=== PATIENT | female | born 1955 | race Caucasian/White ===

== ENCOUNTER → 2018-05-26 | Outpatient (REF) | payer OTHER ==
[2018-05-26 15:00] LABS: INFLUENZA A AMPLIFICATION NEGATIVE (NEGATIVE); INFLUENZA B AMPLIFICATION NEGATIVE (NEGATIVE)
== END ==
LOC: M LAB REF 13:58
PROVIDERS: ATTEND Physician Assistant
DX: J11.1 Influenza due to unidentified influenza virus with other respiratory manifestations (principal)

== ENCOUNTER → 2019-11-22 | Outpatient (CLI) | payer BC, OTHER ==
--- NOTE | 2020-01-02 10:34 | REP ---
COMPLETE ABDOMINAL ULTRASOUND WITH DUPLEX DOPPLER EVALUATION OF PORTAL VASCULATURE: HISTORY: Cirrhosis. FINDINGS: Real time sonographic evaluation of the abdomen is performed. Gallstones are seen in the gallbladder. There is gallbladder wall thickening up to 7 mm. There is no intrahepatic or extrahepatic biliary dilatation, the common bile duct measuring 6 mm. The liver has a cirrhotic appearance with diffuse heterogeneous coarsened echotexture, which is mildly increased. The right lobe appears small in size. No gross liver mass is seen. The pancreas could not be seen due to overlying bowel gas. The spleen is enlarged, measuring 14.0 x 13.0 x 8.8 cm. The kidneys are normal in size and echotexture, the right kidney measuring 11.9 x 5.9 x 4.4 cm and the left kidney measuring 11.7 x 5.7 x 5.0 cm. There is no hydronephrosis or renal mass. The abdominal aorta could not be visualized. There is moderate abdominal ascites mainly in the right side of the abdomen and pelvis. Real time ultrasound evaluation and duplex Doppler interrogation of the portal vasculature is performed. The main portal vein is dilated at 19 mm. There is a patent umbilical vein. There is no evidence of portal vein thrombosis. The hepatic veins are not well visualized. Only the right hepatic vein could be visualized with patency and poralization of the wave form. There is normal direction of flow in the portal vasculature. The splenic vein is only seen in the region of the splenic hilum, not centrally, with a velocity of 23 cm/s. The superior mesenteric vein is not visualized. Velocity in the main portal vein is 23 cm/s. Deep systolic velocity of the main hepatic artery is 116 cm/s. IMPRESSION: Gallstones in the gallbladder. Gallbladder wall thickening up to 7 mm. No biliary dilatation. Cirrhotic liver with no gross mass. Splenomegaly. Moderate ascites. There are findings of portal hypertension with dilated main portal vein and patent umbilical vein. There is no evidence of portal vein or hepatic vein thrombosis. There is normal direction of flow in the portal vasculature. MTDD
== END ==
LOC: M RAD 06:42
PROVIDERS: ATTEND Internal Medicine Gastroenterology
DX: K70.30 Alcoholic cirrhosis of liver without ascites (principal); R18.8 Other ascites; Z12.11 Encounter for screening for malignant neoplasm of colon; K59.00 Constipation, unspecified; L50.9 Urticaria, unspecified; K80.20 Calculus of gallbladder without cholecystitis without obstruction; K76.6 Portal hypertension

== ENCOUNTER → 2019-11-28 | Outpatient (CLI) | payer BC, OTHER ==
[2019-11-28 10:51] LABS: BLOOD UREA NITROGEN 8 MG/DL (7-18); CALCIUM LEVEL 9.2 MG/DL (8.8-10.2); CARBON DIOXIDE LEVEL 27 MEQ/L (21-32); CHLORIDE LEVEL 105 MEQ/L (98-107); CREATININE FOR GFR 0.85 MG/DL (0.55-1.30); GLOMERULAR FILTRATION RATE > 60.0 (>45); GLUCOSE, FASTING 101 MG/DL (70-100); POTASSIUM SERUM 3.2 MEQ/L (3.5-5.1); SODIUM LEVEL 137 MEQ/L (136-145)
--- NOTE | 2020-01-02 10:37 | REP ---
ULTRASOUND-GUIDED PARACENTESIS The procedure was performed under the direct supervision of Dr. Parsons. The risks and benefits of the procedure were explained to the patient and informed consent was obtained. The largest pocket of fluid was localized in the right upper quadrant using ultrasound guidance. The skin was prepped and draped in a sterile fashion. 1% Lidocaine was used as a local anesthetic. Using ultrasound guidance an 8-Congolese multi-side hole catheter was inserted using trocar technique. 2500 mL of yellow fluid was withdrawn and discarded. Preliminary sonography demonstrated a 10 mm hypoechoic nodule on the peritoneal surface in the right upper quadrant. IMPRESSION: Ultrasound-guided paracentesis yielding 2500 mL of yellow fluid. Note is made of a 10 mm hypoechoic nodule on the peritoneal lining in the right upper quadrant. MTDD
== END ==
LOC: M IRPRO 09:47
PROVIDERS: ATTEND Internal Medicine Gastroenterology
DX: K70.31 Alcoholic cirrhosis of liver with ascites (principal)
CPT/HCPCS: 49083; 80048; 96365; P9047

== ENCOUNTER → 2020-03-21 | Outpatient (CLI) | payer BC, OTHER ==
[~2020-03-21] MED LIST: ADV250INH INH; ALBU83IN INH; D31000TA2 PO; FURO40TA2 PO; GASTROGRAFIN SOLUTION 30ML (Q9963) As Ordered ONE; ISOVUE-370 76% 100ML VIAL As Ordered ONE; LEVA45AE INH; LEVOTAB10 PO; NEXI20GR PO; POTA10TA17 PO; SPIR100T3 PO; VITA-158 PO; VITMTA PO
--- NOTE | 2020-03-21 10:35 | REP ---
INDICATION: NEOPLASM OF COLON. COMPARISON: None. TECHNIQUE: CT of the chest with IV contrast. FINDINGS: There are no lung nodules or masses. There are no infiltrates or pleural effusions. There are numerous bulla throughout the lung nicole bilaterally predominantly in the upper lobes. There is no mediastinal, hilar or axillary lymph node enlargement. The thoracic aorta is unremarkable. Cardiac size is normal. There is no pericardial effusion. There are no lytic, blastic destructive skeletal changes. IMPRESSION: Bolus emphysema, otherwise, essentially negative CT study of the chest. There is no evidence of metastatic disease or acute cardiopulmonary findings. <Electronically signed by Parish Lewis > 03/21/20 1327
--- NOTE | 2020-03-21 11:03 | REP ---
INDICATION: NEOPLASM OF COLON. COMPARISON: This study is form contiguously with the chest CT this same date. There are no comparison abdomen CTs. There is an abdominal ultrasound dated 11/22/2019. TECHNIQUE: CT of the abdomen and pelvis with IV and bowel contrast. The abdomen and pelvis is scanned during the portal venous phase of enhancement. The abdomen is re-scanned during the equilibrium phase of enhancement. FINDINGS: The margin of the liver is nodular compatible with cirrhosis. No hepatic masses are identified. The portal vein is dilated measuring up to 16 mm transverse diameter, compatible with portal hypertension. I suspect there are a few small splenic hilus varices. The gallbladder and pancreas are unremarkable. On the comparison abdominal ultrasound gallbladder calculi were identified and the gallbladder wall is thickened measuring up to 7 mm. These calculi are not identified by CT today, ultrasound being more sensitive. The gallbladder wall does not appear thickened today. There is no pericholecystic fluid by CT. Spleen is mildly enlarged measuring 13 cm AP diameter and 14 cm craniocaudad. There is no ascites. No mesenteric adenopathy is identified. The abdominal aorta is unremarkable. There is no periaortic adenopathy or mass. No adenopathy is identified in the isis hepatis. The adrenals and kidneys are unremarkable. There is a midline ventral hernia containing omental fat but no bowel. The peritoneal defect measures 2.6 cm and the hernia sac measures 6.4 cm. The bowel and mesentery are unremarkable. Pelvis: Uterus and adnexa are unremarkable. There is no ascites. There is no adenopathy. The pelvic bowel loops are unremarkable. There are no lytic, blastic or destructive skeletal changes. IMPRESSION: There is no evidence of adenopathy, mass, ascites or metastatic disease. Findings in the liver compatible with cirrhosis. There are no hepatic masses. There are findings compatible with portal hypertension. Splenomegaly. Fat containing ventral hernia as described. <Electronically signed by Parish Lewis > 03/21/20 1100
== END ==
LOC: M RAD 07:56
PROVIDERS: ATTEND Internal Medicine Gastroenterology
DX: R19.5 Other fecal abnormalities (principal); C18.4 Malignant neoplasm of transverse colon; J43.9 Emphysema, unspecified; R16.1 Splenomegaly, not elsewhere classified
CPT/HCPCS: 71260; 74177; Q9963; Q9967

== ENCOUNTER → 2020-04-03 | Outpatient (CLI) | payer BC ==
[~2020-04-03] MED LIST changes: -GASTROGRAFIN SOLUTION 30ML (Q9963) As Ordered ONE; -ISOVUE-370 76% 100ML VIAL As Ordered ONE
== END ==
LOC: M LABSMTC 11:47
PROVIDERS: ATTEND Anesthesiology
DX: Z01.812 Encounter for preprocedural laboratory examination (principal); Z20.828 Contact with and (suspected) exposure to other viral communicable diseases

== ENCOUNTER 2020-04-08 08:58 | Inpatient (IN) | payer BC, OTHER ==
--- NOTE | 2020-04-07 11:43 | HPE ---
HISTORY AND PHYSICAL DATE OF ADMISSION: 04/08/2020 CHIEF COMPLAINT: Colon cancer (transverse colon). BRIEF HISTORY OF PRESENT ILLNESS: The patient is a 64-year-old female who underwent colonoscopy by Dr. 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 She was referred to me for transverse colectomy. Patient has not had any lower GI symptoms, no diarrhea, no constipation, no blood per rectum. She does have a history of cirrhosis and her liver tests as well as her liver function has been improving over the last six weeks. She presents now with controlled ascites and with plans for colectomy. PAST MEDICAL HISTORY: Significant for a history of anxiety, history of depression, history of colon cancer, history of lung disease (COPD), history of cirrhosis, history of uterine ablation, history of septoplasty. MEDICATIONS: 1. Spironolactone. 2. Lasix. 3. Levalbuterol. 4. Potassium. 5. Albuterol nebulizers. 6. Levocetirizine. 7. Advair Diskus. 8. Nexium. 9. Lorazepam. PHYSICAL EXAMINATION: GENERAL: Anxious 64-year-old female who looks stated age. HEENT: Unremarkable. NECK: Supple without adenocarcinoma. LUNGS: Clear to auscultation without crackles, wheezes or rhonchi. HEART: Regular without murmur. ABDOMEN: Soft, nondistended and nontender. She has somewhat of a protuberant abdomen and does have an umbilical hernia that has some fat within it but no other significant abnormalities. IMPRESSION AND PLAN: The patient has a malignant colon cancer of the transverse colon. We have discussed laparoscopic transverse colectomy/partial colectomy with colon to colon anastomosis depending on its location. She understands the risks include but are not limited to infection, bleeding, damage to surrounding structures as well as need for open operative intervention. She understands that we will proceed with a laparoscopic transverse colectomy as the plan. She also understands because of her history of cirrhosis that she has higher comorbidities that may increase her perioperative risks as well. She does have an umbilical hernia and will use this as the extraction site and close this at the time of her surgery. She understands this and is undergoing a preoperative mechanical as well as antibiotic bowel prep. Will have preoperative IV antibiotics, ZOIE sequentials, Chan catheter placed at the time of the operation and plan for admission to the hospital for probably three to five days.
[2020-04-08] VITALS (13 sets, daily range): BP systolic 105–131; BP diastolic 50–65
[~2020-04-08] VITALS: Ht 167.6 cm; Wt 79.9 kg
[~2020-04-08 08:58] MED LIST changes: +LIDOCAINE 1% MDV 20ML VIAL SQ PRN; +LR 1,000 ML IV ONE; +cefoTEtan DISODIUM 2 GM in D5W MINI-BAG PLUS 50 ML IV ONE
[2020-04-08] MEDS ORDERED: SUGAMMADEX SODIUM 500 MG/5 ML VIAL (BRIDION) As Ordered ONE (09:51)
[2020-04-08] MEDS ORDERED: KETOROLAC 60MG 2ML VIAL As Ordered ONE (09:51)
[2020-04-08] MEDS ORDERED: dexameTHASONE 4 MG/ML 1ML VIAL (J1100 PER 1MG) As Ordered ONE (09:51)
[2020-04-08] MEDS ORDERED: ACETAMINOPHEN 1000MG 100ML IV BTL (OFIRMEV) (J0131 PER 10MG) As Ordered ONE (09:51)
[2020-04-08] MEDS ORDERED: ONDANSETRON 4MG/2ML VIAL As Ordered ONE (09:51)
[2020-04-08] MEDS ORDERED: ROCURONIUM BROMIDE 50 MG/5 ML VIAL As Ordered ONE ×2 (09:51→13:00)
[2020-04-08] MEDS ORDERED: propofoL 200 MG/20 ML VIAL As Ordered ONE (09:51)
[2020-04-08] MEDS ORDERED: LIDOCAINE 2% 100MG/5ML SDV (FOR ANES.) As Ordered ONE (09:51)
[2020-04-08] MEDS ORDERED: MIDAZOLAM INJ 2MG/2ML VIAL (J2250 PER 1MG) As Ordered ONE (09:52)
[2020-04-08] MEDS ORDERED: fentaNYL 100 MCG/2 ML INJECTION (J3010) As Ordered ONE ×2 (09:52→15:06)
[2020-04-08] MEDS ORDERED: HYDROmorphone HCL 2 MG/ML 1ML VIAL (J1170) As Ordered ONE (09:52)
[2020-04-08] MEDS ORDERED: ALBUTEROL SULFATE 2.5 MG/0.5 ML INH NEB SOLN As Ordered ONE (10:58)
[2020-04-08] MEDS ORDERED: ALBUTEROL SULFATE 2.5 MG/0.5 ML INH NEB SOLN INH ONE (11:15)
[2020-04-08] MEDS ORDERED: LIDOCAINE W/EPINEPHRINE 1% 20ML VIAL As Ordered ONE (11:43)
[2020-04-08 11:51] LABS: INR 1.42; PROTHROMBIN TIME 17.7 SECONDS (12.5-14.3)
[2020-04-08 11:52] LABS: PARTIAL THROMBOPLASTIN TIME 38.3 SECONDS (24.2-38.5)
[2020-04-08] MEDS ORDERED: cefoTEtan INJ 2GM VIAL (S0074 PER 500MG) As Ordered ONE (12:10)
[2020-04-08] MEDS ORDERED: BUPIVACAINE LIPOSOME/PF 1.3% 20ML VIAL (13.3MG/ML)(EXPAREL)(C9290 PER1MG) As Ordered ONE (14:09)
[2020-04-08] MEDS ORDERED: BUPIVACAINE HCL 0.25% 10ML VIAL As Ordered ONE (14:09)
[2020-04-08] MEDS: fentaNYL 100 MCG/2 ML INJECTION (J3010) IV PRN ×2 (14:56→15:01)
[2020-04-08] MEDS ORDERED: cefoTEtan DISODIUM 2 GM in D5W MINI-BAG PLUS 50 ML IV SCH (15:00)
[2020-04-08] MEDS ORDERED: LR 1,000 ML IV SCH (15:15)
[2020-04-08] MEDS ORDERED: oxyCODONE 5MG TAB PO PRN (15:15)
[2020-04-08] MEDS ORDERED: ONDANSETRON 4MG/2ML VIAL IV PRN (15:15)
[2020-04-08] MEDS ORDERED: METOCLOPRAMIDE INJ 10MG/2ML VIAL (J2765 PER 1) IV PRN (15:15)
[2020-04-08] MEDS: HYDROMORPHONE HCL 0.5 MG/ 0.5 ML SYRINGE (J1170 PER 1) IV PRN ×2 (15:53→16:05)
[2020-04-08] MEDS: NS 1,000 ML IV SCH (17:16)
[2020-04-08 17:44] LABS: HEMATOCRIT 31.1 % (36.0-47.0); HEMOGLOBIN 10.6 g/dl (12.0-15.5); MEAN CORPUSCULAR HEMOGLOBIN 33.1 pg (27.0-33.0); MEAN CORPUSCULAR HGB CONC 34.1 g/dl (32.0-36.5); MEAN CORPUSCULAR VOLUME 97.2 fl (80.0-96.0); PLATELET COUNT, AUTOMATED 103 10^3/uL (150-450); WHITE BLOOD COUNT 4.9 10^3/uL (4.0-10.0)
[2020-04-08 17:54] LABS: INR 1.34; PROTHROMBIN TIME 16.9 SECONDS (12.5-14.3)
[2020-04-08 17:55] LABS: PARTIAL THROMBOPLASTIN TIME 35.7 SECONDS (24.2-38.5)
[2020-04-08] MEDS: ADVAIR HFA 115/21MCG INHALER INH SCH (20:53)
[2020-04-08] MEDS: ALVIMOPAN 12 MG CAPSULE (ENTEREG) PO SCH (21:36)
[2020-04-08 22:05] LABS: HEMATOCRIT 26.2 % (36.0-47.0)
[2020-04-08 22:07] LABS: HEMOGLOBIN 8.5 g/dl (12.0-15.5)
[2020-04-08] MEDS: ALBUTEROL SULFATE 2.5 MG/0.5 ML INH NEB SOLN NEB PRN (23:33)
[2020-04-09] VITALS (41 sets, daily range): BP systolic 99–127; BP diastolic 55–82
[2020-04-09] MEDS ORDERED: cefoTEtan DISODIUM 2 GM in D5W MINI-BAG PLUS 50 ML IV SCH ×2
[2020-04-09 00:14] LABS: INR 1.37; PROTHROMBIN TIME 17.2 SECONDS (12.5-14.3)
[2020-04-09 00:15] LABS: PARTIAL THROMBOPLASTIN TIME 33.7 SECONDS (24.2-38.5)
[2020-04-09 00:19] LABS: BASO % 0.1 % (0.0-1.0); HEMATOCRIT 24.2 % (36.0-47.0); HEMOGLOBIN 8.3 g/dl (12.0-15.5); LYMPH # 0.4 10^3/uL (1.5-5.0); LYMPH % 4.3 % (24.0-44.0); MEAN CORPUSCULAR HEMOGLOBIN 32.8 pg (27.0-33.0); MEAN CORPUSCULAR HGB CONC 34.3 g/dl (32.0-36.5); MEAN CORPUSCULAR VOLUME 95.7 fl (80.0-96.0); MONO # 0.8 10^3/uL (0.0-0.8); MONO % 8.5 % (0.0-5.0); NEUTROPHILS # 8.6 10^3/uL (1.5-8.5); NEUTROPHILS % 86.2 % (36.0-66.0); PLATELET COUNT, AUTOMATED 190 10^3/uL (150-450); RED BLOOD COUNT 2.53 10^6/uL (4.00-5.40); WHITE BLOOD COUNT 9.9 10^3/uL (4.0-10.0)
[2020-04-09] MEDS: MORPHINE 2 MG/ML 1ML VIAL (J2270) IV PRN ×3 (01:01→21:35)
[2020-04-09] MEDS ORDERED: LORazepam 0.5 MG TAB PO PRN (01:30)
[2020-04-09] MEDS: NS 1,000 ML IV SCH ×3 (04:22→18:15)
[2020-04-09] MEDS: ONDANSETRON 4MG/2ML VIAL IV PRN ×2 (06:21→21:45)
[2020-04-09] MEDS: ALBUTEROL SULFATE 2.5 MG/0.5 ML INH NEB SOLN NEB PRN ×2 (06:24→19:39)
[2020-04-09 06:46] LABS: HEMATOCRIT 22.9 % (36.0-47.0); HEMOGLOBIN 7.6 g/dl (12.0-15.5); MEAN CORPUSCULAR HEMOGLOBIN 30.8 pg (27.0-33.0); MEAN CORPUSCULAR HGB CONC 33.2 g/dl (32.0-36.5); MEAN CORPUSCULAR VOLUME 92.7 fl (80.0-96.0); PLATELET COUNT, AUTOMATED 143 10^3/uL (150-450); RED BLOOD COUNT 2.47 10^6/uL (4.00-5.40); WHITE BLOOD COUNT 11.3 10^3/uL (4.0-10.0)
[2020-04-09 07:19] LABS: ALBUMIN 2.8 GM/DL (3.2-5.2); BILIRUBIN,TOTAL 6.2 MG/DL (0.2-1.0); CALCIUM LEVEL 8.7 MG/DL (8.8-10.2); CREATININE FOR GFR 1.17 MG/DL (0.55-1.30); GLOMERULAR FILTRATION RATE 49.9 (>45); POTASSIUM SERUM 4.1 MEQ/L (3.5-5.1)
[2020-04-09] MEDS: ADVAIR HFA 115/21MCG INHALER INH SCH ×2 (07:39→19:36)
[2020-04-09] MEDS ORDERED: OCTREOTIDE ACETATE 100MCG/ML VIAL (J2354 PER 25MCG) IV ONE (08:00)
[2020-04-09] MEDS ORDERED: PROMETHAZINE INJ 25 MG/ML VIAL (J2550) IV PRN (08:15)
[2020-04-09] MEDS ORDERED: SPIRONOLACTONE 50 MG TAB PO SCH (09:00)
[2020-04-09] MEDS ORDERED: FUROSEMIDE 40 MG TAB PO SCH (09:00)
[2020-04-09] MEDS: ALVIMOPAN 12 MG CAPSULE (ENTEREG) PO SCH ×2 (09:17→21:33)
[2020-04-09] MEDS: PANTOPRAZOLE 40MG VIAL (C9113 PER 1) IV SCH (09:17)
[2020-04-09] MEDS: OCTREOTIDE ACETATE 1,200 MCG in NS 238.8 ML IV SCH (09:21)
[2020-04-09] MEDS: LORazepam 2 MG/ML VIAL IV PRN (09:25)
--- NOTE | 2020-04-09 09:38 | RO ---
OPERATIVE NOTE DATE OF OPERATION: 04/08/2020 PREOPERATIVE DIAGNOSIS: Transverse colon cancer seen on colonoscopy. POSTOPERATIVE DIAGNOSIS: Hepatic flexure cancer. PROCEDURE: Laparoscopic extended right colectomy. SURGEON: Demetrio Carpio M.D. BOOK OR SCRIPT EDITOR: Parish Archuleta DO (provided retraction, exposure, assistance with the anastomosis and abdominal wall closure). ESTIMATED BLOOD LOSS: 100 mL FLUIDS: Crystalloid. ANESTHESIA: General endotracheal anesthesia. DISPOSITION: The patient was taken to the operating room, awake, alert, hemodynamically stable. BRIEF OPERATIVE SUMMARY: The patient was taken to the operating room and was given general anesthesia. After adequate anesthesia and preoperative antibiotics were given, the patient was prepped and draped in the usual sterile fashion. Next, the umbilical hernia was reduced as was omental fat that was in this and it was reduced relatively easily. Next, using the hernia site as traction, I was able to make a small 5 mm incision in the supraumbilical area. A Veress needle was placed into the abdominal cavity and inflated to 15 mm pressure and then a dilating 5 mm trocar was placed at the site. I was able to see the omentum that was covering over the transverse colon. I was not able to really see the tattooing at this time. There were adhesions in the pericolic gutters bilaterally where there were some collaterals developing from the omentum to the colonic wall/omentum in this areas and dense adhesions in this as well. There was also omentum which was adherent to the descending colon as well as to the right colon itself. Next, a suprapubic 10 mm trocar was placed and then right lower quadrant and left lower quadrant 5 mm trocars were placed. The omentum was grasped and elevated and did not see the tattooing of the colon in this area and thus after mobilizing the descending colon adhesions and the omentum off the descending colon, I was able to see up to almost the splenic flexure in this area and then the transverse colon in this area as well. I was able to see a good portion of it. I did not see any tattooing. Attention was turned toward the right colon where the omentum was taken off the cecum and dissecting continued up to the hepatic flexure where I was able to see the tattooing right at the ascending portion of the hepatic flexure. Once this was identified, then the omentum was taken off the transverse colon and off the hepatic flexure area. This was performed with harmonic scalpel. The lateral attachments of the right colon were taken down with harmonic scalpel and I was able to mobilize the cecum as well significantly with harmonic scalpel and some minimal blunt dissection. However, given the significant cirrhosis appreciated on the liver and in the liver itself, I used mostly harmonic scalpel given that even blunt dissection caused some oozing from surfaces. In any case, once this was mobilized off what appeared to be the duodenum in this area in the right upper quadrant area, then further dissection along the transverse colon and omentum was performed into the lesser sac area. Once this was mobilized adequately, I felt that I could bring the right colon down to the umbilical site for an ileocolic anastomosis. Next, the umbilicus was opened using a 15 blade and electrocautery was used to cut the dermis through the hernia sac site and the hernia sac was transected at the level of the fascia. The incision was opened slightly larger for mobilization/transection of the colon and vessels. In any case, the terminal ileum was transected using a JOSE ALBERTO stapler and the mesentery of the small bowel in this area was transected using an [place] 60 stapler as well as the ileocolic vessels transected using an Chiloquin 60 stapler. Some harmonic scalpel use was also used to take down some vessels. The transverse colon was transected using a JOSE ALBERTO stapler and a [id number] anastomosis was performed with the enterotomy site removed with a JOSE ALBERTO stapler. The patient had some oozing along the staple line which was controlled with a [id number] 3-0 Vicryl in two different areas. Some clips were placed on the staple line along the mesentery as well and along the ileocolic area but no active bleeding was appreciated. The #19 Cl drain was left in the bed of the dissection and down into the pelvis given her serosa/slightly elevated PTT and PT. We had started some fresh frozen plasma at the beginning and midway through the case but still had not completely finished the first unit of FFP during the procedure. In any case, the midline was closed with a running #1 Vicryl suture. Given the very attenuated skin where the hernia was at the umbilicus, I did need to resect the skin in this area including umbilicus and this was brought together with ronnie. A drain stitch was placed and Exparel was placed along the incision as well. Dry sterile dressing was applied. The patient was awakened, extubated and brought to the recovery room awake, alert and hemodynamically stable. Sponge and needle counts were correct x2.
[2020-04-09 11:50] LABS: HEMATOCRIT 24.8 % (36.0-47.0); HEMOGLOBIN 8.6 g/dl (12.0-15.5)
[2020-04-09] MEDS ORDERED: propofoL 200 MG/20 ML VIAL As Ordered ONE (12:49)
[2020-04-09] MEDS ORDERED: MIDAZOLAM INJ 2MG/2ML VIAL (J2250 PER 1MG) As Ordered ONE (12:49)
[2020-04-09] MEDS ORDERED: KETOROLAC 60MG 2ML VIAL As Ordered ONE (12:49)
[2020-04-09] MEDS ORDERED: ONDANSETRON 4MG/2ML VIAL As Ordered ONE (12:49)
[2020-04-09] MEDS ORDERED: ROCURONIUM BROMIDE 50 MG/5 ML VIAL As Ordered ONE (12:49)
[2020-04-09] MEDS ORDERED: ACETAMINOPHEN 1000MG 100ML IV BTL (OFIRMEV) (J0131 PER 10MG) As Ordered ONE (12:49)
[2020-04-09] MEDS ORDERED: dexameTHASONE 4 MG/ML 1ML VIAL (J1100 PER 1MG) As Ordered ONE (12:49)
[2020-04-09] MEDS ORDERED: LIDOCAINE 2% 100MG/5ML SDV (FOR ANES.) As Ordered ONE (12:49)
[2020-04-09] MEDS ORDERED: SUGAMMADEX SODIUM 500 MG/5 ML VIAL (BRIDION) As Ordered ONE (12:49)
[2020-04-09] MEDS ORDERED: HYDROmorphone HCL 2 MG/ML 1ML VIAL (J1170) As Ordered ONE (12:50)
[2020-04-09] MEDS ORDERED: fentaNYL 100 MCG/2 ML INJECTION (J3010) As Ordered ONE (12:50)
[2020-04-09] MEDS ORDERED: BUPIVACAINE HCL 0.25% 10ML VIAL As Ordered ONE (12:52)
[2020-04-09] MEDS ORDERED: LIDOCAINE W/EPINEPHRINE 1% 20ML VIAL As Ordered ONE (12:52)
[2020-04-09] MEDS ORDERED: PHENYLEPHRINE 10MG/ML 1ML VIAL (J2370 PER 1) As Ordered ONE (13:16)
[2020-04-09] MEDS ORDERED: METOCLOPRAMIDE INJ 10MG/2ML VIAL (J2765 PER 1) IV PRN (15:45)
[2020-04-09] MEDS ORDERED: ONDANSETRON 4MG/2ML VIAL IV PRN (15:45)
[2020-04-09] MEDS ORDERED: fentaNYL 100 MCG/2 ML INJECTION (J3010) IV PRN (15:45)
[2020-04-09] MEDS ORDERED: LR 1,000 ML IV SCH (15:45)
[2020-04-09 15:46] LABS: HEMATOCRIT 29.4 % (36.0-47.0); HEMOGLOBIN 9.8 g/dl (12.0-15.5); MEAN CORPUSCULAR HEMOGLOBIN 29.9 pg (27.0-33.0); MEAN CORPUSCULAR HGB CONC 33.3 g/dl (32.0-36.5); MEAN CORPUSCULAR VOLUME 89.6 fl (80.0-96.0); PLATELET COUNT, AUTOMATED 110 10^3/uL (150-450); RED BLOOD COUNT 3.28 10^6/uL (4.00-5.40); WHITE BLOOD COUNT 10.2 10^3/uL (4.0-10.0)
[2020-04-09 15:58] LABS: INR 1.55; PROTHROMBIN TIME 18.9 SECONDS (12.5-14.3)
[2020-04-09 15:59] LABS: PARTIAL THROMBOPLASTIN TIME 31.5 SECONDS (24.2-38.5)
[2020-04-09 16:12] LABS: CALCIUM LEVEL 8.1 MG/DL (8.8-10.2); CREATININE FOR GFR 1.24 MG/DL (0.55-1.30); GLOMERULAR FILTRATION RATE 46.7 (>45); POTASSIUM SERUM 4.7 MEQ/L (3.5-5.1)
--- NOTE | 2020-04-09 19:53 | RO ---
OPERATIVE NOTE DATE OF OPERATION: 04/08/2020 PREOPERATIVE DIAGNOSIS: Postoperative hemorrhage. POSTOPERATIVE DIAGNOSIS: Postoperative hemorrhage, intraabdominal hematoma. PROCEDURE: Diagnostic laparoscopy with evacuation of intraabdominal hematoma. SURGEON: Demetrio Carpio MD MAPPING EDITOR: JONELLE NAGY DO (provided retraction, exposure, assistance with visualization). EBL: Minimal (however, there was approximately 500 cc of clot within the abdomen). DISPOSITION: The patient was taken to the recovery room awake, alert, and hemodynamically stable. BRIEF OPERATIVE SUMMARY: The patient was taken to the operating room and was given general anesthesia. After adequate anesthesia and preoperative antibiotics were given, the patient was prepped and draped in usual sterile fashion. Next, insufflation was used via the Marco Antonio-Garcia drain and it provided excellent insufflation. All of the ronnie were removed out of the previous incision site. The 10-mm trocar site inferior to the umbilicus was entered using a 5-mm trocar. This went in without difficulty and without the blade, and then the other ports were entered with a 5-mm trocar. Next, there was clot that was on the right side of the abdomen near the anastomosis and the right-side wall where the patient had a significant amount of varicosities that were taken down and collaterals that were taken down yesterday. However, on the left hand side, I did not see any significant amount of clot or abnormality. In any case, at this point, all of the clots started to be taken down/removed with suction. We changed over to a 10-mm port at the infraumbilical site to remove the clots easier with a lot of irrigation to eventually clean this area out nicely. Once it was returning clear and evaluation of the sidewall of the anastomosis was intact and looked good, no bleeding from this site. I was not seeing any bleeding coming from posterior to this area, although it was difficult to visualize the mesentery on the backside, and I was not able to see that entirely, and the retroperitoneum where the duodenum was; however, no bleeding or active bleeding was appreciated with all of the irrigation in this area. Once that was performed and we dried out the area as much as possible, irrigation in the pelvis was performed and we did not see any significant bleeding from that area as well, nothing upon the liver itself. Once again, the right paracolic gutter area was irrigated again. The abdomen was desufflated and allowed time to see if there was any oozing from possibly hepatitic congestion issues/portal hypertension issues. Then, the abdomen was insufflated to 8 mm of pressure and then the right side was evaluated once again and irrigated copiously again. No active bleeding was appreciated, thus Rhianna was placed all along the side and right next to the anastomosis and on the mesentery posterior to the anastomosis in this area. No blood was seen on Rhianna itself; it was nice and white and looked intact. All trocars were removed under direct visualization. A drain sponge was placed. A #19 Marco Atnonio-Garcia drain was left in the bed of the dissection, as well as coming out through the epigastric trocar site. All trocar sites were closed with ronnie. Dry sterile dressings were applied. The patient was awakened, extubated, and brought to the recovery room awake, alert, and hemodynamically stable. Sponge and needle counts were correct x2.
[2020-04-10] VITALS (33 sets, daily range): BP systolic 81–119; BP diastolic 50–69
[2020-04-10] MEDS: NS 1,000 ML IV SCH ×4 (01:19→18:25)
[2020-04-10] MEDS: MORPHINE 2 MG/ML 1ML VIAL (J2270) IV PRN ×4 (03:06→22:36)
[2020-04-10] MEDS: ALBUTEROL SULFATE 2.5 MG/0.5 ML INH NEB SOLN NEB PRN ×2 (05:12→19:51)
[2020-04-10 05:28] LABS: HEMATOCRIT 25.8 % (36.0-47.0); HEMOGLOBIN 8.6 g/dl (12.0-15.5); MEAN CORPUSCULAR HEMOGLOBIN 30.2 pg (27.0-33.0); MEAN CORPUSCULAR HGB CONC 33.3 g/dl (32.0-36.5); MEAN CORPUSCULAR VOLUME 90.5 fl (80.0-96.0); RED BLOOD COUNT 2.85 10^6/uL (4.00-5.40); WHITE BLOOD COUNT 7.9 10^3/uL (4.0-10.0)
[2020-04-10 05:33] LABS: PLATELET COUNT, AUTOMATED 90 10^3/uL (150-450)
[2020-04-10 05:56] LABS: ALBUMIN 2.8 GM/DL (3.2-5.2); BILIRUBIN,TOTAL 4.9 MG/DL (0.2-1.0); CALCIUM LEVEL 7.8 MG/DL (8.8-10.2); CREATININE FOR GFR 1.02 MG/DL (0.55-1.30); GLOMERULAR FILTRATION RATE 58.5 (>45); POTASSIUM SERUM 4.6 MEQ/L (3.5-5.1); TOTAL PROTEIN 5.5 GM/DL (6.4-8.2)
[2020-04-10] MEDS: ADVAIR HFA 115/21MCG INHALER INH SCH ×2 (07:36→19:51)
[2020-04-10] MEDS ORDERED: LORazepam 2 MG/ML VIAL As Ordered ONE (08:27)
[2020-04-10] MEDS: PANTOPRAZOLE 40MG VIAL (C9113 PER 1) IV SCH (08:31)
[2020-04-10] MEDS: ALVIMOPAN 12 MG CAPSULE (ENTEREG) PO SCH ×2 (08:32→20:11)
[2020-04-10] MEDS: LORazepam 2 MG/ML VIAL IV PRN ×2 (08:32→19:25)
[2020-04-10] MEDS ORDERED: PHYTONADIONE INJection 10 MG in NS 50 ML IV ONE (08:45)
[2020-04-10] MEDS ORDERED: CEPACOL LOZENGE PO PRN (09:00)
[2020-04-10] MEDS: OCTREOTIDE ACETATE 1,200 MCG in NS 238.8 ML IV SCH (09:29)
--- NOTE | 2020-04-10 14:23 | CR.PDOC ---
General Date of Consultation: Apr 10, 2020 Referring Provider: Demetrio Carpio Jr Consultation REASON FOR CONSULTATION/CHIEF COMPLAINT: COPD HISTORY OF PRESENT ILLNESS: Mrs. Herzog is a 64 year old female with adenocarci noma of the transverse colon who is here for a transverse colectomy. Earlier this month, she had a colonoscopy in [place] which demonstrated a polyp. Biopsy performed revealed that it was an adenocarcinoma. She was referred here for transverse colectomy. On 04/08/2020, she underwent a right colectomy. On 04/09/2020, she was taken back to the OR for postoperative hemorrhage and found to have an intraabdominal hematoma. Today, I was asked to evaluate her other medical co-morbidities. When I saw her, she was in good spirits, but anxious. She denies dyspnea, but has a dry cough. Otherwise denies chest pain or lightheadedness. Lungs were clear without wheezing rales, or rhonchi. Her only complaint was abdominal pain which was secondary to recent surgery. ALLERGIES: Please see below. HOME MEDICATIONS: Please see below. PAST MEDICAL HISTORY: 1. Anxiety 2. Depression 3. Colon cancer 4. COPD 5. Cirrhosis 6. Uterine ablation PAST SURGICAL HISTORY: 1. Uterine ablation 2. Septoplasty 3. Right colectomy FAMILY HISTORY: Father: at 64 years old. History of DM Mother: at 78 years old. History of lung cancer and from pneumonia SOCIAL HISTORY: Tobacco use: Former smoker, quit 7 years ago, smoked about 15 to 20 years, about 1ppd ETOH: Drinks "white zin" Illicit drug use: Denies REVIEW OF SYSTEMS: CONSTITUTIONAL: Denies fever/chills HEENT: Denies changes to vision CARDIOVASCULAR: Denies chest pain, Denies lightheadedness/dizziness RESPIRATORY: Reports dry cough. Denies dyspnea GENITOURINARY: Denies dysuria GASTROINTESTINAL: Reports abdominal pain from surgery SKIN: Denies rash NEUROLOGICAL: Denies paresthesias PSYCHIATRIC: Anxious HEMATOLOGICAL: Reports easy bruisability PHYSICAL EXAMINATION: VITAL SIGNS: Please see below. GENERAL APPEARANCE: Comfortable, in no apparent distress HEENT: Head normocephalic, atraumatic RESPIRATORY: Lung clear to auscultation bilaterally CARDIOVASCULAR: Regular rate and rhythm ABDOMEN: Distended, tender EXTREMITIES: Has SCDs on NEUROLOGICAL: CN 3-12 grossly intact PSYCHIATRIC: Anxious LABORATORY DATA: Please see below. ASSESSMENT/PLAN: 1. Adenocarcinoma of the colon -General surgery is primary and have performed right colectomy 2. Acute blood loss anemia -During this admission, she has had a total of 6units of pRBC, 6units of FFP, 1unit of platelets -PT/INR elevated, most likely from Cirrhosis 3. TERI -Last known creatinine was 0.85 in Nov 2019 -Creatinine peaked at 1.24 -Improved with IVF and holding diuretics -Continue to monitor 4. COPD -Stable, not in exacerbation -Continue with Advair and PRN albuterol 5. Cirrhosis -Child-Boudreaux score class B, MELD-Na score 19 -On octreotide -Supportive care and alcohol avoidance 6. DVT ppx -No chemical ppx due to bleed. Agree with SCD/TEDs Thank you for consulting us, we will continue following Vital Signs/I&O Vital Signs Date Time Temp Pulse Resp B/P (MAP) Pulse Ox O2 Delivery O2 Flow Rate FiO2 04/10/20 13:34 98.6 91 22 116/64 95 Room Air 04/10/20 12:03 95 04/10/20 04:00 2.0 I&O- Last 24 Hours up to 6 AM 04/10/20 06:00 Intake Total 8594 ml Output Total 3315 ml Balance 5279 ml Laboratory Data Labs 24H Laboratory Tests 2 04/09/20 15:30: Nucleated Red Blood Cells % (auto) 0.0, Prothrombin Time 18.9H, Prothromb Time International Ratio 1.55, Activated Partial Thromboplast Time 31.5, Anion Gap 9, Glomerular Filtration Rate 46.7, Calcium Level 8.1L 04/10/20 05:23: Nucleated Red Blood Cells % (auto) 0.0, Anion Gap 5L, Glomerular Filtration Rate 58.5, Calcium Level 7.8L, Immature Platelet Fraction 1.7, Total Bilirubin 4.9H, Aspartate Amino Transf (AST/SGOT) 47H, Alanine Aminotransferase (ALT/SGPT) 28, Alkaline Phosphatase 59, Total Protein 5.5L, Albumin 2.8L, Albumin/Globulin Ratio 1.0L CBC/BMP Laboratory Tests 04/09/20 15:30 04/10/20 05:23 Allergies Coded Allergies: Sulfa (Sulfonamide Antibiotics) (Verified Allergy, Unknown, HIVES, 03/26/20) levofloxacin (Verified Allergy, Unknown, REDNESS TO EAR, 03/26/20) tetracycline (Verified Allergy, Unknown, HIVES, 03/26/20) Home Medications Scheduled Ascorbic Acid (Vitamin C) 500 Mg Tablet, 2 TAB PO DAILY, (Reported) Cholecalciferol (Vitamin D3) (Vitamin D3) 1,000 Unit Tablet, 2,000 UNITS PO DAILY, (Reported) Esomeprazole Magnesium (Nexium) 20 Mg Suspdr.pkt, 20 MG PO DAILY, (Reported) Furosemide (Furosemide) 40 Mg Tablet, 40 MG PO DAILY, (Reported) Levocetirizine Dihydrochloride (Levocetirizine Dihydrochloride) 5 Mg Tablet, 5 MG PO BID, (Reported) Multivitamins (Thera M Plus Tablet) 1 Each Tablet, 2 TAB PO DAILY, (Reported) Potassium Chloride (Potassium Chloride) 10 Meq Tab.er.prt, 10 MEQ PO TID, (Reported) Salmeterol/Fluticasone (Advair 250-50 Diskus) 1 Each Blst.w.dev, INH DAILY, (Reported) Spironolactone (Spironolactone) 100 Mg Tablet, 100 MG PO DAILY, (Reported) Scheduled PRN Albuterol Sulf (Albuterol Sulfate) 2.5 Mg/3 Ml Vial.neb, INH BIDP PRN for SOB/WHEEZING, (Reported) Levalbuterol Tartrate (Levalbuterol Tartrate Hfa) 15 Gm Hfa.aer.ad, 15 GM INH QIDP PRN for SHORTNESS OF BREATH, (Reported) SHARYN AGOSTO DO Apr 10, 2020 14:15
[2020-04-10 19:00] LABS: HEMATOCRIT 29.5 % (36.0-47.0)
[2020-04-10 19:16] LABS: INR 1.41; PROTHROMBIN TIME 17.6 SECONDS (12.5-14.3)
[2020-04-10] MEDS ORDERED: FUROSEMIDE 20MG/2ML VIAL (J1940) IV ONE (20:00)
[2020-04-11] VITALS (13 sets, daily range): BP systolic 83–120; BP diastolic 50–72
[2020-04-11] MEDS: LORazepam 2 MG/ML VIAL IV PRN ×3 (04:20→19:56)
[2020-04-11] MEDS: ALBUTEROL SULFATE 2.5 MG/0.5 ML INH NEB SOLN NEB PRN ×2 (04:26→16:48)
[2020-04-11] MEDS: NS 1,000 ML IV SCH (04:28)
[2020-04-11 05:20] LABS: HEMATOCRIT 32.1 % (36.0-47.0); HEMOGLOBIN 10.7 g/dl (12.0-15.5); MEAN CORPUSCULAR HEMOGLOBIN 30.9 pg (27.0-33.0); MEAN CORPUSCULAR HGB CONC 33.3 g/dl (32.0-36.5); MEAN CORPUSCULAR VOLUME 92.8 fl (80.0-96.0); PLATELET COUNT, AUTOMATED 103 10^3/uL (150-450); RED BLOOD COUNT 3.46 10^6/uL (4.00-5.40); WHITE BLOOD COUNT 8.9 10^3/uL (4.0-10.0)
[2020-04-11 06:03] LABS: ALBUMIN 2.6 GM/DL (3.2-5.2); BILIRUBIN,TOTAL 3.6 MG/DL (0.2-1.0); CREATININE FOR GFR 1.04 MG/DL (0.55-1.30); GLOMERULAR FILTRATION RATE 57.2 (>45); POTASSIUM SERUM 3.8 MEQ/L (3.5-5.1); TOTAL PROTEIN 5.8 GM/DL (6.4-8.2)
[2020-04-11] MEDS: ADVAIR HFA 115/21MCG INHALER INH SCH ×2 (07:41→20:49)
[2020-04-11] MEDS: MORPHINE 2 MG/ML 1ML VIAL (J2270) IV PRN ×3 (07:53→19:56)
[2020-04-11] MEDS ORDERED: FUROSEMIDE 20MG/2ML VIAL (J1940) IV ONE (08:45)
[2020-04-11] MEDS: ALVIMOPAN 12 MG CAPSULE (ENTEREG) PO SCH ×2 (09:42→20:12)
[2020-04-11] MEDS: PANTOPRAZOLE 40MG VIAL (C9113 PER 1) IV SCH (09:42)
[2020-04-11] MEDS: OCTREOTIDE ACETATE 1,200 MCG in NS 238.8 ML IV SCH (09:43)
--- NOTE | 2020-04-11 10:55 | IPN ---
PROGRESS NOTE DATE: 04/11/2020 SUBJECTIVE: The patient was seen last night and still was making some good progress yesterday, hematocrit came up nicely, Marco Antonio-Garcia drain looked more serosanguineous, and real estate closer the serous side. In general, her urine output was good with the Lasix given, and she seemed to be making some slow, but progressive, improvements. I asked the hospitalist to see her because of her respiratory issues to make some modifications of her nebulizers, giving that she was desiring some changes in those; but otherwise, she seemed to be doing well overnight. She said she had respiratory distress overnight, but it sounds as though she had some phlegm in the back of her throat that was causing her distress. In any case, she has had no bowel movements and no flatus at this time. She is starting to get some crampy abdominal pain and otherwise no other complaints. OBJECTIVE: Her abdomen is softly distended. Marco Antonio-Garcia drain is actually looking more serous than serosanguineous and the dressings are clean and dry. LABORATORY DATA: Her white count is normal. Hematocrit is coming up nicely. Platelets are stable. BUN came down nicely this morning. IMPRESSION AND PLAN: The patient has some slow, but progressive improvement of overall bleeding issues. At this point, I am not seeing any need for transfusions. However, I do feel that she needs to be a little more aggressively treated with diuretics; so, we will restart her Lasix, and I will give her an extra IV dose this morning. Start her Spironolactone and see how she is doing, and keep her on the clear liquids for now. I do feel that given she has had some crampy abdominal pain and some mild distention, I would like to avoid her having any significant nausea or progressive abdominal distention. She is quite an anxious individual and avoiding any issues that might concern her more would be beneficial in this individual. In any case, Dr. Mora will be covering me this weekend.
--- NOTE | 2020-04-11 10:55 | IPN ---
PROGRESS NOTE DATE: 04/10/2020 SUBJECTIVE: The patient seems to be making some good progress today. Her Marco Antonio-Garcia drain did start to pick pulling machine tender a little but it is mostly serosanguineous. Hematocrit did drop a little bit and her platelet count is on the low side. Her INR has dropped nicely. The patient overall feels better. She states she is not having significant discomfort, no nausea, no vomiting and overall feeling better. Her lungs, she has a few rhonchi appreciated, however, no significant crackles. Heart is regular. Abdomen is soft, mildly distended, nontender. Dressing is all clean and dry and the Marco Antonio-Garcia drain is serosanguineous. IMPRESSION/PLAN: The patient has some lab abnormalities with her portal hypertension and her hematocrit on the low side, I do feel that I really want to be on the safe side and make sure that that we reverse any of her anticoagulation/coagulation deficits as much as possible. Thus platelets as well as FFP and blood are reasonable at this time. Then we will get some follow-up labs after her blood is given. From the standpoint of starting on clear liquids, that is reasonable. She is feeling better. The drainage/FRANCES drainage looks as typically would expect with some serosanguineous. However, it may starting of ascites as well given that her weight is significantly up and we will give her Lasix with the blood as well. Otherwise at this time, we seem to have stopped the major bleeding issues and will see how she is doing after transfusions with follow-up labs and see what she is doing in the morning.
[2020-04-11] MEDS: SPIRONOLACTONE 50 MG TAB PO SCH (12:57)
--- NOTE | 2020-04-11 22:24 | IPNPDOC ---
Subjective Date Seen The patient was seen on 04/11/20. Subjective Chief Complaint/HPI Mrs. Herzog is a 64 year old female with adenocarcinoma of the transverse colon who is here for a transverse colectomy. Medicine was consulted to help with her COPD. This morning, she was very anxious about her breathing treatments. She did not like that they were PRN. She wanted to have at least one scheduled one in the morning. Otherwise, there was no wheezing on examination. Objective Physical Examination General Exam: Positive: Alert, Cooperative Eye Exam: Positive: EOMI; Negative: Sclera icteric ENT Exam: Positive: Atraumatic Neck Exam: Positive: Supple Chest Exam: Positive: Clear to auscultation; Negative: Rales, Rhonchi, Wheezing Heart Exam: Positive: Rate Normal, Regular Rhythm Abdomen Exam: Positive: Tenderness, Other (distended) Psych Exam: Positive: Anxiety Assessment /Plan Assessment Mrs. Hezrog is a 64 year old female with adenocarcinoma of the transverse colon who is here for a transverse colectomy. Medicine was consulted to help with her COPD and COPD medications. Lungs are clear and she is not in exacerbation. Disposition per general surgery Plan/VTE VTE Prophylaxis Ordered?: Yes Plan 1. Adenocarcinoma of the colon -General surgery is primary and have performed right colectomy 2. Acute blood loss anemia -During this admission, she has had a total of 7units of pRBC, 7units of FFP, 2unit of platelets -PT/INR elevated, most likely from Cirrhosis 3. TERI -Last known creatinine was 0.85 in Nov 2019 -Creatinine peaked at 1.24 -Improved with IVF and holding diuretics -Continue to monitor 4. COPD -Stable, not in exacerbation -Continue with Advair and PRN albuterol 5. Cirrhosis -Child-Boudreaux score class B, MELD-Na score 19 -On octreotide, Lasix, and Spironolactone -Supportive care and alcohol avoidance 6. DVT ppx -No chemical ppx due to bleed. Agree with SCD/TEDs Thank you for consulting us, we will continue following VS, I&O, 24H, Fishbone Vital Signs/I&O Vital Signs Date Time Temp Pulse Resp B/P (MAP) Pulse Ox O2 Delivery O2 Flow Rate FiO2 04/11/20 21:22 16 04/11/20 20:00 98.8 89 102/63 (76) 95 Room Air 04/10/20 12:03 95 04/10/20 04:00 2.0 I&O- Last 24 Hours up to 6 AM 04/11/20 06:00 Intake Total 3242 ml Output Total 4075 ml Balance -833 ml Laboratory Data 24H LABS Laboratory Tests 2 04/11/20 05:01: Nucleated Red Blood Cells % (auto) 0.0, Anion Gap 4L, Glomerular Filtration Rate 57.2, Calcium Level 8.0L, Total Bilirubin 3.6H, Aspartate Amino Transf (AST/SGOT) 43H, Alanine Aminotransferase (ALT/SGPT) 29, Alkaline Phosphatase 60, Total Protein 5.8L, Albumin 2.6L, Albumin/Globulin Ratio 0.8L CBC/BMP Laboratory Tests 04/11/20 05:01 SHARYN AGOSTO DO Apr 11, 2020 22:24
[2020-04-12] VITALS: BP 97/58
[2020-04-12] MEDS: LORazepam 2 MG/ML VIAL IV PRN ×2 (00:06→03:47)
[2020-04-12] MEDS: MORPHINE 2 MG/ML 1ML VIAL (J2270) IV PRN ×4 (00:06→20:58)
[2020-04-12] MEDS: ALBUTEROL SULFATE 2.5 MG/0.5 ML INH NEB SOLN NEB PRN ×3 (03:48→21:45)
[2020-04-12 04:00] VITALS: BP 102/55
[2020-04-12 05:36] LABS: HEMATOCRIT 34.6 % (36.0-47.0); HEMOGLOBIN 11.5 g/dl (12.0-15.5); MEAN CORPUSCULAR HEMOGLOBIN 31.3 pg (27.0-33.0); MEAN CORPUSCULAR HGB CONC 33.2 g/dl (32.0-36.5); PLATELET COUNT, AUTOMATED 104 10^3/uL (150-450); RED BLOOD COUNT 3.68 10^6/uL (4.00-5.40); WHITE BLOOD COUNT 9.7 10^3/uL (4.0-10.0)
[2020-04-12 06:05] LABS: ALBUMIN 2.5 GM/DL (3.2-5.2); ALT/SGPT 26 U/L (12-78); BILIRUBIN,TOTAL 4.6 MG/DL (0.2-1.0); BLOOD UREA NITROGEN 18 MG/DL (7-18); CALCIUM LEVEL 7.8 MG/DL (8.8-10.2); CARBON DIOXIDE LEVEL 29 MEQ/L (21-32); CHLORIDE LEVEL 102 MEQ/L (98-107); CREATININE FOR GFR 0.79 MG/DL (0.55-1.30); GLOMERULAR FILTRATION RATE > 60.0 (>45); GLUCOSE, FASTING 114 MG/DL (70-100); POTASSIUM SERUM 3.7 MEQ/L (3.5-5.1); SODIUM LEVEL 136 MEQ/L (136-145); TOTAL PROTEIN 5.5 GM/DL (6.4-8.2)
[2020-04-12 08:00] VITALS: BP 96/57
[2020-04-12] MEDS: ADVAIR HFA 115/21MCG INHALER INH SCH ×2 (09:15→21:42)
[2020-04-12] MEDS: ALBUTEROL SULFATE 2.5 MG/0.5 ML INH NEB SOLN NEB SCH (09:20)
[2020-04-12] MEDS: PANTOPRAZOLE 40MG VIAL (C9113 PER 1) IV SCH (10:00)
[2020-04-12] MEDS: OCTREOTIDE ACETATE 1,200 MCG in NS 238.8 ML IV SCH (10:01)
[2020-04-12] MEDS: ALVIMOPAN 12 MG CAPSULE (ENTEREG) PO SCH ×2 (10:01→20:36)
[2020-04-12] MEDS: SPIRONOLACTONE 50 MG TAB PO SCH (10:01)
[2020-04-12] MEDS: FUROSEMIDE 40 MG TAB PO SCH (10:01)
[2020-04-12 12:00] VITALS: BP 100/56
--- NOTE | 2020-04-12 13:29 | IPNPDOC ---
Subjective Date Seen The patient was seen on 04/12/20. Subjective Chief Complaint/HPI Mrs. Herzog is a 64 year old female with adenocarcinoma of the transverse colon who is here for a transverse colectomy. Medicine was consulted to help with her COPD. Overnight, she was very anxious. She was given Lorazepam and Morphine. This morning, she was very sleepy, but calm. She felt like she did not need the NC and had it off. Denies shortness of breath or cough. She had the AM breathing treatment scheduled and I re-enforced that she as for the others every 4 hours. Objective Physical Examination General Exam: Positive: Alert, Cooperative Eye Exam: Positive: EOMI; Negative: Sclera icteric ENT Exam: Positive: Atraumatic Neck Exam: Positive: Supple Chest Exam: Positive: Clear to auscultation; Negative: Rales, Rhonchi, Wheezing Heart Exam: Positive: Rate Normal, Regular Rhythm Abdomen Exam: Positive: Tenderness, Other (distended) Psych Exam: Positive: Anxiety Assessment /Plan Assessment Mrs. Herzog is a 64 year old female with adenocarcinoma of the transverse colon who is here for a transverse colectomy. Medicine was consulted to help with her COPD and COPD medications. Lungs are clear and she is not in exacerbation. Disposition per general surgery Plan/VTE VTE Prophylaxis Ordered?: Yes Plan 1. Adenocarcinoma of the colon -General surgery is primary and have performed right colectomy 2. Acute blood loss anemia -During this admission, she has had a total of 7units of pRBC, 7units of FFP, 2unit of platelets -PT/INR elevated, most likely from Cirrhosis 3. TERI -Last known creatinine was 0.85 in Nov 2019 -Creatinine peaked at 1.24 -Resolved, continue to monitor 4. COPD -Stable, not in exacerbation -Continue with Advair and PRN albuterol -One AM scheduled albuterol per patient request 5. Cirrhosis -Child-Boudreaux score class B, MELD-Na score 19 -On octreotide, Lasix, and Spironolactone -Supportive care and alcohol avoidance 6. DVT ppx -No chemical ppx due to bleed. Agree with SCD/TEDs Thank you for consulting us, we will continue following VS, I&O, 24H, Fishbone Vital Signs/I&O Vital Signs Date Time Temp Pulse Resp B/P (MAP) Pulse Ox O2 Delivery O2 Flow Rate FiO2 04/12/20 12:00 98.3 89 18 100/56 (71) 97 Nasal Cannula 2.0 04/12/20 10:13 95 I&O- Last 24 Hours up to 6 AM 04/12/20 06:00 Intake Total 1245.3 ml Output Total 3500 ml Balance -2254.7 ml Laboratory Data 24H LABS Laboratory Tests 2 04/12/20 05:13: Nucleated Red Blood Cells % (auto) 0.0, Anion Gap 5L, Glomerular Filtration Rate > 60.0, Calcium Level 7.8L, Total Bilirubin 4.6H, Aspartate Amino Transf (AST/SGOT) 40H, Alanine Aminotransferase (ALT/SGPT) 26, Alkaline Phosphatase 56, Total Protein 5.5L, Albumin 2.5L, Albumin/Globulin Ratio 0.8L CBC/BMP Laboratory Tests 04/12/20 05:13 SHARYN AGOSTO DO Apr 12, 2020 13:29
[2020-04-12 16:00] VITALS: BP 117/57
[2020-04-12 20:00] VITALS: BP 103/59
[2020-04-13] VITALS: BP 100/57
[2020-04-13] MEDS: MORPHINE 2 MG/ML 1ML VIAL (J2270) IV PRN ×2 (00:59→06:16)
[2020-04-13 04:00] VITALS: BP 97/55
[2020-04-13 05:12] LABS: HEMATOCRIT 33.4 % (36.0-47.0); HEMOGLOBIN 10.7 g/dl (12.0-15.5); MEAN CORPUSCULAR HEMOGLOBIN 30.7 pg (27.0-33.0); MEAN CORPUSCULAR VOLUME 95.7 fl (80.0-96.0); PLATELET COUNT, AUTOMATED 102 10^3/uL (150-450); RED BLOOD COUNT 3.49 10^6/uL (4.00-5.40); WHITE BLOOD COUNT 9.8 10^3/uL (4.0-10.0)
[2020-04-13 05:43] LABS: ALBUMIN 2.3 GM/DL (3.2-5.2); ALT/SGPT 26 U/L (12-78); BILIRUBIN,TOTAL 5.6 MG/DL (0.2-1.0); BLOOD UREA NITROGEN 16 MG/DL (7-18); CALCIUM LEVEL 7.9 MG/DL (8.8-10.2); CARBON DIOXIDE LEVEL 28 MEQ/L (21-32); CHLORIDE LEVEL 102 MEQ/L (98-107); CREATININE FOR GFR 0.86 MG/DL (0.55-1.30); GLOMERULAR FILTRATION RATE > 60.0 (>45); GLUCOSE, FASTING 114 MG/DL (70-100); POTASSIUM SERUM 3.7 MEQ/L (3.5-5.1); SODIUM LEVEL 135 MEQ/L (136-145); TOTAL PROTEIN 5.4 GM/DL (6.4-8.2)
[2020-04-13 08:00] VITALS: BP 98/54
--- NOTE | 2020-04-13 08:10 | IPN ---
PROGRESS NOTE DATE: 04/12/2020 HISTORY: The patient is now postop day #4 from a laparoscopic transverse colectomy with anastomosis for cancer. She has underlying cirrhosis. She developed significant bleeding post surgery with significant drainage through a drain. She underwent re-laparoscopy with clearing of some clots but no definite bleeding source was identified. She required transfusion of packed cells, fresh frozen plasma and platelets. Her bleeding now seems to have diminished significantly. She has a lot of fluid still draining from the abdomen. She was started on clear liquids which she has been tolerating. PHYSICAL EXAMINATION: VITAL SIGNS: She has been afebrile over the past 24 hours. Her pulse is in the 80s and 90s. Blood pressure is good. Oxygen saturation on 2 liters of nasal cannula oxygen is in the mid 90s. INTAKE AND OUTPUT: Intake and output shows that yesterday she had 1800 in, almost a liter of which was oral with 3700 out, 1900 of this was from her abdominal drain. GENERAL: The patient is resting quietly in the bed. She reports that she is tired but denies any nausea and has had some flatus but no bowel movement. SKIN: Warm and dry. HEART: Regular rate and rhythm. LUNGS: Generally clear although she has a faint inspiratory wheeze intermittently on the right side of the chest. ABDOMEN: Generally flat. She has several small dry bandages. There is a drain exiting the mid abdomen. The suction bulb is filled with light serosanguinous fluid. There is some mild tenderness on palpation of the abdomen which is not out of proportion to what would be expected. She has no lower extremity edema. LABORATORY DATA: Laboratory studies today show a white count of 10, hemoglobin of 12, hematocrit 35 and a platelet count of 104,000. Her hematocrit is actually up 2 points from yesterday. Chemistry profile shows normal electrolytes with a BUN of 18 and creatinine of 0.8 and a glucose of 114. Total bilateral is 4.6 which is roughly stable for the last couple of days. IMPRESSION: Patient is doing acceptably with cessation of any significant bleeding. She is having a lot of fluid from the abdomen which is likely primarily ascites fluid with some blood staining. PLAN: The patient will be started on a 2 gram sodium diet. She was advised that she can take her diet as tolerated. Yesterday, she preferred to stay on liquids and I have encouraged her to at least consider trying some solid food. I will also order a Physical Therapy evaluation. She is encouraged to be up and out of bed. KISHA
[2020-04-13] MEDS: ADVAIR HFA 115/21MCG INHALER INH SCH ×2 (09:10→18:22)
[2020-04-13] MEDS: ALBUTEROL SULFATE 2.5 MG/0.5 ML INH NEB SOLN NEB SCH ×5 (09:10→23:55)
[2020-04-13] MEDS: PANTOPRAZOLE 40MG VIAL (C9113 PER 1) IV SCH (09:44)
[2020-04-13] MEDS: FUROSEMIDE 40 MG TAB PO SCH (09:44)
[2020-04-13] MEDS: SPIRONOLACTONE 50 MG TAB PO SCH (09:44)
[2020-04-13] MEDS: ALVIMOPAN 12 MG CAPSULE (ENTEREG) PO SCH (09:44)
[2020-04-13] MEDS: OCTREOTIDE ACETATE 1,200 MCG in NS 238.8 ML IV SCH (09:44)
[2020-04-13] MEDS ORDERED: MIRALAX *UNIT DOSE* 17GM PACKET PO ONE (11:00)
[2020-04-13] MEDS: DOCUSATE SODIUM 100MG CAPSULE PO SCH ×2 (11:29→20:38)
[2020-04-13] MEDS: oxyCODONE 5MG TAB PO PRN ×3 (12:44→23:47)
[2020-04-13 14:15] VITALS: BP 127/77
[2020-04-13] MEDS ORDERED: MORPHINE 4 MG/ML 1ML VIAL/SYRINGE (J2270) IV PRN (14:17)
[2020-04-13 18:00] VITALS: BP 122/76
[2020-04-13 19:08] LABS: HEMATOCRIT 37.8 % (36.0-47.0); MEAN CORPUSCULAR HEMOGLOBIN 30.4 pg (27.0-33.0); MEAN CORPUSCULAR HGB CONC 31.7 g/dl (32.0-36.5); MEAN CORPUSCULAR VOLUME 95.7 fl (80.0-96.0); PLATELET COUNT, AUTOMATED 111 10^3/uL (150-450); RED BLOOD COUNT 3.95 10^6/uL (4.00-5.40); WHITE BLOOD COUNT 11.2 10^3/uL (4.0-10.0)
--- NOTE | 2020-04-13 20:16 | IPNPDOC ---
Subjective Date Seen The patient was seen on 04/13/20. Subjective Chief Complaint/HPI Mrs. Herzog is a 64 year old female with adenocarcinoma of the transverse colon who is here for a transverse colectomy. This morning, she denied any chest pain or shortness of breath. She is anxious and felt that she has gone too long inbetween breathing treatments. Objective Physical Examination General Exam: Positive: Alert, Cooperative Eye Exam: Positive: EOMI; Negative: Sclera icteric ENT Exam: Positive: Atraumatic Neck Exam: Positive: Supple Chest Exam: Positive: Wheezing, Diminished Heart Exam: Positive: Rate Normal, Regular Rhythm Abdomen Exam: Positive: Tenderness, Other (distended) Psych Exam: Positive: Anxiety Assessment /Plan Assessment Mrs. Herzog is a 64 year old female with adenocarcinoma of the transverse colon who is here for a transverse colectomy. Medicine was consulted to help with her COPD and COPD medications. She is not in exacerbation, but she is very anxious. Disposition per general surgery Plan/VTE VTE Prophylaxis Ordered?: Yes Plan 1. Adenocarcinoma of the colon -General surgery is primary and have performed right colectomy 2. Acute blood loss anemia -During this admission, she has had a total of 7units of pRBC, 7units of FFP, 2unit of platelets -PT/INR elevated, most likely from Cirrhosis 3. TERI -Last known creatinine was 0.85 in Nov 2019 -Creatinine peaked at 1.24 -Resolved, continue to monitor 4. COPD -Stable, not in exacerbation -Continue with Advair and albuterol 5. Cirrhosis -Child-Boudreaux score class B, MELD-Na score 19 -On octreotide, Lasix, and Spironolactone -Supportive care and alcohol avoidance 6. DVT ppx -No chemical ppx due to bleed. Agree with SCD/TEDs Thank you for consulting us, we will continue following VS, I&O, 24H, Fishbone Vital Signs/I&O Vital Signs Date Time Temp Pulse Resp B/P (MAP) Pulse Ox O2 Delivery O2 Flow Rate FiO2 04/13/20 18:47 18 04/13/20 18:17 Room Air 04/13/20 18:00 98.8 89 122/76 (91) 97 04/13/20 08:00 04/12/20 10:13 95 I&O- Last 24 Hours up to 6 AM 04/13/20 06:00 Intake Total 1722 ml Output Total 1680 ml Balance 42 ml Laboratory Data 24H LABS Laboratory Tests 2 04/13/20 04:43: Nucleated Red Blood Cells % (auto) 0.0, Anion Gap 5L, Glomerular Filtration Rate > 60.0, Calcium Level 7.9L, Total Bilirubin 5.6H, Aspartate Amino Transf (AST/SGOT) 43H, Alanine Aminotransferase (ALT/SGPT) 26, Alkaline Phosphatase 62, Total Protein 5.4L, Albumin 2.3L, Albumin/Globulin Ratio 0.7L 04/13/20 18:51: Nucleated Red Blood Cells % (auto) 0.0 CBC/BMP Laboratory Tests 04/13/20 04:43 04/13/20 18:51 SHARYN AGOSTO DO Apr 13, 2020 20:16
--- NOTE | 2020-04-13 21:38 | IPN ---
PROGRESS NOTE DATE: 04/13/2020 SUBJECTIVE: The patient is now postop day number five from a laparoscopic transverse colectomy for cancer. This was performed by Dr. Carpio. The patient has underlying cirrhosis and had significant bleeding postop. This is now resolved. She has a single abdominal drain which is draining a large amount of ascitic fluid which is lightly pink tinged. The patient was started on a regular diet yesterday, actually a 2-gram sodium diet yesterday. Vital signs show that she has been afebrile over the past 24 hours. Her pulse is in the 70's and 80's and her blood pressure is good. Room air oxygen saturation is normal. Intake and output shows that yesterday she had 1,300 in, most of which was oral with 1,750 out, 1,130 of which was from her drain and 625 was urine output. PHYSICAL EXAMINATION: GENERAL APPEARANCE: The patient is lying quietly in her hospital bed. She reports she does not feel well but is doing okay. She has not yet had a bowel movement. SKIN: Warm and dry. HEART: Regular rhythm. LUNGS: Clear. ABDOMEN: Somewhat full. The drain is exiting the mid upper abdomen. Her other dressings are clean and dry. The drain has some light pink fluid in the suction canister. She had some mild tenderness on palpation, particularly in the left side of the abdomen. She does have bowel sounds present. LABORATORY STUDIES: Today labs show a white count of 10, hemoglobin of 11, hematocrit of 33 and a platelet count of 102,000. Chemistry profile shows normal electrolytes with a BUN of 16, creatinine 0.8 and a glucose of 114. Her total bilirubin is 5.6 but her other liver function tests are normal. IMPRESSION: The patient is continuing to make progress. She seems to have less discomfort although she is using IV Morphine frequently. She states she does not want any more of her Lorazepam that she had been prescribed. PLAN: The patient will remain on her 2-gram sodium diet. I will order her some Oxycodone that she can take on an as-needed basis for pain to try to reduce her need for IV Morphine. I will change her Protonix to oral. She will be started on some Colace 100 mg twice daily, but I will give her one dose of Miralax today to try to aid her return of bowel function. She will be transferred to a Medical/Surgical floor for continuing care. KISHA
[2020-04-13 22:00] VITALS: BP 104/59
[2020-04-14] VITALS (10 sets, daily range): BP systolic 92–111; BP diastolic 50–66
[2020-04-14] MEDS: ALBUTEROL SULFATE 2.5 MG/0.5 ML INH NEB SOLN NEB SCH ×6 (04:56→23:32)
[2020-04-14] MEDS: oxyCODONE 5MG TAB PO PRN ×2 (06:27→18:33)
[2020-04-14 07:26] LABS: HEMATOCRIT 33.1 % (36.0-47.0); HEMOGLOBIN 10.8 g/dl (12.0-15.5); MEAN CORPUSCULAR HEMOGLOBIN 30.8 pg (27.0-33.0); MEAN CORPUSCULAR HGB CONC 32.6 g/dl (32.0-36.5); MEAN CORPUSCULAR VOLUME 94.3 fl (80.0-96.0); PLATELET COUNT, AUTOMATED 102 10^3/uL (150-450); RED BLOOD COUNT 3.51 10^6/uL (4.00-5.40)
[2020-04-14] MEDS: ADVAIR HFA 115/21MCG INHALER INH SCH ×2 (07:28→19:32)
[2020-04-14 07:55] LABS: ALBUMIN 2.4 GM/DL (3.2-5.2); ALT/SGPT 25 U/L (12-78); BILIRUBIN,TOTAL 5.8 MG/DL (0.2-1.0); BLOOD UREA NITROGEN 14 MG/DL (7-18); CARBON DIOXIDE LEVEL 27 MEQ/L (21-32); CHLORIDE LEVEL 98 MEQ/L (98-107); CREATININE FOR GFR 0.78 MG/DL (0.55-1.30); GLOMERULAR FILTRATION RATE > 60.0 (>45); GLUCOSE, FASTING 115 MG/DL (70-100); POTASSIUM SERUM 4.2 MEQ/L (3.5-5.1); SODIUM LEVEL 132 MEQ/L (136-145); TOTAL PROTEIN 5.1 GM/DL (6.4-8.2)
[2020-04-14] MEDS ORDERED: OCTREOTIDE ACETATE 1,200 MCG in NS 238.8 ML IV SCH (09:00)
[2020-04-14] MEDS: PANTOPRAZOLE 40MG TAB (PROTONIX) PO SCH (09:03)
[2020-04-14] MEDS: FUROSEMIDE 40 MG TAB PO SCH ×2 (09:03→18:32)
[2020-04-14] MEDS: SPIRONOLACTONE 50 MG TAB PO SCH ×2 (09:04→20:18)
[2020-04-14] MEDS: DOCUSATE SODIUM 100MG CAPSULE PO SCH ×2 (09:04→20:18)
[2020-04-14] MEDS ORDERED: guaiFENesin 200 MG TAB PO PRN (10:00)
--- NOTE | 2020-04-14 13:36 | IPNPDOC ---
Subjective Date Seen The patient was seen on 04/14/20. Subjective Chief Complaint/HPI Mrs. Herzog is a 64 year old female with adenocarcinoma of the transverse colon who is here for a transverse colectomy. Medicine was consulted for management of COPD. She feels better with the scheduled albuterol. Denies chest pain or dyspnea. Objective Physical Examination General Exam: Positive: Alert, Cooperative Eye Exam: Positive: EOMI; Negative: Sclera icteric ENT Exam: Positive: Atraumatic Neck Exam: Positive: Supple Chest Exam: Positive: Clear to auscultation, Diminished Heart Exam: Positive: Rate Normal, Regular Rhythm Abdomen Exam: Positive: Tenderness, Other (distended) Psych Exam: Positive: Anxiety Assessment /Plan Assessment Mrs. Herzog is a 64 year old female with adenocarcinoma of the transverse colon who is here for a transverse colectomy. Medicine was consulted to help with her COPD and COPD medications. She is not in exacerbation, but she is very anxious. Disposition per general surgery Plan/VTE VTE Prophylaxis Ordered?: Yes Plan 1. Adenocarcinoma of the colon -General surgery is primary and have performed right colectomy 2. Acute blood loss anemia -During this admission, she has had a total of 7units of pRBC, 7units of FFP, 2unit of platelets -PT/INR elevated, most likely from Cirrhosis 3. TERI -Last known creatinine was 0.85 in Nov 2019 -Creatinine peaked at 1.24 -Resolved, continue to monitor 4. COPD -Stable, not in exacerbation -Continue with Advair and albuterol 5. Cirrhosis -Child-Boudreaux score class B, MELD-Na score 19 -On octreotide, Lasix, and Spironolactone -Supportive care and alcohol avoidance 6. DVT ppx -No chemical ppx due to bleed. Agree with SCD/TEDs Thank you for consulting us, we will continue following. No additional workup from hospitalist. Disposition per general surgery VS, I&O, 24H, Fishbone Vital Signs/I&O Vital Signs Date Time Temp Pulse Resp B/P (MAP) Pulse Ox O2 Delivery O2 Flow Rate FiO2 04/14/20 12:33 97.9 80 18 100/53 93 Room Air 04/13/20 08:00 04/12/20 10:13 95 I&O- Last 24 Hours up to 6 AM 04/14/20 06:00 Intake Total 2770 ml Output Total 1755 ml Balance 1015 ml Laboratory Data 24H LABS Laboratory Tests 2 04/13/20 18:51: Nucleated Red Blood Cells % (auto) 0.0 04/14/20 07:20: Nucleated Red Blood Cells % (auto) 0.0, Anion Gap 7L, Glomerular Filtration Rate > 60.0, Calcium Level 8.0L, Total Bilirubin 5.8H, Aspartate Amino Transf (AST/SGOT) 43H, Alanine Aminotransferase (ALT/SGPT) 25, Alkaline Phosphatase 72, Total Protein 5.1L, Albumin 2.4L, Albumin/Globulin Ratio 0.9L CBC/BMP Laboratory Tests 04/13/20 18:51 04/14/20 07:20 SHARYN AGOSTO DO Apr 14, 2020 13:36
[2020-04-14] MEDS ORDERED: ANALGESIC BALM CRM 120 GM TOP PRN (17:00)
[2020-04-14] MEDS: ONDANSETRON 4MG/2ML VIAL IV PRN (18:32)
[2020-04-15] VITALS (10 sets, daily range): BP systolic 99–111; BP diastolic 53–65
[2020-04-15] MEDS: oxyCODONE 5MG TAB PO PRN ×4 (00:45→20:15)
[2020-04-15] MEDS: ONDANSETRON 4MG/2ML VIAL IV PRN ×3 (00:46→15:18)
[2020-04-15] MEDS: ALBUTEROL SULFATE 2.5 MG/0.5 ML INH NEB SOLN NEB SCH ×5 (04:00→20:00)
[2020-04-15 07:01] LABS: HEMATOCRIT 32.1 % (36.0-47.0); HEMOGLOBIN 10.7 g/dl (12.0-15.5); MEAN CORPUSCULAR HEMOGLOBIN 31.4 pg (27.0-33.0); MEAN CORPUSCULAR HGB CONC 33.3 g/dl (32.0-36.5); MEAN CORPUSCULAR VOLUME 94.1 fl (80.0-96.0); PLATELET COUNT, AUTOMATED 104 10^3/uL (150-450); RED BLOOD COUNT 3.41 10^6/uL (4.00-5.40); WHITE BLOOD COUNT 7.4 10^3/uL (4.0-10.0)
[2020-04-15 07:29] LABS: ALBUMIN 2.8 GM/DL (3.2-5.2); ALT/SGPT 21 U/L (12-78); BILIRUBIN,TOTAL 5.1 MG/DL (0.2-1.0); BLOOD UREA NITROGEN 10 MG/DL (7-18); CALCIUM LEVEL 8.2 MG/DL (8.8-10.2); CARBON DIOXIDE LEVEL 30 MEQ/L (21-32); CHLORIDE LEVEL 97 MEQ/L (98-107); CREATININE FOR GFR 0.74 MG/DL (0.55-1.30); GLOMERULAR FILTRATION RATE > 60.0 (>45); GLUCOSE, FASTING 110 MG/DL (70-100); POTASSIUM SERUM 3.7 MEQ/L (3.5-5.1); SODIUM LEVEL 134 MEQ/L (136-145); TOTAL PROTEIN 5.3 GM/DL (6.4-8.2)
[2020-04-15] MEDS: FUROSEMIDE 40 MG TAB PO SCH ×2 (08:28→17:39)
[2020-04-15] MEDS: SPIRONOLACTONE 50 MG TAB PO SCH ×2 (08:29→20:15)
[2020-04-15] MEDS: DOCUSATE SODIUM 100MG CAPSULE PO SCH ×2 (08:29→20:15)
[2020-04-15] MEDS: PANTOPRAZOLE 40MG TAB (PROTONIX) PO SCH (08:35)
[2020-04-15] MEDS: ADVAIR HFA 115/21MCG INHALER INH SCH ×2 (11:28→19:59)
[2020-04-15] MEDS ORDERED: ONDANSETRON 4MG/2ML VIAL IV ONE (18:45)
[2020-04-15] MEDS ORDERED: CLOTRIMAZOLE 1% VAG CR 45 GM PV SCH (21:00)
[2020-04-16] MEDS: ALBUTEROL SULFATE 2.5 MG/0.5 ML INH NEB SOLN NEB SCH ×3 (00:13→07:28)
[2020-04-16] MEDS: ONDANSETRON 4MG/2ML VIAL IV PRN ×2 (00:21→08:11)
[2020-04-16] MEDS: oxyCODONE 5MG TAB PO PRN ×3 (00:22→08:50)
[2020-04-16 06:00] VITALS: BP_SYST 106; BP_DIAS 0; BP_DIAS 60
[2020-04-16] MEDS: ADVAIR HFA 115/21MCG INHALER INH SCH (07:28)
[2020-04-16] MEDS: FUROSEMIDE 40 MG TAB PO SCH (08:11)
[2020-04-16] MEDS: DOCUSATE SODIUM 100MG CAPSULE PO SCH (08:11)
[2020-04-16] MEDS: SPIRONOLACTONE 50 MG TAB PO SCH (08:11)
[2020-04-16] MEDS: PANTOPRAZOLE 40MG TAB (PROTONIX) PO SCH (08:11)
[2020-04-16] MEDS ORDERED: ALDA50TA2 PO (09:27)
[2020-04-16] MEDS ORDERED: FURO40TA2 PO (09:27)
[2020-04-16] MEDS ORDERED: OXYC-517 PO (09:27)
== END 2020-04-16 13:15 | disposition home or self-care (01) | DRG 221 ==
LOC: M OR 08:58 → EDSTATUS 10:30 → M MS5PR 16:50 → M PCU 23:55 → M MSPAV 04-13 14:13
PROVIDERS: ADMIT Surgery; ATTEND Internal Medicine
PROC: 30233N1 Transfusion of Nonautologous Red Blood Cells into Peripheral Vein, Percutaneous Approach (ICD-10-PCS; 2020-04-08)
PROC: 30233K1 Transfusion of Nonautologous Frozen Plasma into Peripheral Vein, Percutaneous Approach (ICD-10-PCS; 2020-04-08)
PROC: 0JC83ZZ Extirpation of Matter from Abdomen Subcutaneous Tissue and Fascia, Percutaneous Approach (ICD-10-PCS; 2020-04-08)
PROC: 0DBL4ZZ Excision of Transverse Colon, Percutaneous Endoscopic Approach (ICD-10-PCS; principal; 2020-04-08 10:30)
PROC: 30233R1 Transfusion of Nonautologous Platelets into Peripheral Vein, Percutaneous Approach (ICD-10-PCS; 2020-04-10)
DX: C18.4 Malignant neoplasm of transverse colon (principal); N17.9 Acute kidney failure, unspecified; K74.60 Unspecified cirrhosis of liver; Z79.899 Other long term (current) drug therapy; F41.9 Anxiety disorder, unspecified; J44.9 Chronic obstructive pulmonary disease, unspecified; F32.9 Major depressive disorder, single episode, unspecified; Z87.891 Personal history of nicotine dependence; D62 Acute posthemorrhagic anemia; Z88.2 Allergy status to sulfonamides; Z88.8 Allergy status to other drugs, medicaments and biological substances; K91.870 Postprocedural hematoma of a digestive system organ or structure following a digestive system procedure

== ENCOUNTER 2020-04-18 19:50 | Inpatient (IN) | payer BC, OTHER ==
[~2020-04-18] VITALS: Ht 160 cm; Wt 79.9 kg
[~2020-04-18 19:50] MED LIST changes: +ALDA50TA2 PO; -LIDOCAINE 1% MDV 20ML VIAL SQ PRN; -LR 1,000 ML IV ONE; +OXYC-517 PO; -cefoTEtan DISODIUM 2 GM in D5W MINI-BAG PLUS 50 ML IV ONE
[2020-04-18] MEDS ORDERED: MIDAZOLAM INJ 2MG/2ML VIAL (J2250 PER 1MG) IV ONE (20:15)
[2020-04-18 20:24] LABS: BASO % 0.3 % (0.0-1.0); EOS # 0.1 10^3/uL (0.0-0.5); EOS % 1.2 % (0.0-3.0); HEMATOCRIT 38.7 % (36.0-47.0); HEMOGLOBIN 12.8 g/dl (12.0-15.5); LYMPH # 1.1 10^3/uL (1.5-5.0); LYMPH % 9.6 % (24.0-44.0); MEAN CORPUSCULAR HEMOGLOBIN 30.4 pg (27.0-33.0); MEAN CORPUSCULAR HGB CONC 33.1 g/dl (32.0-36.5); MEAN CORPUSCULAR VOLUME 91.9 fl (80.0-96.0); MONO # 1.4 10^3/uL (0.0-0.8); MONO % 12.1 % (0.0-5.0); NEUTROPHILS # 8.8 10^3/uL (1.5-8.5); NEUTROPHILS % 75.8 % (36.0-66.0); PLATELET COUNT, AUTOMATED 216 10^3/uL (150-450); RED BLOOD COUNT 4.21 10^6/uL (4.00-5.40); WHITE BLOOD COUNT 11.6 10^3/uL (4.0-10.0)
[2020-04-18] MEDS ORDERED: TRAM50TA2 PO (20:31)
[2020-04-18] MEDS ORDERED: ATIV1TAB10 PO (20:31)
[2020-04-18 20:47] LABS: ALBUMIN 3.3 GM/DL (3.2-5.2); BILIRUBIN,DIRECT 3.7 MG/DL (0.0-0.2); BILIRUBIN,TOTAL 7.7 MG/DL (0.2-1.0); ETHYL ALCOHOL (ETHANOL) 0.003 % (0.000-0.010); TOTAL PROTEIN 6.5 GM/DL (6.4-8.2)
[2020-04-18] MEDS ORDERED: SPIR50TA4 PO (21:05)
[2020-04-18] MEDS ORDERED: OXYC-517 PO (21:05)
[2020-04-18] MEDS ORDERED: FURO40TA2 PO (21:05)
[2020-04-18] MEDS ORDERED: NEXI20CA PO (21:17)
[2020-04-18] MEDS ORDERED: med rec comment (21:19)
--- NOTE | 2020-04-18 21:26 | REPVR ---
PROCEDURE INFORMATION: Exam: XR Chest, 1 View Exam date and time: 04/18/2020 8:51 PM Age: 64 years old Clinical indication: Other: AMS TECHNIQUE: Imaging protocol: XR of the chest Views: 1 view. COMPARISON: CT Chest with contrast 03/21/2020 9:49 AM FINDINGS: Lungs: Marked emphysematous changes, right greater than left with relative hyperexpansion and hyperlucency the right lung and compression of the left lung, stable in comparison to prior thoracic CT. Findings consistent with increased air trapping on the right. Pleural space: Unremarkable. No pleural effusion. No pneumothorax. Heart/Mediastinum: Unremarkable. No cardiomegaly. Bones/joints: Unremarkable. IMPRESSION: Asymmetric emphysematous changes as described above. Electronically signed by: Brennon Mckenna On 04/18/2020 21:27:27 PM
[2020-04-19] MEDS ORDERED: NS 500 ML IV ONE (02:00)
[2020-04-19] MEDS ORDERED: ALBUTEROL SULFATE 2.5 MG/0.5 ML INH NEB SOLN INH PRN (02:00)
--- NOTE | 2020-04-19 02:10 | HPEPDOC ---
[facility] Medical History & Physical Date of Admission Apr 19, 2020 Date of Service: Apr 19, 2020 History and Physical CHIEF COMPLAINT: AMS HISTORY OF PRESENT ILLNESS: 64-year-old female with history of cirrhosis, COPD, colon cancer status post laporoscopic transverse colectomy on 04/07, presenting with altered mental status. Ammonia found to be 186 in the ER. Patient is opening eyes, but is not able to provide history. Pertinent labs include WBC 11.6. Ammonia 1876. Total bili 7.7, direct bili 3.7. She is afebrile. Patient unable to tell me if she has abdominal pain. Will be admitted for management of acute hepatic encephalopathy as well as possible sepsis from SBP. PAST MEDICAL HISTORY: Cirrhosis Colon cancer COPD Anxiety Depression PAST SURGICAL HISTORY: Uterine ablation Septoplasty Right colectomy (04/07/20) SOCIAL HISTORY: former smoker, 20 pack hx etoh use disorder? FAMILY HISTORY: Father: at 64 years old. History of DM Mother: at 78 years old. History of lung cancer and from pneumonia ALLERGIES: Please see below. REVIEW OF SYSTEMS: Unable to obtain as patient is severely altered. HOME MEDICATIONS: Please see below. PHYSICAL EXAMINATION: VITAL SIGNS: please see below General: altered, not answering questions, eyes are open, VSS. Jaundiced HEENT: Scleral icterus. PERRLA Neck: supple, normal ROM, no JVD Respiratory: lungs CTAB, no wheeze, no rales, no crackles CVS: RRR, normal S1, S2, no murmurs Abdo: Postoperative, FRANCES drain putting out serosanguineous fluid. Soft, nondistended Extremities: no edema, pulses 2+ MSK: no joint deformities, normal ROM Neuro: no focal neuro deficits, moving all 4 extremities, CN2-12 intact. Strength 5/5 in all 4 extremities. No nystagmus. Psych: calm, cooperative, AAO x 3 LABORATORY DATA: See below. IMAGING: CXR (04/18/19): Lungs: Marked emphysematous changes, right greater than left with relative hyperexpansion and hyperlucency the right lung and compression of the left lung, stable in comparison to prior thoracic CT. Findings consistent with increased air trapping on the right. Pleural space: Unremarkable. No pleural effusion. No pneumothorax. Heart/Mediastinum: Unremarkable. No cardiomegaly. Bones/joints: Unremarkable. IMPRESSION: Asymmetric emphysematous changes as described above. MICROBIOLOGY: Please see below. ASSESSMENT: 64-year-old female with history of cirrhosis colon cancer status post right colectomy on 04/07, presenting with altered mental status. Ammonia found to be 186 in the ER will be admitted for management of acute hepatic encephalopathy. I attempted to speak to patient's at [phone] to obtain additional history but was unable to reach him. PLAN: #Hepatic encephalopathy - acute onset - Ammonia level 186 - as unable to tolerate PO at this time, lactulose enema - rifaximin, lactulose PO when able #Lactic acidosis 2/2 possible sepsis from SBP - LA 2.3, WBC 12. - to give 1000 cc NS bolus - start empiric ceftriaxone for SBP (2 g IV daily x 5 days) - check Liver US for degree of ascites, will likely require paracentesis for cultures, although these may not be diagnostic as will start empiric ceftriaxone. - blood cultures #Cirrhosis -Child-Boudreaux score class B, MELD-Na score 19 -takes lasix 40 mg PO daily, will give 20 mg IV after 500 cc bolus given elevated LA -Spironolactone when able to tolerate PO -Low sodium diet -Supportive care and alcohol avoidance -albumin wnl #adenocarcinoma of colon - s/p laparoscopic transverse colectomy by Dr. Carpio 04/07 - post op bleeding during past admission, FRANCES drain in place, draining s erosanguinous ascitic fluid appropriately #COPD - stable - resume inhalers, nebs DVT ppx: SCDs/TEDs. Will give heparin 5000 q8h SC. Hgb stable on admission, monitor closely. Dispo: admission expected to last more than 2 midnights. Vital Signs Vital Signs Date Time Temp Pulse Resp B/P (MAP) Pulse Ox O2 Delivery O2 Flow Rate FiO2 04/19/20 01:19 126 94 04/19/20 00:33 169/70 (103) 04/18/20 20:34 Room Air 95 04/18/20 20:31 98.0 18 Laboratory Data Labs 24H Laboratory Tests 2 04/18/20 20:10: Immature Granulocyte % (Auto) 1.0, Neutrophils (%) (Auto) 75.8H, Lymphocytes (%) (Auto) 9.6L, Monocytes (%) (Auto) 12.1H, Eosinophils (%) (Auto) 1.2, Basophils (%) (Auto) 0.3, Neutrophils # (Auto) 8.8H, Lymphocytes # (Auto) 1.1L, Monocytes # (Auto) 1.4H, Eosinophils # (Auto) 0.1, Basophils # (Auto) 0.0, Nucleated Red Blood Cells % (auto) 0.0, Total Bilirubin 7.7H, Direct Bilirubin 3.7H, Aspartate Amino Transf (AST/SGOT) 30, Alanine Aminotransferase (ALT/SGPT) 24, Alkaline P hosphatase 81, Ammonia 186H, Total Protein 6.5, Albumin 3.3, Albumin/Globulin Ratio 1.0L, Lipase 212, Ethyl Alcohol Level 0.003 04/18/20 20:16: POC Lactate (Misc Panel) 2.66*H 04/18/20 20:19: POC Glucose (Misc Panel) 117H, POC Sodium (Misc Panel) 126L, POC Potassium (Misc Panel) 4.6, POC Chloride (Misc Panel) 89L, POC Total CO2 (Misc Panel) 27.0, POC Blood Urea Nitrogen (Misc Panel 24, POC Ionized Calcium (Misc Panel) 4.3L, POC Creatinine (Misc Panel) 1.1, POC Hematocrit (Misc Panel) 40.0 CBC/BMP Laboratory Tests 04/18/20 20:10 Microbiology Microbiology 04/18/20 Respiratory Virus Panel (PCR) (SERGEY) - Final, Complete Home Medications Scheduled Ascorbic Acid (Vitamin C) 500 Mg Tablet, 1,000 MG PO DAILY Cholecalciferol (Vitamin D3) (Vitamin D3) 1,000 Unit Tablet, 2,000 UNITS PO DAILY Esomeprazole Magnesium (Nexium) 20 Mg Capsule.dr, 20 MG PO DAILY Lactulose (Lactulose) 10 Gm/15 Ml Solution, 15 ML PO BID Levocetirizine Dihydrochloride (Levocetirizine Dihydrochloride) 5 Mg Tablet, 5 MG PO BID Levofloxacin (Levofloxacin) 250 Mg Tablet, 250 MG PO DAILY@0600 Lorazepam (Ativan) 0.5 Mg Tablet, 0.5 MG PO BID Midodrine HCl (Midodrine HCl) 5 Mg Tablet, 10 MG PO 08,12,16 Multivitamins (Thera M Plus Tablet) 1 Each Tablet, 2 TAB PO DAILY Octreotide Acetate (Octreotide Acetate) 100 Mcg/1 Ml Vial, 100 MCG SC Q8H Potassium Chloride (Potassium Chloride) 10 Meq Tab.er.prt, 10 MEQ PO TID Rifaximin (Xifaxan) 200 Mg Tablet, 400 MG NG TID Saccharomyces Boulardii (Probiotic) 250 Mg Capsule, 250 MG PO BIDWM Salmeterol/Fluticasone (Advair 250-50 Diskus) 1 Each Blst.w.dev, 1 PUFF INH DAILY Spironolactone (Aldactone) 25 Mg Tablet, 12.5 MG PO 09,17 Scheduled PRN Albuterol Sulf (Albuterol Sulfate) 2.5 Mg/3 Ml Vial.neb, INH BIDP PRN for SOB/WHEEZING Levalbuterol Tartrate (Levalbuterol Tartrate Hfa) 15 Gm Hfa.aer.ad, 2 PUFFS INH QID PRN for SHORTNESS OF BREATH Oxycodone HCl (Oxycodone HCl) 5 Mg Tablet, 5 MG PO Q4H PRN for PAIN Miscellaneous Medications [med rec comment] used external history and last discharge 04/08/20 for med rec. unable to verify with patient or spouse Allergies Coded Allergies: Sulfa (Sulfonamide Antibiotics) (Verified Allergy, Intermediate, HIVES, 05/06/20) tetracycline (Verified Allergy, Intermediate, HIVES, 05/06/20) levofloxacin (Unverified Adverse Reaction, Mild, REDNESS TO EAR, 05/06/20) A-FIB/CHADSVASC A-FIB History Current/History of A-Fib/PAF?: No Current PO Anticoag Therapy: No MADONNA FORTUNE MD Apr 19, 2020 02:10
[2020-04-19] MEDS ORDERED: LACTULOSE 20 GM/30 ML SYRUP UD PO ONE (03:00)
[2020-04-19] MEDS ORDERED: cefTRIAXone SOD 1 GM in D5W MINI-BAG PLUS 50 ML IV SCH (03:00)
[2020-04-19] MEDS ORDERED: LACTULOSE 20 GM/30 ML SYRUP UD PR ONE ×2 (03:00→18:00)
[2020-04-19] MEDS: cefTRIAXone SOD 2 GM in D5W MINI-BAG PLUS 50 ML IV SCH (03:26)
[2020-04-19] MEDS: HEPARIN SOD (PORCINE) 5000UNITS/ML 1ML VIAL/SYRINGE SC SCH ×3 (06:27→22:35)
[2020-04-19 08:19] LABS: BASO % 0.3 % (0.0-1.0); EOS # 0.1 10^3/uL (0.0-0.5); EOS % 0.7 % (0.0-3.0); HEMATOCRIT 39.6 % (36.0-47.0); HEMOGLOBIN 13.5 g/dl (12.0-15.5); LYMPH # 1.1 10^3/uL (1.5-5.0); LYMPH % 8.3 % (24.0-44.0); MEAN CORPUSCULAR HEMOGLOBIN 31.7 pg (27.0-33.0); MEAN CORPUSCULAR HGB CONC 34.1 g/dl (32.0-36.5); MONO # 1.6 10^3/uL (0.0-0.8); MONO % 11.9 % (0.0-5.0); NEUTROPHILS # 10.6 10^3/uL (1.5-8.5); NEUTROPHILS % 77.6 % (36.0-66.0); PLATELET COUNT, AUTOMATED 213 10^3/uL (150-450); RED BLOOD COUNT 4.26 10^6/uL (4.00-5.40); WHITE BLOOD COUNT 13.7 10^3/uL (4.0-10.0)
--- NOTE | 2020-04-19 08:27 | REP ---
INDICATION: assess for ascites, liver, gallbladder COMPARISON: 11/22/2019 TECHNIQUE: Real time gonzalez scale ultrasound examination using curved array transducer. FINDINGS: Liver demonstrates mild fatty infiltration without focal hepatic lesion and measures 17 cm in craniocaudal length. There is no ascites in the visualized right upper quadrant. Pancreas is incompletely evaluated due to interposed bowel gas but visualized portions are grossly normal. Gallbladder demonstrates layering sludge and small stones with minimal gallbladder wall thickening to 3.7 mm. No pericholecystic fluid or biliary ductal dilatation is appreciated and the common bile duct measures 4.7 mm diameter. The right kidney is normal in reniform shape in appearance without hydronephrosis measuring 10.8 x 4.6 x 3.9 cm. IMPRESSION: 1. Mild fatty infiltration to the liver without obvious focal hepatic lesion. 2. No ascites. 3. Cholelithiasis. <Electronically signed by Jair Holland > 04/19/20 0823
[2020-04-19 08:43] LABS: INR 1.48; PROTHROMBIN TIME 18.2 SECONDS (12.5-14.3)
[2020-04-19 08:51] LABS: ALBUMIN 3.3 GM/DL (3.2-5.2); BILIRUBIN,TOTAL 8.1 MG/DL (0.2-1.0); CREATININE FOR GFR 1.07 MG/DL (0.55-1.30); GLOMERULAR FILTRATION RATE 55.3 (>45); POTASSIUM SERUM 4.5 MEQ/L (3.5-5.1); TOTAL PROTEIN 6.6 GM/DL (6.4-8.2)
[2020-04-19] MEDS ORDERED: FUROSEMIDE 20MG/2ML VIAL (J1940) IV ONE (09:00)
[2020-04-19] MEDS: ADVAIR HFA 115/21MCG INHALER INH SCH (10:28)
[2020-04-19] MEDS: SPIRONOLACTONE 50 MG TAB PO SCH (10:38)
[2020-04-19] MEDS: POTASSIUM CHLORIDE 10 MEQ SR TABLET PO SCH ×3 (10:39→21:00)
[2020-04-19] MEDS: VITAMIN D 1,000 INTERNATIONAL UNITS TABLET PO SCH (10:39)
[2020-04-19] MEDS: PANTOPRAZOLE 40MG TAB (PROTONIX) PO SCH (10:39)
[2020-04-19] MEDS: ASCORBIC ACID 500 MG TAB PO SCH (10:39)
--- NOTE | 2020-04-19 13:31 | IPNPDOC ---
Text Note Date of Service The patient was seen on 04/19/20. NOTE Subjective: Patient seen and examined at bedside. Still very somnolent but hemodynamically stable. Objective: General: NAD, lying comfortably in bed, somnolent, chronically ill appearing HEENT: NC/AT Lungs: CTA B/L Heart: +S1S2, RRR Abd: soft, NT, +BS, FRANCES drain in place Ext: no edema A/P: 64-year-old female with history of cirrhosis colon cancer status post right colectomy on 04/07, presenting with altered mental status. Ammonia found to be 186 in the ER will be admitted for management of acute hepatic encephalopathy. PLAN: #Hepatic encephalopathy - acute onset - Ammonia level 186 on admission - discussed with her senior loan processor dr janet carpio - [phone] - NG tube - oral lactulose - surgery c/s pending #Lactic acidosis 2/2 possible sepsis from SBP - LA 2.3, WBC 12. - to give 1000 cc NS bolus - ceftriaxone for SBP day #1 (2 g IV daily x 5 days) - imaging unrevealing - blood cultures pending #Cirrhosis -Child-Boudreaux score class B, MELD-Na score 19 -takes lasix 40 mg PO daily -Spironolactone when able to tolerate PO -Low sodium diet -Supportive care and alcohol avoidance -albumin wnl #adenocarcinoma of colon - s/p laparoscopic transverse colectomy by Dr. Carpio 04/07 - post op bleeding during past admission, FRANCES drain in place, draining serosa nguinous ascitic fluid appropriately #COPD - stable - resume inhalers, nebs Dispo: pending clinical improvement, discussed at length with her mr ramos - [phone] VS,Fishbone, I+O VS, Fishbone, I+O Laboratory Tests 04/18/20 20:10 04/19/20 08:05 Vital Signs Date Time Temp Pulse Resp B/P (MAP) Pulse Ox O2 Delivery O2 Flow Rate FiO2 04/19/20 12:30 91 98 Room Air 04/19/20 12:15 105/59 (74) 04/18/20 20:34 95 04/18/20 20:31 98.0 18 I&O- Last 24 Hours up to 6 AM 04/19/20 06:00 Intake Total 550 ml Output Total 80 ml Balance 470 ml LALDIN,YAZAN S. MD Apr 19, 2020 13:31
--- NOTE | 2020-04-19 14:10 | REP ---
INDICATION: AMS RECENT COLECTOMY COMPARISON: 03/21/2020 TECHNIQUE: Axial noncontrast images from the lung bases to the pubic symphysis with coronal and sagittal reformations. This CT examination was performed using the following dose reduction techniques: Automated exposure control, adjustment of mA and/or kv according to the patient's size, and use of iterative reconstruction technique. FINDINGS: NOTE: Examination is limited by motion artifact. Lung bases are clear. Liver, spleen, pancreas, gallbladder, bilateral adrenal glands and kidneys are normal. There is a drainage catheter extending via the upper abdominal midline into the pelvis along the right pericolic gutter. Midline skin ronnie are identified and a small amount of free air is consistent with recent surgical procedure. There is no evidence for bowel obstruction. Colonic and sigmoid diverticulosis noted without acute diverticulitis. No significant ascites or drainable collection/abscess identified. Pelvis demonstrates normal bladder and age-appropriate uterus/adnexa. No adenopathy. No focal inflammatory stranding. Abdominal aorta without aneurysm. Musculoskeletal structures are intact and without acute osseous abnormality. IMPRESSION: 1. Findings related to recent abdominal surgery with small amount of pneumoperitoneum and Marco Antonio-Garcia drainage catheter extending into the pelvis. 2. No significant ascites or drainable collection/abscess. 3. No obvious acute process identified. <Electronically signed by Jair Holland > 04/19/20 [id number]
[2020-04-19 16:35] VITALS: BP 151/85
[2020-04-19] MEDS ORDERED: LORazepam 2 MG/ML VIAL IV STA ×2 (16:38→16:55)
[2020-04-19] MEDS ORDERED: SLF 3 ML SYR IV PRN (17:00)
[2020-04-19] MEDS: LACTULOSE 20 GM/30 ML SYRUP UD NG SCH ×2 (17:33→20:00)
[2020-04-19 20:00] VITALS: BP 108/54
[2020-04-19] MEDS: THIAMINE 100 MG TAB PO SCH (21:00)
[2020-04-19] MEDS ORDERED: LORazepam 2 MG TAB PO PRN (21:15)
[2020-04-19] MEDS: SLF 3 ML SYR IV SCH (22:36)
[2020-04-20] VITALS (9 sets, daily range): BP systolic 102–118; BP diastolic 57–73
[2020-04-20] MEDS: LACTULOSE 20 GM/30 ML SYRUP UD NG SCH ×5 (03:50→21:12)
[2020-04-20] MEDS: cefTRIAXone SOD 2 GM in D5W MINI-BAG PLUS 50 ML IV SCH (04:03)
[2020-04-20 04:29] LABS: BASO % 0.3 % (0.0-1.0); EOS # 0.2 10^3/uL (0.0-0.5); HEMATOCRIT 40.7 % (36.0-47.0); HEMOGLOBIN 13.8 g/dl (12.0-15.5); LYMPH # 1.3 10^3/uL (1.5-5.0); LYMPH % 8.3 % (24.0-44.0); MEAN CORPUSCULAR HEMOGLOBIN 31.9 pg (27.0-33.0); MEAN CORPUSCULAR HGB CONC 33.9 g/dl (32.0-36.5); MONO # 1.5 10^3/uL (0.0-0.8); MONO % 9.6 % (0.0-5.0); NEUTROPHILS # 12.2 10^3/uL (1.5-8.5); NEUTROPHILS % 79.8 % (36.0-66.0); PLATELET COUNT, AUTOMATED 206 10^3/uL (150-450); RED BLOOD COUNT 4.33 10^6/uL (4.00-5.40); WHITE BLOOD COUNT 15.3 10^3/uL (4.0-10.0)
[2020-04-20 04:52] LABS: ALBUMIN 3.3 GM/DL (3.2-5.2); BILIRUBIN,TOTAL 7.8 MG/DL (0.2-1.0); CREATININE FOR GFR 1.01 MG/DL (0.55-1.30); GLOMERULAR FILTRATION RATE 59.1 (>45); MAGNESIUM LEVEL 2.5 MG/DL (1.8-2.4); POTASSIUM SERUM 4.4 MEQ/L (3.5-5.1); TOTAL PROTEIN 6.4 GM/DL (6.4-8.2)
[2020-04-20] MEDS: SLF 3 ML SYR IV SCH ×3 (06:21→21:15)
[2020-04-20] MEDS: HEPARIN SOD (PORCINE) 5000UNITS/ML 1ML VIAL/SYRINGE SC SCH ×3 (06:21→21:14)
[2020-04-20] MEDS: ADVAIR HFA 115/21MCG INHALER INH SCH (07:53)
[2020-04-20] MEDS: SPIRONOLACTONE 50 MG TAB PO SCH (09:00)
[2020-04-20] MEDS: MULTIVITAMINS/MINERALS THERAP 1 TAB PO SCH (09:00)
[2020-04-20] MEDS: POTASSIUM CHLORIDE 10 MEQ SR TABLET PO SCH ×3 (09:00→21:00)
[2020-04-20] MEDS: ASCORBIC ACID 500 MG TAB PO SCH (09:00)
[2020-04-20] MEDS: PANTOPRAZOLE 40MG TAB (PROTONIX) PO SCH (09:00)
[2020-04-20] MEDS ORDERED: FOLIC ACID 1 MG TAB PO SCH (09:00)
[2020-04-20] MEDS: VITAMIN D 1,000 INTERNATIONAL UNITS TABLET PO SCH (09:00)
[2020-04-20] MEDS: THIAMINE 100 MG TAB PO SCH (09:00)
--- NOTE | 2020-04-20 10:33 | IPNPDOC ---
Text Note Date of Service The patient was seen on 04/20/20. NOTE Subjective: Patient seen and examined at bedside. Still somnolent but does have some reaction to calling her name, and remains hemodynamically stable. Objective: General: NAD, lying comfortably in bed, somnolent, chronically ill appearing HEENT: NC/AT Lungs: CTA B/L Heart: +S1S2, RRR Abd: soft, NT, +BS, FRANCES drain in place Ext: no edema A/P: 64-year-old female with history of cirrhosis colon cancer status post right colectomy on 04/07, presenting with altered mental status. Ammonia found to be 186 in the ER will be admitted for management of acute hepatic encephalopathy. PLAN: #Hepatic encephalopathy - acute onset - Ammonia level 186 on admission - discussed with her commissioned police officer dr janet carpio - [phone] - NG tube placed this morning - lactulose via NG tube - rifaximin 400 TID via NG tube - surgery c/s pending - assistance appreciated #Lactic acidosis 2/2 possible sepsis from SBP - LA 2.3, WBC 12. - to give 1000 cc NS bolus - ceftriaxone 2mg IV qd for SBP day #2 - imaging unrevealing - blood cultures pending #Cirrhosis -Child-Boudreaux score class B, MELD-Na score 19 -takes lasix 40 mg PO daily -Spironolactone when able to tolerate PO -Low sodium diet -Supportive care and alcohol avoidance -albumin wnl #adenocarcinoma of colon - s/p laparoscopic transverse colectomy by Dr. Carpio 04/07 - post op bleeding during past admission, FRANCES drain in place, draining serosanguinous ascitic fluid appropriately #COPD - stable - resume inhalers, nebs Dispo: pending clinical improvement, discussed at length with her mr ramos - [phone], pleasant conversation, all questions and concerns addressed. VS,Fishbone, I+O VS, Fishbone, I+O Laboratory Tests 04/20/20 04:11 Vital Signs Date Time Temp Pulse Resp B/P (MAP) Pulse Ox O2 Delivery O2 Flow Rate FiO2 04/20/20 08:38 96.7 82 20 102/57 (72) 97 Room Air 04/18/20 20:34 95 I&O- Last 24 Hours up to 6 AM 1/10/21 06:00 Intake Total 0 ml Output Total 1060 ml Balance -1060 ml YAZAN HERNANDEZ MD Apr 20, 2020 10:33
--- NOTE | 2020-04-20 10:41 | REP ---
INDICATION: Placement verification COMPARISON: 04/18/2020 TECHNIQUE: Portable AP view of the chest FINDINGS: Nasogastric tube courses below left hemidiaphragm. The mediastinum and cardiac silhouette are stable and within normal limits for portable technique. The lung nicole demonstrate increased interstitial changes without acute consolidation, effusion, or pneumothorax. Skeletal structures are intact. IMPRESSION: No acute focal consolidation or effusion. <Electronically signed by Jair Holland > 04/20/20 1038
[2020-04-20] MEDS: LORazepam 2 MG/ML VIAL IV PRN ×2 (12:40→22:25)
[2020-04-20] MEDS: FOLIC ACID 1 MG TAB NG SCH (17:53)
[2020-04-20] MEDS: NS 1,000 ML IV SCH (17:54)
[2020-04-20] MEDS: PANTOPRAZOLE 40MG VIAL (C9113 PER 1) IV SCH (21:14)
[2020-04-20] MEDS: THIAMINE 100 MG TAB NG SCH (21:15)
[2020-04-21] VITALS (10 sets, daily range): BP systolic 104–142; BP diastolic 58–75
[2020-04-21] MEDS: cefTRIAXone SOD 2 GM in D5W MINI-BAG PLUS 50 ML IV SCH (02:16)
[2020-04-21] MEDS: LACTULOSE 20 GM/30 ML SYRUP UD NG SCH ×6 (02:16→21:11)
[2020-04-21] MEDS: LORazepam 2 MG/ML VIAL IV PRN ×3 (03:04→19:44)
[2020-04-21] MEDS: SLF 3 ML SYR IV SCH ×3 (05:40→21:34)
[2020-04-21] MEDS: HEPARIN SOD (PORCINE) 5000UNITS/ML 1ML VIAL/SYRINGE SC SCH ×3 (05:44→21:33)
[2020-04-21 06:46] LABS: BASO # 0.1 10^3/uL (0.0-0.2); BASO % 0.4 % (0.0-1.0); EOS # 0.1 10^3/uL (0.0-0.5); EOS % 0.7 % (0.0-3.0); HEMATOCRIT 42.9 % (36.0-47.0); HEMOGLOBIN 13.6 g/dl (12.0-15.5); MEAN CORPUSCULAR HEMOGLOBIN 30.6 pg (27.0-33.0); MEAN CORPUSCULAR HGB CONC 31.7 g/dl (32.0-36.5); MEAN CORPUSCULAR VOLUME 96.4 fl (80.0-96.0); MONO # 0.7 10^3/uL (0.0-0.8); MONO % 4.7 % (0.0-5.0); NEUTROPHILS # 12.1 10^3/uL (1.5-8.5); NEUTROPHILS % 85.9 % (36.0-66.0); PLATELET COUNT, AUTOMATED 214 10^3/uL (150-450); RED BLOOD COUNT 4.45 10^6/uL (4.00-5.40); WHITE BLOOD COUNT 14.1 10^3/uL (4.0-10.0)
[2020-04-21 07:17] LABS: ALBUMIN 3.4 GM/DL (3.2-5.2); BILIRUBIN,TOTAL 5.9 MG/DL (0.2-1.0); CALCIUM LEVEL 9.5 MG/DL (8.8-10.2); CREATININE FOR GFR 1.16 MG/DL (0.55-1.30); GLOMERULAR FILTRATION RATE 50.4 (>45); MAGNESIUM LEVEL 2.6 MG/DL (1.8-2.4); POTASSIUM SERUM 3.6 MEQ/L (3.5-5.1); TOTAL PROTEIN 6.7 GM/DL (6.4-8.2)
[2020-04-21] MEDS: ADVAIR HFA 115/21MCG INHALER INH SCH (08:00)
[2020-04-21] MEDS: THIAMINE 100 MG TAB NG SCH ×2 (09:00→21:00)
[2020-04-21] MEDS: NS 1,000 ML IV SCH (09:09)
[2020-04-21] MEDS: VITAMIN D 1,000 INTERNATIONAL UNITS TABLET PO SCH (10:43)
[2020-04-21] MEDS: ASCORBIC ACID 500 MG TAB PO SCH (10:43)
[2020-04-21] MEDS: SPIRONOLACTONE 50 MG TAB PO SCH (10:43)
[2020-04-21] MEDS: MULTIVITAMINS/MINERALS THERAP 1 TAB PO SCH (10:44)
[2020-04-21] MEDS: POTASSIUM CHLORIDE 10 MEQ SR TABLET PO SCH ×3 (10:45→21:00)
[2020-04-21] MEDS: FOLIC ACID 1 MG TAB NG SCH (10:47)
--- NOTE | 2020-04-21 11:39 | IPNPDOC ---
Text Note Date of Service The patient was seen on 04/21/20. NOTE Subjective: Patient seen and examined at bedside. Still somnolent, restless at times. Better response when calling her name, she tries to open her eyes on command. Objective: General: NAD, restless, chronically ill appearing HEENT: NC/AT Lungs: CTA B/L Heart: +S1S2, RRR Abd: soft, NT, +BS, FRANCES drain in place Ext: no edema A/P: 64-year-old female with history of cirrhosis, colon cancer status post right colectomy on 04/07 complicated with hematoma, presenting with altered mental status. Ammonia found to be 186 in the ER will be admitted for management of acute hepatic encephalopathy. PLAN: #Hepatic encephalopathy - acute onset - hyperammonemia resolved - Ammonia level 186 on admission - discussed again with her general maintenance technician dr janet carpio - [phone] - assistance appreciated - lactulose via NG tube - only 1 bowel movement documented - rifaximin 400 TID via NG tube - surgery c/s appreciated - ABD pending - reduce ativan dosage - she has been using ativan at home, and analgesic given recent surgery #hyperbilirubinemia - liver US pending - discussed with surgery and GI #Lactic acidosis 2/2 possible sepsis from SBP - repeat pending - ceftriaxone 2mg IV qd for SBP day #3 - imaging unrevealing - blood cultures pending - negative to date (48hours) #Cirrhosis -Child-Boudreaux score class B, MELD-Na score 19 -takes lasix 40 mg PO daily at home -aldatone at home - on hold -still NPO given somnolence -Supportive care and alcohol avoidance - denies any alcohol use at home #adenocarcinoma of colon - s/p laparoscopic transverse colectomy by Dr. Carpio 04/07 - post op bleeding during past admission, FRANCES drain in place, draining serosanguinous ascitic fluid appropriately #COPD - stable - resume inhalers, nebs Dispo: pending clinical improvement, discussed at length with her mr ramos - [phone], pleasant conversation, all questions and concerns addressed. discussed with surgery and GI VS,Fishbone, I+O VS, Fishbone, I+O Laboratory Tests 04/21/20 06:25 Vital Signs Date Time Temp Pulse Resp B/P (MAP) Pulse Ox O2 Delivery O2 Flow Rate FiO2 04/21/20 08:00 97.5 97 20 110/59 (76) 98 Room Air 04/18/20 20:34 95 I&O- Last 24 Hours up to 6 AM 04/21/20 06:00 Intake Total 750 ml Output Total 2655 ml Balance -1905 ml YAZAN HERNANDEZ MD Apr 21, 2020 11:39
--- NOTE | 2020-04-21 12:29 | IPN ---
PROGRESS NOTE DATE: 04/21/2020 SUBJECTIVE: The patient had a colectomy several weeks ago and postoperatively, she had some GI bleeding associated with her cirrhosis and portal hypertension issues. Essentially she was discharged home tolerating a regular diet. She did have a significant amount of drainage from her Marco Antonio-Garcia drain and after discussion with GI, we increased her diuretics. Her urine output seemed to be tapering off nicely, and the plan was to have her follow-up in my office this week for drain removal. She unfortunately developed hepatic encephalopathy and is here for further treatment. I did order a fluid study/gram stain culture on the FRANCES drain and essentially this revealed no organisms with a few white blood cells, which I would expect in this fluid; but otherwise, no other significant abnormality. Unfortunately, she has been somnolent and has not come around very well. Reportedly from the nurses, she is a little more alert or at least reactive today than she was yesterday; but still, not communicative. OBJECTIVE: Her abdomen is soft, nontender, and nondistended. Her FRANCES drain has some minimal serosanguineous fluid. The drainage amount this morning was about 20-30 mL. She has a rectal tube in place for the significant amount of diarrhea she has had with the lactulose. IMPRESSION AND PLAN: Surgically, I feel that we should be able to remove this Marco Antonio-Garcia drain; however, I do not want to take this out until we are relatively sure that some other etiology has been determined for her elevated white count, etc. At this point, keeping the FRANCES drain in an extra 24-48 hours is not unreasonable and at that point if she continues to wake up nicely, we will get rid of the FRANCES drain. Otherwise, advancing her diet when she is alert and wake enough is very reasonable.
[2020-04-21] MEDS: LR 1,000 ML IV SCH ×2 (13:19→21:33)
[2020-04-21] MEDS ORDERED: LORazepam 2 MG/ML VIAL As Ordered ONE (13:36)
--- NOTE | 2020-04-21 15:09 | REP ---
INDICATION: ams COMPARISON: None. TECHNIQUE: Axial noncontrast images from the skull base to the thoracic inlet with coronal reformations. This CT examination was performed using the following dose reduction techniques: Automated exposure control, adjustment of mA and/or kv according to the patient's size, and use of iterative reconstruction technique. FINDINGS: Age-related atrophy and microvascular ischemic changes are appreciated. The ventricles and sulci are symmetric. [place]-white differentiation is maintained. There is no evidence for acute intracranial hemorrhage, mass/mass effect, pathology or infarction. No extra-axial fluid collection. Calvarium is intact. Paranasal sinuses and mastoid air cells are clear. IMPRESSION: Age related atrophy and microvascular ischemic changes. No acute intracranial hemorrhage, infarction, or mass/mass effect. <Electronically signed by Jair Holland > 04/21/20 [id number]
[2020-04-21 15:15] LABS: CALCIUM LEVEL 9.4 MG/DL (8.8-10.2); CREATININE FOR GFR 1.08 MG/DL (0.55-1.30); GLOMERULAR FILTRATION RATE 54.7 (>45); POTASSIUM SERUM 3.6 MEQ/L (3.5-5.1)
[2020-04-21 16:50] LABS: ABG BASE EXCESS 0.5 (-2.0-2.0); ABG HCO3 22.3 MEQ/L (22.0-26.0); ABG O2 SATURATION 96.9 % (95.0-99.0); ABG PARTIAL PRESSURE CO2 28.3 mmHg (35.0-45.0); ABG PARTIAL PRESSURE O2 81.6 mmHg (75.0-100.0); ABG STANDARD HCO3 24.9 MEQ/L (22.0-26.0); ABG TOTAL CO2 23.1 MEQ/L (23.0-31.0); ABG pH (ARTERIAL) 7.514 UNITS (7.350-7.450)
[2020-04-21] MEDS: PANTOPRAZOLE 40MG VIAL (C9113 PER 1) IV SCH (21:32)
[2020-04-21] MEDS: HALOPERIDOL 5MG/ML VIAL (J1630 PER 1) IV PRN (21:33)
[2020-04-22] VITALS (9 sets, daily range): BP systolic 108–128; BP diastolic 53–72
[2020-04-22] MEDS: LACTULOSE 20 GM/30 ML SYRUP UD NG SCH ×6 (01:52→21:06)
[2020-04-22] MEDS: cefTRIAXone SOD 2 GM in D5W MINI-BAG PLUS 50 ML IV SCH (02:01)
[2020-04-22] MEDS: D5W/0.45% SODIUM CHLORIDE 1,000 ML IV SCH ×3 (02:01→22:37)
[2020-04-22] MEDS: LORazepam 2 MG/ML VIAL IV PRN (02:20)
[2020-04-22] MEDS: SLF 3 ML SYR IV SCH ×3 (04:20→21:17)
[2020-04-22] MEDS: HALOPERIDOL 5MG/ML VIAL (J1630 PER 1) IV PRN (04:20)
[2020-04-22] MEDS: HEPARIN SOD (PORCINE) 5000UNITS/ML 1ML VIAL/SYRINGE SC SCH ×3 (05:24→21:05)
[2020-04-22 06:00] LABS: BASO % 0.4 % (0.0-1.0); EOS # 0.1 10^3/uL (0.0-0.5); EOS % 1.6 % (0.0-3.0); HEMATOCRIT 38.5 % (36.0-47.0); HEMOGLOBIN 12.1 g/dl (12.0-15.5); LYMPH # 1.3 10^3/uL (1.5-5.0); MEAN CORPUSCULAR HGB CONC 31.4 g/dl (32.0-36.5); MEAN CORPUSCULAR VOLUME 98.7 fl (80.0-96.0); MONO % 12.3 % (0.0-5.0); NEUTROPHILS # 5.6 10^3/uL (1.5-8.5); NEUTROPHILS % 68.2 % (36.0-66.0); PLATELET COUNT, AUTOMATED 160 10^3/uL (150-450); WHITE BLOOD COUNT 8.1 10^3/uL (4.0-10.0)
[2020-04-22 06:33] LABS: ALBUMIN 2.8 GM/DL (3.2-5.2); BILIRUBIN,TOTAL 4.1 MG/DL (0.2-1.0); CALCIUM LEVEL 9.2 MG/DL (8.8-10.2); CREATININE FOR GFR 1.04 MG/DL (0.55-1.30); GLOMERULAR FILTRATION RATE 57.2 (>45); MAGNESIUM LEVEL 2.5 MG/DL (1.8-2.4); POTASSIUM SERUM 3.5 MEQ/L (3.5-5.1); TOTAL PROTEIN 6.3 GM/DL (6.4-8.2)
[2020-04-22] MEDS: THIAMINE 100 MG TAB NG SCH ×2 (08:05→21:00)
[2020-04-22] MEDS: SPIRONOLACTONE 50 MG TAB PO SCH (08:05)
[2020-04-22] MEDS: FOLIC ACID 1 MG TAB NG SCH (08:05)
[2020-04-22] MEDS: POTASSIUM CHLORIDE 10 MEQ SR TABLET PO SCH ×3 (08:06→21:00)
[2020-04-22] MEDS: VITAMIN D 1,000 INTERNATIONAL UNITS TABLET PO SCH (08:07)
[2020-04-22] MEDS: ASCORBIC ACID 500 MG TAB PO SCH (08:07)
[2020-04-22] MEDS: MULTIVITAMINS/MINERALS THERAP 1 TAB PO SCH (08:07)
[2020-04-22] MEDS: ADVAIR HFA 115/21MCG INHALER INH SCH (09:55)
--- NOTE | 2020-04-22 19:27 | IPNPDOC ---
Date Seen The patient was seen on 04/22/20. Progress Note SUBJECTIVE: Although would not open her eyes completely for me, but able to tell me name, birthdate. With nursing awake, speaking with them, can tell name, birthday, hospital. MRI brain ordered but not able to be done today. No chest pain, shortness of breath. OBJECTIVE General: NAD, resting in bed. Tired but oriented x 2 for me this AM HEENT: NC/AT Lungs: CTA B/L Heart: +S1S2, RRR Abd: soft, NT, +BS, FRANCES drain in place Ext: no edema LABORATORY: PLEASE SEE BELOW MICRO: All cultures neg thus far FRANCES drain fluid GS and CX: NG ASSESSMENT: 64-year-old female with history of cirrhosis, colon cancer status post right colectomy on 04/07 complicated with hematoma, presenting with altered mental status. Ammonia found to be 186 in the ER will be admitted for management of acute hepatic encephalopathy. PLAN: #Hepatic encephalopathy 2/2 to liver cirrhosis, improving slowly - Awake and oriented x 2 this AM- best she has been cognitively since admission - Hyperammonemia resolved - Ammonia level 186 on admission, last 23 - Bili and AST/ALT improving - Her GI provider Dr. Bailee Carpio - [phone] -has been contacted and made recommendations - She pulled rectal tube and NG tube overnight, surgery recommending keeping NG tube out for now - Will attempt to give lactulose and rifaximin 400 TID PO. If cannot, consider NG tube back or FL lactulose. Speech therapy evaluation in AM - C/w spironolactone as well. #Lactic acidosis 2/2 liver cirrhosis, unlikely SBP - BCX NG, FRANCES drain GS and Cx- nothing to daie - Ceftriaxone 2mg IV qd for SBP day #4 - imaging unrevealing - If no positive results by 04/23/20, will d/c ceftriaxone #Decompensating liver cirrhosis with hepatic encephalopathy -Child-Boudreaux score class B, MELD-Na score 19 -takes lasix 40 mg PO daily at home -aldatone at home - on hold -still NPO given somnolence -Supportive care and alcohol avoidance - denies any alcohol use at home -C/w rifaximin, lactulose, spironolactone #Adenocarcinoma of colon s/p laparoscopic transverse colectomy by Dr. Carpio 04/07 - Post op bleeding during past admission, FRANCES drain in place, draining serosanguinous ascitic fluid appropriately -Surgery following, keeping FRANCES drain in for now until more Awake and alert. #COPD - stable - resume inhalers, nebs #GI px -IV PPI #DVT px -Heparin SC DISPOSITION: Currently inpatient status, MRI ordered. Overall improving, speech therapy ordered to assess swallowing function. PT/OT needs to be ordered when taking diet and more improved. Plan is likely rehab vs. home with services. VS, I&O, 24H, [place] Vital Signs/I&O Vital Signs Date Time Temp Pulse Resp B/P (MAP) Pulse Ox O2 Delivery O2 Flow Rate FiO2 04/22/20 16:00 97.5 95 20 126/68 (87) 97 Room Air 04/18/20 20:34 95 I&O- Last 24 Hours up to 6 AM 04/22/20 05:59 Intake Total 2440 ml Output Total 2290 ml Balance 150 ml Laboratory Data 24H LABS Laboratory Tests 2 04/22/20 05:42: Immature Granulocyte % (Auto) 1.5, Neutrophils (%) (Auto) 68.2H, Lymphocytes (%) (Auto) 16.0L, Monocytes (%) (Auto) 12.3H, Eosinophils (%) (Auto) 1.6, Basophils (%) (Auto) 0.4, Neutrophils # (Auto) 5.6, Lymphocytes # (Auto) 1.3L, Monocytes # (Auto) 1.0H, Eosinophils # (Auto) 0.1, Basophils # (Auto) 0.0, Nucleated Red Blood Cells % (auto) 0.0, Anion Gap 3L, Glomerular Filtration Rate 57.2, Calcium Level 9.2, Magnesium Level 2.5H, Total Bilirubin 4.1H, Aspartate Amino Transf (AST/SGOT) 62H, Alanine Aminotransferase (ALT/SGPT) 35, Alkaline Phosphatase 67, Total Protein 6.3L, Albumin 2.8L, Albumin/Globulin Ratio 0.8L CBC/BMP Laboratory Tests 04/22/20 05:42 Microbiology Microbiology 04/20/20 Gram Stain - Final, Resulted 04/20/20 Body Fluid Culture, Resulted Pending 04/19/20 Blood Culture - Preliminary, Resulted No Growth after 72 hours. All specime... 04/19/20 Blood Culture - Preliminary, Resulted No Growth after 72 hours. All specime... 04/18/20 Respiratory Virus Panel (PCR) (SERGEY) - Final, Complete Current Medications Current Medications Medications (Trade) Dose Ordered Sig/Chavez Route PRN Reason Start Time Stop Time Status Last Admin Dose Admin Albuterol Sulfate (Proventil Neb) 3 mg BIDP PRN INH SOB/WHEEZING 04/19/20 02:00 04/19/20 02:58 DC Ascorbic Acid (Vitamin C) 1,000 mg DAILY PO 04/19/20 09:00 04/21/20 10:43 Ceftriaxone Sodium 1 gm/ Dextrose 50 ml @ 100 mls/hr Q24H IV 04/19/20 03:00 04/19/20 02:07 DC Ceftriaxone Sodium 2 gm/ Dextrose 50 ml @ 50 mls/hr Q24H IV 04/19/20 03:00 04/22/20 02:01 Dextrose/Sodium Chloride 1,000 ml @ 100 mls/hr Q10H IV 04/21/20 23:45 04/22/20 08:07 Folic Acid (Folic Acid) 1 mg DAILY NG 04/20/20 09:00 04/21/20 10:47 Folic Acid (Folic Acid) 1 mg DAILY PO 04/20/20 09:00 04/20/20 17:17 DC Haloperidol (Haldol) 2 mg Q6HP PRN IV AGITATION/ANXIETY 04/21/20 20:30 04/22/20 04:20 Heparin Sodium (Porcine) (Heparin) 5,000 units Q8H SC 04/19/20 06:00 04/22/20 14:13 Home Med (Med Rec Complete!) ASDIRECTED XX 04/18/20 21:30 04/18/20 21:22 DC Lactated Ringer's 1,000 ml @ 125 mls/hr Q8H IV 04/21/20 12:15 04/21/20 23:44 DC 04/21/20 21:33 Lactulose (Cephulac) 30 ml Q4H NG 04/20/20 18:00 04/21/20 17:42 Lactulose (Cephulac) 30 ml Q6H NG 04/19/20 14:00 04/20/20 17:17 DC 04/20/20 14:52 Levalbuterol HCl (Xopenex Hfa) 2 puff QID PRN INH SHORTNESS OF BREATH 04/19/20 02:00 Lorazepam (Ativan) 0.5 mg ASDIRECTED PRN IV SEE PROTOCOL 04/21/20 12:15 04/22/20 19:26 DC 04/22/20 02:20 Lorazepam (Ativan) 1 mg STAT STAT IV 04/19/20 16:38 04/19/20 16:40 DC 04/19/20 16:46 Lorazepam (Ativan) 1 mg STAT STAT IV 04/19/20 16:55 04/19/20 16:56 DC 04/19/20 17:02 Lorazepam (Ativan) 2 mg ASDIRECTED PRN IV SEE PROTOCOL 04/20/20 12:30 04/21/20 12:14 DC 04/21/20 03:04 Lorazepam (Ativan) 2 mg ASDIRECTED PRN PO SEE PROTOCOL 04/19/20 21:15 04/20/20 12:26 DC Multivitamins (Theragram-M) 1 tab DAILY PO 04/20/20 09:00 04/21/20 10:44 Pantoprazole Sodium (Protonix) 20 mg DAILY PO 04/19/20 09:00 04/20/20 19:05 DC Pantoprazole Sodium (Protonix) 40 mg DAILY@2100 IV 04/20/20 21:00 04/21/20 21:32 Potassium Chloride (Micro-K Extencaps) 10 meq TID PO 04/19/20 09:00 04/21/20 17:43 Rifaximin (Xifaxan) 400 mg TID NG 04/20/20 09:00 04/21/20 17:43 Rifaximin (Xifaxan) 400 mg TID PO 04/19/20 09:00 04/20/20 10:51 DC Salmeterol Xinafoate/ Fluticasone (Advair Hfa 115/ ) 2 puff DAILY@0800 INH 04/19/20 08:00 04/20/20 07:53 Sodium Chloride 1,000 ml @ 70 mls/hr [id number] IV 04/20/20 18:00 04/21/20 12:14 DC 04/21/20 09:09 Sodium Chloride (Saline Lock Flush) 2 ml ASDIRECTED PRN IV SEE LABEL COMMENTS 04/19/20 17:00 Sodium Chloride (Saline Lock Flush) 2 ml SLF IV 04/19/20 22:00 04/22/20 14:13 Spironolactone (Aldactone) 100 mg DAILY PO 04/19/20 09:00 04/21/20 10:43 Thiamine HCl (Thiamine HCl) 100 mg BID NG 04/20/20 21:00 04/23/20 09:01 04/21/20 09:00 Thiamine HCl (Thiamine HCl) 100 mg BID PO 04/19/20 21:00 04/20/20 17:17 DC Vitamin D (Vitamin D) 2,000 units DAILY PO 04/19/20 09:00 04/21/20 10:43 Allergies Coded Allergies: Sulfa (Sulfonamide Antibiotics) (Verified Allergy, Unknown, HIVES, 03/26/20) levofloxacin (Verified Allergy, Unknown, REDNESS TO EAR, 03/26/20) tetracycline (Verified Allergy, Unknown, HIVES, 03/26/20) Katharina Sam MD Apr 22, 2020 19:27
[2020-04-22] MEDS: PANTOPRAZOLE 40MG VIAL (C9113 PER 1) IV SCH (21:05)
[2020-04-22] MEDS: LEVALBUTEROL HFA 45MCG/ACT 15 GM INHALER INH PRN (21:07)
[2020-04-23] VITALS (7 sets, daily range): BP systolic 98–117; BP diastolic 56–68
[2020-04-23] MEDS: LACTULOSE 20 GM/30 ML SYRUP UD NG SCH ×5 (01:22→20:51)
[2020-04-23] MEDS: cefTRIAXone SOD 2 GM in D5W MINI-BAG PLUS 50 ML IV SCH (03:13)
[2020-04-23 05:49] LABS: BASO % 0.4 % (0.0-1.0); EOS # 0.3 10^3/uL (0.0-0.5); EOS % 2.7 % (0.0-3.0); HEMATOCRIT 36.3 % (36.0-47.0); HEMOGLOBIN 11.5 g/dl (12.0-15.5); LYMPH # 1.5 10^3/uL (1.5-5.0); LYMPH % 15.3 % (24.0-44.0); MEAN CORPUSCULAR HEMOGLOBIN 31.6 pg (27.0-33.0); MEAN CORPUSCULAR HGB CONC 31.7 g/dl (32.0-36.5); MEAN CORPUSCULAR VOLUME 99.7 fl (80.0-96.0); MONO # 1.1 10^3/uL (0.0-0.8); MONO % 11.3 % (0.0-5.0); NEUTROPHILS % 69.3 % (36.0-66.0); PLATELET COUNT, AUTOMATED 139 10^3/uL (150-450); RED BLOOD COUNT 3.64 10^6/uL (4.00-5.40); WHITE BLOOD COUNT 10.1 10^3/uL (4.0-10.0)
[2020-04-23] MEDS: SLF 3 ML SYR IV SCH ×3 (06:00→20:58)
[2020-04-23 06:23] LABS: ALBUMIN 2.7 GM/DL (3.2-5.2); ALT/SGPT 34 U/L (12-78); BILIRUBIN,TOTAL 4.2 MG/DL (0.2-1.0); BLOOD UREA NITROGEN 29 MG/DL (7-18); CALCIUM LEVEL 8.6 MG/DL (8.8-10.2); CARBON DIOXIDE LEVEL 27 MEQ/L (21-32); CHLORIDE LEVEL 113 MEQ/L (98-107); CREATININE FOR GFR 0.91 MG/DL (0.55-1.30); GLOMERULAR FILTRATION RATE > 60.0 (>45); GLUCOSE, FASTING 129 MG/DL (70-100); MAGNESIUM LEVEL 2.2 MG/DL (1.8-2.4); POTASSIUM SERUM 3.3 MEQ/L (3.5-5.1); SODIUM LEVEL 144 MEQ/L (136-145); TOTAL PROTEIN 5.7 GM/DL (6.4-8.2)
[2020-04-23] MEDS: HEPARIN SOD (PORCINE) 5000UNITS/ML 1ML VIAL/SYRINGE SC SCH ×3 (06:31→20:50)
[2020-04-23] MEDS: ADVAIR HFA 115/21MCG INHALER INH SCH (07:12)
[2020-04-23] MEDS ORDERED: VANCOMYCIN HCL 1,000 MG, VIAL MATE ADAPTER 1 EACH in D5W 250 ML IV SCH (08:00)
[2020-04-23] MEDS ORDERED: VANCOMYCIN HCL 1,000 MG, VIAL MATE ADAPTER 1 EACH in D5W 250 ML IV ONE (10:00)
[2020-04-23] MEDS: THIAMINE 100 MG TAB NG SCH (10:05)
[2020-04-23] MEDS: POTASSIUM CHLORIDE 10 MEQ SR TABLET PO SCH ×2 (10:06→20:53)
[2020-04-23] MEDS: SPIRONOLACTONE 50 MG TAB PO SCH (10:07)
[2020-04-23] MEDS: VITAMIN D 1,000 INTERNATIONAL UNITS TABLET PO SCH (10:07)
[2020-04-23] MEDS: FOLIC ACID 1 MG TAB NG SCH (10:07)
[2020-04-23] MEDS: ASCORBIC ACID 500 MG TAB PO SCH (10:07)
[2020-04-23] MEDS: MULTIVITAMINS/MINERALS THERAP 1 TAB PO SCH (10:07)
[2020-04-23] MEDS: D5W/0.45% SODIUM CHLORIDE 1,000 ML IV SCH ×2 (10:11→15:45)
[2020-04-23] MEDS ORDERED: VANCOMYCIN HCL 750 MG, VIAL MATE ADAPTER 1 EACH in D5W 250 ML IV ONE (11:00)
--- NOTE | 2020-04-23 13:57 | IPNPDOC ---
Date Seen The patient was seen on 04/23/20. Progress Note SUBJECTIVE: Awake, oriented x 3 this AM. Tolerating clear liquids and pills well. Decreased frequency of lactulose as has incr diarrhea. No chest pain, shortness of breath. OBJECTIVE PHYSICAL EXAM: VS: Please see below General: NAD, resting in bed, AAOx 3 HEENT: NC/AT Lungs: CTA B/L Heart: +S1S2, RRR Abd: soft, NT, +BS, FRANCES drain in place Ext: no edema LABORATORY: PLEASE SEE BELOW MICRO: All cultures neg thus far FRANCES drain fluid GS: NG FRANCES drain CX: ENTEROCOCCUS FAECALIS QUANTITY OF GROWTH: FEW Organism 2: STAPHYLOCOCCUS HAEMOLYTICUS QUANTITY OF GROWTH: FEW ASSESSMENT: 64-year-old female with history of cirrhosis, colon cancer status post right colectomy on 04/07 complicated with hematoma, presenting with altered mental status. Ammonia found to be 186 in the ER will be admitted for management of acute hepatic encephalopathy. PLAN: #Hepatic encephalopathy 2/2 to liver cirrhosis, improving - AAOx 3, much improved. - Ammonia level increased to 30's - Bili and AST/ALT improving - Her GI provider Dr. Bailee Carpio - [phone] -has been contacted and made recommendations - Tolerating PO pills, CLD- will continue to advance as tolerate. When taking good PO, can d/c IVFs - Goal BM with lactulose is 2 per day so decreased frequency of med due to diarrhea. - C/w spironolactone, lactulose, rifaximin #Lactic acidosis 2/2 liver cirrhosis, possibly 2/2 to SBP - FRANCES drain cx: Staph. Haemolyticus, E. faecalis - WBC wnl, afebrile - BCX NG - D/c ceftriaxone, per sensitivities started vancomycin to cover both microbes - Imaging unrevealing - Per surgery, treat with IV abx for 5-7 days. #Hypokalemia, acute -K 3.3 -Increased KCL to 20 mEq BID -F/u Am labs. #Decompensating liver cirrhosis with hepatic encephalopathy -Child-Boudreaux score class B, MELD-Na score 19 -Supportive care and alcohol avoidance - denies any alcohol use at home -C/w rifaximin, lactulose, spironolactone #Adenocarcinoma of colon s/p laparoscopic transverse colectomy by Dr. Carpio 12/28 - Post op bleeding during past admission, FRANCES drain in place, draining serosanguinous ascitic fluid appropriately -Surgery following, keeping FRANCES drain in for now. Brave to come out #COPD - stable - resume inhalers, nebs #GI px - PPI #DVT px -Heparin SC DISPOSITION: Currently inpatient status. Much improved mental status. PT/OT, OOBTC and with all meals. Based off PT sessions, home vs. home with services vs. rehab possible. VS, I&O, 24H, Fishbone Vital Signs/I&O Vital Signs Date Time Temp Pulse Resp B/P (MAP) Pulse Ox O2 Delivery O2 Flow Rate FiO2 04/23/20 12:00 98.7 95 18 109/63 (78) 100 Room Air 04/18/20 20:34 95 I&O- Last 24 Hours up to 6 AM 04/23/20 06:00 Intake Total 1200 ml Output Total 520 ml Balance 680 ml Laboratory Data 24H LABS Laboratory Tests 2 04/23/20 05:31: Immature Granulocyte % (Auto) 1.0, Neutrophils (%) (Auto) 69.3H, Lymphocytes (%) (Auto) 15.3L, Monocytes (%) (Auto) 11.3H, Eosinophils (%) (Auto) 2.7, Basophils (%) (Auto) 0.4, Neutrophils # (Auto) 7.0, Lymphocytes # (Auto) 1.5, Monocytes # (Auto) 1.1H, Eosinophils # (Auto) 0.3, Basophils # (Auto) 0.0, Nucleated Red Blood Cells % (auto) 0.0, Anion Gap 4L, Glomerular Filtration Rate > 60.0, Calcium Level 8.6L, Magnesium Level 2.2, Total Bilirubin 4.2H, Aspartate Amino Transf (AST/SGOT) 53H, Alanine Aminotransferase (ALT/SGPT) 34, Alkaline Phosphatase 65, Ammonia 36H, Total Protein 5.7L, Albumin 2.7L, Albumin/Globulin Ratio 0.9L CBC/BMP Laboratory Tests 04/23/20 05:31 Microbiology Microbiology 04/20/20 Gram Stain - Final, Complete 04/20/20 Body Fluid Culture - Final, Complete Enterococcus Faecalis Staphylococcus Haemolyticus 04/19/20 Blood Culture - Preliminary, Resulted No Growth after 72 hours. All specime... 04/19/20 Blood Culture - Preliminary, Resulted No Growth after 72 hours. All specime... 04/18/20 Respiratory Virus Panel (PCR) (SERGEY) - Final, Complete Current Medications Current Medications Medications (Trade) Dose Ordered Sig/Chavez Route PRN Reason Start Time Stop Time Status Last Admin Dose Admin Albuterol Sulfate (Proventil Neb) 3 mg BIDP PRN INH SOB/WHEEZING 04/19/20 02:00 04/19/20 02:58 DC Ascorbic Acid (Vitamin C) 1,000 mg DAILY PO 04/19/20 09:00 04/23/20 10:07 Ceftriaxone Sodium 1 gm/ Dextrose 50 ml @ 100 mls/hr Q24H IV 04/19/20 03:00 04/19/20 02:07 DC Ceftriaxone Sodium 2 gm/ Dextrose 50 ml @ 50 mls/hr Q24H IV 04/19/20 03:00 04/23/20 07:58 DC 04/23/20 03:13 Dextrose/Sodium Chloride 1,000 ml @ 100 mls/hr Q10H IV 04/21/20 23:45 04/23/20 10:11 Folic Acid (Folic Acid) 1 mg DAILY NG 04/20/20 09:00 04/23/20 10:07 Folic Acid (Folic Acid) 1 mg DAILY PO 04/20/20 09:00 04/20/20 17:17 DC Haloperidol (Haldol) 2 mg Q6HP PRN IV AGITATION/ANXIETY 04/21/20 20:30 04/22/20 04:20 Heparin Sodium (Porcine) (Heparin) 5,000 units Q8H SC 04/19/20 06:00 04/23/20 06:31 Home Med (Med Rec Complete!) ASDIRECTED XX 04/18/20 21:30 04/18/20 21:22 DC Lactated Ringer's 1,000 ml @ 125 mls/hr Q8H IV 04/21/20 12:15 04/21/20 23:44 DC 04/21/20 21:33 Lactulose (Cephulac) 30 ml Q4H NG 04/20/20 18:00 04/23/20 10:05 Lactulose (Cephulac) 30 ml Q6H NG 04/19/20 14:00 04/20/20 17:17 DC 04/20/20 14:52 Levalbuterol HCl (Xopenex Hfa) 2 puff QID PRN INH SHORTNESS OF BREATH 04/19/20 02:00 04/22/20 21:07 Lorazepam (Ativan) 0.5 mg ASDIRECTED PRN IV SEE PROTOCOL 04/21/20 12:15 04/22/20 19:26 DC 04/22/20 02:20 Lorazepam (Ativan) 1 mg STAT STAT IV 04/19/20 16:38 04/19/20 16:40 DC 04/19/20 16:46 Lorazepam (Ativan) 1 mg STAT STAT IV 04/19/20 16:55 04/19/20 16:56 DC 04/19/20 17:02 Lorazepam (Ativan) 2 mg ASDIRECTED PRN IV SEE PROTOCOL 04/20/20 12:30 04/21/20 12:14 DC 04/21/20 03:04 Lorazepam (Ativan) 2 mg ASDIRECTED PRN PO SEE PROTOCOL 04/19/20 21:15 04/20/20 12:26 DC Multivitamins (Theragram-M) 1 tab DAILY PO 04/20/20 09:00 04/23/20 10:07 Pantoprazole Sodium (Protonix) 20 mg DAILY PO 04/19/20 09:00 04/20/20 19:05 DC Pantoprazole Sodium (Protonix) 40 mg DAILY@2100 IV 04/20/20 21:00 04/22/20 21:05 Potassium Chloride (Micro-K Extencaps) 10 meq TID PO 04/19/20 09:00 04/23/20 07:59 DC 04/21/20 17:43 Potassium Chloride (Micro-K Extencaps) 20 meq BID PO 04/23/20 09:00 04/23/20 10:06 Rifaximin (Xifaxan) 400 mg TID NG 04/20/20 09:00 04/23/20 10:07 Rifaximin (Xifaxan) 400 mg TID PO 04/19/20 09:00 04/20/20 10:51 DC Salmeterol Xinafoate/ Fluticasone (Advair Hfa ) 2 puff DAILY@0800 INH 04/19/20 08:00 04/23/20 07:12 Sodium Chloride 1,000 ml @ 70 mls/hr [id number] IV 04/20/20 18:00 04/21/20 12:14 DC 04/21/20 09:09 Sodium Chloride (Saline Lock Flush) 2 ml ASDIRECTED PRN IV SEE LABEL COMMENTS 04/19/20 17:00 Sodium Chloride (Saline Lock Flush) 2 ml SLF IV 04/19/20 22:00 04/22/20 14:13 Spironolactone (Aldactone) 100 mg DAILY PO 04/19/20 09:00 04/23/20 10:07 Thiamine HCl (Thiamine HCl) 100 mg BID NG 04/20/20 21:00 04/23/20 09:02 DC 04/23/20 10:05 Thiamine HCl (Thiamine HCl) 100 mg BID PO 04/19/20 21:00 04/20/20 17:17 DC Vancomycin HCl 1000 mg/IV Miscellaneous Supplies 1 each/ Dextrose 270 ml @ 270 mls/hr Q12H IV 04/23/20 08:00 04/23/20 09:04 DC Vancomycin HCl 1000 mg/IV Miscellaneous Supplies 1 each/ Dextrose 270 ml @ 270 mls/hr Q12H IV 04/23/20 21:00 Vitamin D (Vitamin D) 2,000 units DAILY PO 04/19/20 09:00 04/23/20 10:07 Allergies Coded Allergies: Sulfa (Sulfonamide Antibiotics) (Verified Allergy, Unknown, HIVES, 03/26/20) levofloxacin (Verified Allergy, Unknown, REDNESS TO EAR, 03/26/20) tetracycline (Verified Allergy, Unknown, HIVES, 03/26/20) Katharina Sam MD Apr 23, 2020 13:57
[2020-04-23] MEDS: VANCOMYCIN HCL 1,000 MG, VIAL MATE ADAPTER 1 EACH in D5W 250 ML IV SCH (20:51)
[2020-04-24] MEDS: D5W/0.45% SODIUM CHLORIDE 1,000 ML IV SCH (00:11)
[2020-04-24 05:25] LABS: BASO # 0.1 10^3/uL (0.0-0.2); BASO % 0.4 % (0.0-1.0); EOS # 0.5 10^3/uL (0.0-0.5); EOS % 4.1 % (0.0-3.0); HEMATOCRIT 35.4 % (36.0-47.0); HEMOGLOBIN 11.3 g/dl (12.0-15.5); LYMPH # 1.6 10^3/uL (1.5-5.0); LYMPH % 12.6 % (24.0-44.0); MEAN CORPUSCULAR HEMOGLOBIN 31.2 pg (27.0-33.0); MEAN CORPUSCULAR HGB CONC 31.9 g/dl (32.0-36.5); MEAN CORPUSCULAR VOLUME 97.8 fl (80.0-96.0); MONO # 1.4 10^3/uL (0.0-0.8); MONO % 10.7 % (0.0-5.0); NEUTROPHILS # 8.9 10^3/uL (1.5-8.5); NEUTROPHILS % 71.1 % (36.0-66.0); PLATELET COUNT, AUTOMATED 124 10^3/uL (150-450); RED BLOOD COUNT 3.62 10^6/uL (4.00-5.40); WHITE BLOOD COUNT 12.6 10^3/uL (4.0-10.0)
[2020-04-24] MEDS: HEPARIN SOD (PORCINE) 5000UNITS/ML 1ML VIAL/SYRINGE SC SCH (05:46)
[2020-04-24 06:00] VITALS: BP 105/55
[2020-04-24] MEDS: SLF 3 ML SYR IV SCH ×3 (06:00→22:11)
[2020-04-24 06:01] LABS: ALBUMIN 2.5 GM/DL (3.2-5.2); BILIRUBIN,TOTAL 5.2 MG/DL (0.2-1.0); CALCIUM LEVEL 8.5 MG/DL (8.8-10.2); CREATININE FOR GFR 1.09 MG/DL (0.55-1.30); GLOMERULAR FILTRATION RATE 54.1 (>45); MAGNESIUM LEVEL 1.7 MG/DL (1.8-2.4); POTASSIUM SERUM 3.7 MEQ/L (3.5-5.1); TOTAL PROTEIN 5.4 GM/DL (6.4-8.2)
[2020-04-24] MEDS: ADVAIR HFA 115/21MCG INHALER INH SCH (06:20)
[2020-04-24] MEDS: FOLIC ACID 1 MG TAB NG SCH (09:27)
[2020-04-24] MEDS: VANCOMYCIN HCL 1,000 MG, VIAL MATE ADAPTER 1 EACH in D5W 250 ML IV SCH (09:27)
[2020-04-24] MEDS: ASCORBIC ACID 500 MG TAB PO SCH (09:27)
[2020-04-24] MEDS: LACTULOSE 20 GM/30 ML SYRUP UD NG SCH ×3 (09:27→16:42)
[2020-04-24] MEDS: PANTOPRAZOLE 40MG TAB (PROTONIX) PO SCH (09:28)
[2020-04-24] MEDS: POTASSIUM CHLORIDE 10 MEQ SR TABLET PO SCH ×2 (09:28→20:47)
[2020-04-24] MEDS: SPIRONOLACTONE 50 MG TAB PO SCH (09:28)
[2020-04-24] MEDS: VITAMIN D 1,000 INTERNATIONAL UNITS TABLET PO SCH (09:29)
[2020-04-24] MEDS: MULTIVITAMINS/MINERALS THERAP 1 TAB PO SCH (09:30)
[2020-04-24] MEDS: FUROSEMIDE 40 MG TAB PO SCH (12:10)
[2020-04-24 13:29] VITALS: BP 143/78
[2020-04-24] MEDS: LEVALBUTEROL HFA 45MCG/ACT 15 GM INHALER INH PRN (15:29)
--- NOTE | 2020-04-24 18:49 | IPNPDOC ---
Date Seen The patient was seen on 04/24/20. Progress Note SUBJECTIVE: Awake, oriented x 3 this AM. advanced diet, restarted diuretics, watching BP closely. Decreased frequency of lasix. No chest pain, shortness of breath. OBJECTIVE: PHYSICAL EXAM: VS: Please see below General: NAD, resting in bed, AAOx 3 HEENT: NC/AT, yellow sclera-chronic Lungs: CTA B/L Heart: +S1S2, RRR Abd: soft, NT, +BS, FRANCES drain in place Ext: no edema LABORATORY: PLEASE SEE BELOW MICRO: All cultures neg thus far FRANCES drain fluid GS: NG FRANCES drain CX: ENTEROCOCCUS FAECALIS QUANTITY OF GROWTH: FEW Organism 2: STAPHYLOCOCCUS HAEMOLYTICUS QUANTITY OF GROWTH: FEW ASSESSMENT: 64-year-old female with history of cirrhosis, colon cancer status post right colectomy on 04/07 complicated with hematoma, presenting with altered mental status. Ammonia found to be 186 in the ER will be admitted for management of acute hepatic encephalopathy. PLAN: #Hepatic encephalopathy 2/2 to liver cirrhosis, improving - AAOx 3, much improved. - Ammonia level increased to 30's - Bili and AST/ALT remain elevated but stable - Her GI provider Dr. Bailee Carpio - [phone] -has been contacted and made recommendations - Tolerating PO pills, advanced diet further, d/everett IVFs - Goal BM with lactulose is 2 per day so decreased frequency of med due to diarrhea. - C/w spironolactone, lasix, lactulose BID, rifaximin. Watch for dehydration with increased BMs and on diuretics. #Lactic acidosis 2/2 liver cirrhosis, possibly 2/2 to SBP - FRANCES drain cx: Staph. Haemolyticus, E. faecalis - WBC slightly more increased today, afebrile - BCX NG - Previously on ceftriaxone - Currently remains on vancomycin 2/2 to sensitivities to cover both microbes - Imaging unrevealing - Per surgery, treat with IV abx for 5-7 days. - If WBC increased 04/25/20 will consult ID #Hypokalemia, acute and possibly 2/2 to diarrhea - wnl today -C/w KCL 20 mEq BID -F/u Am labs. #Decompensating liver cirrhosis with hepatic encephalopathy -Child-Boudreaux score class B, MELD-Na score 19 -Supportive care and alcohol avoidance - denies any alcohol use at home -Follows with o/p GI above -C/w rifaximin, lactulose, spironolactone, lasix #Adenocarcinoma of colon s/p laparoscopic transverse colectomy by Dr. Carpio 04/07 - Post op bleeding during past admission, FRANCES drain in place, draining serosanguinous ascitic fluid appropriately -Surgery following, keeping FRANCES drain in for now. [place] removed. #Physical deconditioning -PT: Recommend skilled PT to progress with transfers, ambulation. Pending progression, may benefit from AD. OOB in chair for meals ambulation with 1A with RW gait belt #Thrombocytopenia, acute -4 T's score: 2-3= low probability for Heparin induced thrombocytopenia -Hematuria + -Stopped Heparin 04/24/20 -F/u CBC in the AM #Hematuria, acute -possibly 2/2 to blood thinners vs. trauma with daniels catheter -H/H ., thrombocytopenia above -Monitor with daniels kept in for now -CBC daily #COPD - stable - resume inhalers, nebs #GI px - PPI #DVT px -SCD, teds DISPOSITION: PT/OT, OOBTC and with all meals. Based off PT sessions, home vs. home with services vs. rehab possible. VS, I&O, 24H, Fishbone Vital Signs/I&O Vital Signs Date Time Temp Pulse Resp B/P (MAP) Pulse Ox O2 Delivery O2 Flow Rate FiO2 04/24/20 13:29 99.4 99 16 143/78 (99) 94 Room Air 04/18/20 20:34 95 I&O- Last 24 Hours up to 6 AM 04/24/20 06:00 Intake Total 3405 ml Output Total 1555 ml Balance 1850 ml Laboratory Data 24H LABS Laboratory Tests 2 04/24/20 05:17: Immature Granulocyte % (Auto) 1.1, Neutrophils (%) (Auto) 71.1H, Lymphocytes (%) (Auto) 12.6L, Monocytes (%) (Auto) 10.7H, Eosinophils (%) (Auto) 4.1H, Basophils (%) (Auto) 0.4, Neutrophils # (Auto) 8.9H, Lymphocytes # (Auto) 1.6, Monocytes # (Auto) 1.4H, Eosinophils # (Auto) 0.5, Basophils # (Auto) 0.1, Nucleated Red Blood Cells % (auto) 0.2H, Anion Gap 7L, Glomerular Filtration Rate 54.1, Lactic Acid Level 1.6, Calcium Level 8.5L, Magnesium Level 1.7L, Total Bilirubin 5.2H, Aspartate Amino Transf (AST/SGOT) 54H, Alanine Aminotransferase (ALT/SGPT) 40, Alkaline Phosphatase 66, Ammonia 39H, Total Protein 5.4L, Albumin 2.5L, Albumin/Globulin Ratio 0.9L CBC/BMP Laboratory Tests 04/24/20 05:17 Microbiology Microbiology 04/20/20 Gram Stain - Final, Complete 04/20/20 Body Fluid Culture - Final, Complete Enterococcus Faecalis Staphylococcus Haemolyticus 04/19/20 Blood Culture - Final, Complete NO GROWTH AFTER 5 DAYS 04/19/20 Blood Culture - Final, Complete NO GROWTH AFTER 5 DAYS 04/18/20 Respiratory Virus Panel (PCR) (SERGEY) - Final, Complete Current Medications Current Medications Medications (Trade) Dose Ordered Sig/Chavez Route PRN Reason Start Time Stop Time Status Last Admin Dose Admin Albuterol Sulfate (Proventil Neb) 3 mg BIDP PRN INH SOB/WHEEZING 04/19/20 02:00 04/19/20 02:58 DC Ascorbic Acid (Vitamin C) 1,000 mg DAILY PO 04/19/20 09:00 04/24/20 09:27 Ceftriaxone Sodium 1 gm/ Dextrose 50 ml @ 100 mls/hr Q24H IV 04/19/20 03:00 04/19/20 02:07 DC Ceftriaxone Sodium 2 gm/ Dextrose 50 ml @ 50 mls/hr Q24H IV 04/19/20 03:00 04/23/20 07:58 DC 04/23/20 03:13 Dextrose/Sodium Chloride 1,000 ml @ 100 mls/hr Q10H IV 04/21/20 23:45 04/24/20 11:17 DC 04/24/20 00:11 Emollient Cream (Vanicream) Use on lower extremities BID TOP 04/24/20 21:00 Folic Acid (Folic Acid) 1 mg DAILY NG 04/20/20 09:00 04/24/20 09:27 Folic Acid (Folic Acid) 1 mg DAILY PO 04/20/20 09:00 04/20/20 17:17 DC Furosemide (Lasix) 40 mg DAILY PO 04/24/20 09:00 04/24/20 12:10 Haloperidol (Haldol) 2 mg Q6HP PRN IV AGITATION/ANXIETY 04/21/20 20:30 04/23/20 13:53 DC 04/22/20 04:20 Heparin Sodium (Porcine) (Heparin) 5,000 units Q8H SC 04/19/20 06:00 04/24/20 11:31 DC 04/24/20 05:46 Home Med (Med Rec Complete!) ASDIRECTED XX 04/18/20 21:30 04/18/20 21:22 DC Lactated Ringer's 1,000 ml @ 125 mls/hr Q8H IV 04/21/20 12:15 04/21/20 23:44 DC 04/21/20 21:33 Lactulose (Cephulac) 30 ml Q4H NG 04/20/20 18:00 04/23/20 13:43 DC 04/23/20 10:05 Lactulose (Cephulac) 30 ml Q6H NG 04/19/20 14:00 04/20/20 17:17 DC 04/20/20 14:52 Lactulose (Cephulac) 30 ml QID NG 04/24/20 09:00 04/24/20 16:42 Lactulose (Cephulac) 30 ml TID NG 04/23/20 16:00 04/24/20 08:57 DC 04/23/20 20:51 Levalbuterol HCl (Xopenex Hfa) 2 puff QID PRN INH SHORTNESS OF BREATH 04/19/20 02:00 04/24/20 15:29 Lorazepam (Ativan) 0.5 mg ASDIRECTED PRN IV SEE PROTOCOL 04/21/20 12:15 04/22/20 19:26 DC 04/22/20 02:20 Lorazepam (Ativan) 1 mg STAT STAT IV 04/19/20 16:38 04/19/20 16:40 DC 04/19/20 16:46 Lorazepam (Ativan) 1 mg STAT STAT IV 04/19/20 16:55 04/19/20 16:56 DC 04/19/20 17:02 Lorazepam (Ativan) 2 mg ASDIRECTED PRN IV SEE PROTOCOL 04/20/20 12:30 04/21/20 12:14 DC 04/21/20 03:04 Lorazepam (Ativan) 2 mg ASDIRECTED PRN PO SEE PROTOCOL 04/19/20 21:15 04/20/20 12:26 DC Multivitamins (Theragram-M) 1 tab DAILY PO 04/20/20 09:00 04/24/20 09:30 Pantoprazole Sodium (Protonix) 20 mg DAILY PO 04/19/20 09:00 04/20/20 19:05 DC Pantoprazole Sodium (Protonix) 40 mg DAILY PO 04/24/20 09:00 04/24/20 09:28 Pantoprazole Sodium (Protonix) 40 mg DAILY@2100 IV 04/20/20 21:00 04/23/20 13:53 DC 04/22/20 21:05 Potassium Chloride (Micro-K Extencaps) 10 meq TID PO 04/19/20 09:00 04/23/20 07:59 DC 04/21/20 17:43 Potassium Chloride (Micro-K Extencaps) 20 meq BID PO 04/23/20 09:00 04/24/20 09:28 Rifaximin (Xifaxan) 400 mg TID NG 04/20/20 09:00 04/24/20 16:37 Rifaximin (Xifaxan) 400 mg TID PO 04/19/20 09:00 04/20/20 10:51 DC Salmeterol Xinafoate/ Fluticasone (Advair Hfa / ) 2 puff DAILY@0800 INH 04/19/20 08:00 04/24/20 06:20 Sodium Chloride 1,000 ml @ 70 mls/hr [id number] IV 04/20/20 18:00 04/21/20 12:14 DC 04/21/20 09:09 Sodium Chloride (Saline Lock Flush) 2 ml ASDIRECTED PRN IV SEE LABEL COMMENTS 04/19/20 17:00 Sodium Chloride (Saline Lock Flush) 2 ml SLF IV 04/19/20 22:00 04/23/20 20:58 Spironolactone (Aldactone) 100 mg DAILY PO 04/19/20 09:00 04/24/20 09:28 Thiamine HCl (Thiamine HCl) 100 mg BID NG 04/20/20 21:00 04/23/20 09:02 DC 1/13/21 10:05 Thiamine HCl (Thiamine HCl) 100 mg BID PO 04/19/20 21:00 04/20/20 17:17 DC Vancomycin HCl 1000 mg/IV Miscellaneous Supplies 1 each/ Dextrose 270 ml @ 270 mls/hr Q12H IV 04/23/20 08:00 04/23/20 09:04 DC Vancomycin HCl 1000 mg/IV Miscellaneous Supplies 1 each/ Dextrose 270 ml @ 270 mls/hr Q12H IV 04/23/20 21:00 04/24/20 09:27 Vitamin D (Vitamin D) 2,000 units DAILY PO 04/19/20 09:00 04/24/20 09:29 Allergies Coded Allergies: Sulfa (Sulfonamide Antibiotics) (Verified Allergy, Unknown, HIVES, 03/26/20) levofloxacin (Verified Allergy, Unknown, REDNESS TO EAR, 03/26/20) tetracycline (Verified Allergy, Unknown, HIVES, 03/26/20) Katharina Sam MD Apr 24, 2020 18:49
[2020-04-24] MEDS ORDERED: MAG SULF 1GM/100ML (MAG RUN) 1 GM in IV 1 EA IV ONE (19:00)
[2020-04-24] MEDS: ADVAIR HFA 230/21MCG INHALER INH SCH (20:06)
[2020-04-24] MEDS: VANICREAM MOISTURIZING SKIN CREAM 113GM TUBE TOP SCH (20:48)
[2020-04-24 22:00] VITALS: BP 97/43
[2020-04-25] MEDS ORDERED: VANCOMYCIN HCL 1,000 MG, VIAL MATE ADAPTER 1 EACH in D5W 250 ML IV SCH ×3
[2020-04-25] MEDS: SLF 3 ML SYR IV SCH ×3 (05:13→21:13)
[2020-04-25 06:00] VITALS: BP 108/54
[2020-04-25 06:03] LABS: BASO % 0.1 % (0.0-1.0); EOS # 0.4 10^3/uL (0.0-0.5); EOS % 2.8 % (0.0-3.0); HEMATOCRIT 32.4 % (36.0-47.0); HEMOGLOBIN 10.7 g/dl (12.0-15.5); LYMPH # 1.3 10^3/uL (1.5-5.0); LYMPH % 9.3 % (24.0-44.0); MEAN CORPUSCULAR HEMOGLOBIN 31.8 pg (27.0-33.0); MEAN CORPUSCULAR VOLUME 96.4 fl (80.0-96.0); MONO # 1.5 10^3/uL (0.0-0.8); MONO % 10.2 % (0.0-5.0); NEUTROPHILS # 10.9 10^3/uL (1.5-8.5); NEUTROPHILS % 76.5 % (36.0-66.0); PLATELET COUNT, AUTOMATED 131 10^3/uL (150-450); RED BLOOD COUNT 3.36 10^6/uL (4.00-5.40); WHITE BLOOD COUNT 14.2 10^3/uL (4.0-10.0)
[2020-04-25 06:35] LABS: ALBUMIN 2.4 GM/DL (3.2-5.2); BILIRUBIN,TOTAL 5.7 MG/DL (0.2-1.0); CREATININE FOR GFR 1.9 MG/DL (0.55-1.30); GLOMERULAR FILTRATION RATE 28.5 (>45); MAGNESIUM LEVEL 1.9 MG/DL (1.8-2.4); POTASSIUM SERUM 4.2 MEQ/L (3.5-5.1); TOTAL PROTEIN 5.5 GM/DL (6.4-8.2)
[2020-04-25] MEDS: ADVAIR HFA 230/21MCG INHALER INH SCH ×2 (07:38→19:36)
[2020-04-25] MEDS ORDERED: LACTULOSE 20 GM/30 ML SYRUP UD NG SCH ×2 (09:00)
[2020-04-25] MEDS: CHLORHEXIDINE GLUCONATE 0.12 % 15ML UDC (PERIDEX ORAL RINSE) SSP SCH ×3 (09:00→20:27)
[2020-04-25] MEDS: SPIRONOLACTONE 50 MG TAB PO SCH (09:00)
[2020-04-25] MEDS: FUROSEMIDE 40 MG TAB PO SCH (09:00)
[2020-04-25] MEDS: FOLIC ACID 1 MG TAB NG SCH (09:59)
[2020-04-25] MEDS: ASCORBIC ACID 500 MG TAB PO SCH (10:00)
[2020-04-25] MEDS: PANTOPRAZOLE 40MG TAB (PROTONIX) PO SCH (10:00)
[2020-04-25] MEDS: POTASSIUM CHLORIDE 10 MEQ SR TABLET PO SCH ×2 (10:00→20:27)
[2020-04-25] MEDS: MULTIVITAMINS/MINERALS THERAP 1 TAB PO SCH (10:00)
[2020-04-25] MEDS: VITAMIN D 1,000 INTERNATIONAL UNITS TABLET PO SCH (10:01)
[2020-04-25] MEDS: VANICREAM MOISTURIZING SKIN CREAM 113GM TUBE TOP SCH ×2 (10:01→20:27)
[2020-04-25] MEDS: NS 1,000 ML IV SCH ×2 (10:02→17:04)
[2020-04-25] MEDS ORDERED: PILL CUTTER 1 EACH XX PRN (12:15)
[2020-04-25] MEDS: traMADol 50 MG TAB PO PRN ×2 (13:15→20:28)
[2020-04-25 14:00] VITALS: BP 104/51
[2020-04-25] MEDS ORDERED: FLUCONAZOLE 50MG TABLET PO ONE (14:00)
--- NOTE | 2020-04-25 17:08 | CR ---
CONSULTATION DATE: 04/25/2020 Asked to consult by Dr. Sam for elevated white count. HISTORY OF PRESENT ILLNESS: Anette is a pleasant 64-year-old female with a history of alcoholic liver cirrhosis, colon cancer, status post recent transverse colectomy on April 07, done by Dr. Carpio. She presented to the hospital with acute altered mental status and was found to have hepatic encephalopathy. Patient was afebrile, and she had been discharged from the hospital about 3 days prior with a Marco Antonio-Garcia (FRANCES) drain that was draining mostly ascitic fluid that did not look purulent. A culture was done on admission from that drain that was positive for Enterococcus faecalis and Staphylococcus hemolyticus. No cell count was done on that fluid. Two sets of blood cultures were negative, and respiratory panel was negative. She was treated with lactulose for encephalopathy, and she states she had 14 bowel movements yesterday with severe diarrhea, foul smelling. Vancomycin intravenous (IV) for positive culture on ascitic fluid from the FRANCES drain. Rocephin from April 19 to April 23, total of 5 days. Multivitamin, thiamine, and rifaximin 400 mg by mouth three times a day for encephalopathy. Patient feels much better, but she is still quite jaundiced. Has diarrhea, and her white count is 14.2. She states that her Chan catheter is bothering her. She thinks she has a urinary tract infection or a fungus infection, as she has burning, and would like the catheter out. She would like the FRANCES drain out as well. She states she has not drank since her diagnosis of cirrhosis [address] Carpio. MEDICAL HISTORY: Significant for: 1. Chronic obstructive pulmonary disease (COPD). 2. Alcoholic liver cirrhosis. 3. Colon cancer status post transverse colectomy 04/07/2020. 4. Anxiety and depression. SURGICAL HISTORY: 1. Uterine ablation. 2. Septoplasty. 3. Transverse colectomy. SOCIAL HISTORY: Former smoker, 20 pack year. Alcohol use: She used to drink two glasses of wine every night until November 2019. FAMILY HISTORY: Father at 64 from diabetes, mother at 78 from lung cancer. REVIEW OF SYSTEMS: She has no nausea, vomiting, or abdominal pain. She does complain of diarrhea. She complains of dysuria and irritation from the Chan catheter with itching. She denies any headache or neck stiffness. She feels much better than on admission. PHYSICAL EXAMINATION: A pleasant female, jaundiced, in no acute distress. HEART: Normal S1, S2. No murmurs, rubs, or gallops LUNGS: Clear. No wheezes, rales, or rhonchi. ABDOMEN: Soft with a FRANCES drain in the right lower quadrant with serous fluid. Midline scar, well healed. There were two ronnie that were still there that I removed. EXTREMITIES: Trace edema bilaterally. No clubbing or cyanosis. BACK: No costovertebral angle (CVA) tenderness. No lumbosacral tenderness. Joints all normal range of motion. NEUROLOGIC: Normal. Alert and oriented times three. ALLERGIES: SULFA, LEVOTHYROXINE, TETRACYCLINE. MEDICATIONS: - Advair two puffs inhaled twice a day - Aldactone 100 mg by mouth daily - lactulose 30 mL nasogastric (NG) twice a day was 30 mL QID - folic acid 1 mg daily - furosemide 40 mg daily - chlorhexidine mouth washes bid - pantopraxole 40 mg by mouth daily - multivitamin one tablet daily - Tums 500 mg by mouth every 6 as needed - Tramadol 25 mg by mouth every 6 as needed - ascorbic acid 1000 mg by mouth daily - vitamin D 2000 units daily - rifaximin 400 mg NG three times a day - levalbuterol two puffs four times a day LABORATORY DATA: White count 14.2, hemoglobin 10.7, hematocrit 32.4, platelets 131, 76% neutrophils, 9% lymphocytes, 10% monocytes. Sodium 130, potassium 4.2, chloride 103, bicarbonate 18, BUN 29, creatinine 1.9, glucose 93. Creatinine has increased from 1.09 yesterday. Ammonia 55. CRP 3.02. Procalcitonin 0.66. Blood cultures on April 19: Two sets were no growth after 5 days. Drainage fluid had Enterococcus (E) faecalis and Staphylococcus hemolyticus, few of each. That was from a drain tube. IMAGING DATA: Head CT: Age-related atrophy and microvascular ischemic changes. No intracranial hemorrhage. Chest x-ray done on April 20 showed no acute focal consolidation or effusion. IMPRESSION: This is a 64-year-old female with a history of alcoholic liver cirrhosis, recent colon cancer diagnosed, status post transverse colectomy with a well-healed incision, who now has a mild leukocytosis. She was admitted encephalopathic. A culture from a FRANCES drain was done, which was positive for E. faecalis and Staphylococcus hemolyticus. Patient has been treated with 5 days of Rocephin and IV vancomycin. She has now worsening diarrhea, concerning for Clostridium (C) difficile colitis versus diarrhea caused by lactulose, but she states she had at least 14 bowel movements, and they were foul smelling. She also has symptoms of urinary tract infection versus candidiasis, and the Chan catheter needs to be removed. Differential includes C. difficile colitis or urinary tract infection (UTI). Very unlikely that this is intra-abdominal issue. Her abdomen is benign. PLAN: Case has been discussed with Dr. Carpio, who agrees with removing the Chan catheter. The FRANCES drain will be removed as well. She will receive one dose of fluconazole 150 mg to treat candidiasis. Will obtain a stool for C. difficile. Please discontinue lactulose and just continue with rifaximin. Monitor stools if diarrhea persists and stool for C. difficile. If abdominal pain or white count worsen, please obtain CT abdomen and pelvis. MTDD
--- NOTE | 2020-04-25 20:37 | IPNPDOC ---
Date Seen The patient was seen on 04/25/20. Progress Note SUBJECTIVE: 8 BM over past 24 hours, stopped lactulose and diuretics. Cr worsened so started IVFs. Dr. Garcia evaluated, suggested removal of all catheters, fluconazole and c.diff testing. Patient is the most awake and alert since admission and denies chest pain, abd pain, shortness of breath. OBJECTIVE: PHYSICAL EXAM: VS: Please see below General: NAD, resting in bed, AAOx 3 HEENT: NC/AT, yellow sclera-chronic Lungs: CTA B/L Heart: +S1S2, RRR Abd: soft, NT, +BS, FRANCES drain in place Ext: no edema LABORATORY: PLEASE SEE BELOW MICRO: C. diff ordered but not collected FRANCES drain fluid GS: NG FRANCES drain CX: ENTEROCOCCUS FAECALIS QUANTITY OF GROWTH: FEW Organism 2: STAPHYLOCOCCUS HAEMOLYTICUS QUANTITY OF GROWTH: FEW ASSESSMENT: 64-year-old female with history of cirrhosis, colon cancer status post right colectomy on 04/07 complicated with hematoma, presenting with altered mental status. Ammonia found to be 186 in the ER will be admitted for management of acute hepatic encephalopathy. PLAN: #Diarrhea 2/2 to infection (c. diff) vs. lactulose -WBC14.2- increasing. -8 BM over 04/24/20 -Stopped lactulose, checking for c. diff -Holding all diuretics for now -On IVFs -Daily labs #Acute kidney injury likely 2/2 to diarrhea, dehydration -Cr 1.9 -Stop diuretics, lactulose -C/w IVFs -Avoid other nephrotoxic medications -Daily labs #Hepatic encephalopathy 2/2 to liver cirrhosis, improving - Ammonia level increased further to 50's despite increased diarrhea;however, p atient more awake and alert than ever. - Bili and AST/ALT remain elevated but stable - Her GI provider Dr. Bailee Carpio - [phone] -has been contacted and made recommendations - Tolerating PO pills, advanced diet further - Goal BM with lactulose is 2 per day so decreased frequency of med due to diarrhea. - Holding spironolactone, lasix, lactulose BID with TERI and diarrhea.C/w rifaximin. #Lactic acidosis 2/2 liver cirrhosis, infection -WBC incr 14.2, afebrile -Dr. Garcia suggested d/c vancomycin as suspicion for SBP low. -Recommended to remove daniels catheter and FRANCES drain -BCx above -F/u LA in the AM. If WBC incr, repeat CT abd #Hypokalemia, acute and possibly 2/2 to diarrhea- resolved #Decompensating liver cirrhosis with hepatic encephalopathy -Child-Boudreaux score class B, MELD-Na score 19 -Supportive care and alcohol avoidance - denies any alcohol use at home -Follows with o/p GI above -C/w rifaximin. Holding lactulose, spironolactone, lasix due to TERI, diarrhea #Adenocarcinoma of colon s/p laparoscopic transverse colectomy by Dr. Carpio 04/07 - Post op bleeding during past admission, FRANCES drain in place, draining serosanguinous ascitic fluid appropriately -Surgery following, keeping FRANCES drain in for now. Maura removed. #Physical deconditioning -PT: Recommend skilled PT to progress with transfers, ambulation. Pending progression, may benefit from AD. OOB in chair for meals ambulation with 1A with RW gait belt #Thrombocytopenia, acute -PLTs 131, slightly improved -4 T's score: 2-3= low probability for Heparin induced thrombocytopenia -Hematuria + -Stopped Heparin 04/24/20 -F/u CBC in the AM #Hematuria, acute- improved -possibly 2/2 to blood thinners vs. trauma with daniels catheter -H/H 10.7, thrombocytopenia above -CBC daily #COPD - stable - resume inhalers, nebs #GI px - PPI #DVT px -SCD, teds DISPOSITION: PT/OT, OOBTC and with all meals. Based off PT sessions, home vs. home with services vs. rehab possible. VS, I&O, 24H, Lee Vital Signs/I&O Vital Signs Date Time Temp Pulse Resp B/P (MAP) Pulse Ox O2 Delivery O2 Flow Rate FiO2 04/25/20 14:24 17 04/25/20 14:00 97.9 81 104/51 (68) 100 Room Air I&O- Last 24 Hours up to 6 AM 04/25/20 06:00 Intake Total 2020 ml Output Total 995 ml Balance 1025 ml Laboratory Data 24H LABS Laboratory Tests 2 04/25/20 05:22: Immature Granulocyte % (Auto) 1.1, Neutrophils (%) (Auto) 76.5H, Lymphocytes (%) (Auto) 9.3L, Monocytes (%) (Auto) 10.2H, Eosinophils (%) (Auto) 2.8, Basophils (%) (Auto) 0.1, Neutrophils # (Auto) 10.9H, Lymphocytes # (Auto) 1.3L, Monocytes # (Auto) 1.5H, Eosinophils # (Auto) 0.4, Basophils # (Auto) 0.0, Nucleated Red Blood Cells % (auto) 0.0, Anion Gap 9, Glomerular Filtration Rate 28.5L, Calcium Level 9.0, Magnesium Level 1.9, Total Bilirubin 5.7H, Aspartate Amino Transf (AST/SGOT) 43H, Alanine Aminotransferase (ALT/SGPT) 36, Alkaline Phosphatase 66, Total Protein 5.5L, Albumin 2.4L, Albumin/Globulin Ratio 0.8L 04/25/20 09:11: Ammonia 55H, C-Reactive Protein, Quantitative 3.02H, Procalcitonin 0.66 CBC/BMP Laboratory Tests 04/25/20 05:22 Microbiology Microbiology 04/20/20 Gram Stain - Final, Complete 04/20/20 Body Fluid Culture - Final, Complete Enterococcus Faecalis Staphylococcus Haemolyticus 04/19/20 Blood Culture - Final, Complete NO GROWTH AFTER 5 DAYS 04/19/20 Blood Culture - Final, Complete NO GROWTH AFTER 5 DAYS 04/18/20 Respiratory Virus Panel (PCR) (SERGEY) - Final, Complete Current Medications Current Medications Medications (Trade) Dose Ordered Sig/Chavez Route PRN Reason Start Time Stop Time Status Last Admin Dose Admin Albuterol Sulfate (Proventil Neb) 2.5 mg BIDP PRN NEB SOB/WHEEZING 04/25/20 12:00 Albuterol Sulfate (Proventil Neb) 3 mg BIDP PRN INH SOB/WHEEZING 04/19/20 02:00 04/19/20 02:58 DC Ascorbic Acid (Vitamin C) 1,000 mg DAILY PO 04/19/20 09:00 04/25/20 10:00 Calcium Carbonate (Tums) 500 mg Q6HP PRN PO INDIGESTION 04/25/20 12:00 Ceftriaxone Sodium 1 gm/ Dextrose 50 ml @ 100 mls/hr Q24H IV 04/19/20 03:00 04/19/20 02:07 DC Ceftriaxone Sodium 2 gm/ Dextrose 50 ml @ 50 mls/hr Q24H IV 04/19/20 03:00 04/23/20 07:58 DC 04/23/20 03:13 Chlorhexidine Gluconate (Peridex Oral Rinse) 15 ml TID SSP 04/25/20 09:00 04/25/20 16:57 Dextrose/Sodium Chloride 1,000 ml @ 100 mls/hr Q10H IV 04/21/20 23:45 04/24/20 11:17 DC 04/24/20 00:11 Emollient Cream (Vanicream) Use on lower extremities BID TOP 04/24/20 21:00 04/25/20 10:01 Folic Acid (Folic Acid) 1 mg DAILY NG 04/20/20 09:00 04/25/20 09:59 Folic Acid (Folic Acid) 1 mg DAILY PO 04/20/20 09:00 04/20/20 17:17 DC Furosemide (Lasix) 40 mg DAILY PO 04/24/20 09:00 04/24/20 12:10 Haloperidol (Haldol) 2 mg Q6HP PRN IV AGITATION/ANXIETY 04/21/20 20:30 04/23/20 13:53 DC 04/22/20 04:20 Heparin Sodium (Porcine) (Heparin) 5,000 units Q8H SC 04/19/20 06:00 04/24/20 11:31 DC 04/24/20 05:46 Home Med (Med Rec Complete!) ASDIRECTED XX 04/18/20 21:30 04/18/20 21:22 DC Lactated Ringer's 1,000 ml @ 125 mls/hr Q8H IV 04/21/20 12:15 04/21/20 23:44 DC 04/21/20 21:33 Lactulose (Cephulac) 30 ml BID NG 04/25/20 09:00 04/25/20 10:01 Lactulose (Cephulac) 30 ml Q4H NG 04/20/20 18:00 04/23/20 13:43 DC 04/23/20 10:05 Lactulose (Cephulac) 30 ml Q6H NG 04/19/20 14:00 04/20/20 17:17 DC 04/20/20 14:52 Lactulose (Cephulac) 30 ml QID NG 04/24/20 09:00 04/24/20 18:35 DC 04/24/20 16:42 Lactulose (Cephulac) 30 ml TID NG 04/23/20 16:00 04/24/20 08:57 DC 04/23/20 20:51 Lactulose (Cephulac) 30 ml TID NG 04/25/20 09:00 04/25/20 08:51 DC Levalbuterol HCl (Xopenex Hfa) 2 puff QID PRN INH SHORTNESS OF BREATH 04/19/20 02:00 04/24/20 15:29 Lorazepam (Ativan) 0.5 mg ASDIRECTED PRN IV SEE PROTOCOL 04/21/20 12:15 04/22/20 19:26 DC 04/22/20 02:20 Lorazepam (Ativan) 1 mg STAT STAT IV 04/19/20 16:38 04/19/20 16:40 DC 04/19/20 16:46 Lorazepam (Ativan) 1 mg STAT STAT IV 04/19/20 16:55 04/19/20 16:56 DC 04/19/20 17:02 Lorazepam (Ativan) 2 mg ASDIRECTED PRN IV SEE PROTOCOL 04/20/20 12:30 04/21/20 12:14 DC 04/21/20 03:04 Lorazepam (Ativan) 2 mg ASDIRECTED PRN PO SEE PROTOCOL 04/19/20 21:15 04/20/20 12:26 DC Multivitamins (Theragram-M) 1 tab DAILY PO 04/20/20 09:00 04/25/20 10:00 Pantoprazole Sodium (Protonix) 20 mg DAILY PO 04/19/20 09:00 04/20/20 19:05 DC Pantoprazole Sodium (Protonix) 40 mg DAILY PO 04/24/20 09:00 04/25/20 10:00 Pantoprazole Sodium (Protonix) 40 mg DAILY@2100 IV 04/20/20 21:00 04/23/20 13:53 DC 04/22/20 21:05 Potassium Chloride (Micro-K Extencaps) 10 meq TID PO 04/19/20 09:00 04/23/20 07:59 DC 04/21/20 17:43 Potassium Chloride (Micro-K Extencaps) 20 meq BID PO 04/23/20 09:00 04/25/20 10:00 Rifaximin (Xifaxan) 400 mg TID NG 04/20/20 09:00 04/25/20 16:57 Rifaximin (Xifaxan) 400 mg TID PO 04/19/20 09:00 04/20/20 10:51 DC Salmeterol Xinafoate/ Fluticasone (Advair Hfa 115) 2 puff DAILY@0800 INH 04/19/20 08:00 04/24/20 18:32 DC 04/24/20 06:20 Salmeterol Xinafoate/ Fluticasone (Advair Hfa 230) 2 puff RBID INH 04/24/20 20:00 04/25/20 19:36 Sodium Chloride 1,000 ml @ 70 mls/hr [id number] IV 04/20/20 18:00 04/21/20 12:14 DC 04/21/20 09:09 Sodium Chloride 1,000 ml @ 100 mls/hr Q10H IV 04/25/20 08:45 04/25/20 17:04 Sodium Chloride (Saline Lock Flush) 2 ml ASDIRECTED PRN IV SEE LABEL COMMENTS 04/19/20 17:00 Sodium Chloride (Saline Lock Flush) 2 ml SLF IV 04/19/20 22:00 04/25/20 05:13 Spironolactone (Aldactone) 100 mg DAILY PO 04/19/20 09:00 04/24/20 09:28 Thiamine HCl (Thiamine HCl) 100 mg BID NG 04/20/20 21:00 04/23/20 09:02 DC 04/23/20 10:05 Thiamine HCl (Thiamine HCl) 100 mg BID PO 04/19/20 21:00 04/20/20 17:17 DC Tramadol HCl (Ultram) 25 mg Q6HP PRN PO MODERATE PAIN (PS 5-7) 04/25/20 12:00 04/25/20 13:15 Vancomycin HCl 1000 mg/IV Miscellaneous Supplies 1 each/ Dextrose 270 ml @ 270 mls/hr Q12H IV 04/23/20 08:00 04/23/20 09:04 DC Vancomycin HCl 1000 mg/IV Miscellaneous Supplies 1 each/ Dextrose 270 ml @ 270 mls/hr Q12H IV 04/23/20 21:00 04/24/20 20:27 DC 04/24/20 09:27 Vancomycin HCl 1000 mg/IV Miscellaneous Supplies 1 each/ Dextrose 270 ml @ 270 mls/hr Q18H IV 04/25/20 00:00 04/25/20 11:17 DC 04/25/20 00:25 Vitamin D (Vitamin D) 2,000 units DAILY PO 04/19/20 09:00 04/25/20 10:01 Allergies Coded Allergies: Sulfa (Sulfonamide Antibiotics) (Verified Allergy, Unknown, HIVES, 03/26/20) levofloxacin (Verified Allergy, Unknown, REDNESS TO EAR, 03/26/20) tetracycline (Verified Allergy, Unknown, HIVES, 03/26/20) Katharina Sam MD Apr 25, 2020 20:37
[2020-04-25 22:00] VITALS: BP 109/58
[2020-04-26] MEDS: NS 1,000 ML IV SCH ×3 (02:41→20:50)
[2020-04-26] MEDS: traMADol 50 MG TAB PO PRN ×4 (02:41→22:40)
[2020-04-26 05:39] LABS: BASO % 0.1 % (0.0-1.0); EOS # 0.1 10^3/uL (0.0-0.5); EOS % 0.9 % (0.0-3.0); HEMATOCRIT 30.7 % (36.0-47.0); LYMPH # 0.5 10^3/uL (1.5-5.0); LYMPH % 5.4 % (24.0-44.0); MEAN CORPUSCULAR HEMOGLOBIN 31.9 pg (27.0-33.0); MEAN CORPUSCULAR HGB CONC 32.6 g/dl (32.0-36.5); MEAN CORPUSCULAR VOLUME 98.1 fl (80.0-96.0); MONO # 0.7 10^3/uL (0.0-0.8); MONO % 7.7 % (0.0-5.0); NEUTROPHILS # 7.7 10^3/uL (1.5-8.5); PLATELET COUNT, AUTOMATED 102 10^3/uL (150-450); RED BLOOD COUNT 3.13 10^6/uL (4.00-5.40)
[2020-04-26 06:00] VITALS: BP 104/63
[2020-04-26] MEDS: SLF 3 ML SYR IV SCH ×3 (06:00→20:50)
[2020-04-26 06:21] LABS: ALBUMIN 2.3 GM/DL (3.2-5.2); BILIRUBIN,TOTAL 5.5 MG/DL (0.2-1.0); CALCIUM LEVEL 8.1 MG/DL (8.8-10.2); CREATININE FOR GFR 2.22 MG/DL (0.55-1.30); GLOMERULAR FILTRATION RATE 23.8 (>45); MAGNESIUM LEVEL 1.9 MG/DL (1.8-2.4)
[2020-04-26 06:22] LABS: POTASSIUM SERUM 5.2 MEQ/L (3.5-5.1)
[2020-04-26] MEDS: ADVAIR HFA 230/21MCG INHALER INH SCH ×2 (08:23→20:58)
[2020-04-26] MEDS: LEVALBUTEROL HFA 45MCG/ACT 15 GM INHALER INH PRN (08:45)
[2020-04-26] MEDS: MULTIVITAMINS/MINERALS THERAP 1 TAB PO SCH (08:56)
[2020-04-26] MEDS: CALCIUM CARBONATE 500 MG CHEW U/D PO PRN ×3 (08:56→22:39)
[2020-04-26] MEDS: POTASSIUM CHLORIDE 10 MEQ SR TABLET PO SCH ×2 (08:56→20:49)
[2020-04-26] MEDS: PANTOPRAZOLE 40MG TAB (PROTONIX) PO SCH (08:56)
[2020-04-26] MEDS: FOLIC ACID 1 MG TAB NG SCH (08:56)
[2020-04-26] MEDS: ASCORBIC ACID 500 MG TAB PO SCH (08:56)
[2020-04-26] MEDS: VITAMIN D 1,000 INTERNATIONAL UNITS TABLET PO SCH (08:59)
[2020-04-26] MEDS: VANICREAM MOISTURIZING SKIN CREAM 113GM TUBE TOP SCH ×2 (08:59→20:49)
[2020-04-26] MEDS: CHLORHEXIDINE GLUCONATE 0.12 % 15ML UDC (PERIDEX ORAL RINSE) SSP SCH ×3 (08:59→20:48)
[2020-04-26] MEDS: ALBUTEROL SULFATE 2.5 MG/0.5 ML INH NEB SOLN NEB PRN (13:24)
[2020-04-26 14:00] VITALS: BP 89/51
[2020-04-26 14:20] VITALS: BP 96/48
--- NOTE | 2020-04-26 14:33 | IPN ---
PROGRESS NOTE DATE: 04/24/2020 Patient overall has had a little bit of a bump in her white count today. She shows that her creatinine has been pretty good and relatively stable and her BUN is coming down. From the intake and output standpoint, she has had some significant pickup of her Marco Antonio-Garcia (FRANCES) drainage unfortunately, but from a standpoint of activity and drainage she is much more alert today, she is looking better. She is hungry and overall feeling better. On her physical exam, her FRANCES drain is serosanguineous. Abdomen is soft, nontender, nondistended. IMPRESSION/ PLAN: From a surgical standpoint, she is doing great. The ascites seems to be re-accumulating as she gets more fluid hydrated which is exactly what we expect and there is going to be a fine line between diuresis and maintaining this ascites issue. I do think because we have had this diagnosis of spontaneous bacterial peritonitis (SBP) that it is reasonable to keep the drain in place and especially with this white count that has bumped up a little bit today, just to keep drainage of this. If her white count continues up, it may be warranted to reassess the fluid, but once again I am not convinced that this is the etiology of her white count. It might actually be her Chan catheter that has been significantly bothering her. I made some recommendations to her hospitalist concerning advancing diet, diuretics, as well as Chan catheter, and we will see how she is doing, but from a surgical standpoint no specific intervention at this time.
--- NOTE | 2020-04-26 14:39 | IPN ---
PROGRESS NOTE DATE: 04/25/2020 Patient overall seems to be making some progress from her overall activity standpoint, etc. The major issue with her has been an issue of diuresis and how much diuresis to maintain the ascites fluid, etc., and with her diarrhea associated with the lactulose that she has been getting her fluid status has been very difficult to maintain. Her ammonia level came up a little bit today and she is going to be getting more lactulose, and her AST is elevated but has always been somewhat elevated reportedly in the past, and her bilirubin is still elevated but this has been a chronic issue since her diagnosis with her liver dysfunction issues. But, at this point, from a surgical standpoint with the Marco Antonio-Garcia (FRANCES) drainage that is up a little bit, I do feel that that fluid status issue needs to be addressed. It was a fair bit more yesterday, but from my standpoint, when I spoke with Dr. Garcia today concerning whether I felt this was actually a true spontaneous bacterial peritonitis (SBP), I felt that this was very unlikely, and she feels that this is unlikely as well and, in general, for monitoring the ascites fluid and the drainage, it seems as though we have come to an impasse where I do feel that it is probably less beneficial for a monitoring standpoint than it would be for removal of this to avoid possible subsequent SBP, thus discontinuing the Marco Antonio-Garcia drain seems very reasonable today and we will see how she is doing overnight.
--- NOTE | 2020-04-26 14:39 | IPN ---
PROGRESS NOTE DATE: 04/26/2020 Patient overall has had the Marco Antonio-Garcia drain out. Her dressing is nice and clean and dry. She has had some mild abdominal distention and I assume that this is some re-accumulation of ascites just given her presentation but she has been actually doing okay with urine output. From her standpoint, she seems to be urinating without burning at this time. Unfortunately, her creatinine did bump up again. Her ammonia level is down and she is much more alert and awake. As stated earlier, she has been afebrile and her white count has come down to 9. Her abdomen is soft, nontender, and mildly distended. IMPRESSION/PLAN: Patient has probably some mild re-accumulation of ascites of fluid. I would recommend continued supportive care. From a surgical intervention, no need for additional recommendations at this time and I would recommend that if she develops significant abdominal distention with pain or discomfort then possible ascites/paracentesis is warranted but at this time I would not recommend that.
--- NOTE | 2020-04-26 19:38 | IPNPDOC ---
Date Seen The patient was seen on 04/26/20. Progress Note SUBJECTIVE: 7 BM over past 24 hours, 8 the day prior so not surprised Cr increased today. Also concern for urinary retention after cath pulled 04/25/20. Decision was made to keep daniels out today, as patient does not want it back in and watch bladder scan if needed. no retention during the day, urinating on her own well. If Cr worsens by 04/27/20, nephro consult and daniels placed back.Denies chest pain, abd pain, shortness of breath. OBJECTIVE: PHYSICAL EXAM: VS: Please see below General: NAD, resting in bed, AAOx 3 HEENT: NC/AT, yellow sclera-chronic Lungs: CTA B/L Heart: +S1S2, RRR Abd: soft, NT, +BS, stitches in abd appear well healing Ext: no edema LABORATORY: PLEASE SEE BELOW MICRO: C. diff ordered but not collected FRANCES drain fluid GS: NG FRANCES drain CX: ENTEROCOCCUS FAECALIS QUANTITY OF GROWTH: FEW Organism 2: STAPHYLOCOCCUS HAEMOLYTICUS QUANTITY OF GROWTH: FEW ASSESSMENT: 64-year-old female with history of cirrhosis, colon cancer status post right colectomy on 04/07 complicated with hematoma, presenting with altered mental status. Ammonia found to be 186 in the ER will be admitted for management of acute hepatic encephalopathy. PLAN: #Diarrhea 2/2 to infection (c. diff) vs. lactulose -WBC wnl today, no BM since midnight so c.d iff not collected -7 BM over 04/25/20, 8 BM the day prior -Stopped lactulose, if diarrhea returns check c. diff -Holding all diuretics for now -On IVFs -Daily labs #Acute kidney injury likely 2/2 to diarrhea, dehydration -Cr worsened to 2.22 but diarrhea continued until today -Holding diuretics, lactulose -C/w IVFs -Avoid other nephrotoxic medications -Daily labs #Hyperkalemia likely 2/2 to worsening TERI -C/w treatment above for TERI -F/u labs in the AM #Hepatic encephalopathy 2/2 to liver cirrhosis, improved - Ammonia level wnl today - Bili remains high, AST/ALT stable - Her GI provider Dr. Bailee Carpio - [phone] -has been contacted and made recommendations - Tolerating PO pills, diet - Holding spironolactone, lasix, lactulose BID with TERI and diarrhea. C/w rifaximin. #Decompensating liver cirrhosis with hepatic encephalopathy -Child-Boudreaux score class B, MELD-Na score 19 -Supportive care and alcohol avoidance - denies any alcohol use at home -Follows with o/p GI above -C/w rifaximin. Holding lactulose, spironolactone, lasix due to TERI, diarrhea #Adenocarcinoma of colon s/p laparoscopic transverse colectomy by Dr. Carpio 04/07 - Post op bleeding during past admission, FRANCES drain in place, draining serosanguinous ascitic fluid appropriately -Surgery following, keeping FRANCES drain in for now. Maura removed. #Physical deconditioning -PT: Recommend skilled PT to progress with transfers, ambulation. Pending progression, may benefit from AD. OOB in chair for meals ambulation with 1A with RW gait belt #Thrombocytopenia, acute -PLTs 102 -4 T's score: 2-3= low probability for Heparin induced thrombocytopenia -Stopped Heparin 04/24/20 -F/u CBC in the AM #COPD - stable - resume inhalers, nebs #GI px - PPI #DVT px -SCD, teds Resolved issues: #Lactic acidosis 2/2 liver cirrhosis, infection #Hypokalemia, acute and possibly 2/2 to diarrhea DISPOSITION: PT/OT, OOBTC and with all meals. Based off PT sessions, home vs. home with services. VS, I&O, 24H, Fishbone Vital Signs/I&O Vital Signs Date Time Temp Pulse Resp B/P (MAP) Pulse Ox O2 Delivery O2 Flow Rate FiO2 04/26/20 16:42 17 Room Air 04/26/20 14:20 96/48 (64) 04/26/20 14:00 97.8 95 100 I&O- Last 24 Hours up to 6 AM 04/26/20 06:00 Intake Total 1255 ml Output Total 755 ml Balance 500 ml Laboratory Data 24H LABS Laboratory Tests 2 04/26/20 05:32: Immature Granulocyte % (Auto) 0.9, Neutrophils (%) (Auto) 85.0H, Lymphocytes (%) (Auto) 5.4L, Monocytes (%) (Auto) 7.7H, Eosinophils (%) (Auto) 0.9, Basophils (%) (Auto) 0.1, Neutrophils # (Auto) 7.7, Lymphocytes # (Auto) 0.5L, Monocytes # (Auto) 0.7, Eosinophils # (Auto) 0.1, Basophils # (Auto) 0.0, Nucleated Red Blood Cells % (auto) 0.0, Anion Gap 7L, Glomerular Filtration Rate 23.8L, Lactic Acid Level 1.7, Calcium Level 8.1L, Magnesium Level 1.9, Total Bilirubin 5.5H, Aspartate Amino Transf (AST/SGOT) 39H, Alanine Aminotransferase (ALT/SGPT) 33, Alkaline Phosphatase 64, Ammonia 29, Total Protein 5.0L, Albumin 2.3L, Albumin/Globulin Ratio 0.9L CBC/BMP Laboratory Tests 04/26/20 05:32 Microbiology Microbiology 04/20/20 Gram Stain - Final, Complete 04/20/20 Body Fluid Culture - Final, Complete Enterococcus Faecalis Staphylococcus Haemolyticus 04/19/20 Blood Culture - Final, Complete NO GROWTH AFTER 5 DAYS 04/19/20 Blood Culture - Final, Complete NO GROWTH AFTER 5 DAYS 04/18/20 Respiratory Virus Panel (PCR) (SERGEY) - Final, Complete Current Medications Current Medications Medications (Trade) Dose Ordered Sig/Chavez Route PRN Reason Start Time Stop Time Status Last Admin Dose Admin Albuterol Sulfate (Proventil Neb) 2.5 mg BIDP PRN NEB SOB/WHEEZING 04/25/20 12:00 04/26/20 13:24 Albuterol Sulfate (Proventil Neb) 3 mg BIDP PRN INH SOB/WHEEZING 04/19/20 02:00 04/19/20 02:58 DC Ascorbic Acid (Vitamin C) 1,000 mg DAILY PO 04/19/20 09:00 04/26/20 08:56 Calcium Carbonate (Tums) 500 mg Q6HP PRN PO INDIGESTION 04/25/20 12:00 04/26/20 09:02 Ceftriaxone Sodium 1 gm/ Dextrose 50 ml @ 100 mls/hr Q24H IV 04/19/20 03:00 04/19/20 02:07 DC Ceftriaxone Sodium 2 gm/ Dextrose 50 ml @ 50 mls/hr Q24H IV 04/19/20 03:00 04/23/20 07:58 DC 04/23/20 03:13 Chlorhexidine Gluconate (Peridex Oral Rinse) 15 ml TID SSP 04/25/20 09:00 04/26/20 16:12 Dextrose/Sodium Chloride 1,000 ml @ 100 mls/hr Q10H IV 04/21/20 23:45 04/24/20 11:17 DC 04/24/20 00:11 Emollient Cream (Vanicream) Use on lower extremities BID TOP 04/24/20 21:00 04/26/20 08:59 Folic Acid (Folic Acid) 1 mg DAILY NG 04/20/20 09:00 04/26/20 08:56 Folic Acid (Folic Acid) 1 mg DAILY PO 04/20/20 09:00 04/20/20 17:17 DC Furosemide (Lasix) 40 mg DAILY PO 04/24/20 09:00 04/25/20 20:27 DC 04/24/20 12:10 Haloperidol (Haldol) 2 mg Q6HP PRN IV AGITATION/ANXIETY 04/21/20 20:30 04/23/20 13:53 DC 04/22/20 04:20 Heparin Sodium (Porcine) (Heparin) 5,000 units Q8H SC 04/19/20 06:00 04/24/20 11:31 DC 04/24/20 05:46 Home Med (Med Rec Complete!) ASDIRECTED XX 04/18/20 21:30 04/18/20 21:22 DC Lactated Ringer's 1,000 ml @ 125 mls/hr Q8H IV 04/21/20 12:15 04/21/20 23:44 DC 04/21/20 21:33 Lactulose (Cephulac) 30 ml BID NG 04/25/20 09:00 04/25/20 20:24 DC 04/25/20 10:01 Lactulose (Cephulac) 30 ml Q4H NG 04/20/20 18:00 04/23/20 13:43 DC 04/23/20 10:05 Lactulose (Cephulac) 30 ml Q6H NG 04/19/20 14:00 04/20/20 17:17 DC 04/20/20 14:52 Lactulose (Cephulac) 30 ml QID NG 04/24/20 09:00 04/24/20 18:35 DC 04/24/20 16:42 Lactulose (Cephulac) 30 ml TID NG 04/23/20 16:00 04/24/20 08:57 DC 04/23/20 20:51 Lactulose (Cephulac) 30 ml TID NG 04/25/20 09:00 04/25/20 08:51 DC Levalbuterol HCl (Xopenex Hfa) 2 puff QID PRN INH SHORTNESS OF BREATH 04/19/20 02:00 04/26/20 08:45 Lorazepam (Ativan) 0.5 mg ASDIRECTED PRN IV SEE PROTOCOL 04/21/20 12:15 04/22/20 19:26 DC 04/22/20 02:20 Lorazepam (Ativan) 1 mg STAT STAT IV 04/19/20 16:38 04/19/20 16:40 DC 04/19/20 16:46 Lorazepam (Ativan) 1 mg STAT STAT IV 04/19/20 16:55 04/19/20 16:56 DC 04/19/20 17:02 Lorazepam (Ativan) 2 mg ASDIRECTED PRN IV SEE PROTOCOL 04/20/20 12:30 04/21/20 12:14 DC 04/21/20 03:04 Lorazepam (Ativan) 2 mg ASDIRECTED PRN PO SEE PROTOCOL 04/19/20 21:15 04/20/20 12:26 DC Multivitamins (Theragram-M) 1 tab DAILY PO 04/20/20 09:00 04/26/20 08:56 Pantoprazole Sodium (Protonix) 20 mg DAILY PO 04/19/20 09:00 04/20/20 19:05 DC Pantoprazole Sodium (Protonix) 40 mg DAILY PO 04/24/20 09:00 04/26/20 08:56 Pantoprazole Sodium (Protonix) 40 mg DAILY@2100 IV 04/20/20 21:00 04/23/20 13:53 DC 04/22/20 21:05 Potassium Chloride (Micro-K Extencaps) 10 meq TID PO 04/19/20 09:00 04/23/20 07:59 DC 04/21/20 17:43 Potassium Chloride (Micro-K Extencaps) 20 meq BID PO 04/23/20 09:00 04/26/20 08:56 Rifaximin (Xifaxan) 400 mg TID NG 04/20/20 09:00 04/26/20 16:12 Rifaximin (Xifaxan) 400 mg TID PO 04/19/20 09:00 04/20/20 10:51 DC Salmeterol Xinafoate/ Fluticasone (Advair Hfa 115/ ) 2 puff DAILY@0800 INH 04/19/20 08:00 04/24/20 18:32 DC 04/24/20 06:20 Salmeterol Xinafoate/ Fluticasone (Advair Hfa 230/ ) 2 puff RBID INH 04/24/20 20:00 04/26/20 08:23 Sodium Chloride 1,000 ml @ 70 mls/hr [id number] IV 04/20/20 18:00 04/21/20 12:14 DC 04/21/20 09:09 Sodium Chloride 1,000 ml @ 100 mls/hr Q10H IV 04/25/20 08:45 04/26/20 13:13 Sodium Chloride (Saline Lock Flush) 2 ml ASDIRECTED PRN IV SEE LABEL COMMENTS 04/19/20 17:00 Sodium Chloride (Saline Lock Flush) 2 ml SLF IV 04/19/20 22:00 04/25/20 05:13 Spironolactone (Aldactone) 100 mg DAILY PO 04/19/20 09:00 04/25/20 20:27 DC 04/24/20 09:28 Thiamine HCl (Thiamine HCl) 100 mg BID NG 04/20/20 21:00 04/23/20 09:02 DC 04/23/20 10:05 Thiamine HCl (Thiamine HCl) 100 mg BID PO 04/19/20 21:00 04/20/20 17:17 DC Tramadol HCl (Ultram) 25 mg Q6HP PRN PO MODERATE PAIN (PS 5-7) 04/25/20 12:00 04/26/20 16:12 Vancomycin HCl 1000 mg/IV Miscellaneous Supplies 1 each/ Dextrose 270 ml @ 270 mls/hr Q12H IV 04/23/20 08:00 04/23/20 09:04 DC Vancomycin HCl 1000 mg/IV Miscellaneous Supplies 1 each/ Dextrose 270 ml @ 270 mls/hr Q12H IV 04/23/20 21:00 04/24/20 20:27 DC 04/24/20 09:27 Vancomycin HCl 1000 mg/IV Miscellaneous Supplies 1 each/ Dextrose 270 ml @ 270 mls/hr Q18H IV 04/25/20 00:00 04/25/20 11:17 DC 04/25/20 00:25 Vitamin D (Vitamin D) 2,000 units DAILY PO 04/19/20 09:00 04/26/20 08:59 Allergies Coded Allergies: Sulfa (Sulfonamide Antibiotics) (Verified Allergy, Unknown, HIVES, 03/26/20) levofloxacin (Verified Allergy, Unknown, REDNESS TO EAR, 03/26/20) tetracycline (Verified Allergy, Unknown, HIVES, 03/26/20) Katharina Sam MD Apr 26, 2020 19:38
[2020-04-26 22:00] VITALS: BP 107/70
[2020-04-27 06:00] VITALS: BP 114/56
[2020-04-27] MEDS: SLF 3 ML SYR IV SCH ×3 (06:00→20:31)
[2020-04-27 06:12] LABS: ALBUMIN 2.3 GM/DL (3.2-5.2); BILIRUBIN,TOTAL 4.9 MG/DL (0.2-1.0); CALCIUM LEVEL 8.2 MG/DL (8.8-10.2); CREATININE FOR GFR 2.09 MG/DL (0.55-1.30); GLOMERULAR FILTRATION RATE 25.5 (>45); POTASSIUM SERUM 5.8 MEQ/L (3.5-5.1)
[2020-04-27 06:13] LABS: HEMATOCRIT 27.6 % (36.0-47.0); MEAN CORPUSCULAR HEMOGLOBIN 31.3 pg (27.0-33.0); MEAN CORPUSCULAR HGB CONC 32.6 g/dl (32.0-36.5); MEAN CORPUSCULAR VOLUME 95.8 fl (80.0-96.0); RED BLOOD COUNT 2.88 10^6/uL (4.00-5.40); WHITE BLOOD COUNT 9.3 10^3/uL (4.0-10.0)
[2020-04-27 07:05] LABS: PLATELET COUNT, AUTOMATED 97 10^3/uL (150-450)
[2020-04-27] MEDS: traMADol 50 MG TAB PO PRN ×3 (07:37→23:58)
[2020-04-27] MEDS ORDERED: DEXTROSE 50% 50 ML SYRINGE IV STA (08:05)
[2020-04-27] MEDS ORDERED: HumuLIN R (REGULAR) INSULIN (NovoLIN R) **100U/ML** PER UNIT IV STA (08:05)
[2020-04-27] MEDS: MULTIVITAMINS/MINERALS THERAP 1 TAB PO SCH (08:42)
[2020-04-27] MEDS: FOLIC ACID 1 MG TAB NG SCH (08:42)
[2020-04-27] MEDS: ASCORBIC ACID 500 MG TAB PO SCH (08:42)
[2020-04-27] MEDS: CHLORHEXIDINE GLUCONATE 0.12 % 15ML UDC (PERIDEX ORAL RINSE) SSP SCH ×3 (08:42→20:28)
[2020-04-27] MEDS: PANTOPRAZOLE 40MG TAB (PROTONIX) PO SCH (08:43)
[2020-04-27] MEDS: VANICREAM MOISTURIZING SKIN CREAM 113GM TUBE TOP SCH ×2 (08:43→20:30)
[2020-04-27] MEDS: VITAMIN D 1,000 INTERNATIONAL UNITS TABLET PO SCH (08:43)
[2020-04-27] MEDS: NS 1,000 ML IV SCH (08:53)
[2020-04-27] MEDS: CALCIUM CARBONATE 500 MG CHEW U/D PO PRN (08:53)
[2020-04-27] MEDS: DOCUSATE SODIUM 100MG CAPSULE PO SCH ×2 (09:00→20:29)
[2020-04-27] MEDS: ALBUTEROL SULFATE 2.5 MG/0.5 ML INH NEB SOLN NEB PRN ×2 (10:03→21:07)
[2020-04-27] MEDS: ADVAIR HFA 230/21MCG INHALER INH SCH ×2 (10:04→21:07)
[2020-04-27 13:11] LABS: CALCIUM LEVEL 8.3 MG/DL (8.8-10.2); CREATININE FOR GFR 2.31 MG/DL (0.55-1.30); GLOMERULAR FILTRATION RATE 22.8 (>45); POTASSIUM SERUM 6.4 MEQ/L (3.5-5.1)
[2020-04-27] MEDS ORDERED: PATIROMER SORBITEX CALCIUM 8.4 GM POWDER PACKET (VELTASSA) PO STA (13:12)
[2020-04-27] MEDS: SODIUM BICARBONATE 150 MEQ in D5W 1,000 ML IV SCH (13:29)
[2020-04-27] MEDS ORDERED: MIRALAX *UNIT DOSE* 17GM PACKET PO PRN (13:30)
[2020-04-27] MEDS ORDERED: SODIUM BICARBONATE 8.4% INJ 50 ML SYRINGE IV STA (13:33)
[2020-04-27] MEDS ORDERED: FUROSEMIDE 40MG/4ML VIAL (J1940) IV ONE (14:00)
[2020-04-27 14:02] VITALS: BP 104/60
[2020-04-27] MEDS: LEVALBUTEROL HFA 45MCG/ACT 15 GM INHALER INH PRN (15:28)
--- NOTE | 2020-04-27 15:29 | IPNPDOC ---
Date Seen The patient was seen on 04/27/20. Progress Note SUBJECTIVE: 1 BM yesterday, ammonia slightly increased today but patient has no AMS. Consulted nephrology due to urinary retention, elevated Cr, worsening non-gapped metabolic acidosis. Potassium supplement stopped 2/2 to hyperkalemia. Worsening acidosis believed to be 2/2 to lactulose with elevated LA. Following labs very closely. Discussed with patient and on the phone that I will touch base with Dr. Carpio (GI) in the AM to discuss current condition. Chan placed. Denies chest pain, abd pain, shortness of breath. OBJECTIVE: PHYSICAL EXAM: VS: Please see below General: NAD, resting in bed, AAOx 3 HEENT: NC/AT, yellow sclera-chronic Lungs: CTA B/L Heart: +S1S2, RRR Abd: slightly more distended abd but only mildly, tender to RLQ mildly on deep palpation , +BS, stitches in abd appear well healing Ext: no edema LABORATORY: PLEASE SEE BELOW MICRO: FRANCES drain fluid GS: NG FRANCES drain CX: ENTEROCOCCUS FAECALIS QUANTITY OF GROWTH: FEW Organism 2: STAPHYLOCOCCUS HAEMOLYTICUS QUANTITY OF GROWTH: FEW ASSESSMENT: 64-year-old female with history of cirrhosis, colon cancer status post right colectomy on 04/07 complicated with hematoma, presenting with altered mental status. Ammonia found to be 186 in the ER will be admitted for management of acute hepatic encephalopathy. PLAN: #Non-anion gap metabolic acidosis likely 2/2 to diarrhea 2/2 to lactulose use. Also metabolic acidosis could be mixed with lactic acidosis -Had several days where patient had severe diarrhea that persisted despite decreasing and removing lactulose -Last BM 04/26/20, diarrhea has improved but acidosis appears to be worsened -LA also elevated at 2.8 -Consulted nephrology who started on bicarb gtt at 150 cc/hr -F/u repeat BMP at 1800 this evening and daily #Hyperkalemia likely 2/2 to potassium supplementation -K 6.8 this afternoon despite insulin administration, D50 -Denies chest pain, n/v/d, shortness of breath -Given veltassa x 1 dose -F/u repeat K at 1800 -Tele #Acute kidney injury likely 2/2 to diarrhea, dehydration, urinary retention -Cr 2.09 today, slightly improved but needed to straight cathed twice in 24 hours -Chan placed today. -Holding diuretics, lactulose for now -C/w bicarb gtt -Avoid other nephrotoxic medications -Daily labs -Nephrology following closely #Diarrhea 2/2 to lactulose- resolved -Infection unlikely as diarrhea stopped after meds were stopped, WBC now normal -No BM since 04/26/20 x 1 -7 BM over 04/25/20, 8 BM the 04/24/20 -Stopped lactulose, if diarrhea returns check c. diff -Holding all diuretics for now -On bicarb gtt -Daily labs #Lactic acidosis likely 2/2 to dehydration -See above #Hepatic encephalopathy 2/2 to liver cirrhosis- improved - Ammonia level slightly higher today at 48 - Only one BM on 04/26/20, not on lactulose due to high output diarrhea - Bili remains high, AST/ALT wnl - Her GI provider Dr. Bailee Carpio - [phone] -will be called again on 04/28/20 to update - Tolerating PO pills, diet - Holding spironolactone, lasix, lactulose BID with TERI and diarrhea. C/w rifaximin. #Decompensating liver cirrhosis with hepatic encephalopathy -Child-Boudreaux score class B, MELD-Na score 19 -Supportive care and alcohol avoidance - denies any alcohol use at home -Follows with o/p GI above -C/w rifaximin. Holding lactulose, spironolactone, lasix due to TERI, diarrhea #Adenocarcinoma of colon s/p laparoscopic transverse colectomy by Dr. Carpio 04/07 -Surgery following, Maura and FRANCES drain removed this admission. #Physical deconditioning -PT: Recommend skilled PT to progress with transfers, ambulation. Pending progression, may benefit from AD. OOB in chair for meals ambulation with 1A with RW gait belt #Thrombocytopenia, acute -PLTs 97 -4 T's score: 2-3= low probability for Heparin induced thrombocytopenia -Stopped Heparin 04/24/20 -F/u CBC in the AM #COPD - stable - resume inhalers, nebs #GI px - PPI #DVT px -SCD, teds Resolved issues: #Hypokalemia, acute and possibly 2/2 to diarrhea DISPOSITION: Nephrology now consulted, to update GI in the AM. C/w PT/OT, OOBTC and with all meals. Based off PT sessions, home vs. home with services VS, I&O, 24H, Lee Vital Signs/I&O Vital Signs Date Time Temp Pulse Resp B/P (MAP) Pulse Ox O2 Delivery O2 Flow Rate FiO2 04/27/20 14:02 98.4 88 18 104/60 (75) 100 Room Air I&O- Last 24 Hours up to 6 AM 04/27/20 06:00 Intake Total 4600 ml Output Total 900 ml Balance 3700 ml Laboratory Data 24H LABS Laboratory Tests 2 04/27/20 05:37: Nucleated Red Blood Cells % (auto) 0.0, Immature Platelet Fraction 1.1, Anion Gap 8, Glomerular Filtration Rate 25.5L, Calcium Level 8.2L, Total Bilirubin 4.9H, Aspartate Amino Transf (AST/SGOT) 32, Alanine Aminotransferase (ALT/SGPT) 30, Alkaline Phosphatase 63, Ammonia 48H, Total Protein 5.0L, Albumin 2.3L, Albumin/Globulin Ratio 0.9L 04/27/20 12:15: Anion Gap 9, Glomerular Filtration Rate 22.8L, Calcium Level 8.3L 04/27/20 14:27: Lactic Acid Level 2.8*H CBC/BMP Laboratory Tests 04/27/20 05:37 04/27/20 12:15 Microbiology Microbiology 04/20/20 Gram Stain - Final, Complete 04/20/20 Body Fluid Culture - Final, Complete Enterococcus Faecalis Staphylococcus Haemolyticus 04/19/20 Blood Culture - Final, Complete NO GROWTH AFTER 5 DAYS 04/19/20 Blood Culture - Final, Complete NO GROWTH AFTER 5 DAYS 04/18/20 Respiratory Virus Panel (PCR) (SERGEY) - Final, Complete Current Medications Current Medications Medications (Trade) Dose Ordered Sig/Chavez Route PRN Reason Start Time Stop Time Status Last Admin Dose Admin Albuterol Sulfate (Proventil Neb) 2.5 mg BIDP PRN NEB SOB/WHEEZING 04/25/20 12:00 04/27/20 10:03 Albuterol Sulfate (Proventil Neb) 3 mg BIDP PRN INH SOB/WHEEZING 04/19/20 02:00 04/19/20 02:58 DC Ascorbic Acid (Vitamin C) 1,000 mg DAILY PO 04/19/20 09:00 04/27/20 08:42 Calcium Carbonate (Tums) 500 mg Q6HP PRN PO INDIGESTION 04/25/20 12:00 04/27/20 08:53 Ceftriaxone Sodium 1 gm/ Dextrose 50 ml @ 100 mls/hr Q24H IV 04/19/20 03:00 04/19/20 02:07 DC Ceftriaxone Sodium 2 gm/ Dextrose 50 ml @ 50 mls/hr Q24H IV 04/19/20 03:00 04/23/20 07:58 DC 04/23/20 03:13 Chlorhexidine Gluconate (Peridex Oral Rinse) 15 ml TID SSP 04/25/20 09:00 04/27/20 08:42 Dextrose (Dextrose 50%) 50 ml STAT STAT IV 04/27/20 08:05 04/27/20 08:09 DC 04/27/20 08:42 Dextrose/Sodium Chloride 1,000 ml @ 100 mls/hr Q10H IV 04/21/20 23:45 04/24/20 11:17 DC 04/24/20 00:11 Docusate Sodium (Colace) 100 mg BID PO 04/27/20 09:00 Emollient Cream (Vanicream) Use on lower extremities BID TOP 04/24/20 21:00 04/27/20 08:43 Folic Acid (Folic Acid) 1 mg DAILY NG 04/20/20 09:00 04/27/20 08:42 Folic Acid (Folic Acid) 1 mg DAILY PO 04/20/20 09:00 04/20/20 17:17 DC Furosemide (Lasix) 40 mg DAILY PO 04/24/20 09:00 04/25/20 20:27 DC 04/24/20 12:10 Haloperidol (Haldol) 2 mg Q6HP PRN IV AGITATION/ANXIETY 04/21/20 20:30 04/23/20 13:53 DC 04/22/20 04:20 Heparin Sodium (Porcine) (Heparin) 5,000 units Q8H SC 04/19/20 06:00 04/24/20 11:31 DC 04/24/20 05:46 Home Med (Med Rec Complete!) ASDIRECTED XX 04/18/20 21:30 04/18/20 21:22 DC Insulin Human Regular (HumuLIN R INSULIN) 10 units STAT STAT IV 04/27/20 08:05 04/27/20 08:09 DC 04/27/20 08:42 Lactated Ringer's 1,000 ml @ 125 mls/hr Q8H IV 04/21/20 12:15 04/21/20 23:44 DC 04/21/20 21:33 Lactulose (Cephulac) 30 ml BID NG 04/25/20 09:00 04/25/20 20:24 DC 04/25/20 10:01 Lactulose (Cephulac) 30 ml Q4H NG 04/20/20 18:00 04/23/20 13:43 DC 04/23/20 10:05 Lactulose (Cephulac) 30 ml Q6H NG 04/19/20 14:00 04/20/20 17:17 DC 04/20/20 14:52 Lactulose (Cephulac) 30 ml QID NG 04/24/20 09:00 04/24/20 18:35 DC 04/24/20 16:42 Lactulose (Cephulac) 30 ml TID NG 04/23/20 16:00 04/24/20 08:57 DC 04/23/20 20:51 Lactulose (Cephulac) 30 ml TID NG 04/25/20 09:00 04/25/20 08:51 DC Levalbuterol HCl (Xopenex Hfa) 2 puff QID PRN INH SHORTNESS OF BREATH 04/19/20 02:00 04/27/20 15:28 Lorazepam (Ativan) 0.5 mg ASDIRECTED PRN IV SEE PROTOCOL 04/21/20 12:15 04/22/20 19:26 DC 04/22/20 02:20 Lorazepam (Ativan) 1 mg STAT STAT IV 04/19/20 16:38 04/19/20 16:40 DC 04/19/20 16:46 Lorazepam (Ativan) 1 mg STAT STAT IV 04/19/20 16:55 04/19/20 16:56 DC 04/19/20 17:02 Lorazepam (Ativan) 2 mg ASDIRECTED PRN IV SEE PROTOCOL 04/20/20 12:30 04/21/20 12:14 DC 04/21/20 03:04 Lorazepam (Ativan) 2 mg ASDIRECTED PRN PO SEE PROTOCOL 04/19/20 21:15 04/20/20 12:26 DC Midodrine (Proamatine) 5 mg 08,12,16 PO 04/27/20 16:00 Multivitamins (Theragram-M) 1 tab DAILY PO 04/20/20 09:00 04/27/20 08:42 Pantoprazole Sodium (Protonix) 20 mg DAILY PO 04/19/20 09:00 04/20/20 19:05 DC Pantoprazole Sodium (Protonix) 40 mg DAILY PO 04/24/20 09:00 04/27/20 08:43 Pantoprazole Sodium (Protonix) 40 mg DAILY@2100 IV 04/20/20 21:00 04/23/20 13:53 DC 04/22/20 21:05 Patiromer (Veltassa) 16.8 gm STAT STAT PO 04/27/20 13:12 04/27/20 13:15 DC 04/27/20 13:35 Polyethylene Glycol (Miralax) 1 pkt DAILYPRN PRN PO CONSTIPATION 04/27/20 13:30 Potassium Chloride (Micro-K Extencaps) 10 meq TID PO 04/19/20 09:00 04/23/20 07:59 DC 04/21/20 17:43 Potassium Chloride (Micro-K Extencaps) 20 meq BID PO 04/23/20 09:00 04/27/20 08:09 DC 04/26/20 20:49 Rifaximin (Xifaxan) 400 mg TID NG 04/20/20 09:00 04/27/20 08:43 Rifaximin (Xifaxan) 400 mg TID PO 04/19/20 09:00 04/20/20 10:51 DC Salmeterol Xinafoate/ Fluticasone (Advair Hfa 115/ 21) 2 puff DAILY@0800 INH 04/19/20 08:00 04/24/20 18:32 DC 04/24/20 06:20 Salmeterol Xinafoate/ Fluticasone (Advair Hfa 230/ 21) 2 puff RBID INH 04/24/20 20:00 04/27/20 10:04 Sodium Bicarbonate 150 meq/Dextrose/Water 1,150 ml @ 150 mls/hr [id number] IV 04/27/20 14:00 04/28/20 03:19 04/27/20 13:29 Sodium Bicarbonate (Sodium Bicarbonate) 50 meq STAT STAT IV 04/27/20 13:33 04/27/20 13:34 DC 04/27/20 13:56 Sodium Chloride 1,000 ml @ 70 mls/hr [id number] IV 04/20/20 18:00 04/21/20 12:14 DC 04/21/20 09:09 Sodium Chloride 1,000 ml @ 85 mls/hr [id number] IV 04/25/20 08:45 04/27/20 11:51 DC 04/27/20 08:53 Sodium Chloride (Saline Lock Flush) 2 ml ASDIRECTED PRN IV SEE LABEL COMMENTS 04/19/20 17:00 Sodium Chloride (Saline Lock Flush) 2 ml SLF IV 04/19/20 22:00 04/26/20 20:50 Spironolactone (Aldactone) 100 mg DAILY PO 04/19/20 09:00 04/25/20 20:27 DC 04/24/20 09:28 Thiamine HCl (Thiamine HCl) 100 mg BID NG 04/20/20 21:00 04/23/20 09:02 DC 04/23/20 10:05 Thiamine HCl (Thiamine HCl) 100 mg BID PO 04/19/20 21:00 04/20/20 17:17 DC Tramadol HCl (Ultram) 25 mg Q6HP PRN PO MODERATE PAIN (PS 5-7) 04/25/20 12:00 04/27/20 13:59 Vancomycin HCl 1000 mg/IV Miscellaneous Supplies 1 each/ Dextrose 270 ml @ 270 mls/hr Q12H IV 04/23/20 08:00 04/23/20 09:04 DC Vancomycin HCl 1000 mg/IV Miscellaneous Supplies 1 each/ Dextrose 270 ml @ 270 mls/hr Q12H IV 04/23/20 21:00 04/24/20 20:27 DC 04/24/20 09:27 Vancomycin HCl 1000 mg/IV Miscellaneous Supplies 1 each/ Dextrose 270 ml @ 270 mls/hr Q18H IV 04/25/20 00:00 04/25/20 11:17 DC 04/25/20 00:25 Vitamin D (Vitamin D) 2,000 units DAILY PO 04/19/20 09:00 04/27/20 08:43 Allergies Coded Allergies: Sulfa (Sulfonamide Antibiotics) (Verified Allergy, Unknown, HIVES, 12/16 /20) levofloxacin (Verified Allergy, Unknown, REDNESS TO EAR, 03/26/20) tetracycline (Verified Allergy, Unknown, HIVES, 03/26/20) Katharina Sam MD Apr 27, 2020 15:29
[2020-04-27] MEDS: MIDODRINE 5 MG TAB PO SCH (16:18)
--- NOTE | 2020-04-27 17:36 | REP ---
INDICATION: eval for dvt COMPARISON: None. TECHNIQUE: Real time compression and duplex Doppler interrogation of the bilateral lower extremity deep venous system is performed. FINDINGS: Bilaterally, the common femoral, superficial femoral and popliteal veins are fully compressible with transducer pressure and demonstrate normal spontaneous and phasic flow, without evidence of deep venous thrombosis. IMPRESSION: No evidence of deep venous thrombosis of the bilateral lower extremity femoral popliteal venous system. <Electronically signed by Parish Menchaca > 04/27/20 [id number]
--- NOTE | 2020-04-27 17:37 | REP ---
INDICATION: TERI, RETENTION. COMPARISON: None. TECHNIQUE: Real-time sonographic evaluation of the kidneys is performed. FINDINGS: Renal cortical echogenicity pattern is normal bilaterally and contours are smooth. There is no evidence of hydronephrosis, cyst, mass, or calculus in either kidney. The right kidney measures 13.0 x 5.1 x 4.5 cm. Left renal dimensions are 11.6 x 4.0 x 4.5 cm. There is a Chan catheter in the urinary bladder. There is mild ascites incidentally noted. IMPRESSION: Negative renal ultrasound. Mild ascites incidentally noted. <Electronically signed by Parish Menchaca > 04/27/20 [id number]
[2020-04-27 18:17] LABS: CALCIUM LEVEL 8.4 MG/DL (8.8-10.2); CREATININE FOR GFR 2.19 MG/DL (0.55-1.30); GLOMERULAR FILTRATION RATE 24.2 (>45); POTASSIUM SERUM 5.5 MEQ/L (3.5-5.1)
--- NOTE | 2020-04-27 20:37 | IPN ---
PROGRESS NOTE DATE: 04/27/2020 SUBJECTIVE: From a surgical standpoint, she has had bowel movements. Today she has not had any but then again, she had lactulose with a significant amount of bowel movements the other day, and I anticipate that it may be a while before she has another bowel movement unless she is given some more lactulose for her increasing ammonia level. From the standpoint of abdominal exam, her abdominal exam reveals some abdominal distention and it is probably reaccumulation of her ascites. She looks a little bit more short of breath but not any significant tachypnea. She is able to finish sentences and she is not complaining of any nausea or vomiting. Her abdomen is softly distended. IMPRESSION AND PLAN: The patient from a general surgery standpoint is stable. Her white count is stable. I would recommend continued care per Medicine issues. She states that she would like to have GI involved in her care here. I will defer that judgment to her Hospitalist and other issues - elevated potassium, ammonia, etc., are being addressed by the Hospitalist as well. Otherwise we will be available should any further surgical issues develop but I would not be surprised if at some point in the next 48-72 hours that she may need a repeat paracentesis.
[2020-04-27 22:00] VITALS: BP 105/52
--- NOTE | 2020-04-27 22:09 | CR ---
NEPHROLOGY CONSULTATION DATE: 04/27/2020 REQUESTING PHYSICIAN: Dr. Katharina Sam CONSULTING PHYSICIAN: Dr. Lori Arias REASON FOR CONSULTATION: Acute kidney injury with hyperkalemia and metabolic acidosis. HISTORY OF PRESENT ILLNESS: Anette Herzog is previously unknown to me. She is a 64-year-old female with a past medical history of liver cirrhosis with ascites, chronic obstructive pulmonary disease, colon cancer, status post recent transverse colectomy on April 07, 2020. She was admitted to [facility] on April 19, 2020 with hepatic encephalopathy and ammonia level initially of 186. The patient was also found to have a positive culture from her FRANCES drain with E-faecalis and staphylococcus hemolyticus, and she received 5 days treatment with Rocephin and IV Vancomycin which was complicated by persistent and worsening diarrhea. She was receiving IV fluids and lactulose for her hyperammonemia. At the same time she was also getting occasional doses of Spironolactone. Her renal function was stable up until April 25 when her creatinine increased from 1.0 to 1.9. She has thereafter had derangement in renal function with peak creatinine of 2.3 this morning and the elevated potassium of 5.8. Of note, the patient has been receiving twice daily potassium supplementation (along with the previously mentioned occasional dose of Spironolactone), and she has also gone into intermittent urinary retention and needed straight catheterization after she was unable to void overnight (subsequently 500 mL of urine came with the straight catheterization). A Nephrology evaluation was requested for management of the patient's acid base disorder, hyperkalemia and acute kidney injury. PAST MEDICAL HISTORY: The patient's past medical history is significant for: 1. Colon cancer - status post transverse colectomy April 07, 2020. 2. alcoholic liver cirrhosis. 3. Chronic obstructive pulmonary disease. 4. Anxiety. 5. Depression. PAST SURGICAL HISTORY: The patient's past surgical history is significant for: 1. Uterine ablation. 2. Septoplasty. 3. Right transverse colectomy. SOCIAL HISTORY: Ex-smoker, 20 pack year history. Alcohol use she used to drink two glasses of wine every night until November 2019. FAMILY HISTORY: No family history reported of end-stage renal failure requiring dialysis. REVIEW OF SYSTEMS: Constitutional: She denies fevers, chills. Eyes: She denies tearing or visual blurring. ENT: She denies rhinorrhea or odynophagia. Cardiac: She denies chest pain or palpitations. Respiratory: She reports chronic obstructive pulmonary disease. She denies present shortness of breath or cough. Gastrointestinal: She reports previous recurrent watery, diarrheal bowel movements though she has not had one in at least 24 hours. She denies nausea. Genitourinary: There is a complaint of urinary retention and decreased urine output. Endocrine: She denies history of diabetes or thyroid problems. Hematologic: There is new onset thrombocytopenia. She denies easy bruising or bleeding. Musculoskeletal: She denies acute myalgias or arthralgias. Skin: Denies any new rashes or ulcers. Psychiatric: Reports anxiety. Neurologic: Denies seizures or syncope. She was admitted with encephalopathy. The remainder of the review of systems is negative or as per HPI. PHYSICAL EXAMINATION: VITAL SIGNS: Temperature 98.4, pulse 88, respiratory rate 18, blood pressure 104/60, saturating 100% on room air. INTAKE AND OUTPUT: Intake yesterday was 4.6 liters. Urine output was only recorded as one liter. Weight in the bed scale today is 80.1 kg. GENERAL APPEARANCE: The patient is seen lying in bed, well groomed female, awake, alert, oriented, conversational and in no apparent distress but does seem mildly anxious. HEENT: The extraocular muscles are intact. Tongue is moist. NECK: Supple. Jugular veins are not elevated. HEART: Regular. S1, S2. There is trace leg edema. LUNGS: Clear to auscultation bilaterally. No crackles or rales. ABDOMEN: Mildly distended. I could not appreciate any suprapubic distention of the bladder. EXTREMITIES: Negative for clubbing or cyanosis. There is trace edema. SKIN: Warm and dry with normal turgor. NEUROLOGICAL: Oriented x3, interactive, conversational. PSYCHIATRIC: Anxious. LABORATORY STUDIES: Sodium 131, potassium 5.8, bicarbonate 16, BUN 42, creatinine 2.0 at 5:30 this morning and at 12:00 this afternoon potassium 6.4, bicarbonate 13, creatinine 2.3, albumin 2.3, hemoglobin 9.0, platelet count 79. INPATIENT MEDICATIONS: The patient's potassium supplements have been discontinued. She is presently receiving normal saline at 85 mL an hour, vitamin C one gram p.o. daily, Tums 500 mg p.o. q. 6 hourly p.r.n., Docusate 100 mg p.o. twice daily, folic acid one mg daily, insulin 10 units IV times one dose with D50, Multivitamin one tab p.o. daily, Protonix 40 mg p.o. daily, Miralax p.r.n., Rifaximin 400 mg three times daily, Tramadol 25 mg p.o. q. 6 hourly p.r.n., vitamin D 2,000 units p.o. daily. PROBLEMS: 1. Acute kidney injury superimposed on chronic kidney disease stage 2 the patient's renal function was stable with creatinine around 1.0 from April 19 to April 24. However since the she has had ongoing derangement in kidney function and when chart was reviewed, I see that that was the same time when she was having severe and recurrent diarrhea, more than twelve bowel movements in a day. And Dr. Garcia's input was requested at that time as well. The patient was receiving on and off doses of Spironolactone, and her last dose was on April 24. Unfortunately she did continue to receive aggressive oral potassium supplements despite being in acute kidney injury with worsening metabolic acidosis. At this time I would hold all diuretics. Renal ultrasound is ordered. Nursing staff reports episode of urinary retention overnight. The patient was unable to void until she had a straight catheterization with 500 mL of urine output. We will get a Chan catheter and I am discontinuing her normal saline and switching her over to a sodium bicarbonate drip, given her hyperkalemia and severe metabolic acidosis. 2. Hyperkalemia it is due to acute kidney injury along with oral potassium supplementation and worsening metabolic acidosis. We are discontinuing her normal saline and switching to sodium bicarbonate drip with 150 mEq of sodium bicarbonate to run at 150 mL an hour. I have also requested a dose of Veltassa and I have added a potassium restriction to her diet. She has been off of Spironolactone for several days. We will get a repeat potassium level this evening and if there is not significant improvement, I will also give her IV Lasix. 3. Metabolic acidosis - The patient's bicarbonate is down to 13 on the latest labs. She is significantly acidotic and there is no anion gap. Most likely this is due to recurrent and persistent diarrheal bowel movements. We will get a lactic acid and we will put her on a sodium bicarbonate drip. She is also ordered for a stat amp of sodium bicarbonate 50 mEq and we will get a repeat chemistry this evening to insure that her bicarbonate level is improving, as that is critical for correction of her hyperkalemia. 4. Thrombocytopenia I note that the patient's platelet count has also significantly down trended over this admission. Some 216 on admission down to 97 today. She recently had abdominal surgery and I want to make sure that there are no deep vein thromboses that may be propagating, as that can also be an occult cause of renal failure. We will get a venous duplex of the legs. 5. Hypervolemic hyponatremia - sodium level is mildly low and it is related to kidney injury and cirrhosis. She is presently on isotonic bicarbonate containing fluids and no other intervention is presently needed for the sodium level. 6. Hypotension - blood pressures have been on the soft side the past couple of days while her renal function and metabolic acidosis have been worsening. I am starting her on Midodrine as well given history of cirrhosis and present acute kidney injury. 7. Urinary retention - discussed with nursing staff, will place temporary Chan catheter and a renal ultrasound is requested. Thank you for involving me in the care of Ms. Herzog. I will be happy to follow her along with you. KISHA
[2020-04-28] VITALS (9 sets, daily range): BP systolic 91–103; BP diastolic 50–61
[2020-04-28] MEDS: SODIUM BICARBONATE 150 MEQ in D5W 1,000 ML IV SCH (01:32)
[2020-04-28] MEDS: SLF 3 ML SYR IV SCH ×3 (04:56→22:00)
[2020-04-28 05:58] LABS: HEMOGLOBIN 8.1 g/dl (12.0-15.5); MEAN CORPUSCULAR HEMOGLOBIN 32.1 pg (27.0-33.0); MEAN CORPUSCULAR HGB CONC 33.8 g/dl (32.0-36.5); MEAN CORPUSCULAR VOLUME 95.2 fl (80.0-96.0); RED BLOOD COUNT 2.52 10^6/uL (4.00-5.40); WHITE BLOOD COUNT 7.3 10^3/uL (4.0-10.0)
[2020-04-28 06:00] LABS: PLATELET COUNT, AUTOMATED 86 10^3/uL (150-450)
[2020-04-28 06:18] LABS: BILIRUBIN,TOTAL 3.8 MG/DL (0.2-1.0); CALCIUM LEVEL 8.1 MG/DL (8.8-10.2); CREATININE FOR GFR 2.1 MG/DL (0.55-1.30); GLOMERULAR FILTRATION RATE 25.4 (>45); POTASSIUM SERUM 5.5 MEQ/L (3.5-5.1); TOTAL PROTEIN 4.8 GM/DL (6.4-8.2)
[2020-04-28] MEDS: ALBUTEROL SULFATE 2.5 MG/0.5 ML INH NEB SOLN NEB PRN (06:22)
[2020-04-28] MEDS: ADVAIR HFA 230/21MCG INHALER INH SCH ×2 (06:24→20:00)
[2020-04-28] MEDS: VITAMIN D 1,000 INTERNATIONAL UNITS TABLET PO SCH (08:30)
[2020-04-28] MEDS: MIDODRINE 5 MG TAB PO SCH ×3 (08:30→16:28)
[2020-04-28] MEDS: CHLORHEXIDINE GLUCONATE 0.12 % 15ML UDC (PERIDEX ORAL RINSE) SSP SCH ×3 (08:30→20:23)
[2020-04-28] MEDS: DOCUSATE SODIUM 100MG CAPSULE PO SCH ×2 (08:30→20:24)
[2020-04-28] MEDS: ASCORBIC ACID 500 MG TAB PO SCH (08:30)
[2020-04-28] MEDS: FOLIC ACID 1 MG TAB NG SCH (08:30)
[2020-04-28] MEDS: PANTOPRAZOLE 40MG TAB (PROTONIX) PO SCH (08:31)
[2020-04-28] MEDS: MULTIVITAMINS/MINERALS THERAP 1 TAB PO SCH (08:31)
[2020-04-28] MEDS: VANICREAM MOISTURIZING SKIN CREAM 113GM TUBE TOP SCH ×2 (08:31→20:24)
[2020-04-28] MEDS ORDERED: PATIROMER SORBITEX CALCIUM 8.4 GM POWDER PACKET (VELTASSA) PO ONE (11:00)
[2020-04-28] MEDS: LEVALBUTEROL HFA 45MCG/ACT 15 GM INHALER INH PRN (12:57)
--- NOTE | 2020-04-28 13:46 | REP ---
INDICATION: LUE swelling. COMPARISON: None. TECHNIQUE: Left upper extremity duplex venous scanning. FINDINGS: The left internal jugular, axillary, brachial, basilic, and cephalic veins are anechoic and compressible in the left upper extremity. Color flow imaging is homogeneous. Spectral Doppler interrogation is unremarkable. There is no evidence of left upper extremity venous thrombosis. IMPRESSION: Negative left upper extremity duplex venous ultrasound. No evidence of venous thrombosis. <Electronically signed by Colt Parsons > 04/28/20 1728
[2020-04-28] MEDS: OCTREOTIDE ACETATE 100MCG/ML VIAL (J2354 PER 25MCG) SC SCH ×2 (14:42→21:59)
[2020-04-28] MEDS: CALCIUM CARBONATE 500 MG CHEW U/D PO PRN (16:28)
--- NOTE | 2020-04-28 19:54 | IPNPDOC ---
Date Seen The patient was seen on 04/28/20. Progress Note SUBJECTIVE: LUE swelling, neg for DVT on US. 1 BM over 24 H, updated GI physician in [place] today. Nephrology started on albumin, midodrine, octreotide- is supsicious for hepatorenal syndrome. Acidosis improving. Patient is AAOx3. Denies chest pain, abd pain, shortness of breath. OBJECTIVE: PHYSICAL EXAM: VS: Please see below General: NAD, resting in bed, AAOx 3 HEENT: NC/AT, yellow sclera-chronic Lungs: CTA B/L Heart: +S1S2, RRR Abd: slightly more distended abd but only mildly, tender to RLQ mildly on deep palpation , +BS, stitches in abd appear well healing Ext: Lower ext edema, LUE edema LABORATORY: PLEASE SEE BELOW MICRO: FRANCES drain fluid GS: NG FRANCES drain CX: ENTEROCOCCUS FAECALIS QUANTITY OF GROWTH: FEW Organism 2: STAPHYLOCOCCUS HAEMOLYTICUS QUANTITY OF GROWTH: FEW ASSESSMENT: 64-year-old female with history of cirrhosis, colon cancer status post right colectomy on 04/07 complicated with hematoma, presenting with altered mental status. Ammonia found to be 186 in the ER will be admitted for management of acute hepatic encephalopathy. PLAN: #Acute kidney injury poss 2/2 to hepatorenal syndrome. Previously had diarrhea, dehydration, urinary retention -Cr 2.10, slightly improved -Chan cath in place -Holding diuretics, lactulose for now -Daily labs -Nephrology following closely #Decompensating liver cirrhosis with concern for hepatorenal syndrome - Ammonia level 30's - BM decreased with stopping lactulose - Bili remains high, AST/ALT wnl - Updated GI provider Dr. Bailee Carpio - [phone] today, would like biweekly updates - Holding spironolactone, lasix, lactulose BID with TERI and diarrhea. - C/w rifaximin, added midodrine, octreotide, albumin today - Has increased ascites, wt gain off diuretics. - Nephro and GI here (Dr. Moran) consulted. #Metabolic acidosis likely 2/2 to diarrhea 2/2 to lactulose use, lactic acidosis-improving -Had several days where patient had severe diarrhea that persisted despite decreasing and removing lactulose -LA now normal s/p bicarb gtt -Nephrology following closely. #Hyperkalemia likely 2/2 to potassium supplementation, renal failure -K 5.5, received veltassa 04/27/20 for K 6.9 -Denies chest pain, n/v/d, shortness of breath -F/u repeat K this evening -Tele #Hypotension possibly 2/2 to hepatorenal syndrome -Not suspicious for infection, sepsis -Receiving fluids previously with not much improvement -Midodrine incr to 10 mg TID, albumin started -F/u closely #Thrombocytopenia, acute -PLTs 86 -4 T's score: 2-3= low probability for Heparin induced thrombocytopenia -Stopped Heparin 04/24/20 -F/u CBC in the AM #Acute on chronic anemia -Worsened with bicarb gtt, perhaps partly dilutional -F/u iron studies, Vit B12, folate, occult blood -Daily CBC #Hyponatremia likely 2/2 to decompensating liver disease -Follow labs #Adenocarcinoma of colon s/p laparoscopic transverse colectomy by Dr. Carpio 04/07 -Surgery following, Errol and FRANCES drain removed this admission. #Physical deconditioning -C/w PT/OT #COPD - stable - resume inhalers, nebs #GI px - PPI #DVT px -SCD, teds Resolved issues: #Hypokalemia, acute and possibly 2/2 to diarrhea #Diarrhea 2/2 to lactulose #Lactic acidosis likely 2/2 to dehydration DISPOSITION: Nephrology, GI here now consulted. C/w PT/OT, OOBTC and with all meals. Based off PT sessions, home vs. home with services VS, I&O, [facility]H, [facility] Vital Signs/I&O Vital Signs Date Time Temp Pulse Resp B/P (MAP) Pulse Ox O2 Delivery O2 Flow Rate FiO2 04/28/20 15:27 97.1 87 18 101/56 98 Room Air I&O- Last 24 Hours up to 6 AM 04/28/20 06:00 Intake Total 3783 ml Output Total 675 ml Balance 3108 ml Laboratory Data 24H LABS Laboratory Tests 2 04/28/20 05:28: Nucleated Red Blood Cells % (auto) 0.0, Anion Gap 7L, Glomerular Filtration Rate 25.4L, Calcium Level 8.1L, Total Bilirubin 3.8H, Aspartate Amino Transf (AST/SGOT) 35, Alanine Aminotransferase (ALT/SGPT) 30, Alkaline Phosphatase 62, Ammonia 35H, Total Protein 4.8L, Albumin 2.0L, Albumin/Globulin Ratio 0.7L 04/28/20 08:14: Lactic Acid Level 1.7 04/28/20 12:55: Urine Random Sodium < 10 04/28/20 19:09: CBC/BMP Laboratory Tests 04/28/20 05:28 Microbiology Microbiology 04/20/20 Gram Stain - Final, Complete 04/20/20 Body Fluid Culture - Final, Complete Enterococcus Faecalis Staphylococcus Haemolyticus 04/19/20 Blood Culture - Final, Complete NO GROWTH AFTER 5 DAYS 04/19/20 Blood Culture - Final, Complete NO GROWTH AFTER 5 DAYS 04/18/20 Respiratory Virus Panel (PCR) (SERGEY) - Final, Complete Current Medications Current Medications Medications (Trade) Dose Ordered Sig/Chavez Route PRN Reason Start Time Stop Time Status Last Admin Dose Admin Albuterol Sulfate (Proventil Neb) 2.5 mg BIDP PRN NEB SOB/WHEEZING 04/25/20 12:00 04/28/20 06:22 Albuterol Sulfate (Proventil Neb) 3 mg BIDP PRN INH SOB/WHEEZING 04/19/20 02:00 04/19/20 02:58 DC Ascorbic Acid (Vitamin C) 1,000 mg DAILY PO 04/19/20 09:00 04/28/20 08:30 Calcium Carbonate (Tums) 500 mg Q6HP PRN PO INDIGESTION 04/25/20 12:00 04/28/20 16:28 Ceftriaxone Sodium 1 gm/ Dextrose 50 ml @ 100 mls/hr Q24H IV 04/19/20 03:00 04/19/20 02:07 DC Ceftriaxone Sodium 2 gm/ Dextrose 50 ml @ 50 mls/hr Q24H IV 04/19/20 03:00 04/23/20 07:58 DC 04/23/20 03:13 Chlorhexidine Gluconate (Peridex Oral Rinse) 15 ml TID SSP 04/25/20 09:00 04/28/20 16:29 Dextrose (Dextrose 50%) 50 ml STAT STAT IV 04/27/20 08:05 04/27/20 08:09 DC 04/27/20 08:42 Dextrose/Sodium Chloride 1,000 ml @ 100 mls/hr Q10H IV 04/21/20 23:45 04/24/20 11:17 DC 04/24/20 00:11 Docusate Sodium (Colace) 100 mg BID PO 04/27/20 09:00 04/28/20 08:30 Emollient Cream (Vanicream) Use on lower extremities BID TOP 04/24/20 21:00 04/28/20 08:31 Folic Acid (Folic Acid) 1 mg DAILY NG 04/20/20 09:00 04/28/20 08:30 Folic Acid (Folic Acid) 1 mg DAILY PO 04/20/20 09:00 04/20/20 17:17 DC Furosemide (Lasix) 40 mg DAILY PO 04/24/20 09:00 04/25/20 20:27 DC 04/24/20 12:10 Haloperidol (Haldol) 2 mg Q6HP PRN IV AGITATION/ANXIETY 04/21/20 20:30 04/23/20 13:53 DC 04/22/20 04:20 Heparin Sodium (Porcine) (Heparin) 5,000 units Q8H SC 04/19/20 06:00 04/24/20 11:31 DC 04/24/20 05:46 Home Med (Med Rec Complete!) ASDIRECTED XX 04/18/20 21:30 04/18/20 21:22 DC Insulin Human Regular (HumuLIN R INSULIN) 10 units STAT STAT IV 04/27/20 08:05 04/27/20 08:09 DC 04/27/20 08:42 Lactated Ringer's 1,000 ml @ 125 mls/hr Q8H IV 04/21/20 12:15 04/21/20 23:44 DC 04/21/20 21:33 Lactulose (Cephulac) 30 ml BID NG 04/25/20 09:00 04/25/20 20:24 DC 04/25/20 10:01 Lactulose (Cephulac) 30 ml Q4H NG 04/20/20 18:00 04/23/20 13:43 DC 04/23/20 10:05 Lactulose (Cephulac) 30 ml Q6H NG 04/19/20 14:00 04/20/20 17:17 DC 04/20/20 14:52 Lactulose (Cephulac) 30 ml QID NG 04/24/20 09:00 04/24/20 18:35 DC 04/24/20 16:42 Lactulose (Cephulac) 30 ml TID NG 04/23/20 16:00 04/24/20 08:57 DC 04/23/20 20:51 Lactulose (Cephulac) 30 ml TID NG 04/25/20 09:00 04/25/20 08:51 DC Levalbuterol HCl (Xopenex Hfa) 2 puff QID PRN INH SHORTNESS OF BREATH 04/19/20 02:00 04/28/20 12:57 Lorazepam (Ativan) 0.5 mg ASDIRECTED PRN IV SEE PROTOCOL 04/21/20 12:15 04/22/20 19:26 DC 04/22/20 02:20 Lorazepam (Ativan) 1 mg STAT STAT IV 04/19/20 16:38 04/19/20 16:40 DC 04/19/20 16:46 Lorazepam (Ativan) 1 mg STAT STAT IV 04/19/20 16:55 04/19/20 16:56 DC 04/19/20 17:02 Lorazepam (Ativan) 2 mg ASDIRECTED PRN IV SEE PROTOCOL 04/20/20 12:30 04/21/20 12:14 DC 04/21/20 03:04 Lorazepam (Ativan) 2 mg ASDIRECTED PRN PO SEE PROTOCOL 04/19/20 21:15 04/20/20 12:26 DC Midodrine (Proamatine) 5 mg 08,12,16 PO 04/27/20 16:00 04/28/20 12:10 DC 04/28/20 11:16 Midodrine (Proamatine) 10 mg 08,12,16 PO 04/28/20 16:00 04/28/20 16:28 Multivitamins (Theragram-M) 1 tab DAILY PO 04/20/20 09:00 04/28/20 08:31 Octreotide Acetate (SandoSTATIN) 100 mcg Q8H SC 04/28/20 14:00 04/28/20 14:42 Pantoprazole Sodium (Protonix) 20 mg DAILY PO 04/19/20 09:00 04/20/20 19:05 DC Pantoprazole Sodium (Protonix) 40 mg DAILY PO 04/24/20 09:00 04/28/20 08:31 Pantoprazole Sodium (Protonix) 40 mg DAILY@2100 IV 04/20/20 21:00 04/23/20 13:53 DC 04/22/20 21:05 Patiromer (Veltassa) 16.8 gm STAT STAT PO 04/27/20 13:12 04/27/20 13:15 DC 04/27/20 13:35 Polyethylene Glycol (Miralax) 1 pkt DAILYPRN PRN PO CONSTIPATION 04/27/20 13:30 Potassium Chloride (Micro-K Extencaps) 10 meq TID PO 04/19/20 09:00 04/23/20 07:59 DC 04/21/20 17:43 Potassium Chloride (Micro-K Extencaps) 20 meq BID PO 04/23/20 09:00 04/27/20 08:09 DC 04/26/20 20:49 Rifaximin (Xifaxan) 400 mg TID NG 04/20/20 09:00 04/28/20 16:28 Rifaximin (Xifaxan) 400 mg TID PO 04/19/20 09:00 04/20/20 10:51 DC Salmeterol Xinafoate/ Fluticasone (Advair Hfa 115/ ) 2 puff DAILY@0800 INH 04/19/20 08:00 04/24/20 18:32 DC 04/24/20 06:20 Salmeterol Xinafoate/ Fluticasone (Advair Hfa 230/ ) 2 puff RBID INH 04/24/20 20:00 04/28/20 06:24 Sodium Bicarbonate 150 meq/Dextrose/Water 1,150 ml @ 80 mls/hr [id number] IV 04/27/20 14:00 04/28/20 10:56 DC 04/28/20 01:32 Sodium Bicarbonate (Sodium Bicarbonate) 50 meq STAT STAT IV 04/27/20 13:33 04/27/20 13:34 DC 04/27/20 13:56 Sodium Chloride 1,000 ml @ 70 mls/hr [id number] IV 04/20/20 18:00 04/21/20 12:14 DC 04/21/20 09:09 Sodium Chloride 1,000 ml @ 85 mls/hr [id number] IV 04/25/20 08:45 04/27/20 11:51 DC 04/27/20 08:53 Sodium Chloride (Saline Lock Flush) 2 ml ASDIRECTED PRN IV SEE LABEL COMMENTS 04/19/20 17:00 Sodium Chloride (Saline Lock Flush) 2 ml SLF IV 04/19/20 22:00 04/28/20 14:43 Spironolactone (Aldactone) 100 mg DAILY PO 04/19/20 09:00 04/25/20 20:27 DC 04/24/20 09:28 Thiamine HCl (Thiamine HCl) 100 mg BID NG 04/20/20 21:00 04/23/20 09:02 DC 04/23/20 10:05 Thiamine HCl (Thiamine HCl) 100 mg BID PO 04/19/20 21:00 04/20/20 17:17 DC Tramadol HCl (Ultram) 25 mg Q6HP PRN PO MODERATE PAIN (PS 5-7) 04/25/20 12:00 04/27/20 23:58 Vancomycin HCl 1000 mg/IV Miscellaneous Supplies 1 each/ Dextrose 270 ml @ 270 mls/hr Q12H IV 04/23/20 08:00 04/23/20 09:04 DC Vancomycin HCl 1000 mg/IV Miscellaneous Supplies 1 each/ Dextrose 270 ml @ 270 mls/hr Q12H IV 04/23/20 21:00 04/24/20 20:27 DC 04/24/20 09:27 Vancomycin HCl 1000 mg/IV Miscellaneous Supplies 1 each/ Dextrose 270 ml @ 270 mls/hr Q18H IV 04/25/20 00:00 04/25/20 11:17 DC 04/25/20 00:25 Vitamin D (Vitamin D) 2,000 units DAILY PO 04/19/20 09:00 04/28/20 08:30 Allergies Coded Allergies: Sulfa (Sulfonamide Antibiotics) (Verified Allergy, Unknown, HIVES, 03/26/20) levofloxacin (Verified Allergy, Unknown, REDNESS TO EAR, 03/26/20) tetracycline (Verified Allergy, Unknown, HIVES, 03/26/20) Katharina Sam MD Apr 28, 2020 19:54
[2020-04-28 20:14] LABS: CALCIUM LEVEL 8.6 MG/DL (8.8-10.2); CREATININE FOR GFR 2.17 MG/DL (0.55-1.30); GLOMERULAR FILTRATION RATE 24.5 (>45); PERCENT SATURATION 21.5 % (13.2-45.0); POTASSIUM SERUM 5.4 MEQ/L (3.5-5.1)
[2020-04-28 20:22] LABS: FOLATE 20.9 NG/ML (>5.4)
[2020-04-29] VITALS (13 sets, daily range): BP systolic 82–112; BP diastolic 45–60
[2020-04-29] MEDS: SLF 3 ML SYR IV SCH ×3 (05:07→22:00)
[2020-04-29] MEDS: OCTREOTIDE ACETATE 100MCG/ML VIAL (J2354 PER 25MCG) SC SCH ×3 (05:07→22:36)
[2020-04-29 06:37] LABS: HEMATOCRIT 25.2 % (36.0-47.0); HEMOGLOBIN 8.3 g/dl (12.0-15.5); MEAN CORPUSCULAR HEMOGLOBIN 31.7 pg (27.0-33.0); MEAN CORPUSCULAR HGB CONC 32.9 g/dl (32.0-36.5); MEAN CORPUSCULAR VOLUME 96.2 fl (80.0-96.0); PLATELET COUNT, AUTOMATED 103 10^3/uL (150-450); RED BLOOD COUNT 2.62 10^6/uL (4.00-5.40); WHITE BLOOD COUNT 4.8 10^3/uL (4.0-10.0)
[2020-04-29 07:03] LABS: ALBUMIN 2.4 GM/DL (3.2-5.2); BILIRUBIN,TOTAL 3.9 MG/DL (0.2-1.0); CALCIUM LEVEL 8.6 MG/DL (8.8-10.2); CREATININE FOR GFR 2.14 MG/DL (0.55-1.30); GLOMERULAR FILTRATION RATE 24.9 (>45); POTASSIUM SERUM 5.2 MEQ/L (3.5-5.1); TOTAL PROTEIN 5.1 GM/DL (6.4-8.2)
[2020-04-29] MEDS: ADVAIR HFA 230/21MCG INHALER INH SCH ×2 (07:28→20:00)
[2020-04-29] MEDS: PANTOPRAZOLE 40MG TAB (PROTONIX) PO SCH (08:40)
[2020-04-29] MEDS: VITAMIN D 1,000 INTERNATIONAL UNITS TABLET PO SCH (08:40)
[2020-04-29] MEDS: FOLIC ACID 1 MG TAB NG SCH (08:40)
[2020-04-29] MEDS: DOCUSATE SODIUM 100MG CAPSULE PO SCH ×3 (08:41→20:33)
[2020-04-29] MEDS: ASCORBIC ACID 500 MG TAB PO SCH (08:41)
[2020-04-29] MEDS: MULTIVITAMINS/MINERALS THERAP 1 TAB PO SCH (08:41)
[2020-04-29] MEDS: CHLORHEXIDINE GLUCONATE 0.12 % 15ML UDC (PERIDEX ORAL RINSE) SSP SCH ×3 (08:41→20:38)
[2020-04-29] MEDS: MIDODRINE 5 MG TAB PO SCH ×3 (08:41→17:21)
[2020-04-29] MEDS: VANICREAM MOISTURIZING SKIN CREAM 113GM TUBE TOP SCH ×2 (08:42→20:39)
--- NOTE | 2020-04-29 09:01 | CR.PDOC ---
General Date of Consultation: Apr 28, 2020 Referring Provider: Katharina Sam MD Attending Physician: GLYNN SCHULZ MD Consultation Primary physician/ hospitalist: - Dr. Sam. Reason for consult: - Liver cirrhosis and hepatic encephalopathy. 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 Patient had complicated hospital course with electrolyte imbalances, diarrhea, non-anion gap metabolic acidosis, acute kidney injury, sepsis and mild abdominal ascites. GI was consulted for management of liver cirrhosis. Patient at the time of examination he is alert, oriented 3 and able to give detailed history. Patient reports minimal abdominal discomfort in the upper abdominal area, and eyes any nausea or vomiting, and she had two bowel movements today. Pertinent negative. Symptoms: Patient denies fever, sick contacts, recent travel, nausea, vomiting, loss of appetite, early satiety or unintentional weight loss. No history of hematemesis, melena or hematochezia. Review of Systems: GI: as stated above CVS: No chest pain, No palpitations, No leg swelling. 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 Skin: No rash : No hematuria, No burning sensation of the urine ENT: No ear discharge/ pain, No dysphagia. Eyes: No photophobia. Jaundice Home medications: reviewed. Antithrombotic agents: -none Medical h/o: As above. Surgical h/o: As above.. Social h/o: Alcohol:: past use of 2 drinks of white gin daily but completely stopped since diagnosis of liver cirrhosis , smoking: former smoker, IVDA/ drugs: Denies . Family h/o of GI cancers - None Prior Endoscopies: --- EGD and Colonoscopy done in [place] in 2019 . Prior GI evaluations: Follows in [place] with Dr. Bailee Carpio. Exam: Vitals: reviewed General: Alert and oriented x 3, not in distress HEENT: Mild pallor, and conjunctival icterus. Normal oropharynx, NO cervical lymph nodes. Chest: symmetric with bilateral clear air entry, CVS: S1, S2 heard, normal, no murmurs . Abdomen: Mildly distended, midline surgical scar, soft, non-tender, no palpable masses, noted shifting dullness in flanks, normal bowel sounds heard. Rectal exam: Patient refused / Deferred at this time. Extremities: mild 2+ pitting pedal edema, pulses palpable. 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 Moves all extremities Skin: no rash. Labs: reviewed. Imaging: reviewed. Impression: - Decompensated liver cirrhosis ( CTP C, MELD -Na 28 calculated based on latest labs), complicated with TERI, new onset ascites, esophageal varices. - TERI -- could be pre-renal vs hepatorenal. Recommendations: - Patient educated about the test results, possible differential diagnoses and All questions answered. - Low sodium ( <2gm) and high protein diet ( 1.5- 2gm/ kg body weight daily). - Continue management of Teri as per nephrology. Agree with therapy with ALbumin infusions ( 1 gm/ kg [place] body weight/ day in divided doses), midrodrine. - Avoid nephrotoxic and hepatotoxic medications. - Obtain Urine sodium and urine creatinine levels daily. - Obtain Ultrasound abdomen with Doppler for further evaluation of the ascites and portal vein. - If ascites is present, please consider image guided paracentesis and send fl uid for diagnostic analysis -- Gram stain, cultures, albumin level, protein level and cell counts ( from ascitic fluid). - If tolerated gentle diuresis with loop diuretics with close monitoring of marlen ctrolytes. - Water/ free fluid restriction to less than 1 - 1.5 liters per day. - Gi will follow.. Plan of care discussed with patient and primary team. Patient verbalized understanding and agreed with the plan. Vital Signs/I&O Vital Signs Date Time Temp Pulse Resp B/P (MAP) Pulse Ox O2 Delivery O2 Flow Rate FiO2 04/29/20 06:02 99.0 91 20 82/52 98 Room Air I&O- Last 24 Hours up to 6 AM 04/29/20 06:00 Intake Total 1010.0 ml Output Total 550 ml Balance 460.0 ml Laboratory Data Labs 24H Laboratory Tests 2 04/28/20 12:55: Urine Random Sodium < 10 04/28/20 19:09: Anion Gap 8, Glomerular Filtration Rate 24.5L, Calcium Level 8.6L, Iron Level 34L, Total Iron Binding Capacity 158L, Transferrin % Saturation 21.5, Ferritin 288H, Vitamin B12 Level 921H, Folate 20.9 04/29/20 05:39: Anion Gap 6L, Glomerular Filtration Rate 24.9L, Calcium Level 8.6L, Nucleated Red Blood Cells % (auto) 0.0, Total Bilirubin 3.9H, Aspartate Amino Transf (AST/SGOT) 33, Alanine Aminotransferase (ALT/SGPT) 28, Alkaline Phosphatase 67, Ammonia 57H, Total Protein 5.1L, Albumin 2.4L, Albumin/Globulin Ratio 0.9L CBC/BMP Laboratory Tests 04/28/20 19:09 04/29/20 05:39 Microbiology Microbiology 04/20/20 Gram Stain - Final, Complete 04/20/20 Body Fluid Culture - Final, Complete Enterococcus Faecalis Staphylococcus Haemolyticus 04/19/20 Blood Culture - Final, Complete NO GROWTH AFTER 5 DAYS 04/19/20 Blood Culture - Final, Complete NO GROWTH AFTER 5 DAYS Allergies Coded Allergies: Sulfa (Sulfonamide Antibiotics) (Verified Allergy, Unknown, HIVES, 03/26/20) levofloxacin (Verified Allergy, Unknown, REDNESS TO EAR, 03/26/20) tetracycline (Verified Allergy, Unknown, HIVES, 03/26/20) Home Medications Scheduled Ascorbic Acid (Vitamin C) 500 Mg Tablet, 1,000 MG PO DAILY, (Reported) Cholecalciferol (Vitamin D3) (Vitamin D3) 1,000 Unit Tablet, 2,000 UNITS PO DAILY, (Reported) Esomeprazole Magnesium (Nexium) 20 Mg Capsule.dr, 20 MG PO DAILY, (Reported) Furosemide (Furosemide) 40 Mg Tablet, 40 MG PO DAILY, (Reported) Levocetirizine Dihydrochloride (Levocetirizine Dihydrochloride) 5 Mg Tablet, 5 MG PO BID, (Reported) Lorazepam (Ativan) 0.5 Mg Tablet, 0.5 MG PO BID, (Reported) Multivitamins (Thera M Plus Tablet) 1 Each Tablet, 2 TAB PO DAILY, (Reported) Potassium Chloride (Potassium Chloride) 10 Meq Tab.er.prt, 10 MEQ PO TID, (Reported) Salmeterol/Fluticasone (Advair 250-50 Diskus) 1 Each Blst.w.dev, 1 PUFF INH DAILY, (Reported) Spironolactone (Spironolactone) 50 Mg Tablet, 100 MG PO DAILY, (Reported) Scheduled PRN Albuterol Sulf (Albuterol Sulfate) 2.5 Mg/3 Ml Vial.neb, INH BIDP PRN for SOB/WHEEZING, (Reported) Levalbuterol Tartrate (Levalbuterol Tartrate Hfa) 15 Gm Hfa.aer.ad, 2 PUFFS INH QID PRN for SHORTNESS OF BREATH, (Reported) Oxycodone HCl (Oxycodone HCl) 5 Mg Tablet, 5 MG PO Q4H PRN for PAIN, (Reported) Miscellaneous Medications [med rec comment] , (Reported) used external history and last discharge 04/08/20 for med rec. unable to verify with patient or spouse GLYNN SCHULZ MD Apr 29, 2020 09:01
--- NOTE | 2020-04-29 09:04 | IPN ---
PROGRESS NOTE DATE: 04/28/2020 SUBJECTIVE: Anette seems to be doing well. She denies any nausea, vomiting, or diarrhea. She actually has not had a bowel movement since Lactulose was discontinued because of acute kidney injury. She is being seen by Dr. Arias for elevated creatinine at 2.1 with metabolic acidosis. Her drain was removed so she is having a little more ascites, urinary retention and therefore Chan catheter was reintroduced. LABS: White count is 7.3, hemoglobin 8.1, hematocrit 24, platelets 86. Sodium 129, potassium 5.5, chloride 101, bicarb 21, BUN 42, creatinine 2.1, glucose 121, lactic acid 1.7, calcium 8.1, bilirubin 3.8 down from 8.1. Vascular ultrasound of the lower extremities: No DVT. Upper extremity left side no DVT. Renal ultrasound showed mild ascites, negative renal ultrasound. Echogenicity of both kidneys normal. IMPRESSION: 1. Diarrhea due to Lactulose which has been discontinued with normal white count. There is no evidence of infection at this point. 2. Liver cirrhosis with improving hyperbilirubinemia and encephalopathy has resolved. The patient accumulating ascites and will probably need paracentesis since FRANCES drain was removed. 3. Candidiasis. The patient stated dose of Diflucan helped with vaginal itching and this has resolved. PLAN: Infectious Disease signing off.
--- NOTE | 2020-04-29 09:43 | IPNPDOC ---
Text Note Date of Service The patient was seen on 04/29/20. NOTE SUBJECTIVE: Patient seen and examined at bedside. No acute overnight events reported. Patient has no new medical complaints this morning. She is concerned regarding her low blood pressure but is completely asymptomatic with regards to her low blood pressure. OBJECTIVE: VS: Please see below General: NAD, lying comfortably in bed HEENT: NC/AT, yellow sclera-chronic Lungs: CTA B/L Heart: +S1S2, RRR Abd: distended, tender to RLQ mildly on deep palpation , +BS, stitches in abd appear well healing Ext: Lower ext edema, LUE edema ASSESSMENT: 64-year-old female with history of cirrhosis, colon cancer status post right colectomy on 04/07 complicated with hematoma, presenting with altered mental status. Ammonia found to be 186 in the ER will be admitted for management of acute hepatic encephalopathy. PLAN: #Acute kidney injury poss 2/2 to hepatorenal syndrome. Previously had diarrhea, dehydration, urinary retention -follow as per nephrology - assistance appreciated #Decompensating liver cirrhosis with concern for hepatorenal syndrome - BM decreased with stopping lactulose - Bili remains high, AST/ALT wnl - GI provider Dr. Bailee Carpio - [phone], would like biweekly updates - Holding spironolactone, lasix, lactulose BID with TERI and diarrhea. - C/w rifaximin, added midodrine, octreotide, albumin - Has increased ascites, wt gain off diuretics. - Nephro and GI here (Dr. Moran) consulted. #Metabolic acidosis likely 2/2 to diarrhea 2/2 to lactulose use, lactic acidosis-improving -Had several days where patient had severe diarrhea that persisted despite decreasing and removing lactulose -LA now normal s/p bicarb gtt -Nephrology following closely. #Hyperkalemia likely 2/2 to potassium supplementation, renal failure - s/p veltassa -Denies chest pain, n/v/d, shortness of breath #Hypotension possibly 2/2 to hepatorenal syndrome -Not suspicious for infection, sepsis - asymptomatic -Receiving fluids previously with not much improvement -Midodrine incr to 10 mg TID, albumin started -F/u closely #Thrombocytopenia, acute -4 T's score: 2-3= low probability for Heparin induced thrombocytopenia -Stopped Heparin 04/24/20 -F/u CBC in the AM #Acute on chronic anemia -Worsened with bicarb gtt, perhaps partly dilutional -F/u iron studies, Vit B12, folate, occult blood -Daily CBC #Hyponatremia likely 2/2 to decompensating liver disease -Follow labs #Adenocarcinoma of colon s/p laparoscopic transverse colectomy by Dr. Carpio 04/07 -Surgery following, Cam[place] and FRANCES drain removed this admission. #Physical deconditioning -C/w PT/OT #COPD - stable - resume inhalers, nebs #GI px - PPI #DVT px -SCD, teds Resolved issues: #Hypokalemia, acute and possibly 2/2 to diarrhea #Diarrhea 2/2 to lactulose #Lactic acidosis likely 2/2 to dehydration DISPOSITION: Nephrology, GI here now consulted. C/w PT/OT, OOBTC and with all meals. Based off PT sessions, home vs. home with services VS,Fishbone, I+O VS, Fishbone, I+O Laboratory Tests 04/28/20 19:09 04/29/20 05:39 Vital Signs Date Time Temp Pulse Resp B/P (MAP) Pulse Ox O2 Delivery O2 Flow Rate FiO2 04/29/20 06:02 99.0 91 20 82/52 98 Room Air I&O- Last 24 Hours up to 6 AM 04/29/20 06:00 Intake Total 1010.0 ml Output Total 550 ml Balance 460.0 ml YAZAN HERNANDEZ MD Apr 29, 2020 09:43
[2020-04-29] MEDS ORDERED: PATIROMER SORBITEX CALCIUM 8.4 GM POWDER PACKET (VELTASSA) PO ONE (14:00)
[2020-04-29] MEDS ORDERED: LIDOCAINE 1% MDV 20ML VIAL As Ordered ONE (15:32)
--- NOTE | 2020-04-29 17:02 | REP ---
PROCEDURE NAME: PICC LINE INSERTION W/SITERITE CLINICAL INFORMATION: central venous access for presser support. COMPARISON: None. PROCEDURE DESCRIPTION: The procedure was performed by ALAN Lazo, under the direct supervision of Dr. Menchaca. The risks and benefits of the procedure were explained to the patient and an informed consent was obtained both verbally and written. Directly prior to the start of the procedure a formal time-out was completed in the procedure room. The right basilic vein was localized using ultrasound guidance. The skin was prepped and draped in sterile fashion. One mL of 1% lidocaine 10 mg/mL was used as a local anesthetic. Using ultrasound guidance the right basilic vein was cannulated, and a 0.018 guidewire was inserted and advanced to the level of SVC using fluoroscopic guidance. The needle was removed and a 5.5 Burmese dilator and peel-away sheath was inserted over the guidewire. A 5.5 [place]mese dual lumen catheter was cut to a length of 40 cm. The dilator was removed and the catheter was inserted over the guidewire with the tip ending at the level of the SVC. The peel-away sheath was removed and the catheter was flushed with heparinized saline as per hospital protocol. The catheter was affixed to the skin and a sterile dressing was applied. The patient tolerated the procedure well and there were no immediate complications. CONCLUSION: PICC line insertion into the right basilic vein. Less than 0.1 minutes of fluoroscopy time was utilized for this procedure. Some fluoroscopic images are performed with last image hold technology. These images require no additional radiation. <Electronically signed by Maria Eugenia Retana > 04/29/20 1645 <Electronically signed by Parish Menchaca > 04/29/20 0626
[2020-04-29] MEDS: ALBUTEROL SULFATE 2.5 MG/0.5 ML INH NEB SOLN NEB PRN (17:09)
[2020-04-29] MEDS: SODIUM CHLORIDE 0.9% INJ 10 ML SYR IV SCH (18:34)
[2020-04-29] MEDS: NICOTINE POLACRILEX 2 MG GUM PO PRN (23:03)
[2020-04-29] MEDS: SODIUM CHLORIDE 0.9% INJ 10 ML SYR IV PRN (23:37)
[2020-04-30] VITALS (10 sets, daily range): BP systolic 90–99; BP diastolic 43–56
[2020-04-30] MEDS: traMADol 50 MG TAB PO PRN ×2 (03:05→20:40)
[2020-04-30] MEDS: OCTREOTIDE ACETATE 100MCG/ML VIAL (J2354 PER 25MCG) SC SCH ×3 (05:09→22:17)
[2020-04-30] MEDS: SLF 3 ML SYR IV SCH ×3 (06:00→22:21)
[2020-04-30 06:22] LABS: HEMATOCRIT 23.8 % (36.0-47.0); HEMOGLOBIN 7.8 g/dl (12.0-15.5); MEAN CORPUSCULAR HEMOGLOBIN 31.5 pg (27.0-33.0); MEAN CORPUSCULAR HGB CONC 32.8 g/dl (32.0-36.5); PLATELET COUNT, AUTOMATED 118 10^3/uL (150-450); RED BLOOD COUNT 2.48 10^6/uL (4.00-5.40); WHITE BLOOD COUNT 6.1 10^3/uL (4.0-10.0)
[2020-04-30 06:35] LABS: ALBUMIN 2.6 GM/DL (3.2-5.2); BILIRUBIN,TOTAL 3.9 MG/DL (0.2-1.0); CALCIUM LEVEL 8.3 MG/DL (8.8-10.2); CREATININE FOR GFR 2.03 MG/DL (0.55-1.30); GLOMERULAR FILTRATION RATE 26.4 (>45); POTASSIUM SERUM 4.7 MEQ/L (3.5-5.1); TOTAL PROTEIN 5.2 GM/DL (6.4-8.2)
[2020-04-30] MEDS: SODIUM CHLORIDE 0.9% INJ 10 ML SYR IV SCH ×2 (06:50→17:27)
[2020-04-30] MEDS: ADVAIR HFA 230/21MCG INHALER INH SCH ×2 (07:44→19:52)
[2020-04-30] MEDS: LEVALBUTEROL HFA 45MCG/ACT 15 GM INHALER INH PRN (07:45)
[2020-04-30] MEDS: DOCUSATE SODIUM 100MG CAPSULE PO SCH (08:33)
[2020-04-30] MEDS: PANTOPRAZOLE 40MG TAB (PROTONIX) PO SCH (08:47)
[2020-04-30] MEDS: FOLIC ACID 1 MG TAB NG SCH (08:47)
[2020-04-30] MEDS: NICOTINE POLACRILEX 2 MG GUM PO PRN ×4 (08:47→20:40)
[2020-04-30] MEDS: MIDODRINE 5 MG TAB PO SCH ×3 (08:47→17:26)
[2020-04-30] MEDS: ASCORBIC ACID 500 MG TAB PO SCH (08:47)
[2020-04-30] MEDS: MULTIVITAMINS/MINERALS THERAP 1 TAB PO SCH (08:48)
[2020-04-30] MEDS: VITAMIN D 1,000 INTERNATIONAL UNITS TABLET PO SCH (08:48)
[2020-04-30] MEDS: CHLORHEXIDINE GLUCONATE 0.12 % 15ML UDC (PERIDEX ORAL RINSE) SSP SCH ×3 (08:48→20:28)
[2020-04-30] MEDS: VANICREAM MOISTURIZING SKIN CREAM 113GM TUBE TOP SCH ×2 (08:49→20:30)
--- NOTE | 2020-04-30 10:12 | IPNPDOC ---
Text Note Date of Service The patient was seen on 04/30/20. NOTE SUBJECTIVE: Patient seen and examined at bedside. No acute overnight events reported. Patient has no new medical complaints this morning. OBJECTIVE: VS: Please see below General: NAD, lying comfortably in bed HEENT: NC/AT, yellow sclera-chronic Lungs: CTA B/L Heart: +S1S2, RRR Abd: distended, tender on deep palpation , +BS, stitches in abd appear well healing Ext: Lower ext edema, LUE edema ASSESSMENT: 64-year-old female with history of cirrhosis, colon cancer status post right colectomy on 04/07 complicated with hematoma, presenting with altered mental status. Ammonia found to be 186 in the ER will be admitted for management of acute hepatic encephalopathy. PLAN: #Acute kidney injury poss 2/2 to hepatorenal syndrome. Previously had diarrhea, dehydration, urinary retention -follow as per nephrology - assistance appreciated #Decompensated liver cirrhosis with concern for hepatorenal syndrome - ammonia slowly increasing - no changes in mentation - restarting lactulose - titrate to 4 BM daily - Bili remains high, AST/ALT wnl - GI provider Dr. Bailee Carpio - [phone], would like biweekly updates - Holding spironolactone, lasix, lactulose BID with TERI and diarrhea. - C/w rifaximin, added midodrine, octreotide, albumin - Has increased ascites, wt gain off diuretics. - Nephro and GI here (Dr. Mroan) consulted - liver doppler studies and diagnostic paracentesis planned for today #Metabolic acidosis likely 2/2 to diarrhea 2/2 to lactulose use, lactic acidosis-improving -Had several days where patient had severe diarrhea that persisted despite decreasing and removing lactulose -LA now normal s/p bicarb gtt -Nephrology following closely. #Hyperkalemia likely 2/2 to potassium supplementation, renal failure - s/p veltassa -Denies chest pain, n/v/d, shortness of breath #Hypotension possibly 2/2 to hepatorenal syndrome -Not suspicious for infection, sepsis - asymptomatic -Receiving fluids previously with not much improvement -Midodrine incr to 10 mg TID, albumin started -F/u closely #Thrombocytopenia, acute -4 T's score: 2-3= low probability for Heparin induced thrombocytopenia -Stopped Heparin 04/24/20 -F/u CBC in the AM #Acute on chronic anemia -Worsened with bicarb gtt, perhaps partly dilutional -F/u iron studies, Vit B12, folate, occult blood -Daily CBC #Hyponatremia likely 2/2 to decompensating liver disease -Follow labs #Adenocarcinoma of colon s/p laparoscopic transverse colectomy by Dr. Carpio 04/07 -Surgery following, [place] and FRANCES drain removed this admission. #Physical deconditioning -C/w PT/OT #COPD - stable - resume inhalers, nebs #GI px - PPI #DVT px -SCD, teds Resolved issues: #Hypokalemia, acute and possibly 2/2 to diarrhea #Diarrhea 2/2 to lactulose #Lactic acidosis likely 2/2 to dehydration DISPOSITION: Nephrology, GI here now consulted - liver doppler studies and diagnostic paracentesis today. C/w PT/OT, OOBTC and with all meals. Based off PT sessions, home vs. home with services; discussed with Dr. Michelle Carpio and today - [phone] VS,Fishbone, I+O VS, Fishbone, I+O Laboratory Tests 04/30/20 05:54 Vital Signs Date Time Temp Pulse Resp B/P (MAP) Pulse Ox O2 Delivery O2 Flow Rate FiO2 04/30/20 06:49 98.5 80 20 98/55 Room Air 04/30/20 06:00 98 I&O- Last 24 Hours up to 6 AM 04/30/20 06:00 Intake Total 380.0 ml Output Total 1250 ml Balance -870.0 ml YAZAN HERNANDEZ MD Apr 30, 2020 10:12
--- NOTE | 2020-04-30 12:41 | IPN ---
PROGRESS NOTE DATE: 04/29/2020 SUBJECTIVE: Anette is seen and examined this morning at the bedside. She is very anxious today but she denies any complaints. She specifically denies shortness of breath, lightheadedness, dizziness, nausea or vomiting. Her ammonia level has up-trended. She is going to be restarted on Lactulose. Her urine output has significantly improved over the past 24 hours although her systolics remain firmly in the 90s. PHYSICAL EXAMINATION: VITAL SIGNS: Temperature 97.8, pulse 89, respiratory rate 18, blood pressure 98/53, saturating 98% on room air. INTAKE AND OUTPUT: Intake yesterday was not fully recorded. Urine output yesterday was 1250, weight on the bed scale today is 83.5 kg which is decreased from prior. GENERAL: The patient was seen sitting out of bed to the chair, awake, alert and oriented and mildly anxious. HEENT: Extraocular muscles are intact. Sclera are icteric. Tongue is moist. NECK: Supple. Jugular veins were not elevated while she was sitting upright. HEART: Heart sounds are regular S1 and S2. There is clear lung sounds bilaterally. No crackles or rales. ABDOMEN: Somewhat distended. There are bowel sounds. EXTREMITIES: Lower extremities show mild edema bilaterally. GENITOURINARY: Indwelling Chan catheter. NEUROLOGIC: She is oriented x3, interactive and at baseline mentation. LABORATORY DATA: White count 6.1, hemoglobin 7.8, platelets 118,000. Sodium 132, potassium 4.7, bicarbonate 20, BUN 40, creatinine 2.0. Total bilirubin 3.9. Ammonia level 71, albumin 2.6. INPATIENT MEDICATIONS: Reviewed by myself. She is back on Lactulose 15 ml p.o. three times a day so I have discontinued her Docusate. Her remainder of medications are unchanged as compared to yesterday. PROBLEMS: 1. Type 2 hepatorenal syndrome. Clinically, she seems to be improving. Her urine output has improved to 1250 ml in the past 24 hours. She continues on Midodrine and Octreotide q. 8 hourly. Her albumin levels have come up to 2.6 so I am going to hold off on further albumin administration at this time. Her systolic blood pressures remain in the 90s but given improvement in her urine output we can hold off on switching to Levophed. 2. Anemia related to iron deficiency and cirrhosis. Hemoglobin is down to 7.8. I am going to transfuse 1 unit of packed red blood cell which will also help with renal perfusion. FOBT is ordered. She is also thrombocytopenic but platelet count does seem to be improving over the past two days. I will hold off on IV iron for now. She is appropriately on PPI therapy. 3. 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 Her ammonia level is up to 71 today. Her Lactulose is restarted. She continues on Midodrine 10 mg three times a day. She is chronically hypotensive. She is also on Octreotide for splanchnic vasoconstriction in the setting of hepatorenal syndrome. She has received six doses of IV albumin thus far and GI is also following. She is for diagnostic paracentesis. Her diuretics are on hold in view of soft blood pressure and hepatorenal syndrome. 4. Metabolic acidosis, her bicarb is down to 20 today and it may drift down further now that she is going to be back on Lactulose and will be having diarrheal bowel movement and we will give bicarbonate supplementation as indicated. 5. Hypervolemic hyponatremia, it is due to cirrhosis and hepatorenal syndrome. Her sodium level is improving as her renal function and urine output improves. 6. Chronic hypotension, it is due to her underlying cirrhosis and she continues on the usual Midodrine. I agree w/ diagnostic paracentesis to evaluate for presence of peritonitis as a cause of HRS and hypotension. MTDD
[2020-04-30 16:38] LABS: PERITONEAL FL COLOR AMBER (COLORLESS); SOURCE, BODY FLUID PERITONEAL
[2020-04-30 16:39] LABS: APPEARANCE, BODY FLUID CLOUDY (CLEAR); SPEC. GRAVITY BODY FLUIDS 1.014 (NOT ESTABLISHED)
--- NOTE | 2020-04-30 17:04 | IPN ---
INPATIENT PROGRESS NOTE DATE: 04/28/20 SUBJECTIVE: Patient is seen and examined this morning at the bedside. She reports that she has been up and walking around the room with physical therapy and she did well, but she did notice some new shortness of breath. She had a bowel movement. She reports a good appetite. Denies any nausea. She has had a Hcan catheter placed and urine output is suboptimal. Her blood pressures have been soft despite midodrine, but she denies any lightheadedness or dizziness. PHYSICAL EXAMINATION: Temperature 97.5, pulse 87, respiratory rate 17, blood pressure 96/61, saturating 99% on room air. Intake yesterday was 2.9 liters. Urine output was only 675 mL to Chan catheter. Weight on the bed scale today is increased to 86.2 kg. General: Patient is seen sitting up in bed, head of the bed elevated, awake, alert, oriented, in no distress. HEENT: Extraocular muscles are intact. Tongue is moist. Neck: Supple. Jugular veins are mildly elevated. Heart: Sounds are regular S1 and S2. There is trace leg edema. Lungs: Symmetric air entry, clear to auscultation. No crackle or rale. Abdomen: Mildly distended. There is a dressing present. There are bowel sounds. Genitourinary: Indwelling Chan catheter. Extremities: Negative for clubbing or cyanosis. Neurologic: Oriented times 3, interactive and conversational. Psychiatric: Anxious. LABORATORY DATA: Today's laboratory studies show: Sodium 129, potassium 5.5, bicarbonate is up to 21 from 13 yesterday, BUN 42, creatinine 2.1. Lactic acid has resolved from 2.8 yesterday down to 1.7 today. Most recent ammonia level is 35. IMAGING: Renal ultrasound done yesterday shows some incidental ascites otherwise no remarkable finding. Her venous duplex of the legs was negative for DVT. INPATIENT MEDICATIONS: 1. She is ordered for albumin 25%, 25 grams times 3 doses given 8 hours apart. 2. She has received 2 liters of sodium bicarbonate I.V. fluid. 3. She is written for midodrine 10 mg by mouth three times a day. 4. She is written for another dose of Veltassa 8.4 grams by mouth times 1. Her remainder of medications are unchanged from prior. PROBLEMS/PLAN: 1. TERI superimposed on CKD stage 2 (nonoliguric): Patient's urine output to the Chan catheter has been suboptimal despite receiving 2 liters of sodium bicarbonate based fluids. She also has increasing ascites. She has not had any recurrent diarrhea type of bowel movement in a couple of days. Her initial TERI was likely due to recurrent diarrheal bowel movements; however, given that her renal function has not appreciably improved over the past 24 hours I am also concerned for possible hepatorenal syndrome and urine studies are ordered. She is also having persistent hypotension. Systolic has mostly been in the 90s despite being on midodrine. I have increased the midodrine to 10 mg three times a day and we have also ordered albumin q8h to help with renal perfusion. 2. Hyperkalemia: It has improved as compared to yesterday with improvement in her metabolic acidosis. I look at another chemistry in the evening and she is written for a dose of Veltassa today as well and she is on a potassium restricted diet. Her lactic acidosis has resolved. 3. Metabolic acidosis: Serum bicarbonate is up to 21 on the latest labs from 13 yesterday. Her lactic acidosis has resolved. She has received 2 liters of sodium bicarbonate containing fluid and I am not continuing I.V. fluids at present because I am concerned about her rising daily weight and risk of fluid overload. 4. Chronic hypotension: Blood pressures have been soft; systolic is in the 90s despite being on midodrine. The dose of midodrine is increased to 10 mg three times a day. Albumin q8h is ordered as well. If her blood pressure improves I would consider giving a small dose of I.V. Lasix. 5. Cirrhosis with ascites, possible hepatorenal syndrome: Urine studies are requested. Albumin is low at 2. Albumin infusions are ordered q8h times 3 doses. We will increase her midodrine as well. Her ammonia levels are stable (35). I am going to start her on octreotide as well. 6. Normocytic anemia: Hemoglobin is down to 8.1 on the latest labs. Primary team has ordered stool occult blood already. There is likely also a hemodilutional component of the anemia given I.V. fluids that she has received.
[2020-04-30 17:18] LABS: SOURCE, BODY FLUID ALBUMIN PERITONEAL; SOURCE, BODY FLUID GLUCOSE PERITONEAL; SOURCE, BODY FLUID TOT PROTEIN PERITONEAL; TOTAL PROTEIN, BODY FLUID 1.8 G/DL (NOT ESTABLISHED)
[2020-04-30] MEDS: LACTULOSE 20 GM/30 ML SYRUP UD PO SCH ×2 (17:26→20:28)
--- NOTE | 2020-04-30 17:31 | REP ---
INDICATION: assess ascites portal vein. COMPARISON: 04/19/2020. TECHNIQUE: Real-time sonographic evaluation of ABDOMEN PERFORMED, WITH DUPLEX DOPPLER EVALUATION OF PORTAL VASCULATURE. FINDINGS: Gallbladder is moderately distended. Sludge is seen in the gallbladder. Gallbladder wall is upper limits of normal in thickness at 3 mm. No definite gallstones are seen. Common bile duct is somewhat dilated measuring up to 10 mm.. The liver is diffusely heterogeneous and coarsened in echotexture, with somewhat irregular borders suggesting cirrhosis. No gross mass is seen. The pancreas could not be visualized due to overlying bowel gas. Spleen is normal in size with no intrinsic abnormality, measuring 11.1 cm in length. There is no evidence of hydronephrosis, cyst, mass, or calculus in either kidney. The right kidney measures 13.0 x 5.1 x 4.1 cm. Left renal dimensions are 13.5 x 5.9 x 6.7 cm. The abdominal aorta is not seen due to overlying bowel gas. There is mild free fluid around the liver and spleen. The main portal vein measures 18 mm mm in diameter, dilated suggesting portal hypertension.. The splenic vein and portal veins demonstrate normal direction of flow, with normal flow velocities and waveforms. The superior mesenteric vein and splenic vein in the region of the pancreas could not be visualized due to overlying bowel gas. There is no portal vein thrombosis. Hepatic veins are patent with no thrombus. Patent main hepatic artery demonstrates peak systolic velocity of 146.7 centimeters/second. IMPRESSION: Sludge in the gallbladder. No gallstones. Dilated common bile duct 10 mm. The liver appears cirrhotic with no sonographic evidence of mass. Dilated main portal vein suggests portal hypertension. There is normal direction of flow in the portal vasculature. No evidence of portal vein or hepatic vein thrombosis. Portal vasculature demonstrates normal direction of flow with no thrombosis. No evidence of hepatic vein thrombosis. <Electronically signed by Parish Menchaca > 04/30/20 [id number]
[2020-04-30] MEDS: ALBUTEROL SULFATE 2.5 MG/0.5 ML INH NEB SOLN NEB PRN (17:38)
--- NOTE | 2020-04-30 18:04 | REP ---
INDICATION: diagnostic tap - after doppler studies. COMPARISON: None. TECHNIQUE: The procedure was performed under the direct supervision of Dr. Menchaca. The risks and benefits of the procedure were explained to the patient and informed consent was obtained. The risks and benefits of the procedure were explained to the patient and informed consent was obtained. The largest pocket of fluid was localized in the right flank using ultrasound guidance. The skin was prepped and draped in a sterile fashion. 1% lidocaine was used as a local anesthetic. Using ultrasound guidance, an 8-Kittitian multi side-hole catheter was inserted using trocar technique. 1250 cc of low viscosity red colored fluid was withdrawn with a sample sent to lab for analysis. The patient tolerated the procedure well and there were no immediate complications. After the appropriate amount of monitored convalescence, the patient was discharged from the department. FINDINGS: None IMPRESSION: Ultrasound-guided paracentesis yielding 1250 cc of low viscosity red colored fluid. <Electronically signed by Shaji Pinon > 04/30/20 1707 <Electronically signed by Parish Menchaca > 04/30/20 1800
[2020-04-30] MEDS: PIPERACILLIN/TAZOBACTAM SOD 4.5 GM in D5W MINI-BAG PLUS 50 ML IV SCH (22:14)
[2020-04-30] MEDS: PANTOPRAZOLE 40MG VIAL (C9113 PER 1) IV SCH (22:14)
[2020-05-01] VITALS (9 sets, daily range): BP systolic 86–107; BP diastolic 46–58
[2020-05-01] MEDS: traMADol 50 MG TAB PO PRN ×2 (04:28→22:57)
[2020-05-01 04:40] LABS: HEMOGLOBIN 8.6 g/dl (12.0-15.5); MEAN CORPUSCULAR HEMOGLOBIN 31.6 pg (27.0-33.0); MEAN CORPUSCULAR HGB CONC 33.1 g/dl (32.0-36.5); MEAN CORPUSCULAR VOLUME 95.6 fl (80.0-96.0); PLATELET COUNT, AUTOMATED 119 10^3/uL (150-450); RED BLOOD COUNT 2.72 10^6/uL (4.00-5.40)
[2020-05-01 04:58] LABS: BILIRUBIN,TOTAL 4.6 MG/DL (0.2-1.0); CALCIUM LEVEL 8.3 MG/DL (8.8-10.2); CREATININE FOR GFR 1.86 MG/DL (0.55-1.30); GLOMERULAR FILTRATION RATE 29.2 (>45); POTASSIUM SERUM 4.5 MEQ/L (3.5-5.1); TOTAL PROTEIN 5.1 GM/DL (6.4-8.2)
[2020-05-01 05:03] LABS: ALBUMIN 2.3 GM/DL (3.2-5.2)
[2020-05-01] MEDS: OCTREOTIDE ACETATE 100MCG/ML VIAL (J2354 PER 25MCG) SC SCH ×3 (06:22→22:58)
[2020-05-01] MEDS: SODIUM CHLORIDE 0.9% INJ 10 ML SYR IV SCH ×2 (06:23→17:20)
[2020-05-01] MEDS: SLF 3 ML SYR IV SCH ×3 (06:24→21:45)
[2020-05-01] MEDS: LACTULOSE 20 GM/30 ML SYRUP UD PO SCH ×5 (07:00→21:56)
[2020-05-01] MEDS: ADVAIR HFA 230/21MCG INHALER INH SCH ×2 (08:00→19:25)
[2020-05-01] MEDS: FOLIC ACID 1 MG TAB NG SCH (09:51)
[2020-05-01] MEDS: ASCORBIC ACID 500 MG TAB PO SCH (09:51)
[2020-05-01] MEDS: PIPERACILLIN/TAZOBACTAM SOD 4.5 GM in D5W MINI-BAG PLUS 50 ML IV SCH ×2 (09:51→21:45)
[2020-05-01] MEDS: CHLORHEXIDINE GLUCONATE 0.12 % 15ML UDC (PERIDEX ORAL RINSE) SSP SCH ×3 (09:51→21:44)
[2020-05-01] MEDS: MIDODRINE 5 MG TAB PO SCH ×3 (09:52→15:44)
[2020-05-01] MEDS: PANTOPRAZOLE 40MG VIAL (C9113 PER 1) IV SCH ×2 (09:52→21:45)
[2020-05-01] MEDS: MULTIVITAMINS/MINERALS THERAP 1 TAB PO SCH (09:52)
[2020-05-01] MEDS: VITAMIN D 1,000 INTERNATIONAL UNITS TABLET PO SCH (09:52)
[2020-05-01] MEDS: VANICREAM MOISTURIZING SKIN CREAM 113GM TUBE TOP SCH ×2 (09:53→21:47)
--- NOTE | 2020-05-01 12:44 | IPNPDOC ---
Text Note Date of Service The patient was seen on 05/01/20. NOTE SUBJECTIVE: Patient seen and examined at bedside. No acute overnight events reported. Patient has no new medical complaints this morning. She is concerned and anxious regarding her health. OBJECTIVE: VS: Please see below General: NAD, lying comfortably in bed HEENT: NC/AT, yellow sclera-chronic Lungs: CTA B/L Heart: +S1S2, RRR Abd: distended, tender on deep palpation , +BS, stitches in abd appear well healing Ext: Lower ext edema, LUE edema ASSESSMENT: 64-year-old female with history of cirrhosis, colon cancer status post right colectomy on 04/07 complicated with hematoma, presenting with altered mental status. Ammonia found to be 186 in the ER will be admitted for management of acute hepatic encephalopathy. PLAN: #TERI - poss 2/2 to HRS - Previously had diarrhea, dehydration, urinary retention -follow as per nephrology - assistance appreciated - improving #Decompensated liver cirrhosis/HRS - ammonia slowly increasing - no changes in mentation - restarted lactulose - titrate to 4 BM daily - Bili increasing, AST/ALT wnl - GI provider Dr. Bailee Carpio - [phone], would like biweekly updates - Holding spironolactone, lasix, lactulose BID with TERI and diarrhea. - C/w rifaximin, added midodrine, octreotide, albumin - s/p paracentesis yesterday - 1.5L fluid removed - Nephro and GI here (Dr. Moran) consulted #secondary bacterial peritonitis - started zosyn - G stain/culture pending #hypotension - hoping treating bacterial peritonitis will improve blood pressures - transferring to PCU for closer monitoring - PICC line in place if levophed needed - patient remains asymptomatic #Metabolic acidosis likely 2/2 to diarrhea 2/2 to lactulose use, lactic acidosis-improving -Had several days where patient had severe diarrhea that persisted despite decreasing and removing lactulose -LA now normal s/p bicarb gtt -Nephrology following closely. #Hyperkalemia likely 2/2 to potassium supplementation, renal failure - s/p veltassa -Denies chest pain, n/v/d, shortness of breath #Thrombocytopenia, acute -4 T's score: 2-3= low probability for Heparin induced thrombocytopenia -Stopped Heparin 04/24/20 -F/u CBC in the AM #Acute on chronic anemia -Worsened with bicarb gtt, perhaps partly dilutional -F/u iron studies, Vit B12, folate, occult blood -Daily CBC #Hyponatremia likely 2/2 to decompensating liver disease -Follow labs #Adenocarcinoma of colon s/p laparoscopic transverse colectomy by Dr. Carpio 04/07 -Surgery following, [place] and FRANCES drain removed this admission. #Physical deconditioning -C/w PT/OT #COPD - stable - resume inhalers, nebs #GI px - PPI #DVT px -SCD, teds Resolved issues: #Hypokalemia, acute and possibly 2/2 to diarrhea #Diarrhea 2/2 to lactulose #Lactic acidosis likely 2/2 to dehydration DISPOSITION: transferring to PCU for closer monitoring, concern if transfer needed, will discuss with GI at [facility] - Dr. Carpio, continue IV abx, CT abd/pelvis for interim evaluation. discussed with today - [phone] VS,Lee, I+O VS, Crowe, I+O Laboratory Tests 04/30/20 22:30 05/01/20 04:17 Vital Signs Date Time Temp Pulse Resp B/P (MAP) Pulse Ox O2 Delivery O2 Flow Rate FiO2 05/01/20 11:36 97.7 80 16 86/46 96 Room Air I&O- Last 24 Hours up to 6 AM 05/01/20 06:00 Intake Total 1260.0 ml Output Total 1200 ml Balance 60.0 ml YAZAN HERNANDEZ MD May 01, 2020 12:44
[2020-05-01] MEDS: SODIUM CHLORIDE 0.9% INJ 10 ML SYR IV PRN (13:39)
--- NOTE | 2020-05-01 14:47 | REP ---
INDICATION: abd tenderness, recent surgery/hematoma on April 07, 2020 the patient underwent laparoscopic right colectomy with ileal colonic anastomosis complicated by postoperative hemorrhage and intra-hematoma. 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 COMPARISON: Comparison abdominal CT study 19 April 2020 and March 21, 2020.. TECHNIQUE: Helical scanning is acquired in 4 mm axial images were reformatted. Coronal and sagittal MPR images were generated and reviewed. FINDINGS: Preliminary digital substation operator automatic radiograph shows surgical clips in the right central abdomen. On axial CT images there is platelike atelectasis in the right lower lobe of the lung. The lung bases are otherwise clear. There is no evidence of pleural effusion. There is however mild diffuse abdominal ascites which is a new finding compared to the 19 April 2020 prior study. The surgical drain noted in place at the time of the April 19, 2020 study has been removed. There is some air in the urinary bladder along with a Chan catheter. No uterine or ovarian abnormality is seen. There is some fluid surrounding small bowel loops in the right mid abdomen be low the ileo right colonic anastomosis. No sentinel hematoma is appreciated. No definite free air is seen. There are small bowel loops showing mural thickening in the lower abdomen and pelvis anteriorly question enteritis. There is no visible free intraperitoneal air. No abscess is seen. The liver and spleen are unchanged. Kidneys are morphologically intact. No abnormality is noted in the pancreas. IMPRESSION: New mild diffuse abdominal ascites. Mural thickening and several loops of small bowel question enteritis. No obstructive lesion is seen. Post right colectomy with ileocolic anastomosis. Chan catheter. No free air or abscess seen. <Electronically signed by Colt Parsons > 05/01/20 4014
--- NOTE | 2020-05-01 15:06 | IPN ---
PROGRESS NOTE DATE: 05/01/2020 SUBJECTIVE: Anette is seen and examined this morning at the bedside. Yesterday evening she was started on IV Zosyn after peritoneal cell count was positive for SBP. Her hemoglobin has remained stable after 1 unit of packed red blood cells yesterday and her FOBT did return back positive. She remains persistently hypotensive with blood pressures mostly in the 90s/50s. She denies any lightheadedness or dizziness. She denies any shortness of breath. Her renal function is slowly improving. PHYSICAL EXAMINATION: VITAL SIGNS: Temperature 99.4, pulse is 79, respiratory rate is 19, blood pressure is 93/53, saturating 98% on room air. INTAKE AND OUTPUT: Intake yesterday was 1260, urine output was 1200. Weight on the bed scale today is 79.1 kg. GENERAL: The patient is seen sitting in bed awake, alert, and quite anxious but in no apparent distress. HEENT: Extraocular muscles are intact. Tongue is moist. NECK: Supple. Jugular veins are mildly elevated. HEART: Heart sounds are regular, S1 and S2. EXTREMITIES: There is 1+ leg edema. LUNGS: Symmetric air entry, clear to auscultation. No crackles or rales. ABDOMEN: Mildly distended. There is ascitic fluid present. There are bowel sounds. GENITOURINARY: Indwelling Chan catheter. EXTREMITIES: Negative for clubbing or cyanosis. NEUROLOGIC: She is oriented x3, interactive and conversational. PSYCHIATRIC: She is very anxious. LABORATORY DATA: Today's laboratory studies shows a sodium of 136, potassium 4.5, bicarbonate 25, BUN 34, creatinine 1.8, lactic acid 1.3. Ammonia level is pending. Albumin is 2.3. Hemoglobin is 8.6. Stool occult blood test returns negative. Her peritoneal cell count yesterday had 18,600 WBCs. Her blood cultures are sent and pending. CT of the abdomen and pelvis is pending. INPATIENT MEDICATIONS: I started her on Zosyn 4.5 grams IV b.i.d. I have started her on Protonix 40 mg IV b.i.d. I ordered three more doses of albumin. The remainder of medications are unchanged as compared to yesterday. PROBLEMS: 1. TERI superimposed on CKD Stage II. She has Type 2 hepatorenal syndrome secondary to peritonitis. Her renal function is slowly improving. She is persistently hypotensive, systolic is in the 90s, she is on Midodrine 10 mg three times a day, she is on Octreotide 100 mcg sub q. q. 8, I have ordered three more doses of albumin, for her peritonitis I have started her on IV Zosyn. We did have a PICC line placed two days ago and she will be closely watched for need of Levophed pressor support. 2. Peritonitis. The patient's peritoneal cell count shows 18,600 WBCs. She recently did have a course of Ceftriaxone because of infected abdominal drain related to her recent transverse colectomy in late March 2020. Hence, I put her this time on IV Zosyn twice daily. She will need a repeat cell count in the near future. Given that she had recent abdominal surgery, I also think we should repeat her CT scan of the abdomen and pelvis. I am concerned because she had an infected abdominal drain on this admission and now she has peritonitis as well. I have ordered repeat blood cultures also. I have asked the Hospitalist service to review her GI infectious issues with Gastroenterology Team. 3. GI bleed, the patient's FBOT is positive. Her hemoglobin was down in the 7's yesterday, she was transfused 1 unit. Hemoglobin is now stable. I have switched her to IV Pantoprazole and GI is also following along. 4. Sepsis in the setting of peritonitis. She is on IV Zosyn. Her lactic acid was normal. I would have low threshold of starting Levophed if her urine output decreases and certainly for MAP < 65. I have discussed the same with Dr. Monzon. I also recommend that she have a repeat CT scan of her abdomen given transverse colectomy on April 07 and now complicated by infected abdominal drain earlier on this admission and now with peritonitis. The Surgical Service has been seeing her. KISHA
[2020-05-01] MEDS: NICOTINE POLACRILEX 2 MG GUM PO PRN (22:57)
[2020-05-01] MEDS: ALBUTEROL SULFATE 2.5 MG/0.5 ML INH NEB SOLN NEB PRN (23:46)
[2020-05-02] VITALS (8 sets, daily range): BP systolic 92–102; BP diastolic 50–54
[2020-05-02] MEDS: OCTREOTIDE ACETATE 100MCG/ML VIAL (J2354 PER 25MCG) SC SCH ×3 (05:24→21:49)
[2020-05-02] MEDS: SLF 3 ML SYR IV SCH ×3 (05:25→21:51)
[2020-05-02] MEDS: SODIUM CHLORIDE 0.9% INJ 10 ML SYR IV SCH ×2 (05:26→16:48)
[2020-05-02 05:57] LABS: BASO % 0.4 % (0.0-1.0); EOS # 0.2 10^3/uL (0.0-0.5); EOS % 3.2 % (0.0-3.0); HEMATOCRIT 26.3 % (36.0-47.0); HEMOGLOBIN 8.2 g/dl (12.0-15.5); LYMPH # 0.5 10^3/uL (1.5-5.0); MEAN CORPUSCULAR HEMOGLOBIN 30.9 pg (27.0-33.0); MEAN CORPUSCULAR HGB CONC 31.2 g/dl (32.0-36.5); MEAN CORPUSCULAR VOLUME 99.2 fl (80.0-96.0); MONO # 0.5 10^3/uL (0.0-0.8); MONO % 9.8 % (0.0-5.0); NEUTROPHILS % 75.5 % (36.0-66.0); PLATELET COUNT, AUTOMATED 115 10^3/uL (150-450); RED BLOOD COUNT 2.65 10^6/uL (4.00-5.40); WHITE BLOOD COUNT 5.3 10^3/uL (4.0-10.0)
[2020-05-02 06:29] LABS: CALCIUM LEVEL 8.5 MG/DL (8.8-10.2); CREATININE FOR GFR 1.95 MG/DL (0.55-1.30); GLOMERULAR FILTRATION RATE 27.7 (>45)
[2020-05-02 06:40] LABS: INR 1.79; PROTHROMBIN TIME 21.2 SECONDS (12.5-14.3)
[2020-05-02] MEDS: ADVAIR HFA 230/21MCG INHALER INH SCH ×2 (07:47→21:50)
[2020-05-02] MEDS: PANTOPRAZOLE 40MG VIAL (C9113 PER 1) IV SCH (09:18)
[2020-05-02] MEDS: PIPERACILLIN/TAZOBACTAM SOD 4.5 GM in D5W MINI-BAG PLUS 50 ML IV SCH ×2 (09:18→21:49)
[2020-05-02] MEDS: CHLORHEXIDINE GLUCONATE 0.12 % 15ML UDC (PERIDEX ORAL RINSE) SSP SCH ×3 (09:18→21:48)
[2020-05-02] MEDS: MULTIVITAMINS/MINERALS THERAP 1 TAB PO SCH (09:20)
[2020-05-02] MEDS: FOLIC ACID 1 MG TAB NG SCH (09:20)
[2020-05-02] MEDS: MIDODRINE 5 MG TAB PO SCH ×3 (09:20→16:46)
[2020-05-02] MEDS: ASCORBIC ACID 500 MG TAB PO SCH (09:20)
[2020-05-02] MEDS: VITAMIN D 1,000 INTERNATIONAL UNITS TABLET PO SCH (09:20)
[2020-05-02] MEDS: VANICREAM MOISTURIZING SKIN CREAM 113GM TUBE TOP SCH ×2 (09:21→21:50)
[2020-05-02] MEDS: NICOTINE POLACRILEX 2 MG GUM PO PRN ×3 (11:06→21:48)
[2020-05-02] MEDS: SODIUM CHLORIDE 0.9% INJ 10 ML SYR IV PRN (11:07)
--- NOTE | 2020-05-02 13:32 | IPNPDOC ---
Text Note Date of Service The patient was seen on 05/02/20. NOTE SUBJECTIVE: Patient seen and examined at bedside. No acute overnight events reported. Patient has no new medical complaints this morning. She continues to feel better, less anxious today. OBJECTIVE: VS: Please see below General: NAD, lying comfortably in bed HEENT: NC/AT, yellow sclera-chronic Lungs: CTA B/L Heart: +S1S2, RRR Abd: distended, tender on deep palpation , +BS, stitches in abd appear well healing Ext: Lower ext edema, LUE edema ASSESSMENT: 64-year-old female with history of cirrhosis, colon cancer status post right colectomy on 04/07 complicated with hematoma, presenting with altered mental status. Ammonia found to be 186 in the ER will be admitted for management of acute hepatic encephalopathy. PLAN: #TERI - poss 2/2 to HRS - Previously had diarrhea, dehydration, urinary retention -follow as per nephrology - assistance appreciated #Decompensated liver cirrhosis/HRS - ammonia slowly increasing - no changes in mentation - restarted lactulose - titrate to 4 BM daily - Bili increasing, AST/ALT wnl - GI provider Dr. Bailee Carpio - [phone], would like updates - Holding spironolactone, lasix, lactulose BID with TERI and diarrhea. - C/w rifaximin, added midodrine, octreotide, albumin - s/p paracentesis 05/01/20 - 1.5L fluid removed - Nephro and GI here (Dr. Moran) consulted #secondary bacterial peritonitis - started zosyn day #3 - G stain/culture pending #hypotension - hoping treating bacterial peritonitis will improve blood pressures - PICC line in place if levophed needed - patient remains asymptomatic #Metabolic acidosis likely 2/2 to diarrhea 2/2 to lactulose use, lactic acidosis-improving -Had several days where patient had severe diarrhea that persisted despite decreasing and removing lactulose -Nephrology following closely. #Hyperkalemia likely 2/2 to potassium supplementation, renal failure - s/p veltassa -Denies chest pain, n/v/d, shortness of breath #Thrombocytopenia, acute -4 T's score: 2-3= low probability for Heparin induced thrombocytopenia -Stopped Heparin 04/24/20 -F/u CBC in the AM #Acute on chronic anemia -Worsened with bicarb gtt, perhaps partly dilutional -F/u iron studies, Vit B12, folate, occult blood -Daily CBC #Hyponatremia likely 2/2 to decompensating liver disease -Follow labs #Adenocarcinoma of colon s/p laparoscopic transverse colectomy by Dr. Carpio 04/07 -Surgery following, Maura and FRANCES drain removed this admission. #Physical deconditioning -C/w PT/OT #COPD - stable - resume inhalers, nebs #GI px - PPI #DVT px -SCD, teds Resolved issues: #Hypokalemia, acute and possibly 2/2 to diarrhea #Diarrhea 2/2 to lactulose #Lactic acidosis likely 2/2 to dehydration DISPOSITION: continue IV abx, attempted to discuss with today - [phone] VS,Fishbone, I+O VS, Fishbone, I+O Laboratory Tests 05/02/20 05:40 Vital Signs Date Time Temp Pulse Resp B/P (MAP) Pulse Ox O2 Delivery O2 Flow Rate FiO2 05/02/20 12:00 97.1 71 18 92/54 (67) 99 Room Air I&O- Last 24 Hours up to 6 AM 05/02/20 06:00 Intake Total 1360.00 ml Output Total 1325 ml Balance 35.00 ml YAZAN HERNANDEZ MD May 02, 2020 13:32
[2020-05-02] MEDS: LACTULOSE 20 GM/30 ML SYRUP UD PO SCH (21:00)
--- NOTE | 2020-05-02 23:06 | IPN ---
NEPHROLOGY PROGRESS NOTE DATE: 05/02/2020 SUBJECTIVE: Anette is seen and examined this morning sitting out of bed to the chair. She remains highly anxious as she has been the past several days. Her blood pressures remain borderline with almost all of the systolics in the 90's despite being on Midodrine 10 mg three times daily. She denies any abdominal discomfort or pain. She has not had any fevers. She has received a total of 9 doses of albumin thus far. I discussed with her that she is going to need a repeat diagnostic paracentesis, probably by Tuesday. PHYSICAL EXAMINATION: VITAL SIGNS: Temperature 97.1, pulse 71, respiratory rate 18, blood pressure 92/54, saturating 99% on room air. INTAKE AND OUTPUT: Intake yesterday was 1,360. Urine output yesterday was 1,125. Weight in the bed scale today is 79.5 kg. GENERAL APPEARANCE: The patient is seen sitting out of bed to the chair, a highly anxious female, awake and alert. HEENT: The extraocular muscles are intact. Tongue is moist. NECK: Supple. Jugular veins were note elevated while she was sitting upright. HEART: Regular, S1, S2. EXTREMITIES: Compression stockings and I would say only trace edema. LUNGS: Symmetric air entry, clear to auscultation. No crackles or rales. ABDOMEN: Mildly distended. There is ascites present. There are bowel sounds. GENITOURINARY: Indwelling Chan catheter. EXTREMITIES: Negative for clubbing or cyanosis. NEUROLOGICAL: Oriented x3, interactive and conversational. PSYCHIATRIC: The patient is very anxious. LABORATORY STUDIES: Sodium 137, potassium 4.0, bicarbonate 24, BUN 28, creatinine 1.9 from 1.8 yesterday. Ammonia yesterday 61, hemoglobin 8.2. Blood culture drawn on the there is no growth for 24 hours. IMAGING: CT abdomen and pelvis done yesterday shows diffuse abdominal ascites, mural thickening and several loops of small bowel, question enteritis. No free air or abscess. INPATIENT MEDICATIONS: The patient's medications were reviewed by myself. Her lactulose dose is decreased to 15 mL p.o. twice daily. Her Protonix was changed to 40 mg IV daily. Her remainder medications are unchanged as compared to yesterday. PROBLEMS: 1. Non oliguric acute kidney injury superimposed on chronic kidney disease stage 2 she has type 2 hepatorenal syndrome secondary to peritonitis. She is being treated with Midodrine, Octreotide and she has gotten a total of 9 doses of albumin 25% 25 grams. For her peritonitis, I started her on IV Zosyn. She does have a PICC line placed in case she needs Levophed pressor support and I would have a low threshold to start her on pressors, as she could very easily go into a oligoanuric renal failure. 2. Peritonitis the patient's peritoneal cell count showed 18,600 WBCs. Her blood culture was no growth for 24 hours. She did recently have a course of Ceftriaxone because of infected abdominal drain related to her recent transverse colectomy in late March 2020, hence I put her at this time on IV Zosyn twice daily. She will need a repeat diagnostic paracentesis and peritoneal cell count likely by Tuesday. I am concerned because she had a recent transverse colectomy with infected abdominal drain on this admission and now she has peritonitis and hepatorenal syndrome as well. 3. Questionable GI bleed the patient's FOBT was positive. She is on IV Protonix. Hemoglobin has mostly been 7-8 and she was transfused only one unit on this admission thus far. She is also iron deficient, but I am holding off on IV iron until all her infectious issues resolve. She is on IV Protonix. 4. Sepsis in the setting of peritonitis she is on IV Zosyn. Her systolics have been in the 90's. She is on Midodrine for her hepatorenal syndrome. She has a PICC line in case she needs to start Levophed pressor support, although thus far she has been maintaining MAP above 65. Her repeat CAT scan is noted and should be reviewed by Surgery given her recent transverse colectomy and now infectious GI issues including infected abdominal drain earlier during this admission and current peritonitis.
[2020-05-03] VITALS: BP 105/56
[2020-05-03] MEDS: SODIUM CHLORIDE 0.9% INJ 10 ML SYR IV PRN ×3 (03:52→22:21)
[2020-05-03] MEDS: traMADol 50 MG TAB PO PRN (03:57)
[2020-05-03 04:00] VITALS: BP 93/55
[2020-05-03] MEDS: OCTREOTIDE ACETATE 100MCG/ML VIAL (J2354 PER 25MCG) SC SCH ×3 (05:13→21:01)
[2020-05-03] MEDS: SLF 3 ML SYR IV SCH ×3 (05:14→21:01)
[2020-05-03] MEDS: SODIUM CHLORIDE 0.9% INJ 10 ML SYR IV SCH ×2 (05:14→15:20)
[2020-05-03 05:30] LABS: HEMATOCRIT 25.8 % (36.0-47.0); HEMOGLOBIN 8.3 g/dl (12.0-15.5); MEAN CORPUSCULAR HEMOGLOBIN 31.7 pg (27.0-33.0); MEAN CORPUSCULAR HGB CONC 32.2 g/dl (32.0-36.5); MEAN CORPUSCULAR VOLUME 98.5 fl (80.0-96.0); PLATELET COUNT, AUTOMATED 110 10^3/uL (150-450); RED BLOOD COUNT 2.62 10^6/uL (4.00-5.40); WHITE BLOOD COUNT 4.9 10^3/uL (4.0-10.0)
[2020-05-03 06:01] LABS: ALBUMIN 2.5 GM/DL (3.2-5.2); CALCIUM LEVEL 8.3 MG/DL (8.8-10.2); CREATININE FOR GFR 1.86 MG/DL (0.55-1.30); GLOMERULAR FILTRATION RATE 29.2 (>45); POTASSIUM SERUM 3.8 MEQ/L (3.5-5.1); TOTAL PROTEIN 5.3 GM/DL (6.4-8.2)
[2020-05-03] MEDS: ADVAIR HFA 230/21MCG INHALER INH SCH ×2 (07:41→20:25)
[2020-05-03 08:00] VITALS: BP 106/53
[2020-05-03] MEDS: PIPERACILLIN/TAZOBACTAM SOD 4.5 GM in D5W MINI-BAG PLUS 50 ML IV SCH ×2 (09:28→20:55)
[2020-05-03] MEDS: LACTULOSE 20 GM/30 ML SYRUP UD PO SCH ×2 (09:28→20:56)
[2020-05-03] MEDS: CHLORHEXIDINE GLUCONATE 0.12 % 15ML UDC (PERIDEX ORAL RINSE) SSP SCH ×3 (09:29→20:56)
[2020-05-03] MEDS: PANTOPRAZOLE 40MG VIAL (C9113 PER 1) IV SCH (09:31)
[2020-05-03] MEDS: NICOTINE POLACRILEX 2 MG GUM PO PRN ×2 (09:32→15:20)
[2020-05-03] MEDS: MIDODRINE 5 MG TAB PO SCH ×3 (09:32→15:19)
[2020-05-03] MEDS: VANICREAM MOISTURIZING SKIN CREAM 113GM TUBE TOP SCH ×2 (09:32→20:57)
[2020-05-03] MEDS: VITAMIN D 1,000 INTERNATIONAL UNITS TABLET PO SCH (09:32)
[2020-05-03] MEDS: MULTIVITAMINS/MINERALS THERAP 1 TAB PO SCH (09:33)
[2020-05-03] MEDS: ASCORBIC ACID 500 MG TAB PO SCH (09:33)
[2020-05-03] MEDS: FOLIC ACID 1 MG TAB NG SCH (09:33)
--- NOTE | 2020-05-03 11:09 | IPNPDOC ---
Text Note Date of Service The patient was seen on 05/03/20. NOTE SUBJECTIVE: Patient seen and examined at bedside. No acute overnight events reported. Patient has no new medical complaints this morning. OBJECTIVE: VS: Please see below General: NAD, lying comfortably in bed HEENT: NC/AT, yellow sclera-chronic Lungs: CTA B/L Heart: +S1S2, RRR Abd: distended, tender on deep palpation , +BS, stitches in abd appear well healing Ext: Lower ext edema, LUE edema ASSESSMENT: 64-year-old female with history of cirrhosis, colon cancer status post right colectomy on 04/07 complicated with hematoma, presenting with altered mental status. Ammonia found to be 186 in the ER will be admitted for management of acute hepatic encephalopathy. PLAN: #TERI - improving - poss 2/2 to HRS - Previously had diarrhea, dehydration, urinary retention -follow as per nephrology - assistance appreciated #Decompensated liver cirrhosis/HRS - ammonia slowly increasing - no changes in mentation - restarted lactulose - titrate to 4 BM daily - Bili increasing, AST/ALT wnl - GI provider Dr. Bailee Carpio - [phone], would like updates as needed - Holding spironolactone, lasix, lactulose BID with TERI and diarrhea. - C/w rifaximin, added midodrine, octreotide, albumin - s/p paracentesis 05/01/20 - 1.5L fluid removed - Nephro and GI here (Dr. Moran) consulted #secondary bacterial peritonitis - #4 - G stain/culture pending - consider diagnostic tap on Tuesday for interim evaluation - follow as per GI #hypotension - improving - hoping treating bacterial peritonitis will improve blood pressures - PICC line in place if levophed needed - patient remains asymptomatic #Metabolic acidosis likely 2/2 to diarrhea 2/2 to lactulose use, lactic acidosis-improving -Had several days where patient had severe diarrhea that persisted despite decreasing and removing lactulose -Nephrology following closely. #Hyperkalemia likely 2/2 to potassium supplementation, renal failure - s/p veltassa -Denies chest pain, n/v/d, shortness of breath #Thrombocytopenia - no obvious signs of bleeding - paracentesis did show some blood - expected with recent colon surgery/hematoma #Acute on chronic anemia -Worsened with bicarb gtt, perhaps partly dilutional -F/u iron studies, Vit B12, folate, occult blood #Hyponatremia likely 2/2 to decompensating liver disease -resolved #Adenocarcinoma of colon s/p laparoscopic transverse colectomy by Dr. Carpio 04/07 -Surgery following, [place] and FRANCES drain removed this admission. #Physical deconditioning -C/w PT/OT #COPD - stable - resume inhalers, nebs #GI px - PPI #DVT px -SCD, teds Resolved issues: #Hypokalemia, acute and possibly 2/2 to diarrhea #Diarrhea 2/2 to lactulose #Lactic acidosis likely 2/2 to dehydration DISPOSITION: continue IV abx, discussed with today - [phone] VS,Lee, I+O VS, Lee, I+O Laboratory Tests 05/03/20 05:11 Vital Signs Date Time Temp Pulse Resp B/P (MAP) Pulse Ox O2 Delivery O2 Flow Rate FiO2 05/03/20 08:00 99.0 76 18 106/53 (70) 100 Room Air I&O- Last 24 Hours up to 6 AM 05/03/20 06:00 Intake Total 700.0 ml Output Total 800 ml Balance -100.0 ml YAZAN HERNANDEZ MD May 03, 2020 11:09
[2020-05-03 12:00] VITALS: BP 103/49
[2020-05-03 15:58] VITALS: BP 95/50
[2020-05-03] MEDS ORDERED: IPRATROPIUM 0.5MG/ALBUTEROL 2.5MG INH SOL UD 3ML (DUONEB) NEB PRN (16:45)
--- NOTE | 2020-05-03 17:16 | IPN ---
PROGRESS NOTE DATE: 05/03/2020 Ms. Herzog is seen this morning on her bedside. She is lying in the bed without any acute distress. She reports improved strength and denies any nausea or vomiting. She has no fever, chills, dyspnea, or chest pain. Her blood pressure has been slightly improved. She remains on intravenous antibiotics for subacute bacterial peritonitis. She reports abdominal distention but no distress from it. PHYSICAL EXAMINATION: Temperature 97.6 degrees Fahrenheit, heart rate 62 per minute, respiratory rate 20 per minute, blood pressure 103/49 mmHg, and oxygen saturation 100% on room air. Head is atraumatic. Neck supple and jugular venous distention (JVD) not abnormally elevated. She has no oral thrush or ulcers. Heart sounds are regular, and lungs with slightly diminished breath sounds at bases. Abdomen is distended but nontender, and bowel sounds are present. Extremities have no cyanosis or clubbing. Lower extremity edema is at least 2+. Neurologically, she is awake, alert, and oriented times three. Today's labs show WBC count 4.9, hemoglobin 8.3, and hematocrit 25.8. Platelets 110. Sodium 139, potassium 3.8, CO2 of 22, BUN 24, creatinine 1.86. Calcium 8.3. Total bilirubin is 3.0, total protein 5.3, and albumin 2.5. PROBLEMS: 1. Hepatic encephalopathy. Mentation has improved. Her ammonia level was 61 a couple of days ago. There is no ammonia level checked today. Patient does have known history of cirrhosis of liver. 2. Cirrhosis of liver with recurrent ascites. Patient did have paracentesis a few months ago, and then she had another paracentesis just a couple of days ago here in the hospital. Her ascites is not any significant at present, and there is no emergent indication for another paracentesis. Her serum albumin level is 2.5, and she is currently not receiving intravenous (IV) albumin. 3. Acute kidney injury. Kidney function is slightly improved compared to a couple of days ago. Her electrolytes are stable, and she does not have any evidence of acidosis. 4. Anemia. Her anemia is most likely multifactorial. Her iron studies were borderline last week, and she also has acute kidney injury and hepatic insufficiency. We will monitor closely and transfuse her if needed. At present, there is no emergent indication for a transfusion. 5. Subacute bacterial peritonitis. Patient remains on Zosyn, and blood pressure is slightly improved. I will recommend to continue with antibiotic therapy. 6. Hypotension, most likely related to multiple factors, including peritonitis, cirrhosis of liver with recurrent ascites, and acute kidney injury. She is currently on midodrine 10 mg three times a day.
[2020-05-03 20:00] VITALS: BP 108/53
[2020-05-03] MEDS: IPRATROPIUM 0.5MG/ALBUTEROL 2.5MG INH SOL UD 3ML (DUONEB) NEB SCH (20:00)
[2020-05-04] VITALS (9 sets, daily range): BP systolic 80–126; BP diastolic 34–60
[2020-05-04] MEDS: IPRATROPIUM 0.5MG/ALBUTEROL 2.5MG INH SOL UD 3ML (DUONEB) NEB SCH ×7 (00:12→23:50)
[2020-05-04] MEDS: NICOTINE POLACRILEX 2 MG GUM PO PRN ×2 (00:31→21:38)
[2020-05-04] MEDS: SLF 3 ML SYR IV SCH ×3 (05:15→21:29)
[2020-05-04] MEDS: OCTREOTIDE ACETATE 100MCG/ML VIAL (J2354 PER 25MCG) SC SCH ×3 (05:15→21:29)
[2020-05-04] MEDS: SODIUM CHLORIDE 0.9% INJ 10 ML SYR IV SCH ×2 (05:15→18:52)
[2020-05-04 05:38] LABS: HEMATOCRIT 29.2 % (36.0-47.0); HEMOGLOBIN 9.1 g/dl (12.0-15.5); MEAN CORPUSCULAR HEMOGLOBIN 30.8 pg (27.0-33.0); MEAN CORPUSCULAR HGB CONC 31.2 g/dl (32.0-36.5); PLATELET COUNT, AUTOMATED 135 10^3/uL (150-450); RED BLOOD COUNT 2.95 10^6/uL (4.00-5.40); WHITE BLOOD COUNT 5.8 10^3/uL (4.0-10.0)
[2020-05-04 06:09] LABS: ALBUMIN 2.7 GM/DL (3.2-5.2); BILIRUBIN,TOTAL 3.3 MG/DL (0.2-1.0); CALCIUM LEVEL 8.6 MG/DL (8.8-10.2); CREATININE FOR GFR 1.9 MG/DL (0.55-1.30); GLOMERULAR FILTRATION RATE 28.5 (>45); POTASSIUM SERUM 3.7 MEQ/L (3.5-5.1); TOTAL PROTEIN 5.9 GM/DL (6.4-8.2)
[2020-05-04] MEDS: ADVAIR HFA 230/21MCG INHALER INH SCH ×2 (07:20→19:58)
[2020-05-04] MEDS: CHLORHEXIDINE GLUCONATE 0.12 % 15ML UDC (PERIDEX ORAL RINSE) SSP SCH ×3 (09:00→21:28)
--- NOTE | 2020-05-04 09:31 | IPN ---
PROGRESS NOTE DATE: 05/04/2020 SUBJECTIVE: Anette is a complicated patient. She has been here for a long period of time. She has spontaneous bacterial peritonitis, cultured out Citrobacter from her ascites fluid. She is on Zosyn for this. She has a history of cirrhosis, decompensated, with some hepatorenal syndrome as well, being followed by Nephrology. Her retail warehouse supervisor is Dr. Bailee Carpio who keeps a close eye on Anette. The patient's mental status seems to be improved. Her ammonia level is down and not having met her before she seems very bright, interactive and well versed in her medical care. Her blood pressure has improved. She was a little hypotensive yesterday but pressures have recovered today. PHYSICAL EXAMINATION: VITAL SIGNS: Blood pressure is 99/56, pulse is 70, respiratory rate is 18, 100% O2 saturation. GENERAL APPEARANCE: Bright, alert, conversant, in no distress. She is asking good specific questions about her care, lab results, etc. NECK: No JVD. LUNGS: Clear. HEART: Regular heart rhythm. ABDOMEN: Ascites is present, is nontender. EXTREMITIES: No peripheral edema. No asterixis. LABORATORY DATA: White count 5.8, hemoglobin is 9.1, platelets are 135,000. Sodium is 140, potassium is 3.7, BUN 22, creatinine 1.9. Glucose is 100. Ammonia is 37. IMPRESSION: 1. Spontaneous bacterial peritonitis. Plan is to continue the Zosyn and she is to get a repeat paracentesis tomorrow for interim evaluation. I will call __ after those results are back. 2. Hepatic encephalopathy, improved clinically and with reduced ammonia level on her current regimen. 3. Hypotension, improved with treatment of the bacterial peritonitis. 4. Acute kidney injury, suspected hepatorenal syndrome, being followed by Nephrology. Renal function is stable. Potassium is normal.
[2020-05-04] MEDS: FOLIC ACID 1 MG TAB NG SCH (10:43)
[2020-05-04] MEDS: VITAMIN D 1,000 INTERNATIONAL UNITS TABLET PO SCH (10:43)
[2020-05-04] MEDS: PIPERACILLIN/TAZOBACTAM SOD 4.5 GM in D5W MINI-BAG PLUS 50 ML IV SCH ×2 (10:43→21:28)
[2020-05-04] MEDS: MULTIVITAMINS/MINERALS THERAP 1 TAB PO SCH (10:43)
[2020-05-04] MEDS: PANTOPRAZOLE 40MG VIAL (C9113 PER 1) IV SCH (10:44)
[2020-05-04] MEDS: ASCORBIC ACID 500 MG TAB PO SCH (10:44)
[2020-05-04] MEDS: LACTULOSE 20 GM/30 ML SYRUP UD PO SCH ×2 (10:44→21:28)
[2020-05-04] MEDS: MIDODRINE 5 MG TAB PO SCH ×3 (10:45→16:09)
[2020-05-04] MEDS: VANICREAM MOISTURIZING SKIN CREAM 113GM TUBE TOP SCH ×2 (10:46→21:34)
[2020-05-04] MEDS: SPIRONOLACTONE 12.5MG PER 1/2 TABLET PO SCH ×2 (12:32→16:10)
--- NOTE | 2020-05-04 17:47 | IPN ---
PROGRESS NOTE DATE: 05/04/2020 Ms. Herzog is seen this morning on her bedside. She is sitting in the chair today and is in good spirits. She denies any dizziness or lightheadedness. Her blood pressure has been 90s, but earlier it was down to 82/40 mmHg. Patient states that she did not feel any symptoms, even though her blood pressure was in the 80s. She denies any nausea or vomiting. She has no dyspnea or chest pain. Leg edema is gradually worsening. Her Chan catheter has been removed and she reports that she was able to void without any difficulty this morning. PHYSICAL EXAMINATION: Temperature 97 degrees Fahrenheit, heart rate 70 per minute, respiratory rate 18 per minute, blood pressure now 99/56 mmHg and oxygen saturation 100% on room air. HEAD: Atraumatic. NECK: Supple and without jugular venous distention (JVD) or thyroid enlargement. LUNGS: Clear to auscultation. HEART SOUNDS: Irregular. ABDOMEN: Soft with moderate amount of ascites. Bowel sounds are normal. EXTREMITIES: Without any cyanosis or clubbing. Lower extremity edema is 2+. NEUROLOGIC: She is awake, alert and oriented times three. LABORATORY DATA: Today's laboratories show a WBC 5.8, hemoglobin 9.1, hematocrit 29.2, platelets 135. Sodium 140, potassium 3.7, CO2 20, BUN 22, creatinine 1.90, glucose 109, calcium 8.6. Total bilirubin 8.3, ammonia level 37 today. Serum albumin 2.7. PROBLEMS: 1. Acute kidney injury superimposed on chronic kidney disease. Most likely, she has hepatorenal syndrome. Her kidney function is essentially unchanged. We will continue to monitor closely and no intervention is needed at present. 2. Hypotension. Her blood pressure remains low. She is being treated for subacute bacterial peritonitis. She remains on midodrine 10 mg three times a day. 3. Cirrhosis of liver with ascites. Ascites is gradually increasing. At present, no urgent need for paracentesis. I am going to start with low dose spironolactone 12.5 mg twice a day and see if it helps with her peripheral edema and ascites. 4. Anemia. At present, anemia is stable and improving. No acute intervention needed. 5. Hepatic encephalopathy. Patient is doing very well and ammonia level is down to 37. She remains on lactulose.
[2020-05-05] VITALS: BP 94/52
[2020-05-05 04:00] VITALS: BP 101/64
[2020-05-05] MEDS: IPRATROPIUM 0.5MG/ALBUTEROL 2.5MG INH SOL UD 3ML (DUONEB) NEB SCH ×6 (04:00→23:52)
[2020-05-05] MEDS: SLF 3 ML SYR IV SCH ×3 (05:59→21:08)
[2020-05-05] MEDS: OCTREOTIDE ACETATE 100MCG/ML VIAL (J2354 PER 25MCG) SC SCH ×3 (05:59→21:07)
[2020-05-05] MEDS: SODIUM CHLORIDE 0.9% INJ 10 ML SYR IV SCH ×2 (05:59→18:05)
[2020-05-05 06:15] LABS: HEMATOCRIT 27.2 % (36.0-47.0); HEMOGLOBIN 8.4 g/dl (12.0-15.5); MEAN CORPUSCULAR HEMOGLOBIN 31.2 pg (27.0-33.0); MEAN CORPUSCULAR HGB CONC 30.9 g/dl (32.0-36.5); MEAN CORPUSCULAR VOLUME 101.1 fl (80.0-96.0); PLATELET COUNT, AUTOMATED 102 10^3/uL (150-450); RED BLOOD COUNT 2.69 10^6/uL (4.00-5.40)
[2020-05-05 06:42] LABS: ALBUMIN 2.5 GM/DL (3.2-5.2); BILIRUBIN,TOTAL 3.1 MG/DL (0.2-1.0); CALCIUM LEVEL 8.5 MG/DL (8.8-10.2); CREATININE FOR GFR 1.82 MG/DL (0.55-1.30); POTASSIUM SERUM 3.6 MEQ/L (3.5-5.1); TOTAL PROTEIN 5.5 GM/DL (6.4-8.2)
[2020-05-05] MEDS: ADVAIR HFA 230/21MCG INHALER INH SCH ×2 (07:58→20:41)
[2020-05-05 08:00] VITALS: BP 95/52
[2020-05-05] MEDS: FOLIC ACID 1 MG TAB NG SCH (08:22)
[2020-05-05] MEDS: SPIRONOLACTONE 12.5MG PER 1/2 TABLET PO SCH ×2 (08:22→18:04)
[2020-05-05] MEDS: ASCORBIC ACID 500 MG TAB PO SCH (08:22)
[2020-05-05] MEDS: MULTIVITAMINS/MINERALS THERAP 1 TAB PO SCH (08:23)
[2020-05-05] MEDS: MIDODRINE 5 MG TAB PO SCH ×3 (08:23→15:05)
[2020-05-05] MEDS: VITAMIN D 1,000 INTERNATIONAL UNITS TABLET PO SCH (08:23)
[2020-05-05] MEDS: LACTULOSE 20 GM/30 ML SYRUP UD PO SCH ×2 (08:24→21:07)
[2020-05-05] MEDS: PANTOPRAZOLE 40MG VIAL (C9113 PER 1) IV SCH (08:25)
[2020-05-05] MEDS: PIPERACILLIN/TAZOBACTAM SOD 4.5 GM in D5W MINI-BAG PLUS 50 ML IV SCH ×2 (08:25→21:08)
[2020-05-05] MEDS: CHLORHEXIDINE GLUCONATE 0.12 % 15ML UDC (PERIDEX ORAL RINSE) SSP SCH ×3 (08:25→21:07)
[2020-05-05] MEDS: VANICREAM MOISTURIZING SKIN CREAM 113GM TUBE TOP SCH ×2 (08:26→21:11)
--- NOTE | 2020-05-05 09:14 | IPN ---
PROGRESS NOTE DATE: 05/05/2020 SUBJECTIVE: Anette continues to feel better on a daily basis. She says she feels "just great." No fever, chills, or abdominal pain. She is being treated for spontaneous bacterial peritonitis and is supposed to have repeat paracentesis today. Nephrology is following her for acute on chronic renal disease with suspected hepatorenal syndrome. Renal function is only marginally improved from yesterday. No fever. No chills. Mental status exam is good. PHYSICAL EXAMINATION: VITAL SIGNS: Afebrile. Systolic pressure between 95 and 100. GENERAL APPEARANCE: She is alert and conversant, in no distress. LUNGS: Clear. HEART: Regular rate and rhythm. ABDOMEN: Soft. She has some ascites. Nontender. EXTREMITIES: There is 1+ peripheral edema. NEUROLOGIC: Alert and conversant. On the phone with a friend. LABORATORY DATA: White count 5, hemoglobin 8.4, platelets 102,000. Sodium 142, potassium 3.6, BUN 20, creatinine 1.8, glucose 106. IMPRESSION: 1. Spontaneous bacterial peritonitis. Continue Zosyn. Repeat paracentesis today. Give Dr. Bailee Carpio a call after we get those results back. 2. Hepatic encephalopathy improved clinically. Ammonia level is lower as well. 3. Hepatorenal syndrome being followed by nephrology. 4. Hypotension. Improved with treatment of the peritonitis. 5. End-stage cirrhosis. She is followed closely by Dr. Bailee Carpio in [place].
[2020-05-05 12:00] VITALS: BP 97/54
[2020-05-05] MEDS: NICOTINE POLACRILEX 2 MG GUM PO PRN ×2 (12:17→21:09)
--- NOTE | 2020-05-05 13:19 | IPN ---
PROGRESS NOTE DATE: 05/05/2020 SUBJECTIVE: Mrs. Herzog is seen this morning on her bedside. She is sitting in the bed with head of bed elevated. She reports feeling much better and denies any dizziness or lightheadedness. She reports incomplete emptying of her bladder requiring a straight catheterization. PHYSICAL EXAMINATION: VITAL SIGNS: Temperature is 98.1 degrees Fahrenheit, heart rate is 85 per minute, respiratory rate is 18 per minute, blood pressure is 95/52 mmHg and oxygen saturation is 99% on room air. HEENT: Head is atraumatic. NECK: Supple. JVD is difficult to be assessed. LUNGS: Clear to auscultation. ABDOMEN: Soft and nontender. Bowel sounds are present. Ascites is about moderate in severity. EXTREMITIES: No cyanosis or clubbing. Lower extremity edema is at least 2+. NEUROLOGIC: She is awake, alert and oriented x3. LABORATORY DATA: Today's labs showed a WBC count of 5.0, hemoglobin 8.4 and hematocrit 27.2, platelets are 102,000. Sodium is 142, potassium 3.6, CO2 21, BUN 20 and creatinine 1.82. Glucose is 106 and calcium is 8.5. Total bilirubin is 3.1. Yesterday her ammonia level was down to 37. PROBLEMS: 1. Acute kidney injury superimposed on chronic kidney disease. Most likely related to hepatorenal syndrome and kidney function is gradually improving. 2. Ascites with cirrhosis of liver and peripheral edema. Low dose diuretic with spironolactone 12.5 mg twice a day was started yesterday. I am unable to increase the diuretic dose due to low blood pressure. 3. Hypotension, patient remains on Midodrine 10 mg t.i.d. which should be continued in view of her low blood pressure. 4. Anemia. Her anemia has been mostly stable and does not need any urgent transfusion.
[2020-05-05] MEDS ORDERED: SODIUM BICARBONATE 8.4% INJ 50MEQ 50 ML VIAL As Ordered ONE (13:35)
--- NOTE | 2020-05-05 13:37 | IPN ---
PROGRESS NOTE DATE: 04/29/2020 SUBJECTIVE: Anette is seen and examined this morning at the bedside. She reports that she felt dizzy earlier when she tried to get up. Her blood pressures overnight have mostly been systolic in the 90s. Her urine output is just above the threshold for oliguria. She denies any nausea, vomiting, or diarrhea. She denies any shortness of breath at rest. Vital signs: Temperature 97.5, pulse 72, respiratory rate 16, blood pressure 96/45, saturating 98% on room air. Intake yesterday was 1950. Urine output was 550. Weight in the bed scale today is 84.1 kg. General: Patient is seen lying in bed, awake, alert, oriented and in no apparent distress. Extraocular muscles are intact. Tongue is moist. Neck is supple. Jugular veins are mildly elevated. Heart sounds are regular, S1, S2. There is trace leg edema. Lungs show symmetric air entry. Diminished at the bases but no crackle or rale. Comfortable on room air. Abdomen is mildly distended. Genitourinary show a Chan catheter draining small amount of urine. Extremities are negative for clubbing or cyanosis. Skin warm and dry. Neurologic: Alert and oriented times three. Interactive and conversation. Psychiatric: She is anxious. LABORATORY DATA: Sodium 129, potassium 5.2, bicarbonate 23, BUN 44, creatinine 2.1. Albumin 2.4. Urine sodium less than 10 times two specimens, and urine osmolality if 410. INPATIENT MEDICATIONS: She is ordered for three more doses of albumin. Her other medications are unchanged as compared to prior. She did receive another dose of Veltassa today. PROBLEMS: 1. Acute kidney injury (TERI) superimposed on chronic kidney disease (CKD), stage II. It is secondary to hepatorenal syndrome. Her renal function did not improve with intravenous (IV) fluids. She is not in a typical prerenal state (hepatorenal is a type of prerenal state on its own). Her urine electrolytes are consistent with hepatorenal syndrome, and she is being treated with midodrine, octreotide, and albumin; however, her urine output remains poor with only 550 mL in the past 24 hours. I will give it another day. If her renal function and urine output do not start to improve, would consider a trial of Levophed for improved renal perfusion. 2. Hyperkalemia. She is written for another dose of Veltassa, and she is on a potassium-restricted diet. 3. Hypervolemic hyponatremia. It is due to cirrhosis and hepatorenal syndrome, and there is no specific intervention. She should continue on a low-sodium and moderate fluid restriction. 4. Hypoalbuminemia related to alcoholic liver cirrhosis. Patient continues on albumin, and orders are written for three more doses. 5. Chronic hypotension. Systolic the past 24 hours has mostly been in the 90s, and this is despite her being on albumin around the clock around with midodrine 10 mg three times a day. I would expect her renal function and urine output both to improve with improved hemodynamics. The next step in management of hepatorenal syndrome would be IV Levophed, but I will give it another 24 hours. 6. Metabolic acidosis. It has resolved status post sodium bicarbonate drip. Her bicarbonate level has come up from 13 to 23. She has been off of IV fluids since yesterday.
[2020-05-05 14:34] LABS: APPEARANCE, BODY FLUID HAZY (CLEAR); PERITONEAL FL COLOR YELLOW (COLORLESS); SOURCE, BODY FLUID PERITONEAL
--- NOTE | 2020-05-05 15:43 | REP ---
INDICATION: diagnostic The patient has a history of ascites COMPARISON: None. TECHNIQUE: The procedure was performed by ALAN Lazo, under the direct supervision of Dr. Parsons The risks and benefits of the procedure were explained to the patient and an informed consent was obtained both verbally and written. Directly prior to the start of the procedure a formal time-out was completed in the procedure room. The largest pocket of fluid was localized in the right flank using ultrasound guidance. The skin was prepped and draped in a sterile fashion. Eleven ML of buffered lidocaine was used as a local anesthetic. An 8-Iraqi multi side-hole catheter was inserted using trocar technique. FINDINGS: 1800 mL of cloudy yellow fluid was removed, 1300 mL was sent to the lab for further analysis, and the rest was discarded. The patient tolerated the procedure well and there were no immediate complications. After the appropriate amount of monitored convalescence, the patient was discharged from the department. IMPRESSION: Ultrasound-guided paracentesis with removal of 1800 mL of ascites. <Electronically signed by Maria Eugenia Retana > 05/05/20 1531 <Electronically signed by Colt Parsons > 05/05/20 1532
[2020-05-05 16:00] VITALS: BP 113/57
[2020-05-05 20:00] VITALS: BP 107/55
[2020-05-06] VITALS: BP 94/53
[2020-05-06 04:00] VITALS: BP 92/50
[2020-05-06] MEDS: IPRATROPIUM 0.5MG/ALBUTEROL 2.5MG INH SOL UD 3ML (DUONEB) NEB SCH ×6 (04:00→23:13)
[2020-05-06 06:26] LABS: HEMATOCRIT 27.6 % (36.0-47.0); HEMOGLOBIN 8.8 g/dl (12.0-15.5); MEAN CORPUSCULAR HGB CONC 31.9 g/dl (32.0-36.5); MEAN CORPUSCULAR VOLUME 100.4 fl (80.0-96.0); PLATELET COUNT, AUTOMATED 103 10^3/uL (150-450); RED BLOOD COUNT 2.75 10^6/uL (4.00-5.40); WHITE BLOOD COUNT 4.8 10^3/uL (4.0-10.0)
[2020-05-06] MEDS: OCTREOTIDE ACETATE 100MCG/ML VIAL (J2354 PER 25MCG) SC SCH ×3 (06:54→20:54)
[2020-05-06] MEDS: SODIUM CHLORIDE 0.9% INJ 10 ML SYR IV SCH ×2 (06:54→18:00)
[2020-05-06] MEDS: SLF 3 ML SYR IV SCH ×3 (06:55→20:54)
[2020-05-06 07:03] LABS: ALBUMIN 2.5 GM/DL (3.2-5.2); BILIRUBIN,TOTAL 2.9 MG/DL (0.2-1.0); CALCIUM LEVEL 8.7 MG/DL (8.8-10.2); CREATININE FOR GFR 1.68 MG/DL (0.55-1.30); GLOMERULAR FILTRATION RATE 32.9 (>45); POTASSIUM SERUM 3.7 MEQ/L (3.5-5.1); TOTAL PROTEIN 5.4 GM/DL (6.4-8.2)
[2020-05-06 08:00] VITALS: BP 92/52
[2020-05-06] MEDS: ADVAIR HFA 230/21MCG INHALER INH SCH ×2 (08:31→20:28)
[2020-05-06] MEDS: LACTULOSE 20 GM/30 ML SYRUP UD PO SCH ×2 (11:19→20:54)
[2020-05-06] MEDS: PIPERACILLIN/TAZOBACTAM SOD 4.5 GM in D5W MINI-BAG PLUS 50 ML IV SCH ×2 (11:19→20:54)
[2020-05-06] MEDS: ASCORBIC ACID 500 MG TAB PO SCH (11:20)
[2020-05-06] MEDS: MIDODRINE 5 MG TAB PO SCH ×3 (11:20→19:14)
[2020-05-06] MEDS: VITAMIN D 1,000 INTERNATIONAL UNITS TABLET PO SCH (11:21)
[2020-05-06] MEDS: SPIRONOLACTONE 12.5MG PER 1/2 TABLET PO SCH ×2 (11:21→19:14)
[2020-05-06] MEDS: PANTOPRAZOLE 40MG VIAL (C9113 PER 1) IV SCH (11:22)
[2020-05-06] MEDS: FOLIC ACID 1 MG TAB NG SCH (11:22)
[2020-05-06] MEDS: MULTIVITAMINS/MINERALS THERAP 1 TAB PO SCH (11:22)
[2020-05-06] MEDS: VANICREAM MOISTURIZING SKIN CREAM 113GM TUBE TOP SCH ×2 (11:23→20:55)
[2020-05-06] MEDS: CHLORHEXIDINE GLUCONATE 0.12 % 15ML UDC (PERIDEX ORAL RINSE) SSP SCH ×3 (11:23→20:54)
[2020-05-06 12:00] VITALS: BP 90/52
--- NOTE | 2020-05-06 19:09 | IPNPDOC ---
Date Seen The patient was seen on 05/06/20. Progress Note SUBJECTIVE: BP soft, making good urine today without daniels cath or straight cath. Cultures from paracentesis 05/05/20 pending. ID reconsulted to evaluate. Denies chest pain, abd pain, shortness of breath. OBJECTIVE: PHYSICAL EXAM: VS: Please see below General: NAD, resting at bedside chair, AAOx 3 HEENT: NC/AT, yellow sclera-chronic Lungs: CTA B/L Heart: +S1S2, RRR Abd: soft, nontender, +BS, multiple wel healing scars on abd wall Ext: Lower ext edema b/l with R>L Neuro: CN intact, no focal deficits LABORATORY: PLEASE SEE BELOW MICRO: Ascitic fluid Cx 04/30/20: CITROBACTER AMALONATICUS Repeat Ascitic fluid Cx 05/04/20: pending ASSESSMENT: 64-year-old female with history of cirrhosis, colon cancer status post right colectomy on 04/07 complicated with hematoma, presenting with altered mental status. Ammonia found to be 186 in the ER will be admitted for management of acute hepatic encephalopathy. PLAN: #SBP -Ascitic fluid cx 04/30/20: citrobacter -WBC wnl, afebrile, abdominal tenderness resolved. BP remains lower than normal -Discussed case with Dr. Garcia, reconsulted infectious disease -Will keep Zosyn until 05/07/20 then d/c. Will switch to levofloxacin (stated prior "allergy" was redness of ear). -F/u repeat ascitic fluid cx, when results return Dr. Carpio (GI) would like to be notified -F/u Dr. Garcia recommendations #Acute kidney injury on CKD Stage II likely 2/2 to hepatorenal syndrome. Previously had diarrhea, dehydration, urinary retention -Cr further improved to 1.68, U/o slightly improved without daniels, straight cath -Daily labs -Nephrology following closely #Decompensating liver cirrhosis with hepatorenal syndrome, resolved hepatic e ncephalopathy - Ammonia level 30's, - Bili improving, AST/ALT wnl - C/w spironolactone, lactulose BID with TERI, rifaximin, octreotide - Nephro and GI here (Dr. Moran) consulted. - To update GI provider Dr. Bailee Carpio - [phone] when paracentesis cultures return #Hypotension possibly 2/2 to hepatorenal syndrome -Midodrine incr to 10 mg TID -F/u closely #Thrombocytopenia, acute -PLTs impr 103 -4 T's score: 2-3= low probability for Heparin induced thrombocytopenia -Stopped Heparin SC 04/24/20 -F/u CBC in the AM #Acute on chronic anemia -No s/s of acute bleed -h/H low but stable -Daily CBC #Hyponatremia likely 2/2 to decompensating liver disease -Follow labs #Adenocarcinoma of colon s/p laparoscopic transverse colectomy by Dr. Carpio 04/07 -Surgery following, Maura and FRANCES drain removed this admission. #Physical deconditioning -Home when cleared by medical #COPD - stable - resume inhalers, nebs #GI px - PPI #DVT px -SCD, teds Resolved issues: #Hypokalemia, acute and possibly 2/2 to diarrhea #Diarrhea 2/2 to lactulose #Lactic acidosis likely 2/2 to dehydration #Metabolic acidosis likely 2/2 to diarrhea 2/2 to lactulose use, lactic acidosis #Hyperkalemia likely 2/2 to potassium supplementation, renal failure DISPOSITION: Nephrology, GI from [place] following closely. Home when medically improved. F/u ID recommendations. VS, I&O, 24H, Fishbone Vital Signs/I&O Vital Signs Date Time Temp Pulse Resp B/P (MAP) Pulse Ox O2 Delivery O2 Flow Rate FiO2 05/06/20 12:00 97.9 76 18 90/52 (65) 100 Room Air I&O- Last 24 Hours up to 6 AM 05/06/20 06:00 Intake Total 420 ml Output Total 1201 ml Balance -781 ml Laboratory Data 24H LABS Laboratory Tests 2 05/06/20 06:21: Nucleated Red Blood Cells % (auto) 0.0, Anion Gap 11, Glomerular Filtration Rate 32.9L, Calcium Level 8.7L, Total Bilirubin 2.9H, Aspartate Amino Transf (AST/SGOT) 25, Alanine Aminotransferase (ALT/SGPT) 19, Alkaline Phosphatase 54, Total Protein 5.4L, Albumin 2.5L, Albumin/Globulin Ratio 0.9L CBC/BMP Laboratory Tests 05/06/20 06:21 Microbiology Microbiology 05/04/20 Gram Stain - Final, Resulted 05/04/20 Body Fluid Culture, Resulted Pending 04/30/20 Blood Culture - Final, Complete NO GROWTH AFTER 5 DAYS 04/30/20 Gram Stain - Final, Complete 04/30/20 Body Fluid Culture - Final, Complete Citrobacter Amalonaticus 04/30/20 Anaerobic Culture - Final, Complete 04/30/20 Stool Occult Blood (SERGEY) - Final, Complete Current Medications Current Medications Medications (Trade) Dose Ordered Sig/Chavez Route PRN Reason Start Time Stop Time Status Last Admin Dose Admin Albuterol Sulfate (Proventil Neb) 2.5 mg BIDP PRN NEB SOB/WHEEZING 04/25/20 12:00 05/01/20 23:46 Albuterol Sulfate (Proventil Neb) 3 mg BIDP PRN INH SOB/WHEEZING 04/19/20 02:00 04/19/20 02:58 DC Albuterol/ Ipratropium (Duoneb (Ipr 0.5mg/Alb 2.5mg)) 3 ml Q2HP PRN NEB SOB/WHEEZING 05/03/20 16:45 Albuterol/ Ipratropium (Duoneb (Ipr 0.5mg/Alb 2.5mg)) 3 ml RQ4H NEB 05/03/20 20:00 05/06/20 16:11 Ascorbic Acid (Vitamin C) 1,000 mg DAILY PO 04/19/20 09:00 05/06/20 11:20 Calcium Carbonate (Tums) 500 mg Q6HP PRN PO INDIGESTION 04/25/20 12:00 04/28/20 16:28 Ceftriaxone Sodium 1 gm/ Dextrose 50 ml @ 100 mls/hr Q24H IV 04/19/20 03:00 04/19/20 02:07 DC Ceftriaxone Sodium 2 gm/ Dextrose 50 ml @ 50 mls/hr Q24H IV 04/19/20 03:00 04/23/20 07:58 DC 04/23/20 03:13 Chlorhexidine Gluconate (Peridex Oral Rinse) 15 ml TID SSP 04/25/20 09:00 05/05/20 21:07 Dextrose (Dextrose 50%) 50 ml STAT STAT IV 04/27/20 08:05 04/27/20 08:09 DC 04/27/20 08:42 Dextrose/Sodium Chloride 1,000 ml @ 100 mls/hr Q10H IV 04/21/20 23:45 04/24/20 11:17 DC 04/24/20 00:11 Docusate Sodium (Colace) 100 mg BID PO 04/27/20 09:00 04/30/20 12:10 DC 04/28/20 20:24 Emollient Cream (Vanicream) Use on lower extremities BID TOP 04/24/20 21:00 05/06/20 11:23 Folic Acid (Folic Acid) 1 mg DAILY NG 04/20/20 09:00 05/06/20 11:22 Folic Acid (Folic Acid) 1 mg DAILY PO 04/20/20 09:00 04/20/20 17:17 DC Furosemide (Lasix) 40 mg DAILY PO 04/24/20 09:00 04/25/20 20:27 DC 04/24/20 12:10 Haloperidol (Haldol) 2 mg Q6HP PRN IV AGITATION/ANXIETY 04/21/20 20:30 04/23/20 13:53 DC 04/22/20 04:20 Heparin Sodium (Heparin (Flush)) 200 units ASDIRECTED PRN IV SEE LABEL COMMENTS 04/29/20 18:00 05/03/20 22:21 Heparin Sodium (Heparin (Flush)) 200 units PICC IV 04/29/20 18:00 05/06/20 19:15 Heparin Sodium (Porcine) (Heparin) 5,000 units Q8H SC 04/19/20 06:00 04/24/20 11:31 DC 04/24/20 05:46 Home Med (Med Rec Complete!) ASDIRECTED XX 04/18/20 21:30 04/18/20 21:22 DC Insulin Human Regular (HumuLIN R INSULIN) 10 units STAT STAT IV 04/27/20 08:05 04/27/20 08:09 DC 04/27/20 08:42 Lactated Ringer's 1,000 ml @ 125 mls/hr Q8H IV 04/21/20 12:15 04/21/20 23:44 DC 04/21/20 21:33 Lactulose (Cephulac) 15 ml BID PO 05/02/20 21:00 05/06/20 11:19 Lactulose (Cephulac) 15 ml TID PO 04/30/20 16:00 05/02/20 12:42 DC 05/01/20 15:43 Lactulose (Cephulac) 30 ml BID NG 04/25/20 09:00 04/25/20 20:24 DC 04/25/20 10:01 Lactulose (Cephulac) 30 ml Q4H NG 04/20/20 18:00 04/23/20 13:43 DC 04/23/20 10:05 Lactulose (Cephulac) 30 ml Q6H NG 04/19/20 14:00 04/20/20 17:17 DC 04/20/20 14:52 Lactulose (Cephulac) 30 ml QID NG 04/24/20 09:00 04/24/20 18:35 DC 04/24/20 16:42 Lactulose (Cephulac) 30 ml TID NG 04/23/20 16:00 04/24/20 08:57 DC 04/23/20 20:51 Lactulose (Cephulac) 30 ml TID NG 04/25/20 09:00 04/25/20 08:51 DC Levalbuterol HCl (Xopenex Hfa) 2 puff QID PRN INH SHORTNESS OF BREATH 04/19/20 02:00 04/30/20 07:45 Levofloxacin (Levaquin) 250 mg DAILY@0600 PO 05/08/20 06:00 Lorazepam (Ativan) 0.5 mg ASDIRECTED PRN IV SEE PROTOCOL 04/21/20 12:15 04/22/20 19:26 DC 04/22/20 02:20 Lorazepam (Ativan) 1 mg STAT STAT IV 04/19/20 16:38 04/19/20 16:40 DC 04/19/20 16:46 Lorazepam (Ativan) 1 mg STAT STAT IV 04/19/20 16:55 04/19/20 16:56 DC 04/19/20 17:02 Lorazepam (Ativan) 2 mg ASDIRECTED PRN IV SEE PROTOCOL 04/20/20 12:30 04/21/20 12:14 DC 04/21/20 03:04 Lorazepam (Ativan) 2 mg ASDIRECTED PRN PO SEE PROTOCOL 04/19/20 21:15 04/20/20 12:26 DC Midodrine (Proamatine) 5 mg 08,12,16 PO 04/27/20 16:00 04/28/20 12:10 DC 04/28/20 11:16 Midodrine (Proamatine) 10 mg 08,12,16 PO 04/28/20 16:00 05/06/20 19:14 Miscellaneous (Unresolved Clarification Entry) SEE LABEL COMMENTS DAILY XX 05/05/20 09:00 05/05/20 10:15 DC Multivitamins (Theragram-M) 1 tab DAILY PO 04/20/20 09:00 05/06/20 11:22 Nicotine (Nicorette) 4 mg Q2HP PRN PO NICOTINE WITHDRAWAL 04/29/20 20:45 05/05/20 21:09 Octreotide Acetate (SandoSTATIN) 100 mcg Q8H SC 04/28/20 14:00 05/06/20 11:22 Pantoprazole Sodium (Protonix) 20 mg DAILY PO 04/19/20 09:00 04/20/20 19:05 DC Pantoprazole Sodium (Protonix) 40 mg BID IV 04/30/20 21:00 05/02/20 10:24 DC 05/02/20 09:18 Pantoprazole Sodium (Protonix) 40 mg DAILY IV 05/03/20 09:00 05/06/20 11:22 Pantoprazole Sodium (Protonix) 40 mg DAILY PO 04/24/20 09:00 04/30/20 21:38 DC 04/30/20 08:47 Pantoprazole Sodium (Protonix) 40 mg DAILY@2100 IV 04/20/20 21:00 04/23/20 13:53 DC 04/22/20 21:05 Patiromer (Veltassa) 16.8 gm STAT STAT PO 04/27/20 13:12 04/27/20 13:15 DC 04/27/20 13:35 Piperacillin Sod/ Tazobactam Sod 4.5 gm/Dextrose 50 ml @ 50 mls/hr Q12H IV 04/30/20 21:30 05/06/20 23:00 05/06/20 11:19 Polyethylene Glycol (Miralax) 1 pkt DAILYPRN PRN PO CONSTIPATION 04/27/20 13:30 Cancel Potassium Chloride (Micro-K Extencaps) 10 meq TID PO 04/19/20 09:00 04/23/20 07:59 DC 04/21/20 17:43 Potassium Chloride (Micro-K Extencaps) 20 meq BID PO 04/23/20 09:00 04/27/20 08:09 DC 04/26/20 20:49 Rifaximin (Xifaxan) 400 mg TID NG 04/20/20 09:00 05/06/20 11:20 Rifaximin (Xifaxan) 400 mg TID PO 04/19/20 09:00 04/20/20 10:51 DC Salmeterol Xinafoate/ Fluticasone (Advair Hfa 115/ ) 2 puff DAILY@0800 INH 04/19/20 08:00 04/24/20 18:32 DC 04/24/20 06:20 Salmeterol Xinafoate/ Fluticasone (Advair Hfa 230/ ) 2 puff RBID INH 04/24/20 20:00 05/06/20 08:31 Sodium Bicarbonate 150 meq/Dextrose/Water 1,150 ml @ 80 mls/hr [id number] IV 04/27/20 14:00 04/28/20 10:56 DC 04/28/20 01:32 Sodium Bicarbonate (Sodium Bicarbonate) 50 meq STAT STAT IV 04/27/20 13:33 04/27/20 13:34 DC 04/27/20 13:56 Sodium Chloride 1,000 ml @ 70 mls/hr [id number] IV 04/20/20 18:00 04/21/20 12:14 DC 04/21/20 09:09 Sodium Chloride 1,000 ml @ 85 mls/hr [id number] IV 04/25/20 08:45 04/27/20 11:51 DC 04/27/20 08:53 Sodium Chloride (Saline Lock Flush) 2 ml ASDIRECTED PRN IV SEE LABEL COMMENTS 04/19/20 17:00 Sodium Chloride (Saline Lock Flush) 2 ml SLF IV 04/19/20 22:00 05/06/20 06:55 Sodium Chloride (Saline Lock Flush) 10 ml ASDIRECTED PRN IV SEE LABEL COMMENTS 04/29/20 18:00 05/03/20 22:21 Sodium Chloride (Saline Lock Flush) 10 ml PICC IV 04/29/20 18:00 05/06/20 18:00 Spironolactone (Aldactone) 12.5 mg PO 05/04/20 12:00 05/06/20 19:14 Spironolactone (Aldactone) 100 mg DAILY PO 04/19/20 09:00 04/25/20 20:27 DC 04/24/20 09:28 Thiamine HCl (Thiamine HCl) 100 mg BID NG 04/20/20 21:00 04/23/20 09:02 DC 04/23/20 10:05 Thiamine HCl (Thiamine HCl) 100 mg BID PO 04/19/20 21:00 04/20/20 17:17 DC Tramadol HCl (Ultram) 25 mg Q6HP PRN PO MODERATE PAIN (PS 5-7) 04/25/20 12:00 05/03/20 03:57 Vancomycin HCl 1000 mg/IV Miscellaneous Supplies 1 each/ Dextrose 270 ml @ 270 mls/hr Q12H IV 04/23/20 08:00 04/23/20 09:04 DC Vancomycin HCl 1000 mg/IV Miscellaneous Supplies 1 each/ Dextrose 270 ml @ 270 mls/hr Q12H IV 04/23/20 21:00 04/24/20 20:27 DC 04/24/20 09:27 Vancomycin HCl 1000 mg/IV Miscellaneous Supplies 1 each/ Dextrose 270 ml @ 270 mls/hr Q18H IV 04/25/20 00:00 04/25/20 11:17 DC 04/25/20 00:25 Vitamin D (Vitamin D) 2,000 units DAILY PO 04/19/20 09:00 05/06/20 11:21 Allergies Coded Allergies: Sulfa (Sulfonamide Antibiotics) (Verified Allergy, Intermediate, HIVES, 05/06/20) tetracycline (Verified Allergy, Intermediate, HIVES, 05/06/20) levofloxacin (Unverified Adverse Reaction, Mild, REDNESS TO EAR, 05/06/20) Katharina Sam MD May 06, 2020 19:09
--- NOTE | 2020-05-06 19:40 | IPN ---
PROGRESS NOTE DATE: 05/06/2020 Mrs. Herzog is seen this morning on her bedside. She is in good spirits today and reports feeling well. She denies feeling any dizziness or lightheadedness. She had her paracentesis done yesterday and cell count was repeated; 1800 mL of fluid was removed. She tolerated the procedure well. Peritoneal fluid cell count was 18,656 on April 30, 2020 and came down to 316 on May 04, 2020. Her blood pressure has been somewhat low; however, she is completely asymptomatic and ambulating in the room. PHYSICAL EXAMINATION: Temperature 98.6 degrees Fahrenheit, heart rate 78 per minute, respiratory rate 18 per minute, blood pressure 92/52 mmHg, oxygen saturation 99% on room air. HEAD: Atraumatic. NECK: Supple and jugular venous distention (JVD) not abnormally elevated. HEART SOUNDS: Regular. LUNGS: Clear to auscultation. ABDOMEN: Soft and ascites is much improved. Bowel sounds are normal. EXTREMITIES: Without any cyanosis or clubbing. Lower extremity edema is still about 2+. NEUROLOGIC: She is awake, alert and oriented times three. LABORATORY DATA: Today's labs show sodium 142, potassium 3.7, chloride 110, CO2 21, BUN 17, creatinine 1.68, glucose 106, calcium 8.7. Total protein 5.4, albumin 2.5. WBC 4.8, hemoglobin 8.8, hematocrit 27.6. PROBLEMS: 1. Acute kidney injury superimposed on chronic kidney disease. Kidney function is gradually improving. Seems to have increased urine output. At present, no intervention is needed. 2. Recurrent ascites with cirrhosis of liver. The patient had another paracentesis done and 1800 mL of ascites was drained. 3. Peritonitis. She had subacute bacterial peritonitis for which she is being treated with antibiotics and seems to be doing much better with improved white blood cell count in the peritoneal fluid. 4. Hypotension. Blood pressure has been persistently low; however, patient has been completely asymptomatic. No intervention is needed at present. 5. Anemia. At present, her anemia is stable and gradually improving. We will continue to monitor closely. There is no urgent need for a transfusion.
[2020-05-06 20:00] VITALS: BP 99/51
[2020-05-06] MEDS: NICOTINE POLACRILEX 2 MG GUM PO PRN (20:54)
[2020-05-07] VITALS: BP 104/56
[2020-05-07] MEDS: IPRATROPIUM 0.5MG/ALBUTEROL 2.5MG INH SOL UD 3ML (DUONEB) NEB SCH ×3 (03:30→12:00)
[2020-05-07 04:00] VITALS: BP 102/53
[2020-05-07] MEDS: SODIUM CHLORIDE 0.9% INJ 10 ML SYR IV SCH (05:54)
[2020-05-07] MEDS: OCTREOTIDE ACETATE 100MCG/ML VIAL (J2354 PER 25MCG) SC SCH ×2 (05:54→13:13)
[2020-05-07] MEDS: SLF 3 ML SYR IV SCH (06:00)
[2020-05-07] MEDS ORDERED: LevoFLOXacin 500 MG TABLET PO ONE (06:00)
[2020-05-07 06:08] LABS: HEMOGLOBIN 9.1 g/dl (12.0-15.5); MEAN CORPUSCULAR HEMOGLOBIN 31.6 pg (27.0-33.0); MEAN CORPUSCULAR HGB CONC 31.4 g/dl (32.0-36.5); MEAN CORPUSCULAR VOLUME 100.7 fl (80.0-96.0); PLATELET COUNT, AUTOMATED 109 10^3/uL (150-450); RED BLOOD COUNT 2.88 10^6/uL (4.00-5.40); WHITE BLOOD COUNT 5.8 10^3/uL (4.0-10.0)
[2020-05-07 06:49] LABS: ALBUMIN 2.7 GM/DL (3.2-5.2); BILIRUBIN,TOTAL 2.9 MG/DL (0.2-1.0); CALCIUM LEVEL 8.8 MG/DL (8.8-10.2); CREATININE FOR GFR 1.64 MG/DL (0.55-1.30); GLOMERULAR FILTRATION RATE 33.8 (>45); POTASSIUM SERUM 3.7 MEQ/L (3.5-5.1); TOTAL PROTEIN 5.7 GM/DL (6.4-8.2)
[2020-05-07] MEDS: ADVAIR HFA 230/21MCG INHALER INH SCH (07:32)
[2020-05-07 07:51] VITALS: BP 96/52
[2020-05-07] MEDS ORDERED: LACT20EL PO (08:19)
[2020-05-07] MEDS ORDERED: XIFA200T2 NG (08:19)
[2020-05-07] MEDS ORDERED: ALDA25TA2 PO (08:19)
[2020-05-07] MEDS ORDERED: LEVO250T12 PO (08:19)
[2020-05-07] MEDS ORDERED: MIDO5TA PO (08:19)
[2020-05-07] MEDS ORDERED: OCTR100I SC (08:19)
--- NOTE | 2020-05-07 08:25 | IPN ---
PROGRESS NOTE DATE: 05/06/2020 SUBJECTIVE: I was asked by Dr. Sam to see the patient again about spontaneous bacterial peritonitis. The patient had a paracentesis on April 30, because of hypotension and encephalopathy, with elevated ammonia. Peritoneal fluid had 18,656 white cells with 20% mononuclear cells, 81% PMNs, total protein was 1.8, and fluid albumin 1. Repeat paracentesis done today the peritoneal fluid had 316 white cells with 14% PMNs. Peritoneal fluid culture was positive for Citrobacter amalonaticus on 04/30, sensitive to levofloxacin. Blood cultures were negative. Cultures from 05/04 are still pending. OBJECTIVE: VITAL SIGNS: Temperature is 96.4, pulse 76, respirations 18, blood pressure 99/51. HEENT: Pupils equal and reactive. Icteric sclerae, but much improved compared to admission. HEART: Normal S1, S2. LUNGS: Diminished breath sounds at the bases. ABDOMEN: With ascites. EXTREMITIES: +1 ankle edema. NEUROLOGIC: The patient is alert and oriented x3. Sitting in her chair anxious to go home. Dressed in regular nonhospital clothes and has makeup on. IMPRESSION: 1. Spontaneous bacterial peritonitis with culture positive for Citrobacter on IV Zosyn currently day #6. Repeat peritoneal fluid shows marked improvement in white cells. The patient can be switched to levofloxacin for five days. The patient states her allergy to Levaquin was a red ear, and she does not think it was a real allergic reaction and has taken it at least a couple of times before. The patient is willing to try levofloxacin tomorrow. 2. Hypotension. The patient is asymptomatic in midodrine. 3. Liver cirrhosis with hepatorenal syndrome improving with ascites stable. Patient had paracentesis done with 1800 mL drained. PLAN: Zosyn 4.5 grams IV every 12 hours currently day #6, started on 04/30 and will be discontinued tomorrow. Start levofloxacin 500 mg p.o. tomorrow and then 250 mg daily for five days. From an infectious disease standpoint, the patient can be discharged home. Patient also would be a candidate for spontaneous bacterial peritonitis (SBP) prophylaxis to prevent recurrent peritonitis, as she is at high risk of recurrence because her ascites fluid total protein is less than 1.5 and she has impaired renal function and liver failure; especially in a patient who has had one or more episodes of SBP, the chance of recurrent SBP would be up to 70%. Choices of antibiotics would be either Bactrim, but the patient is allergic, or ciprofloxacin 500 mg per day, which should be discussed with her hospital receiving clerk.
[2020-05-07] MEDS: LACTULOSE 20 GM/30 ML SYRUP UD PO SCH (09:18)
[2020-05-07] MEDS: CHLORHEXIDINE GLUCONATE 0.12 % 15ML UDC (PERIDEX ORAL RINSE) SSP SCH (09:18)
[2020-05-07] MEDS: PANTOPRAZOLE 40MG VIAL (C9113 PER 1) IV SCH (09:18)
[2020-05-07] MEDS: MIDODRINE 5 MG TAB PO SCH ×2 (09:18→13:13)
[2020-05-07] MEDS: SPIRONOLACTONE 12.5MG PER 1/2 TABLET PO SCH (09:18)
[2020-05-07] MEDS: VANICREAM MOISTURIZING SKIN CREAM 113GM TUBE TOP SCH (09:19)
[2020-05-07] MEDS: ASCORBIC ACID 500 MG TAB PO SCH (09:19)
[2020-05-07] MEDS: MULTIVITAMINS/MINERALS THERAP 1 TAB PO SCH (09:19)
[2020-05-07] MEDS: FOLIC ACID 1 MG TAB NG SCH (09:19)
[2020-05-07] MEDS: VITAMIN D 1,000 INTERNATIONAL UNITS TABLET PO SCH (09:19)
[2020-05-07] MEDS ORDERED: PROB250C PO (10:23)
--- NOTE | 2020-05-07 18:33 | IPN ---
NEPHROLOGY PROGRESS NOTE DATE: 05/07/2020 SUBJECTIVE: Mrs. Herzog is seen this morning at her bedside. She is feeling well and currently sitting in the chair. She reports feeling more energetic and wants to go home. She denies any dizziness even though her blood pressure has been just about 100 mm of mercury systolic. She denies any nausea or vomiting. PHYSICAL EXAMINATION: VITAL SIGNS: Temperature 98.5 degrees Fahrenheit, heart rate 80 per minute, respiratory rate 18 per minute, blood pressure 96/52 mm of mercury and oxygen saturation 100% on room air. HEENT: Head is atraumatic. NECK: Supple and without any JVD or thyroid enlargement. LUNGS: Clear to auscultation. HEART: Regular. ABDOMEN: Small amount of ascites and is nontender. Bowel sounds are normal. EXTREMITIES: Without any cyanosis or clubbing. Lower extremity edema is 2+. NEUROLOGICAL: Awake, alert and oriented x3. LABORATORY STUDIES: Today's labs show a white blood cell count of 5.8, hemoglobin 9.1 and hematocrit 29.0, platelets 109. Sodium 141, potassium 3.7, chloride 109, CO2 20, BUN 16 and creatinine 1.64. Glucose 112 and calcium 8.8. Her total protein is 5.7 and albumin has improved to 2.7. PROBLEMS: 1. Acute kidney injury superimposed on chronic kidney disease - kidney function seems to be slightly improved since yesterday. At this point I am anticipating either kidney function will level off or gradually improve further. Electrolytes have been stable. 2. Cirrhosis of the liver with ascites - The patient did have a paracentesis done on the at 1,800 mL of fluid was removed. She seems to be doing well and remains on low dose Spironolactone in view of low blood pressure. 3. SBP subacute bacterial peritonitis - The patient remains on antibiotics and is gradually improving. Repeat culture on her peritoneal fluid has been negative so far. She should complete 2 weeks of antibiotic therapy. 4. Anemia her anemia is gradually improving and she will be followed up as an outpatient. No other intervention is needed at present. 5. Hypotension - blood pressure remains low and she will continue with Midodrine after discharge. Most of the diuretics have been on hold. 6. Disposition from a renal standpoint the patient can be discharged today and follow up in our clinic in 1-2 weeks as an outpatient.
--- NOTE | 2020-05-07 19:04 | DS.PDOC ---
Discharge Summary General Date of Admission Apr 19, 2020 at 01:56 Date of Discharge 05/07/20 Attending Physician: Katharina Sam MD Discharge Summary HISTORY OF PRESENT ILLNESS: 64-year-old female with history of cirrhosis, COPD, colon cancer status post laporoscopic transverse colectomy on 04/07, presenting with altered mental status. Ammonia found to be 186 in the ER. Patient is opening eyes, but is not able to provide history. Pertinent labs include WBC 11.6. Ammonia 1876. Total bili 7.7, direct bili 3.7. She is afebrile. Patient unable to tell me if she has abdominal pain. Was admitted o 04/19/20 for management of acute hepatic encephalopathy as well as possible sepsis from SBP. HOSPITAL COURSE: Patient had a long and complicated hospital course. Her hyperammonemia improved over time with lactulose; however, due to incr diarrhea patient developed metaolic acidosis with lactic acidosis. SBP was of concern for infection and she was treated with IV abx. Paracentesis showed citerobacter and repeat paracentesis showed resolution of infection. Concominantly her decompensating liver cirrhosis showed to stabilize and improve slightly but there was concern with developed hepatorenal syndrome. Nephrology was consulted and recommended continuation of lactulose, rifaximin, octreotide. Later, when Cr improved, spironolactone was reintroduced. BP was soft and this was believed to be 2/2 to liver failure, midodrine was started. She was started later by ID on PO levofl oxacin which patient tolerated well. Resolved issues this hospitalization include: Hypokalemia possibly 2/2 to diarrhea, Diarrhea 2/2 to lactulose, Lactic acidosis likely 2/2 to dehydration, Metabolic acidosis likely 2/2 to lactulose use and lactic acidosis, Hyperkalemia likely 2/2 to potassium supplementation and renal failure . By 05/07/20 patient was much improved. She is to continue PO levofloxacin for 7 days and f/u with GI. At that time they will decide whether or not to continue with SBP prophylaxis. She will also follow up with nephrology as outpatient. For hypotension, she is to continue midodrine, she is not symptomatic. She will also be discharged with walker per PT/OT. PAST MEDICAL HISTORY: Cirrhosis Colon cancer COPD Anxiety Depression PAST SURGICAL HISTORY: Uterine ablation Septoplasty Right colectomy (04/07/20) SOCIAL HISTORY: former smoker, 20 pack hx etoh use disorder? FAMILY HISTORY: Father: at 64 years old. History of DM Mother: at 78 years old. History of lung cancer and from pneumonia ALLERGIES: Please see below. DISCHARGE MEDICATIONS: Please see below. PHYSICAL EXAM: VS: Please see below General: NAD, resting at bedside chair, AAOx 3 HEENT: NC/AT, yellow sclera-chronic Lungs: CTA B/L Heart: +S1S2, RRR Abd: soft, nontender, +BS, multiple well healing scars on abd wall Ext: Lower ext edema b/l with R>L Neuro: CN intact, no focal deficits LABORATORY: PLEASE SEE BELOW MICRO: Ascitic fluid Cx 04/30/20: CITROBACTER AMALONATICUS Repeat Ascitic fluid Cx 05/04/20:No growth ASSESSMENT: 64-year-old female with history of cirrhosis, colon cancer status post right colectomy on 04/07 complicated with hematoma, presenting with altered mental status. Ammonia found to be 186 in the ER will be admitted for management of acute hepatic encephalopathy. PLAN: #SBP -Ascitic fluid cx 04/30/20: citrobacter. Repeat cx showed NG -WBC wnl, afebrile, abdominal tenderness resolved. BP remains lower than normal -Discussed case with Dr. Garcia, infectious disease -Discharged today with 7 days of levofloxacin. Discussed with Dr. Carpio (GI) about them starting SBP prophylaxis after 7 days, when patient follows up with them. #Acute kidney injury on CKD Stage II likely 2/2 to hepatorenal syndrome. Previously had diarrhea, dehydration, urinary retention -Cr improving slowly, U/o slightly improved without daniels, straight cath and now she is making good urine on her own -Nephrology to f/u with patient after d/c #Decompensating liver cirrhosis with hepatorenal syndrome, resolved hepatic encephalopathy - Ammonia level 30's - Bili improving, AST/ALT wnl - C/w spironolactone, lactulose BID , rifaximin, octreotide at discharge. - To follow up with GI provider Dr. Bailee Carpio #Hypotension possibly 2/2 to hepatorenal syndrome -Midodrine incr to 10 mg TID #Thrombocytopenia, acute -PLTs impr 103 -4 T's score: 2-3= low probability for Heparin induced thrombocytopenia #Acute on chronic anemia -No s/s of acute bleed -h/H low but stable -Daily CBC #Hyponatremia likely 2/2 to decompensating liver disease -Follow labs #Adenocarcinoma of colon s/p laparoscopic transverse colectomy by Dr. Carpio 04/07 -Surgery following, [place] and FRANCES drain removed this admission. #Physical deconditioning -Home with walker #COPD - stable - resume inhalers, nebs #GI px - PPI #DVT px -SCD, teds Resolved issues: #Hypokalemia, acute and possibly 2/2 to diarrhea #Diarrhea 2/2 to lactulose #Lactic acidosis likely 2/2 to dehydration #Metabolic acidosis likely 2/2 to diarrhea 2/2 to lactulose use, lactic acidosis #Hyperkalemia likely 2/2 to potassium supplementation, renal failure DISPOSITION: Nephrology, GI from [facility] and PCP to follow up after discharge. TIME SPENT ON DISCHARGE: Greater than 30 minutes. Vital Signs/I&Os Vital Signs Date Time Temp Pulse Resp B/P (MAP) Pulse Ox O2 Delivery O2 Flow Rate FiO2 05/07/20 07:51 98.5 80 18 96/52 (67) 100 Room Air I&O- Last 24 Hours up to 6 AM 05/07/20 05:59 Intake Total 1110 ml Output Total 1100 ml Balance 10 ml Laboratory Data Labs 24H Laboratory Tests 2 05/07/20 05:52: Nucleated Red Blood Cells % (auto) 0.0, Anion Gap 12, Glomerular Filtration Rate 33.8L, Calcium Level 8.8, Total Bilirubin 2.9H, Aspartate Amino Transf (AST/SGOT) 31, Alanine Aminotransferase (ALT/SGPT) 23, Alkaline Phosphatase 59, Total Protein 5.7L, Albumin 2.7L, Albumin/Globulin Ratio 0.9L CBC/BMP Laboratory Tests 05/07/20 05:52 Microbiology Microbiology 05/04/20 Gram Stain - Final, Complete 05/04/20 Body Fluid Culture - Final, Complete 04/30/20 Blood Culture - Final, Complete NO GROWTH AFTER 5 DAYS 04/30/20 Gram Stain - Final, Complete 04/30/20 Body Fluid Culture - Final, Complete Citrobacter Amalonaticus 04/30/20 Anaerobic Culture - Final, Complete 04/30/20 Stool Occult Blood (SERGEY) - Final, Complete Discharge Medications Scheduled Ascorbic Acid (Vitamin C) 500 Mg Tablet, 1,000 MG PO DAILY, (Reported) Cholecalciferol (Vitamin D3) (Vitamin D3) 1,000 Unit Tablet, 2,000 UNITS PO DAILY, (Reported) Esomeprazole Magnesium (Nexium) 20 Mg Capsule.dr, 20 MG PO DAILY, (Reported) Lactulose (Lactulose) 10 Gm/15 Ml Solution, 15 ML PO BID Levocetirizine Dihydrochloride (Levocetirizine Dihydrochloride) 5 Mg Tablet, 5 MG PO BID, (Reported) Levofloxacin (Levofloxacin) 250 Mg Tablet, 250 MG PO DAILY@0600 Lorazepam (Ativan) 0.5 Mg Tablet, 0.5 MG PO BID, (Reported) Midodrine HCl (Midodrine HCl) 5 Mg Tablet, 10 MG PO 08,12,16 Multivitamins (Thera M Plus Tablet) 1 Each Tablet, 2 TAB PO DAILY, (Reported) Octreotide Acetate (Octreotide Acetate) 100 Mcg/1 Ml Vial, 100 MCG SC Q8H Potassium Chloride (Potassium Chloride) 10 Meq Tab.er.prt, 10 MEQ PO TID, (Reported) Rifaximin (Xifaxan) 200 Mg Tablet, 400 MG NG TID Saccharomyces Boulardii (Probiotic) 250 Mg Capsule, 250 MG PO BIDWM Salmeterol/Fluticasone (Advair 250-50 Diskus) 1 Each Blst.w.dev, 1 PUFF INH DAILY, (Reported) Spironolactone (Aldactone) 25 Mg Tablet, 12.5 MG PO 09,17 Scheduled PRN Albuterol Sulf (Albuterol Sulfate) 2.5 Mg/3 Ml Vial.neb, INH BIDP PRN for SOB/WHEEZING, (Reported) Levalbuterol Tartrate (Levalbuterol Tartrate Hfa) 15 Gm Hfa.aer.ad, 2 PUFFS INH QID PRN for SHORTNESS OF BREATH, (Reported) Oxycodone HCl (Oxycodone HCl) 5 Mg Tablet, 5 MG PO Q4H PRN for PAIN, (Reported) Miscellaneous Medications [med rec comment] , (Reported) used external history and last discharge 04/08/20 for med rec. unable to verify with patient or spouse Allergies Coded Allergies: Sulfa (Sulfonamide Antibiotics) (Verified Allergy, Intermediate, HIVES, 05/06/20) tetracycline (Verified Allergy, Intermediate, HIVES, 05/06/20) levofloxacin (Unverified Adverse Reaction, Mild, REDNESS TO EAR, 05/06/20) Katharina aSm MD May 07, 2020 19:04
[2020-05-08] MEDS ORDERED: LevoFLOXacin 250 MG TABLET PO SCH (06:00)
== END 2020-05-07 15:00 | disposition home health service (06) | DRG 264 ==
LOC: M ED 19:50 → M ED INP 04-19 01:56 → M PCU 04-19 16:25 → M MSPAV 04-23 16:51 → M PCU 05-01 14:54
PROVIDERS: ADMIT Family Medicine; ATTEND Internal Medicine
PROC: 02HV33Z Insertion of Infusion Device into Superior Vena Cava, Percutaneous Approach (ICD-10-PCS; principal; 2020-04-29 15:34)
PROC: 0W9G3ZX Drainage of Peritoneal Cavity, Percutaneous Approach, Diagnostic (ICD-10-PCS; 2020-04-30)
PROC: 0W9G3ZX Drainage of Peritoneal Cavity, Percutaneous Approach, Diagnostic (ICD-10-PCS; 2020-05-05)
DX: K72.00 Acute and subacute hepatic failure without coma (principal); K76.7 Hepatorenal syndrome; N17.9 Acute kidney failure, unspecified; K65.2 Spontaneous bacterial peritonitis; K52.1 Toxic gastroenteritis and colitis; E87.2 Acidosis; I85.10 Secondary esophageal varices without bleeding; I95.89 Other hypotension; D69.6 Thrombocytopenia, unspecified; E87.1 Hypo-osmolality and hyponatremia; E87.5 Hyperkalemia; C18.9 Malignant neoplasm of colon, unspecified; D50.9 Iron deficiency anemia, unspecified; J44.9 Chronic obstructive pulmonary disease, unspecified; B37.3 Candidiasis of vulva and vagina; F41.9 Anxiety disorder, unspecified; B95.2 Enterococcus as the cause of diseases classified elsewhere; B96.89 Other specified bacterial agents as the cause of diseases classified elsewhere; D63.8 Anemia in other chronic diseases classified elsewhere; K70.31 Alcoholic cirrhosis of liver with ascites; F32.9 Major depressive disorder, single episode, unspecified; E87.6 Hypokalemia; R31.9 Hematuria, unspecified; R33.9 Retention of urine, unspecified; T47.3X5A Adverse effect of saline and osmotic laxatives, initial encounter; N18.2 Chronic kidney disease, stage 2 (mild); Z90.49 Acquired absence of other specified parts of digestive tract; Z87.891 Personal history of nicotine dependence; Z79.899 Other long term (current) drug therapy; Z88.1 Allergy status to other antibiotic agents; Z88.2 Allergy status to sulfonamides

== ENCOUNTER → 2020-05-09 | Outpatient (REF) | payer OTHER ==
[~2020-05-09] MED LIST changes: +ALDA25TA2 PO; +ATIV1TAB10 PO; +LACT20EL PO; +LEVO250T12 PO; +MIDO5TA PO; +NEXI20CA PO; +OCTR100I SC; +PROB250C PO; +SPIR50TA4 PO; +TRAM50TA2 PO; +XIFA200T2 NG; +med rec comment
[2020-05-09 13:20] LABS: HEMATOCRIT 32.3 % (36.0-47.0); HEMOGLOBIN 9.9 g/dl (12.0-15.5); MEAN CORPUSCULAR HEMOGLOBIN 31.6 pg (27.0-33.0); MEAN CORPUSCULAR HGB CONC 30.7 g/dl (32.0-36.5); MEAN CORPUSCULAR VOLUME 103.2 fl (80.0-96.0); PLATELET COUNT, AUTOMATED 121 10^3/uL (150-450); RED BLOOD COUNT 3.13 10^6/uL (4.00-5.40); WHITE BLOOD COUNT 7.3 10^3/uL (4.0-10.0)
[2020-05-09 13:58] LABS: ALBUMIN 2.8 GM/DL (3.2-5.2); CALCIUM LEVEL 9.1 MG/DL (8.8-10.2); CREATININE FOR GFR 1.45 MG/DL (0.55-1.30); POTASSIUM SERUM 4.1 MEQ/L (3.5-5.1); TOTAL PROTEIN 6.1 GM/DL (6.4-8.2)
== END ==
LOC: M LAB REF 13:04 → M SHH 13:04
PROVIDERS: ATTEND Internal Medicine Cardiovascular Disease
DX: Z51.81 Encounter for therapeutic drug level monitoring (principal)

== ENCOUNTER → 2020-05-19 | Outpatient (CLI) | payer BC, OTHER ==
[2020-05-19 10:21] LABS: HEMATOCRIT 30.6 % (36.0-47.0); HEMOGLOBIN 9.9 g/dl (12.0-15.5); MEAN CORPUSCULAR HEMOGLOBIN 32.4 pg (27.0-33.0); MEAN CORPUSCULAR HGB CONC 32.4 g/dl (32.0-36.5); PLATELET COUNT, AUTOMATED 133 10^3/uL (150-450); RED BLOOD COUNT 3.06 10^6/uL (4.00-5.40); WHITE BLOOD COUNT 5.7 10^3/uL (4.0-10.0)
[2020-05-19 10:33] LABS: INR 1.49; PROTHROMBIN TIME 18.3 SECONDS (12.5-14.3)
[2020-05-19 10:34] LABS: PARTIAL THROMBOPLASTIN TIME 38.4 SECONDS (24.2-38.5)
[2020-05-19 10:52] LABS: ALBUMIN 2.9 GM/DL (3.2-5.2); BILIRUBIN,TOTAL 4.6 MG/DL (0.2-1.0); CALCIUM LEVEL 8.7 MG/DL (8.8-10.2); CREATININE FOR GFR 1.38 MG/DL (0.55-1.30); GLOMERULAR FILTRATION RATE 41.2 (>45); POTASSIUM SERUM 3.8 MEQ/L (3.5-5.1); TOTAL PROTEIN 6.5 GM/DL (6.4-8.2)
== END ==
LOC: M LAB 09:07
PROVIDERS: ATTEND Surgery
DX: K74.60 Unspecified cirrhosis of liver (principal)

== ENCOUNTER → 2020-05-23 | Outpatient (REF) | payer OTHER ==
[2020-05-23 12:37] LABS: HEMOGLOBIN 9.6 g/dl (12.0-15.5); MEAN CORPUSCULAR HEMOGLOBIN 32.1 pg (27.0-33.0); MEAN CORPUSCULAR VOLUME 100.3 fl (80.0-96.0); PLATELET COUNT, AUTOMATED 147 10^3/uL (150-450); RED BLOOD COUNT 2.99 10^6/uL (4.00-5.40); WHITE BLOOD COUNT 5.9 10^3/uL (4.0-10.0)
[2020-05-23 12:56] LABS: ALBUMIN 2.9 GM/DL (3.2-5.2); BILIRUBIN,TOTAL 3.2 MG/DL (0.2-1.0); CALCIUM LEVEL 9.1 MG/DL (8.8-10.2); CREATININE FOR GFR 1.31 MG/DL (0.55-1.30); GLOMERULAR FILTRATION RATE 43.8 (>45); POTASSIUM SERUM 3.9 MEQ/L (3.5-5.1); TOTAL PROTEIN 6.4 GM/DL (6.4-8.2)
== END ==
LOC: M SHH 12:00
PROVIDERS: ATTEND Internal Medicine Cardiovascular Disease
DX: D64.9 Anemia, unspecified (principal); E78.5 Hyperlipidemia, unspecified

== ENCOUNTER → 2020-05-29 | Outpatient (REF) | payer OTHER ==
[2020-05-29 15:11] LABS: HEMATOCRIT 29.7 % (36.0-47.0); HEMOGLOBIN 9.8 g/dl (12.0-15.5); MEAN CORPUSCULAR HEMOGLOBIN 32.3 pg (27.0-33.0); PLATELET COUNT, AUTOMATED 166 10^3/uL (150-450); RED BLOOD COUNT 3.03 10^6/uL (4.00-5.40); WHITE BLOOD COUNT 6.6 10^3/uL (4.0-10.0)
[2020-05-29 15:26] LABS: INR 1.46; PROTHROMBIN TIME 18.1 SECONDS (12.5-14.3)
[2020-05-29 15:36] LABS: ALBUMIN 2.8 GM/DL (3.2-5.2); BILIRUBIN,TOTAL 2.7 MG/DL (0.2-1.0); CALCIUM LEVEL 9.1 MG/DL (8.8-10.2); CREATININE FOR GFR 1.19 MG/DL (0.55-1.30); GLOMERULAR FILTRATION RATE 48.9 (>45); POTASSIUM SERUM 3.7 MEQ/L (3.5-5.1); TOTAL PROTEIN 6.6 GM/DL (6.4-8.2)
== END ==
LOC: M SHH 14:50 → M LAB REF 14:50
PROVIDERS: ATTEND Internal Medicine Gastroenterology
DX: K70.30 Alcoholic cirrhosis of liver without ascites (principal); K72.90 Hepatic failure, unspecified without coma; C18.4 Malignant neoplasm of transverse colon; I85.00 Esophageal varices without bleeding

== ENCOUNTER → 2020-06-13 | Outpatient (REF) | payer OTHER ==
[2020-06-13 11:39] LABS: HEMATOCRIT 30.1 % (36.0-47.0); HEMOGLOBIN 9.9 g/dl (12.0-15.5); MEAN CORPUSCULAR HEMOGLOBIN 31.6 pg (27.0-33.0); MEAN CORPUSCULAR HGB CONC 32.9 g/dl (32.0-36.5); MEAN CORPUSCULAR VOLUME 96.2 fl (80.0-96.0); PLATELET COUNT, AUTOMATED 173 10^3/uL (150-450); RED BLOOD COUNT 3.13 10^6/uL (4.00-5.40); WHITE BLOOD COUNT 6.4 10^3/uL (4.0-10.0)
[2020-06-13 11:56] LABS: INR 1.41; PROTHROMBIN TIME 17.6 SECONDS (12.5-14.3)
[2020-06-13 12:12] LABS: ALBUMIN 2.9 GM/DL (3.2-5.2); ALT/SGPT 26 U/L (12-78); BILIRUBIN,TOTAL 2.5 MG/DL (0.2-1.0); BLOOD UREA NITROGEN 11 MG/DL (7-18); CARBON DIOXIDE LEVEL 24 MEQ/L (21-32); CHLORIDE LEVEL 102 MEQ/L (98-107); CREATININE FOR GFR 0.91 MG/DL (0.55-1.30); GLOMERULAR FILTRATION RATE > 60.0 (>45); GLUCOSE, FASTING 103 MG/DL (70-100); POTASSIUM SERUM 4.1 MEQ/L (3.5-5.1); SODIUM LEVEL 133 MEQ/L (136-145); TOTAL PROTEIN 6.9 GM/DL (6.4-8.2)
== END ==
LOC: M SHH 11:13
PROVIDERS: ATTEND Internal Medicine Gastroenterology
DX: K70.30 Alcoholic cirrhosis of liver without ascites (principal); K72.90 Hepatic failure, unspecified without coma; C18.4 Malignant neoplasm of transverse colon; I85.00 Esophageal varices without bleeding

== ENCOUNTER → 2020-08-25 | Outpatient (REF) | payer OTHER ==
[2020-08-25 18:57] LABS: PERCENT SATURATION 15.1 % (13.2-45.0)
== END ==
LOC: M LAB REF 16:55
PROVIDERS: ATTEND Internal Medicine Nephrology
DX: D50.9 Iron deficiency anemia, unspecified (principal)

== ENCOUNTER → 2020-11-24 | Outpatient (CLI) | payer BC, OTHER ==
--- NOTE | 2020-11-24 07:59 | REP ---
INDICATION: CIRRHOSIS COMPARISON: CT dated 05/01/2020 TECHNIQUE: Real time gonzalez scale ultrasound examination using curved array transducer. FINDINGS: Liver shows heterogeneous coarsened echotexture along with dilated main portal vein to 16 mm as well as recanalized umbilical vein consistent with the given history of cirrhosis and portal hypertension. No focal hepatic lesions are identified. Pancreas is incompletely evaluated due to interposed bowel gas. The gallbladder is normal and without gallstones, wall thickening, or pericholecystic fluid. No biliary ductal dilatation is appreciated and the common bile duct measures 6.9 mm diameter. Right kidney is normal in reniform shape without hydronephrosis and measures 12.2 x 5.3 x 4.7 cm. No ascites in the visualized right upper quadrant. IMPRESSION: Findings described above consistent with cirrhosis and portal hypertension similar to CT of the abdomen dated 05/01/2020. <Electronically signed by Jair Holland > 11/24/20 [id number]
== END ==
LOC: M RAD 07:02
PROVIDERS: ATTEND Internal Medicine Gastroenterology
DX: K70.30 Alcoholic cirrhosis of liver without ascites (principal); C18.4 Malignant neoplasm of transverse colon; K57.30 Diverticulosis of large intestine without perforation or abscess without bleeding; K44.9 Diaphragmatic hernia without obstruction or gangrene; K72.90 Hepatic failure, unspecified without coma; L50.9 Urticaria, unspecified

== ENCOUNTER → 2021-01-05 | Outpatient (REF) | payer BC, OTHER ==
[2021-01-05 19:21] LABS: PERCENT SATURATION 26.2 % (13.2-45.0)
== END ==
LOC: M LAB REF 17:37
PROVIDERS: ATTEND Internal Medicine Nephrology
DX: D50.9 Iron deficiency anemia, unspecified (principal)

== ENCOUNTER → 2021-11-30 | Outpatient (CLI) | payer BC, OTHER ==
[~2021-11-30] MED LIST changes: +ALBU2.5V10 INH; -ALBU83IN INH; -D31000TA2 PO; +FURO20TA2 PO; +LACT10SO3 PO; +LEVO1TAB38 PO; -LEVO250T12 PO; +NICOINH INH; +POTA-150 PO; -POTA10TA17 PO; +SPIR-10 PO; +VITA100093 PO
== END ==
LOC: M LABSMTC 10:15
PROVIDERS: ATTEND Anesthesiology
DX: Z01.818 Encounter for other preprocedural examination (principal); Z11.52 Encounter for screening for COVID-19

== ENCOUNTER 2021-12-02 10:28 | Day surgery (SDC) | payer BC, OTHER ==
[~2021-12-02] VITALS: Ht 167.6 cm; Wt 66.7 kg
[~2021-12-02 10:28] MED LIST changes: +BSS IRRIG/VANCO(10MG)/TOBRA(5MG)/EPINEPH(1:1000-0.5CC)500ML BAG-ORONLY IR ONE; +LIDOCAINE 1% SDV 5ML VIAL As Ordered ONE; +LIDOCAINE 3.5 % 1ML OPHTH TOPICAL GEL OU ONE; +OFLOXACIN 0.3 % (OCUFLOX) OPTH SOL 5ML OD ONE; +PHENYLEPHRINE HCL 10 % OPHTH. SOL 5ML OD PRN
[2021-12-02] MEDS ORDERED: MIDAZOLAM INJ 2MG/2ML VIAL (J2250 PER 1MG) As Ordered ONE (10:35)
[2021-12-02] MEDS ORDERED: fentaNYL 100 MCG/2 ML INJECTION As Ordered ONE (10:39)
[2021-12-02] MEDS: TROPICAMIDE 1% OPHTH SOLN 2ML OD SCH ×3 (10:57→11:12)
[2021-12-02] MEDS: CYCLOPENTOLATE 1% OPHTH SOLN 2 ML BTL OD SCH ×3 (10:57→11:12)
[2021-12-02] MEDS: PHENYLEPHRINE 2.5% OPHTH SOL 2ML OD SCH ×3 (10:57→11:12)
[2021-12-02] MEDS ORDERED: CEFUROXIME 1MG/0.1ML INTRACAMERAL INJ As Ordered ONE (11:36)
[2021-12-02 12:03] VITALS: BP 110/66
== END 2021-12-02 12:35 | disposition home or self-care (01) ==
LOC: M SDC 10:28
PROVIDERS: ATTEND Ophthalmology
DX: H25.11 Age-related nuclear cataract, right eye (principal); K74.60 Unspecified cirrhosis of liver; K21.9 Gastro-esophageal reflux disease without esophagitis; J44.9 Chronic obstructive pulmonary disease, unspecified; Z87.891 Personal history of nicotine dependence; Z88.2 Allergy status to sulfonamides; Z88.1 Allergy status to other antibiotic agents; Z79.51 Long term (current) use of inhaled steroids; Z79.899 Other long term (current) drug therapy
CPT/HCPCS: 66982; J0697; J2250; J3010

== ENCOUNTER → 2021-12-29 | Outpatient (CLI) | payer BC, OTHER ==
[~2021-12-29] MED LIST changes: -BSS IRRIG/VANCO(10MG)/TOBRA(5MG)/EPINEPH(1:1000-0.5CC)500ML BAG-ORONLY IR ONE; +CARV6.25 PO; -LIDOCAINE 1% SDV 5ML VIAL As Ordered ONE; -LIDOCAINE 3.5 % 1ML OPHTH TOPICAL GEL OU ONE; -OFLOXACIN 0.3 % (OCUFLOX) OPTH SOL 5ML OD ONE; -PHENYLEPHRINE HCL 10 % OPHTH. SOL 5ML OD PRN; +XIFA550T PO
== END ==
LOC: M LABSMTC 11:42
PROVIDERS: ATTEND Anesthesiology
DX: Z01.812 Encounter for preprocedural laboratory examination (principal); Z20.822 Contact with and (suspected) exposure to COVID-19

== ENCOUNTER 2021-12-30 12:28 | Day surgery (SDC) | payer BC, OTHER ==
[~2021-12-30] VITALS: Ht 167.6 cm; Wt 69.4 kg
[~2021-12-30 12:28] MED LIST changes: +BSS IRRIG/VANCO(10MG)/TOBRA(5MG)/EPINEPH(1:1000-0.5CC)500ML BAG-ORONLY IR ONE; +CEFUROXIME 1MG/0.1ML INTRACAMERAL INJ As Ordered ONE; +CYCLOPENTOLATE 1% OPHTH SOLN 2 ML BTL OS SCH; +LIDOCAINE 1% SDV 5ML VIAL As Ordered ONE; +LIDOCAINE 3.5 % 1ML OPHTH TOPICAL GEL OU ONE; +OFLOXACIN 0.3 % (OCUFLOX) OPTH SOL 5ML OS ONE; +PHENYLEPHRINE 2.5% OPHTH SOL 2ML OS SCH; +PHENYLEPHRINE HCL 10 % OPHTH. SOL 5ML OS PRN; +TROPICAMIDE 1% OPHTH SOLN 2ML OS SCH
[2021-12-30] MEDS ORDERED: ACETAMINOPHEN 325 MG TAB PO PRN (13:20)
[2021-12-30] MEDS ORDERED: ONDANSETRON 4MG TAB PO PRN (13:20)
[2021-12-30] MEDS ORDERED: POVIDONE-IODINE 5% OPHTH PREP SOL 30ML As Ordered ONE (13:24)
[2021-12-30] MEDS ORDERED: fentaNYL 100 MCG/2 ML INJECTION As Ordered ONE (13:41)
[2021-12-30] MEDS ORDERED: MIDAZOLAM INJ 2MG/2ML VIAL (J2250 PER 1MG) As Ordered ONE (13:41)
[2021-12-30 14:10] VITALS: BP 104/58
== END 2021-12-30 14:12 | disposition home or self-care (01) ==
LOC: M SDC 12:28
PROVIDERS: ATTEND Ophthalmology
DX: H25.12 Age-related nuclear cataract, left eye (principal); K74.60 Unspecified cirrhosis of liver; J44.9 Chronic obstructive pulmonary disease, unspecified; Z85.09 Personal history of malignant neoplasm of other digestive organs; Z79.51 Long term (current) use of inhaled steroids; Z79.899 Other long term (current) drug therapy; F41.9 Anxiety disorder, unspecified; Z88.2 Allergy status to sulfonamides; Z88.1 Allergy status to other antibiotic agents
CPT/HCPCS: 66984; 92015; J0697; J2250; J3010

== ENCOUNTER 2024-01-13 19:34 | Emergency (ER) | payer MEDICARE, BC ==
[~2024-01-13] VITALS: Ht 167.6 cm; Wt 72.1 kg
[~2024-01-13 19:34] MED LIST changes: -BSS IRRIG/VANCO(10MG)/TOBRA(5MG)/EPINEPH(1:1000-0.5CC)500ML BAG-ORONLY IR ONE; -CEFUROXIME 1MG/0.1ML INTRACAMERAL INJ As Ordered ONE; -CYCLOPENTOLATE 1% OPHTH SOLN 2 ML BTL OS SCH; -LIDOCAINE 1% SDV 5ML VIAL As Ordered ONE; -LIDOCAINE 3.5 % 1ML OPHTH TOPICAL GEL OU ONE; -OCTR100I SC; +OCTR100I11 SC; -OFLOXACIN 0.3 % (OCUFLOX) OPTH SOL 5ML OS ONE; -PHENYLEPHRINE 2.5% OPHTH SOL 2ML OS SCH; -PHENYLEPHRINE HCL 10 % OPHTH. SOL 5ML OS PRN; -TROPICAMIDE 1% OPHTH SOLN 2ML OS SCH
[2024-01-13 19:38] VITALS: BP 130/73; TEMP 97; O2SAT 95
[2024-01-13] MEDS: ACETAMINOPHEN 325 MG TAB PO ONE (20:05)
== END 2024-01-13 20:56 | disposition home or self-care (01) ==
LOC: M ED 19:34
DX: S52.322A Displaced transverse fracture of shaft of left radius, initial encounter for closed fracture (principal); W19.XXXA Unspecified fall, initial encounter; Y92.009 Unspecified place in unspecified non-institutional (private) residence as the place of occurrence of the external cause; Y93.9 Activity, unspecified; Y99.9 Unspecified external cause status; J45.909 Unspecified asthma, uncomplicated; I10 Essential (primary) hypertension; K74.60 Unspecified cirrhosis of liver; Z85.038 Personal history of other malignant neoplasm of large intestine; Z79.899 Other long term (current) drug therapy; Z88.2 Allergy status to sulfonamides; Z88.1 Allergy status to other antibiotic agents; Z91.89 Other specified personal risk factors, not elsewhere classified

== ENCOUNTER → 2024-01-27 | Outpatient (REF) | payer MEDICARE, BC ==
[2024-01-27 19:13] LABS: ALBUMIN 3.8 G/DL (3.2-5.2); BILIRUBIN,DIRECT 0.7 MG/DL (<0.4); BILIRUBIN,TOTAL 1.7 MG/DL (0.3-1.2); TOTAL PROTEIN 7.4 G/DL (5.7-8.2)
== END ==
LOC: M LAB REF 17:09
PROVIDERS: ATTEND Internal Medicine Nephrology
DX: N17.9 Acute kidney failure, unspecified (principal); K70.31 Alcoholic cirrhosis of liver with ascites

== ENCOUNTER → 2024-08-13 | Outpatient (CLI) | payer MEDICARE, BC ==
[~2024-08-13] MED LIST changes: -ADV250INH INH; +ADVA1AER9 INH; +ISOVUE-370 76% 100ML VIAL As Ordered ONE; -LACT10SO3 PO; +LACT10SO94 PO
== END ==
LOC: M RAD 14:24
PROVIDERS: ATTEND Internal Medicine Gastroenterology
DX: Z01.812 Encounter for preprocedural laboratory examination (principal); K70.30 Alcoholic cirrhosis of liver without ascites; K57.30 Diverticulosis of large intestine without perforation or abscess without bleeding; I70.0 Atherosclerosis of aorta; M85.89 Other specified disorders of bone density and structure, multiple sites
CPT/HCPCS: 74177; Q9967